=== PATIENT | female | born 1965 | race Caucasian/White ===

== ENCOUNTER 2016-07-30 12:46 | Emergency (ER) | payer OTHER ==
[~2016-07-30 12:46] MED LIST: ANT25 PO; ASPI81TA28 PO; BUPR-102 PO; GLAT1INJ INJ; GLC500 PO; HYDR-3785 PO; IBUP-1050 PO; LISI10TA PO; LORA-741 PO; ONDA4TAB46 PO; OXYC1TAB3 PO; ULT50 PO; ZNF4 PO
[2016-07-30 12:49] VITALS: TEMP 37.4; Ht 162.6 cm
[2016-07-30] MEDS ORDERED: OXYCODONE HCL IR 5 MG TAB (IMMEDIATE RELEASE) PO STA (13:15)
--- NOTE | 2016-07-30 14:00 | EMERGENCY ROOM VISIT NOTE ---
History First contact with patient: 13:03 Chief Complaint: FALL Stated Complaint: FELL DOWN STEPS, LEFT FOOT PAIN History of Present Illness The patient is a 50 year old female who presents to the Emergency Room via private vehicle with complaints of "fell down steps, left foot pain". The patient states that around noon time, she was at home carrying a basket of laundry down the steps to her basement. She states the basket was in front of her, and she actually knocked something off of the wall or step which she tripped over and then fell down the steps. She states that she struck her head and shoulder off of the wall and also hurt her foot and hip. She notes a headache that she rates as a 6/10, right lateral neck pain, right shoulder pain , right hip pain and left foot/ankle pain. Her tetanus is up-to-date. She does have associated nausea, but denies loss of consciousness or vomiting. Review of Systems A complete 10-point Review of Systems was discussed with the patient, with pertinent positives and negatives listed in the History of Present Illness. All remaining Review of Systems questions can be considered negative unless otherwise specified. Past Medical/Surgical History Medical Problems: (1) Anxiety (2) Chest pain (3) Diabetes mellitus (4) Dyslipidemia (5) h/o insulin resistance (6) History of migraine (7) History of palpitations (8) HTN (hypertension) (9) MS (multiple sclerosis) Surgical Problems: (1) 3 c-sections (2) H/O tubal ligation (3) Hx of cardiac cath Family History Diabetes mellitus FH: cancer FATHER Hypertension FATHER Pacemaker MATERNAL AUNT Social History Smoking Status: Former Smoker Alcohol Use: occasionally Marital Status: Housing Status: lives with family Occupation Status: disabled Current/Historical Medications Scheduled Aspirin (Aspirin Ec), 81 MG PO DAILY Bupropion Hcl (Smoking [place]eterre (Bupropion Hcl Sr), 150 MG PO DAILY Glatiramer Acetate (Copaxone), 40 MG INJ 3XWK Ibuprofen (Advil), 200-600 MG PO Q4H Lisinopril (Prinivil), 20 MG PO DAILY Metformin HCl (Metformin HCl), 500 MG PO DAILY Scheduled PRN Lorazepam (Ativan), 0.5 MG PO TID PRN for Anxiety Meclizine HCl (Meclizine HCl), 25 MG PO TID PRN for Dizziness or Vertigo Ondansetron Hcl (Zofran), 4 MG PO Q8 PRN for Nausea Oxycodone Ir (Roxicodone Ir), 1-2 TAB PO Q4H PRN for Severe Pain Tizanidine (Zanaflex ), 4 MG PO Q6 PRN for Muscle Spasms Tramadol HCl (Tramadol HCl), 50 MG PO Q6H PRN for Pain Allergies Coded Allergies: Hydromorphone (Verified Allergy, Severe, SHORTNESS OF BREATH, 04/11/16) Carbamazepine (Verified Allergy, Unknown, unknown, 04/11/16) INFO IS FROM [facility], PT DOES NOT REMEMBER Metformin (Verified Allergy, Unknown, UNKNOWN, 04/11/16) Terbutaline (Verified Allergy, Unknown, 04/11/16) Physical Exam Vital Signs Date Time Temp Pulse Resp B/P Pulse Ox O2 Delivery O2 Flow Rate FiO2 07/30/16 17:36 88 20 140/84 98 07/30/16 16:56 105 20 138/84 94 Room Air 07/30/16 15:25 110 20 153/105 95 Room Air 07/30/16 12:49 37.4 110 16 160/101 95 Room Air Physical Exam VITAL SIGNS - Vital signs and nursing notes were reviewed. Patient is afebrile , slightly hypertensive at 160/101, tachycardic rate of 110 bpm and is saturating well on room air 95%. GENERAL -50-year-old female appearing her stated age who is in no acute distress. Communicates well with provider and answers questions appropriately. SKIN - Without rashes. No breaks in the integument. HEAD - NC/AT. No evidence of trauma to the head. No step-off deformities. No raccoon eyes. Negative Arroyo sign. EYES - PERRL with EOMI bilaterally. Sclera anicteric. Palpebral conjunctiva pink and moist with no injection noted. EARS - No deformities of external structures noted on gross examination bilaterally. No pain elicited with palpation of the tragus bilaterally. External auditory canals without discharge or otorrhea. Tympanic membranes pearly beaulieu without retraction or bulging. No fluid or purulent material visualized behind the TM. Handle of malleus, umbo, cone of light, pars tensa/ flaccid all easily visualized. No hemotympanum. NOSE - Midline and without cyanosis. No epistaxis or purulent drainage noted. Septum midline without deviation or septal hematoma noted. MOUTH/OROPHARYNX - Without perioral cyanosis. Buccal mucosa pink and moist and without leukoplakia. Tongue midline with equal elevation of palate bilaterally. No tonsillar hypertrophy, erythema, or exudates noted. Fair dentition noted. NECK - Neck with FROM. Supple to palpation. No lymphadenopathy noted. No nuchal rigidity. There is right superior trapezius tenderness on palpation. No C-spine tenderness. There is no tenderness of the thoracic or lumbar spine. LUNGS - Chest wall symmetric without accessory muscle use, intercostals retractions, or central cyanosis. Normal vesicular breath sounds CTA B/L. No wheezes, rales, or rhonchi appreciated. CARDIAC - RRR with S1/S2. No murmur, rubs, or gallops appreciated. MUSCULOSKELETAL: There is tenderness to palpation overlying the right shoulder with range of motion but minimal at rest. There is also tenderness to palpation overlying the right bicep, right hip as well as left foot/ankle. No gross deformities to inspection. ABDOMEN - Abdominal contour without pulsations or visible masses.No tenderness, palpable masses, hepatosplenomegaly, or ascites noted. EXTREMITIES - No clubbing or peripheral cyanosis. No pretibial edema present. Neurovascular deficits. +5/5 strength noted in UE/LE bilaterally. NEUROLOGIC - Cranial nerves II through XII grossly intact. Sensory intact to light touch throughout. Patellar reflexes +2/4. PSYCH - A&Ox3 and cooperates fully with examiner. Pt is very pleasant and interacts well with examiner. Medical Decision & Procedures ER Provider Diagnostic Interpretation: [~ rep ct add3]] RIGHT HUMERUS MIN 2 VIEWS ROUTINE CLINICAL HISTORY: Right humeral pain status post trauma COMPARISON: None. DISCUSSION: 2 views reveal no fractures or dislocations. IMPRESSION: No fractures or dislocations identified. Electronically signed by: Pierce Dominguez M.D. 07/30/2016 4:11 PM Dictated Date/Time: 07/30/2016 4:10 PM LEFT ANKLE MIN 3 VIEWS ROUTINE CLINICAL HISTORY: Left ankle pain s/p fall trauma. Pain. COMPARISON: None. DISCUSSION: Tiny avulsion anterior superior talus. There is no evidence for soft tissue swelling. Heel spur. Ankle mortise is aligned anatomically. Medial and lateral malleolus are intact. IMPRESSION: Tiny avulsion anterior superior talus. 2. Heel spur. Electronically signed by: Joey Aguilera M.D. 07/30/2016 2:21 PM Dictated Date/Time: 07/30/2016 2:[address] SCAN OF THE CERVICAL SPINE CLINICAL HISTORY: Trauma. Fall. COMPARISON STUDY: CT scan of the neck dated 06/26/2014. TECHNIQUE: CT scan of the cervical spine is performed from the skull base to the upper thoracic spine. Images are reviewed in the axial, sagittal, and coronal planes. IV contrast was not administered for this examination. CT DOSE: Reported separately under the concurrently performed CT scan of the brain. FINDINGS: Skeletal structures: The skeletal structures are well mineralized. There is no evidence of fracture or subluxation involving the cervical spine. Vertebral body height and alignment are maintained. There is straightening of the cervical lordosis. The odontoid process and lateral masses are intact. The atlantoaxial articulation is preserved noting mild productive degenerative change. The spinous processes appear intact. There is complete fusion of the left facet joint at C2-C3. Intervertebral discs: The disc spaces are well maintained. Central canal: Widely patent. Soft tissues: The prevertebral and paraspinous soft tissues are within normal limits. Calvarium: The visualized calvarium at the skull base appears intact. Brain parenchyma: Partially visualized brain parenchyma the skull base is within normal limits. Sinuses and mastoids: The visualized paranasal sinuses are clear. The mastoid air cells are well pneumatized. Lung apices: Clear as visualized. IMPRESSION: There is no evidence of fracture or subluxation involving the cervical spine. Electronically signed by: Feliciano Gaspar M.D. 07/30/2016 2:02 PM Dictated Date/Time: 07/30/2016 2:00 PM LEFT FOOT MIN 3 VIEWS ROUTINE CLINICAL HISTORY: Left foot pain s/p fall trauma. Pain. COMPARISON: None. DISCUSSION: Tiny avulsion anterior superior talus. All remaining osseous structures are unremarkable. Heel spur is present. IMPRESSION: 1. Tiny avulsion anterior superior talus. 2. Heel spur. Electronically signed by: Joey Aguilera M.D. 07/30/2016 2:20 PM Dictated Date/Time: 07/30/2016 2:[address] SCAN OF THE BRAIN WITHOUT IV CONTRAST CLINICAL HISTORY: Fall. COMPARISON STUDY: MRI of the brain dated 06/20/2014. TECHNIQUE: Unenhanced axial CT scan of the brain is performed from the vertex to the skull base. CT DOSE: 1129.00 mGy.cm FINDINGS: Brain parenchyma: There are age-related involutional changes noting mild to moderate patchy foci of low-attenuation within the subcortical and periventricular white matter. This is similar to previous. There is no hemorrhage, mass effect, or evidence of acute territorial ischemia by CT criteria. Beaulieu-white matter is preserved. No extra-axial fluid collection is seen. Ventricles, sulci, cisterns: Prominent secondary to involutional change. Intracranial vasculature: Normal as visualized. Calvarium: There is no depressed calvarial fracture. Sinuses and mastoids: The visualized paranasal sinuses are clear. The mastoid air cells are well pneumatized. Orbits: The bony orbits are grossly intact. IMPRESSION: No acute intracranial abnormality. Electronically signed by: Feliciano Gaspar M.D. 07/30/2016 2:00 PM Dictated Date/Time: 07/30/2016 1:58 PM RIGHT HIP UNILATERAL 2 VIEWS CLINICAL HISTORY: Right hip pain s/p fall Right trauma. Pain. COMPARISON: None. DISCUSSION: Moderate degenerative narrowing right hip joint space. No evidence for fracture or acetabular protrusion. No acute bony abnormality. There is no evidence for soft tissue swelling. IMPRESSION: Moderate degenerative change. No acute bony abnormality. Electronically signed by: Joey Aguilera M.D. 07/30/2016 2:18 PM Dictated Date/Time: 07/30/2016 2:18 PM RIGHT SHOULDER 3 VIEWS HISTORY: Right shoulder pain s/p fall Right COMPARISON: None. FINDINGS: There is no fracture or dislocation. Punctate calcification at the distal supraspinatus tendon consistent with calcific tendinitis. Mild degenerative changes at the acromioclavicular and glenohumeral joint. The right clavicle is intact. No radiopaque foreign bodies. IMPRESSION: Mild degenerative changes within the right shoulder. No fractures. Electronically signed by: Dedrick Ramsey M.D. 07/30/2016 2:21 PM Dictated Date/Time: 07/30/2016 2:17 PM Medications Administered Medications (Trade) Dose Ordered Sig/Haritha Route Start Time Stop Time Status Last Admin Dose Admin Oxycodone HCl (Roxicodone Immediate Rel Tab) 10 mg NOW STAT PO 07/30/16 13:15 07/30/16 13:20 DC 07/30/16 13:26 10 MG Acetaminophen (Tylenol Tab) 500 mg NOW STAT PO 07/30/16 16:44 07/30/16 16:45 DC 07/30/16 16:54 500 MG Ondansetron HCl (ZOFRAN ODT 4MG Home Pack) 1 homepack STK-MED ONCE .ROUTE 07/30/16 17:26 07/30/16 17:29 DC 07/30/16 17:30 1 HOMEPACK Ondansetron HCl (Zofran Odt) 4 mg STK-MED ONCE .ROUTE 07/30/16 17:26 07/30/16 17:30 DC 07/30/16 17:26 4 MG Medical Decision Patient was seen and evaluated as above. After obtaining a thorough history and physical examination it was apparent the patient had suffered a fall down steps and was experiencing a headache, neck pain, right shoulder pain, hip pain and foot/ankle pain. For this reason imaging was obtained of these regions. Benefits versus risk was discussed to include radiation exposure. The decision was made to scan. She was given ice packs, and OxyIR for pain. She is reevaluated to be feeling warm after treatment with the OxyIR. CT of the head reveals chronic change was was discussed with the patient, neck unremarkable for acute process, shoulder, hip, were essentially unremarkable for acute process. Calcific tendinitis noted. There was a small talar avulsion of the left foot. She was educated upon FINDINGS. She was fitted with a gel ankle splint, given crutches but notes that she had extreme right shoulder pain. I informed her that using only one crutch is a fall risk, and having a right sling is also a risk to use with a crutch. She did ask for a walker, and this was tried but also is very difficult with the right shoulder. She then elected use a wheelchair, and notes that she has one that she can use at home from her family. She did have additional pain extending into the distal humerus of the right arm therefore radiograph was obtained and this was also negative for acute process. The patient at this time and believe is experiencing a concussion, right shoulder calcific tendinitis/acute injury that may be ligamentous or muscular in nature, as well as a left talar avulsion. She was provided the number to follow-up with orthopedic iverson, and also a few others in case she was unable to get into them secondary to insurance or time. She was educated upon management, was given an arm sling, gel ankle splint and is to use a wheelchair, had questions answered prior to discharge, and was discharged home in good condition. Prior to departure the patient did request to have soda, and she noted that she felt warm. Her temperature was repeated and it was 36.9. This is normal. She denies any chest pain or shortness of breath. She was then given a cold soda at her request and then vomited. She was given somewhat Zofran as well as a home pack. She noted she felt better after vomiting. She was discharged home in good condition. She was also given Tylenol prior to departure. In the evaluation and treatment of this patient, the following differential diagnoses were considered: Concussion, Contrecoup Injury, Brain Tumor, Depression, Encephalitis, Hypothyroidism, Meningitis, CVA, TIA, Migraine, Cluster Headache, Intracranial Abnormality, Intracranial Hemorrhage, Subdural Hematoma, Subarachnoid Hemorrhage, Hydrocephalus, Shoulder Contusion, Shoulder Fracture, Shoulder Dislocation, Thoracic Outlet Syndrome, Adhesive Capsulitis, Rotator Cuff Tear, Proximal Clavicle Head Fracture, Apical Pneumonia, Pneumothorax, Hemothorax, or TB, Lisfranc Fracture, Talus Fracture, Tarsal Fracture, Foot Sprain, among others. Impression Primary Impression: Fall Additional Impressions: Closed head injury Shoulder pain, left Avulsion fracture of talus Calcific tendonitis of right shoulder Departure Information Dispostion Home / Self-Care Condition GOOD Referrals Tarun Gill III, M.D. (PCP) Cristopher Trujillo D.O. Sherbondy, Paul S., M.D. Suhey, Paul V., D.O. Patient Instructions My [facility] Additional Instructions You have been treated in the Emergency Department for a Closed Head Injury. You have received pain medicine in the emergency department which impairs your ability to operate a vehicle. It is illegal for you to drive after receiving these medicines. For pain control, you can use the following [id number] medicines (if >12 yo): - Regular strength (325mg/tab) Tylenol (acetaminophen) 2 tabs every 4-6 hours as needed. Do not exceed 12 tablets in a 24 hour period. Avoid taking more than 4 grams (4000 mg) of Tylenol per day. This includes any other sources of acetaminophen you may take on a regular basis. - Regular strength (200 mg/tab) Advil (ibuprofen) 1-2 tabs every 4-6 hours as needed. Do not exceed a dose of 3200 mg per day. You should relax in a quiet, dark place for the rest of the day. Avoid any possible triggers including: cigarette smoke, caffeine, nicotine, chocolate, wine, beer, loud noises or music, or bright lights. You should schedule a follow-up appointment in 2-3 days with your Primary Care Provider or established Neurologist for further evaluation and treatment of your Headache. Return to the Emergency Department if your current symptoms worsen despite treatment course outlined above, or if you develop any of the following symptoms : intractable pain despite aforementioned treatment course, visual disturbances , loss of vision, unilateral weakness or facial drooping, slurring of speech, loss of coordination, or loss of consciousness. SHOULDER: You have been treated in the Emergency Department for Shoulder Pain. If this is a recent injury (<24 hrs), ice can be applied to the area of pain for the first 3 days to help decrease pain and inflammation. You have been provided the number for an Orthopaedic Surgeon. You should call this number as soon as possible to establish a follow-up visit from today's Emergency Department visit. Keep the shoulder brace/sling in place until evaluated by Orthopedics. Continue to perform range of motion exercises several times per day to help prevent the development of a "frozen shoulder". (Dr. Hernandez) Return to the Emergency Department if your current symptoms worsen despite treatment course outlined above, or if you develop any of the following symptoms : intractable pain despite aforementioned treatment course or new onset of numbness or tingling of the arm. FOOT/ANKLE: You have been treated in the Emergency Department for a left snall talus avulsion. You have been provided the number for an Orthopaedic Surgeon. You should call this number as soon as possible to establish a follow-up visit from today's Emergency Department visit. (DR. HERNANDEZ) Keep the ankle brace/splint in place until cleared by Orthopedics. Use the wheel chair to keep ALL weight off of the ankle until weight bearing is tolerable. Return to the Emergency Department if your current symptoms worsen despite treatment course outlined above, or if you develop any of the following symptoms : intractable pain despite aforementioned treatment course or new onset of numbness or tingling of the foot. Please return to the emergency department with any new/concerning symptoms. Problem Qualifiers
--- NOTE | 2016-07-30 14:04 | DIAGNOSTIC IMAGING REPORT ---
CT SCAN OF THE CERVICAL SPINE CLINICAL HISTORY: Trauma. Fall. COMPARISON STUDY: CT scan of the neck dated 06/26/2014. TECHNIQUE: CT scan of the cervical spine is performed from the skull base to the upper thoracic spine. Images are reviewed in the axial, sagittal, and coronal planes. IV contrast was not administered for this examination. CT DOSE: Reported separately under the concurrently performed CT scan of the brain. FINDINGS: Skeletal structures: The skeletal structures are well mineralized. There is no evidence of fracture or subluxation involving the cervical spine. Vertebral body height and alignment are maintained. There is straightening of the cervical lordosis. The odontoid process and lateral masses are intact. The atlantoaxial articulation is preserved noting mild productive degenerative change. The spinous processes appear intact. There is complete fusion of the left facet joint at C2-C3. Intervertebral discs: The disc spaces are well maintained. Central canal: Widely patent. Soft tissues: The prevertebral and paraspinous soft tissues are within normal limits. Calvarium: The visualized calvarium at the skull base appears intact. Brain parenchyma: Partially visualized brain parenchyma the skull base is within normal limits. Sinuses and mastoids: The visualized paranasal sinuses are clear. The mastoid air cells are well pneumatized. Lung apices: Clear as visualized. IMPRESSION: There is no evidence of fracture or subluxation involving the cervical spine. Electronically signed by: Feliciano Gaspar M.D. 07/30/2016 2:02 PM Dictated Date/Time: 07/30/2016 2:00 PM
--- NOTE | 2016-07-30 14:20 | DIAGNOSTIC IMAGING REPORT ---
RIGHT HIP UNILATERAL 2 VIEWS CLINICAL HISTORY: Right hip pain s/p fall Right trauma. Pain. COMPARISON: None. DISCUSSION: Moderate degenerative narrowing right hip joint space. No evidence for fracture or acetabular protrusion. No acute bony abnormality. There is no evidence for soft tissue swelling. IMPRESSION: Moderate degenerative change. No acute bony abnormality. Electronically signed by: Joey Aguilera M.D. 07/30/2016 2:18 PM Dictated Date/Time: 07/30/2016 2:18 PM
--- NOTE | 2016-07-30 14:21 | DIAGNOSTIC IMAGING REPORT ---
LEFT FOOT MIN 3 VIEWS ROUTINE CLINICAL HISTORY: Left foot pain s/p fall trauma. Pain. COMPARISON: None. DISCUSSION: Tiny avulsion anterior superior talus. All remaining osseous structures are unremarkable. Heel spur is present. IMPRESSION: 1. Tiny avulsion anterior superior talus. 2. Heel spur. Electronically signed by: Joey Aguilera M.D. 07/30/2016 2:20 PM Dictated Date/Time: 07/30/2016 2:19 PM
--- NOTE | 2016-07-30 14:22 | DIAGNOSTIC IMAGING REPORT ---
RIGHT SHOULDER 3 VIEWS HISTORY: Right shoulder pain s/p fall Right COMPARISON: None. FINDINGS: There is no fracture or dislocation. Punctate calcification at the distal supraspinatus tendon consistent with calcific tendinitis. Mild degenerative changes at the acromioclavicular and glenohumeral joint. The right clavicle is intact. No radiopaque foreign bodies. IMPRESSION: Mild degenerative changes within the right shoulder. No fractures. Electronically signed by: Dedrick Ramsey M.D. 07/30/2016 2:21 PM Dictated Date/Time: 07/30/2016 2:17 PM
--- NOTE | 2016-07-30 14:23 | DIAGNOSTIC IMAGING REPORT ---
LEFT ANKLE MIN 3 VIEWS ROUTINE CLINICAL HISTORY: Left ankle pain s/p fall trauma. Pain. COMPARISON: None. DISCUSSION: Tiny avulsion anterior superior talus. There is no evidence for soft tissue swelling. Heel spur. Ankle mortise is aligned anatomically. Medial and lateral malleolus are intact. IMPRESSION: Tiny avulsion anterior superior talus. 2. Heel spur. Electronically signed by: Joey Aguilera M.D. 07/30/2016 2:21 PM Dictated Date/Time: 07/30/2016 2:20 PM
--- NOTE | 2016-07-30 16:12 | DIAGNOSTIC IMAGING REPORT ---
RIGHT HUMERUS MIN 2 VIEWS ROUTINE CLINICAL HISTORY: Right humeral pain status post trauma COMPARISON: None. DISCUSSION: 2 views reveal no fractures or dislocations. IMPRESSION: No fractures or dislocations identified. Electronically signed by: Pierce Dominguez M.D. 07/30/2016 4:11 PM Dictated Date/Time: 07/30/2016 4:10 PM
[2016-07-30] MEDS ORDERED: ACETAMINOPHEN 500 MG TAB PO STA (16:44)
[2016-07-30] MEDS ORDERED: ONDANSETRON HOME PACK 4MG OD TAB ONE (17:26)
[2016-07-30] MEDS ORDERED: ONDANSETRON 4MG OD TAB ONE (17:26)
[2016-07-30] MEDS ORDERED: ONDANSETRON 4MG OD TAB PO STA (17:27)
[2016-07-30] MEDS ORDERED: ONDANSETRON HOME PACK 4MG OD TAB PO STA (17:27)
[2016-07-30 17:36] VITALS: BP 140/84; PULSE 88; O2SAT 98
== END 2016-07-30 17:39 | disposition home or self-care (01) ==
LOC: C.EDB 12:48 → C.EDD 17:39
DX: S09.90XA Unspecified injury of head, initial encounter (principal); M25.512 Pain in left shoulder; S92.152A Displaced avulsion fracture (chip fracture) of left talus, initial encounter for closed fracture; M75.31 Calcific tendinitis of right shoulder; W10.9XXA Fall (on) (from) unspecified stairs and steps, initial encounter; Y93.E2 Activity, laundry; Y99.8 Other external cause status; Y92.008 Other place in unspecified non-institutional (private) residence as the place of occurrence of the external cause; E11.9 Type 2 diabetes mellitus without complications; I10 Essential (primary) hypertension; G35 Multiple sclerosis; Z98.891 History of uterine scar from previous surgery; Z98.890 Other specified postprocedural states; Z98.51 Tubal ligation status; Z83.3 Family history of diabetes mellitus; Z82.49 Family history of ischemic heart disease and other diseases of the circulatory system; Z79.82 Long term (current) use of aspirin; Z79.84 Long term (current) use of oral hypoglycemic drugs; Z79.899 Other long term (current) drug therapy

== ENCOUNTER 2016-11-06 19:11 | Emergency (ER) | payer OTHER ==
[~2016-11-06] VITALS: Ht 160 cm; Wt 101.3 kg
[~2016-11-06 19:11] MED LIST changes: -HYDR-3785 PO
[2016-11-06 19:16] VITALS: TEMP 36.8; Ht 160 cm; Wt 101.3 kg
[2016-11-06] MEDS ORDERED: PROCHLORPERAZINE 5 MG/ML 2 ML VIAL IV STA (19:46)
[2016-11-06] MEDS ORDERED: SODIUM CHLORIDE 0.9% 1000ML 1,000 ML IV STA (19:46)
[2016-11-06] MEDS ORDERED: DiphenhydrAMINE HCL 50 MG/ML VIAL IV STA (19:46)
--- NOTE | 2016-11-06 19:51 | EMERGENCY ROOM VISIT NOTE ---
History First contact with patient: 19:35 Chief Complaint: HEADACHE Stated Complaint: HEADACHE, SICK IN STOMACH, LOW BACK PAIN History of Present Illness The patient is a 51 year old female who presents to the Emergency Room with complaints of headache. The patient has a history of multiple sclerosis. She also has a history of migraines. She states that she had right shoulder surgery last week. She states that she has had a headache for the last 3 days. She states that she vomited once. She states she also has low back pain. She denies any numbness, tingling, weakness in the extremities. She rates her discomfort an 8/10. She denies any fevers or chills. She denies any pain in her chest or trouble breathing. She denies any abdominal pain. She denies any loss of bowel or bladder control. She denies any urinary symptoms. Review of Systems A 10 system review of systems was completed with positives and pertinent negatives listed in the HPI. Past Medical/Surgical History Medical Problems: (1) Anxiety (2) Chest pain (3) Diabetes mellitus (4) Dyslipidemia (5) h/o insulin resistance (6) History of migraine (7) History of palpitations (8) HTN (hypertension) (9) MS (multiple sclerosis) Surgical Problems: (1) 3 c-sections (2) H/O tubal ligation (3) Hx of cardiac cath Family History Diabetes mellitus FH: cancer FATHER Hypertension FATHER Pacemaker MATERNAL AUNT Social History Smoking Status: Current Every Day Smoker Alcohol Use: occasionally Marital Status: Housing Status: lives with family Occupation Status: disabled Current/Historical Medications Scheduled Aspirin (Aspirin Ec), 81 MG PO DAILY Bupropion Hcl (Smoking [place] (Bupropion Hcl Sr), 150 MG PO DAILY Glatiramer Acetate (Copaxone), 40 MG INJ 3XWK Hydrochlorothiazide (Hydrochlorothiazide), 1 TAB PO DAILY Lisinopril (Prinivil), 20 MG PO DAILY Metformin HCl (Metformin HCl), 500 MG PO DAILY Scheduled PRN Hydrocodone/Acetaminophen 5MG/325MG ([place] 5MG/325MG), 1-2 TABLET PO Q4 PRN for Pain Hydroxyzine HCl (Hydroxyzine HCl), 25 MG PO Q6 PRN for Itching Ibuprofen (Advil), 200-600 MG PO Q4H PRN for Headache or Pain Lorazepam (Ativan), 0.5 MG PO TID PRN for Anxiety Meclizine HCl (Meclizine HCl), 25 MG PO TID PRN for Dizziness or Vertigo Ondansetron Hcl (Zofran), 4 MG PO Q8 PRN for Nausea Tizanidine (Zanaflex ), 4 MG PO Q6 PRN for Muscle Spasms Tramadol HCl (Tramadol HCl), 50 MG PO Q6H PRN for Pain Allergies Coded Allergies: Hydromorphone (Verified Allergy, Severe, SHORTNESS OF BREATH, 04/11/16) Carbamazepine (Verified Allergy, Unknown, unknown, 04/11/16) [place] [facility] [place]EM[place] Metformin (Verified Allergy, Unknown, UNKNOWN, 04/11/16) Terbutaline (Verified Allergy, Unknown, 04/11/16) Physical Exam Vital Signs Date Time Temp Pulse Resp B/P (MAP) Pulse Ox O2 Delivery O2 Flow Rate FiO2 11/06/16 22:33 76 18 149/84 96 11/06/16 20:49 70 18 154/89 95 Room Air 11/06/16 19:16 36.8 75 16 158/94 95 Room Air Physical Exam VITALS: Vitals are noted on the nurse's note and reviewed by myself. Vital signs stable. The patient is afebrile. She is not tachycardic or hypotensive. GENERAL: This is a 51-year-old female, in no acute distress, nondiaphoretic, well-developed well-nourished. SKIN: The skin was without rashes, erythema, edema, or bruising. There is no tenting of the skin. Capillary reflex less than 2 seconds. HEAD: Normocephalic atraumatic. EARS: External auditory canals clear, tympanic membranes pearly beaulieu without erythema or effusion bilaterally. EYES: Pupils equal round and reactive to light and accommodation. Conjunctivae without injection, sclerae without icterus. Extraocular movements intact. NOSE: Patent, turbinates without inflammation or discharge. MOUTH: Mucous membranes moist. Tonsils are not enlarged. Pharynx without erythema or exudate. Uvula midline. Airway patent. Tongue does not deviate. NECK: Supple without nuchal rigidity. No lymphadenopathy. No thyromegaly. Cervical spine is nontender. No JVD. HEART: Regular rate and rhythm without murmurs gallops or rubs. LUNGS: Clear to auscultation bilaterally without wheezes, rales or rhonchi. No retractions or accessory muscle use. ABDOMEN: Positive bowel sounds x 4. Soft, nontender, without masses or organomegaly. MUSCULOSKELETAL: No muscle atrophy, erythema, or edema noted. Full range of motion without joint tenderness in all extremities. There is mild tenderness to palpation to the lumbar spine. Normal gait. Strength 5/5 throughout. NEURO: Patient was alert and oriented to person place and time. Normal sensation to light and sharp touch. Deep tendon reflexes 2+ in the lower extremity is bilaterally. No focal neurological deficits. Medical Decision & Procedures ER Provider Diagnostic Interpretation: CT OF THE HEAD WITHOUT CONTRAST CLINICAL HISTORY: Headache and vomiting. COMPARISON STUDY: Head CT July 30, 2016. CT DOSE: 614.27 mGy.cm TECHNIQUE: Helical axial images of the head were obtained without IV contrast. Automated exposure control was utilized for the study. FINDINGS: No acute intracranial hemorrhage, midline shift or mass effect is present. Ventricular system is normal. Basilar cisterns are patent. There are no extra-axial collections. Beaulieu-white differentiation is maintained. There are no findings to suggest acute dural sinus thrombosis or acute territorial infarct. Scattered white matter hypodensities are similar to prior exam of July 30, 2016. There are no calvarial abnormalities. There is minimal mucosal thickening of the sinuses. Mastoid air cells are clear. IMPRESSION: No acute intracranial findings. [~ rep ct add3]] CHEST ONE VIEW PORTABLE CLINICAL HISTORY: Headache and vomiting. COMPARISON STUDY: Chest CT July 09, 2015. FINDINGS: Lung volumes are normal. There is no pneumothorax or pleural effusion. There is no evidence of pulmonary edema. Cardiomediastinal silhouette is normal. The appearance of the chest is unchanged. IMPRESSION: No acute cardiopulmonary findings. Laboratory Results 11/06/16 20:34 Red Blood Count 4.45, Mean Corpuscular Volume 84.0, Mean Corpuscular Hemoglobin 29.9, Mean Corpuscular Hemoglobin Concent 35.6, Mean Platelet Volume 9.4, Neutrophils (%) (Auto) 63.8, Lymphocytes (%) (Auto) 23.0, Monocytes (%) (Auto) 4.9, Eosinophils (%) (Auto) 7.7, Basophils (%) (Auto) 0.2, Neutrophils # (Auto) 5.33, Lymphocytes # (Auto) 1.92, Monocytes # (Auto) 0.41, Eosinophils # (Auto) 0.64, Basophils # (Auto) 0.02 11/06/16 20:34 Test 11/06/16 20:03 11/06/16 20:34 Urine Color YELLOW Urine Appearance CLEAR (CLEAR) Urine pH 5.5 (4.5-7.5) Urine Specific [place] 1.024 (1.000-1.030) Urine Protein NEG (NEG) Urine Glucose (UA) NEG (NEG) Urine Ketones NEG (NEG) Urine Occult Blood 3+ (NEG) Urine Nitrite NEG (NEG) Urine Bilirubin NEG (NEG) Urine Urobilinogen NEG (NEG) Urine Leukocyte Esterase NEG (NEG) Urine WBC (Auto) 1-5 /hpf (0-5) Urine RBC (Auto) 5-10 /hpf (0-4) Urine Hyaline Casts (Auto) 1-5 /lpf (0-5) Urine Epithelial Cells (Auto) >30 /lpf (0-5) Urine Bacteria (Auto) NEG (NEG) Urine Yeast (Auto) (NONE PRSENT) White Blood Count 8.35 K/uL (4.8-10.8) Red Blood Count 4.45 M/uL (4.2-5.4) Hemoglobin 13.3 g/dL (12.0-16.0) Hematocrit 37.4 % (37-47) Mean Corpuscular Volume 84.0 fL (80-100) Mean Corpuscular Hemoglobin 29.9 pg (25-34) Mean Corpuscular Hemoglobin Concent 35.6 g/dl (32-36) Platelet Count 300 K/uL (130-400) Mean Platelet Volume 9.4 fL (7.4-10.4) Neutrophils (%) (Auto) 63.8 % Lymphocytes (%) (Auto) 23.0 % Monocytes (%) (Auto) 4.9 % Eosinophils (%) (Auto) 7.7 % Basophils (%) (Auto) 0.2 % Neutrophils # (Auto) 5.33 K/uL (1.4-6.5) Lymphocytes # (Auto) 1.92 K/uL (1.2-3.4) Monocytes # (Auto) 0.41 K/uL (0.11-0.59) Eosinophils # (Auto) 0.64 K/uL (0-0.5) Basophils # (Auto) 0.02 K/uL (0-0.2) RDW Standard Deviation 42.1 fL (36.4-46.3) RDW Coefficient of Variation 13.8 % (11.5-14.5) Immature Granulocyte % (Auto) 0.4 % Immature Granulocyte # (Auto) 0.03 K/uL (0.00-0.02) Prothrombin Time 10.3 SECONDS (9.0-12.0) Prothromb Time International Ratio 1.0 (0.9-1.1) Activated Partial Thromboplast Time 28.7 SECONDS (21.0-31.0) Partial Thromboplastin Ratio 1.1 Anion Gap 9.0 mmol/L (3-11) Est Creatinine Clear Calc Drug Dose 105.0 ml/min Estimated GFR () 112.4 Estimated GFR (Non- 97.0 BUN/Creatinine Ratio 13.3 (10-20) Calcium Level 9.2 mg/dl (8.5-10.1) Total Bilirubin 0.4 mg/dl (0.2-1) Aspartate Amino Transf (AST/SGOT) 16 U/L (15-37) Alanine Aminotransferase (ALT/SGPT) 18 U/L (12-78) Alkaline Phosphatase 114 U/L (45-117) Total Protein 7.7 gm/dl (6.4-8.2) Albumin 3.7 gm/dl (3.4-5.0) Globulin 4.0 gm/dl (2.5-4.0) Albumin/Globulin Ratio 0.9 (0.9-2) Medications Administered Medications (Trade) Dose Ordered Sig/Haritha Route Start Time Stop Time Status Last Admin Dose Admin Sodium Chloride 1,000 ml @ 999 mls/hr Q1H1M STAT IV 11/06/16 19:46 11/06/16 20:46 DC 11/06/16 20:45 999 MLS/HR Prochlorperazine Edisylate (Compazine Inj) 10 mg NOW STAT IV 11/06/16 19:46 11/06/16 19:48 DC 11/06/16 20:48 10 MG Diphenhydramine HCl (Benadryl Inj) 25 mg NOW STAT IV 11/06/16 19:46 11/06/16 19:48 DC 11/06/16 20:46 25 MG Ketorolac Tromethamine (Toradol Inj) 30 mg NOW STAT IV 11/06/16 21:23 11/06/16 21:24 DC 11/06/16 21:27 30 MG ED Course The patient was seen and examined. Previous visits were reviewed. The patient does not have fever or leukocytosis. She does not have any significant electrolyte abnormalities. INR is 1.0. Urinalysis reveals hematuria. CT scan of the brain does not reveal any acute abnormality The patient was hydrated with normal saline She was given 10 mg IV Compazine, 25 mg IV Benadryl and 30 mg IV Toradol. The patient's pain markedly improved and she felt well enough to be discharged home. The patient presents to the emergency department with headache and low back pain. The patient's low back pain seems to be musculoskeletal in nature. She does not have any neurologic deficit on exam or by history. The pain is worse with movement. She declined to have any narcotics. Her pain was improved with Toradol. The patient also presents to the emergency department with a headache. She has a history of migraines but states this feels different. She underwent the above evaluation. She does not have a fever, leukocytosis or nuchal rigidity to suggest meningismus. However given the history of MS, headaches and the fact that this feels different, I did discuss the risks benefits and alternatives of a lumbar puncture. The patient refuses lumbar puncture. She is feeling much better and once to be discharged home. She should follow-up with orthopedics as scheduled. She should follow-up with her family doctor and neurologist for further evaluation and management. She should return to the ER with worsening symptoms. The patient was also seen and examined by who agrees with the assessment and treatment plan. Medical Decision The differential diagnosis includes: head or neck trauma, cerebrovascular disorders, intracranial lesions, infection,transient ischemic attack (TIA), CVA , seizure, syncope, intracranial mass, intracranial bleeding and vestibular disorders,Lumbar strain, degenerative disc disease, spondylolisthesis, herniated disc, spinal stenosis, osteoporosis, fracture, cauda equina syndrome, neoplasm, infection, inflammatory arthritis, among others. Impression Primary Impression: Headache Additional Impression: Low back pain Departure Information Dispostion Home / Self-Care Condition GOOD Referrals No Doctor, Assigned (PCP) Brice Alcala M.D. Katherine Holloway M.D. Patient Instructions ED Headache Migraine, ED Low Back Pain Injury, [facility] Additional Instructions Rest Follow-up with orthopedics as scheduled Follow-up with neurology for further evaluation and management Return with any worsening symptoms, numbness, tingling, weakness, loss of bowel or bladder control Problem Qualifiers Primary Impression: Headache
[2016-11-06] MEDS ORDERED: ATR25 PO (20:11)
[2016-11-06] MEDS ORDERED: HYDR-5688 PO (20:11)
[2016-11-06] MEDS ORDERED: HYDR25TA5 PO (20:11)
--- NOTE | 2016-11-06 20:21 | DIAGNOSTIC IMAGING REPORT ---
CT OF THE HEAD WITHOUT CONTRAST CLINICAL HISTORY: Headache and vomiting. COMPARISON STUDY: Head CT July 30, 2016. CT DOSE: 614.27 mGy.cm TECHNIQUE: Helical axial images of the head were obtained without IV contrast. Automated exposure control was utilized for the study. FINDINGS: No acute intracranial hemorrhage, midline shift or mass effect is present. Ventricular system is normal. Basilar cisterns are patent. There are no extra-axial collections. Beaulieu-white differentiation is maintained. There are no findings to suggest acute dural sinus thrombosis or acute territorial infarct. Scattered white matter hypodensities are similar to prior exam of July 30, 2016. There are no calvarial abnormalities. There is minimal mucosal thickening of the sinuses. Mastoid air cells are clear. IMPRESSION: No acute intracranial findings. Electronically signed by: Torres Neves M.D. 11/06/2016 8:19 PM Dictated Date/Time: 11/06/2016 8:17 PM
[2016-11-06 20:29] LABS: URINE APPEARANCE CLEAR (CLEAR); URINE BILIRUBIN NEG (NEG); URINE COLOR YELLOW; URINE EPITHELIAL CELL AUTO >30 /lpf (0-5); URINE NITRITE NEG (NEG); URINE PH 5.5 (4.5-7.5); URINE SPECIFIC GRAVITY 1.024 (1.000-1.030); UROBILINOGEN NEG (NEG); ZZUR CULT IF INDIC CLEAN CATCH YES
--- NOTE | 2016-11-06 20:31 | DIAGNOSTIC IMAGING REPORT ---
CHEST ONE VIEW PORTABLE CLINICAL HISTORY: Headache and vomiting. COMPARISON STUDY: Chest CT July 09, 2015. FINDINGS: Lung volumes are normal. There is no pneumothorax or pleural effusion. There is no evidence of pulmonary edema. Cardiomediastinal silhouette is normal. The appearance of the chest is unchanged. IMPRESSION: No acute cardiopulmonary findings. Electronically signed by: Torres Neves M.D. 11/06/2016 8:29 PM Dictated Date/Time: 11/06/2016 8:29 PM
[2016-11-06 20:32] LABS: MANUAL MICROSCOPIC REQUIRED? NO; REVIEW REQ? YES
[2016-11-06 20:48] LABS: BASO % 0.2 %; BASO ABS # 0.02 K/uL (0-0.2); COMPLETE YES; EOS % 7.7 %; HEMATOCRIT 37.4 % (37-47); IG% 0.4 %; LYMPH ABS # 1.92 K/uL (1.2-3.4); MEAN CORPUSCULAR HEMOGLOBIN 29.9 pg (25-34); MEAN CORPUSCULAR HGB CONC 35.6 g/dl (32-36); MEAN PLATELET VOLUME 9.4 fL (7.4-10.4); MONO % 4.9 %; NEUT % 63.8 %; PLATELET COUNT 300 K/uL (130-400); RED BLOOD COUNT 4.45 M/uL (4.2-5.4); WHITE BLOOD COUNT 8.35 K/uL (4.8-10.8)
[2016-11-06 20:56] LABS: PARTIAL THROMBOPLASTIN RATIO 1.1; PROTHROMBIN TIME (PATIENT) 10.3 SECONDS (9.0-12.0)
[2016-11-06] MEDS ORDERED: KETOROLAC TROMETHAMINE 30 MG/ML VIAL IV STA (21:23)
[2016-11-06 22:06] LABS: POTASSIUM 3.7 mmol/L (3.5-5.1)
[2016-11-06 22:33] VITALS: BP 149/84; PULSE 76; O2SAT 96
[2016-11-06 23:11] LABS: ALB/GLOB RATIO 0.9 (0.9-2); BUN/CREATININE RATIO 13.3 (10-20); CALCIUM 9.2 mg/dl (8.5-10.1); CREATININE 0.72 mg/dl (0.60-1.20)
[2017-02-19] MEDS ORDERED: LISI-729 PO (13:30)
== END 2016-11-06 22:40 | disposition home or self-care (01) ==
LOC: C.EDB 19:12 → C.EDC 22:40
DX: R51 Headache (principal); M54.5 Low back pain; F41.9 Anxiety disorder, unspecified; E11.9 Type 2 diabetes mellitus without complications; E78.5 Hyperlipidemia, unspecified; I10 Essential (primary) hypertension; G35 Multiple sclerosis; Z83.3 Family history of diabetes mellitus; Z82.49 Family history of ischemic heart disease and other diseases of the circulatory system; F17.200 Nicotine dependence, unspecified, uncomplicated; Z79.82 Long term (current) use of aspirin

== ENCOUNTER → 2017-01-26 | Outpatient (CLI) | payer OTHER ==
[~2017-01-26] MED LIST changes: +ATR25 PO; +HYDR-5688 PO; +HYDR25TA5 PO; +LISI-729 PO; -OXYC1TAB3 PO
[2017-01-26 17:28] LABS: HEMATOCRIT 37.5 % (37-47); MEAN CELL VOLUME 85.8 fL (80-100); MEAN CORPUSCULAR HEMOGLOBIN 29.3 pg (25-34); MEAN CORPUSCULAR HGB CONC 34.1 g/dl (32-36); MEAN PLATELET VOLUME 10.6 fL (7.4-10.4); PLATELET COUNT 287 K/uL (130-400); RED BLOOD COUNT 4.37 M/uL (4.2-5.4); WHITE BLOOD COUNT 6.51 K/uL (4.8-10.8)
== END | disposition home or self-care (01) ==
LOC: C.LAB1850 15:52
PROVIDERS: ATTEND Obstetrics & Gynecology
DX: N93.9 Abnormal uterine and vaginal bleeding, unspecified (principal)

== ENCOUNTER → 2017-01-26 | Outpatient (CLI) | payer OTHER ==
[~2017-01-26] MED LIST changes: -LISI-729 PO
== END | disposition home or self-care (01) ==
LOC: C.PAPS 08:30
PROVIDERS: ATTEND Obstetrics & Gynecology
DX: Z12.4 Encounter for screening for malignant neoplasm of cervix (principal)

== ENCOUNTER → 2017-03-04 | Outpatient (CLI) | payer OTHER ==
[~2017-03-04] MED LIST changes: -BUPR-102 PO; -GLC500 PO; +LISI-729 PO; -LISI10TA PO
[2017-03-04 13:16] LABS: MEAN CELL VOLUME 85.9 fL (80-100); MEAN CORPUSCULAR HEMOGLOBIN 28.6 pg (25-34); MEAN CORPUSCULAR HGB CONC 33.3 g/dl (32-36); MEAN PLATELET VOLUME 10.2 fL (7.4-10.4); PLATELET COUNT 348 K/uL (130-400); RED BLOOD COUNT 4.54 M/uL (4.2-5.4); WHITE BLOOD COUNT 6.92 K/uL (4.8-10.8)
== END | disposition home or self-care (01) ==
LOC: C.LAB1850 12:18
PROVIDERS: ATTEND Obstetrics & Gynecology
DX: Z01.810 Encounter for preprocedural cardiovascular examination (principal); Z01.818 Encounter for other preprocedural examination; Z01.812 Encounter for preprocedural laboratory examination

== ENCOUNTER → 2017-03-09 | Day surgery (SDC) | payer OTHER ==
[2017-02-19 13:30] VITALS: Ht 160 cm; Wt 94.1 kg
--- NOTE | 2017-03-08 09:48 | HISTORY & PHYSICAL EXAMINATION ---
DATE OF ADMISSION: 03/09/2017 The patient is for surgery on 03/09/2017. CHIEF COMPLAINT: Abnormal and heavy vaginal bleeding. HISTORY OF PRESENT ILLNESS: The patient is a 51-year-old white female 5, para 2-1-2-3, who has had recurrent dysfunctional uterine bleeding and heavy menses over the past 1-2 years. She has been treated with progestins, but the abnormal bleeding recurs. The patient had an ultrasound in May of 2016 after continued problems with bleeding despite use of Depo-Provera. Endometrial lining was 6.7 mm, which is thicker than expected on Depo-Provera. The patient refused endometrial biopsy at that time, but due to recurrent persistent and heavy bleeding, she was given a course of Aygestin. She started bleeding again on 02/18/2017 and continues to have some bleeding. The patient would like to have a hysterectomy, but needs endometrial sampling prior to surgery. The patient was given the option of hysterosonogram and endometrial biopsy versus hysteroscopy with D&C. The patient is very concerned about having pain with the hysterosonogram and endometrial biopsy and prefers hysteroscopy and D&C under anesthesia. Pap was done in January 2017 and this was negative. PAST MEDICAL HISTORY: ALLERGIES: THE PATIENT NOTES ALLERGIES TO CARBAMAZEPINE, DILAUDID, GABAPENTIN AND METFORMIN. MEDICATIONS: The patient takes amitriptyline 10 mg 3 tablets at bedtime, bupropion SR 150 mg 1 tablet twice daily, Copaxone 20 mg subQ 1 daily, hydroxyzine 25 mg 1 tablet 4 times daily as needed for itching, lisinopril 5 mg 1 daily, lorazepam 0.5 mg 1 tablet 3 times daily as needed, meclizine 25 mg 1 tablet 3 times daily as needed for dizziness, naproxen 550 mg tablet 1 twice daily with meals as needed for cramping, omeprazole 20 mg daily as needed, topiramate 50 mg 2 tablets at bedtime and hydrocodone/acetaminophen 5/325 mg 1-2 tablets q. 4-6 hours as needed for pain. ILLNESSES: Abnormal and heavy bleeding as above, dyslipidemia, hypertension, migraine headaches, multiple sclerosis, diabetes and vitamin D deficiency. PAST SURGICAL HISTORY: The patient has had section as well as laparoscopic cholecystectomy. She has a history of D&C in the past. Also, there is a history of diagnostic laparoscopy in the past. She is status post tubal. She has also had a tonsillectomy. FAMILY HISTORY: Her mother has a history of heart palpitations. Her father has hypertension, lung cancer and a neurologic disorder. Her son has a history of migraine headaches. Her brother has a history of hypertension. SOCIAL HISTORY: The patient denies drinking alcohol. She smokes cigarettes up to 5 per day. PHYSICAL EXAMINATION: HEENT: Grossly within normal limits. NECK: Supple without masses. CHEST: Her lungs are clear without wheezing. HEART: Regular rate and rhythm. No murmurs, gallops or rubs. ABDOMEN: Obese, soft, and nontender. PELVIC: External genitalia within normal limits. Vagina pink and stimulated. Cervix pink and closed with no lesions visible. Uterus within normal limits size with some minimal tenderness. Adnexa also mildly tender. No masses palpable. EXTREMITIES: No cyanosis, clubbing or edema. IMPRESSION: Abnormal uterine bleeding. PLAN: The patient is for hysteroscopy and dilation of the cervix and curettage with possible removal of polyp/lesion. The patient is aware of the risks of infection, bleeding, perforation of the uterus and possible need for additional surgery and treatment. The patient is aware of the options of doing nothing as well as hysterosonogram and endometrial biopsy. The patient wishes to proceed with the surgery as listed above. SHARONA
[~2017-03-09] VITALS: Ht 160 cm; Wt 94.1 kg
[~2017-03-09] MED LIST changes: +ATROPINE SULFATE 0.1 MG/ML 5ML SYR IV PRN; +DEXAMETHASONE SOD INJ 4 MG/ML VIAL ONE; +EpHEDrine SULFATE INJ 50 MG/ML AMP IV PRN; +FENTANYL CITRATE INJ 50 MCG/1 ML 2 ML VIAL IV PRN; +FENTANYL CITRATE INJ 50 MCG/1 ML 2 ML VIAL ONE; +IBUPROFEN 600 MG TAB PO PRN; +KETOROLAC TROMETHAMINE 30 MG/ML VIAL ONE; +LACTATED RINGER'S 1000ML 1,000 ML IV SCH; +LIDOCAINE HCL 2% 2 ML VIAL (20MG/ML) ONE; +MIDAZOLAM HCL 1 MG/ML 2ML VIAL ONE; +ONDANSETRON INJ 2 MG/ML 2 ML VIAL IV PRN; +ONDANSETRON INJ 2 MG/ML 2 ML VIAL ONE; +PROPOFOL IV EMULSION 10 MG/ML 20 ML VIAL IV ONE; +SODIUM CHLORIDE 0.9% 1000ML 1,000 ML IV SCH
--- NOTE | 2017-03-09 07:53 | History & Physical Bridge - SC ---
H&P Re-Evaluation Bridge Note: I have examined the patient, reviewed the History & Physical and in the interval since the performance of the History & Physical I have noted the following changes of clinical significance: No changes noted
--- NOTE | 2017-03-09 08:25 | [facility] Post Operative Brief Note ---
Immediate Operative Summary Operative Date Mar 09, 2017. Pre-Operative Diagnosis Abnormal uterine bleeding Post-Operative Diagnosis Same as pre-op Procedure(s) Performed Dilatation And Curettage, Hysteroscopy, Polypectomy Surgeon Dr. Gomes Car Rental Service Attendant Surgeon(s) None Estimated Blood Loss 25ML Findings See dictated note. Specimens A:Endocervical currettings B:Endometrial polyp C:Endometrial tissue Complication(s) None Disposition Recovery Room / PACU
--- NOTE | 2017-03-09 08:33 | Discharge Instructions-SurgCtr ---
Discharge Instructions Date of Service Mar 09, 2017. Visit Reason for Visit: Thickened Endometrium, Abnormal Uterine Bleeding Discharge Discharge Diagnosis / Problem: S/P Hysteroscopy, D&C, Endometrial polypectomy Discharge Goals Goal(s): Diagnostic testing, Therapeutic intervention Medications Stopped Medications Name(s): Last took medications two nights ago. Activity Recommendations Activity Limitations: per Instructions/Follow-up section Anesthesia . Post Anesthesia Instructions: If you have had General Anesthesia or IV Sedation: * Do not drive today. * Resume driving when surgeon permits. * Do not make important decisions or sign legal documents today. * Call surgeon for: 1. Temperature elevations greater than 101 degrees F. 2. Uncontrollable pain. 3. Excessive bleeding. 4. Persistent nausea and vomiting. 5. Medication intolerance (nausea, vomiting or rash). * For nausea and vomiting use only clear liquids such as: tea, soda, bouillon until nausea subsides, then gradually increase diet as tolerated. * If you have any concerns or questions, call your surgeon's office. If physician is unavailable and it is an emergency, call 911 or go to the nearest emergency room. . Diet Recommendations Home Diet: resume previous diet Procedures Procedures Performed: Dilatation And Curettage, Hysteroscopy, Polypectomy Pending Studies Studies pending at discharge: yes List of pending studies: Pathology report on tissue removed from uterus. We will call you with this within one week. Medical Emergencies . Who to Call and When: Medical Emergencies: If at any time you feel your situation is an emergency, please call 911 immediately. . Non-Emergent Contact Non-Emergency issues call your: Applied Psychology Teacher Call Non-Emergent contact if: temperature is above 100.5, your pain is worsening . . "Provider Documentation" section prepared by Dayna Gomes. .
--- NOTE | 2017-03-09 09:17 | OPERATIVE REPORT ---
DATE OF OPERATION: 03/09/2017 PREOPERATIVE DIAGNOSIS: Abnormal uterine bleeding. POSTOPERATIVE DIAGNOSIS: Abnormal uterine bleeding with pathology pending. PROCEDURE: Hysteroscopy, dilation and curettage and polypectomy. SURGEON: Dayna Gomes MD. ANESTHESIA: General. ASSOCIATE PROFESSOR OF THEATRE: Dawson Car DO. DESCRIPTION OF PROCEDURE: The patient was taken to the operating room where general anesthesia was administered. After an adequate level was obtained, she was placed in dorsal lithotomy position. Vulva, vagina, and cervix were prepped with Betadine solution. The patient was draped. Bladder was drained with a straight catheter. Weighted speculum was placed in the posterior fornix of the vagina. The anterior lip of the cervix was grasped with an Allis clamp. Endocervical curettings were then obtained. There was a moderate amount of thick dark brown mucous material with the curettage. The uterus sounded to 8.5 cm. The cervix was dilated up to a #25. Hysteroscope was inserted into the endometrial cavity and there was a small polypoid mass in the left area of the cavity up near the tubal ostium. Photos were taken. The hysteroscope was removed and small polyp forceps were used to grasp and remove the polyp. This was sent separately to pathology. Endometrial curettage was carried out for a moderate amount of tissue. Hysteroscope was then used to visualize the endometrial cavity again and there appeared to be just a small remnant of the polyp remaining and no other lesions. Polyp forceps was used to remove additional polyp tissue. At this point, the procedure was ended. ESTIMATED BLOOD LOSS: 25 mL. The patient was taken to the recovery room in good condition. I attest to the content of the Intraoperative Record and any orders documented therein. Any exceptions are noted below. MTDD
--- NOTE | 2017-03-09 09:47 | Anesthesia Progress Nt - [facility] ---
Anesthesia Post Op Note Date & Time Mar 09, 2017 at 09:47 Vital Signs Vital Signs Past 12 Hours Date Time Temp Pulse Resp B/P (MAP) Pulse Ox O2 Delivery O2 Flow Rate FiO2 03/09/17 09:15 36.6 79 16 134/86 (102) 95 Room Air 03/09/17 09:01 80 16 100/83 94 03/09/17 09:01 80 16 03/09/17 08:59 36.8 80 16 100/83 96 Room Air 03/09/17 08:57 113/81 03/09/17 08:56 81 10 96 03/09/17 08:56 81 10 03/09/17 08:52 121/75 03/09/17 08:51 77 13 03/09/17 08:51 79 13 96 03/09/17 08:46 81 14 03/09/17 08:46 82 14 128/81 96 03/09/17 08:42 125/91 03/09/17 08:41 86 20 03/09/17 08:41 85 20 94 03/09/17 08:39 145/93 03/09/17 08:36 82 18 03/09/17 08:36 83 18 149/99 94 03/09/17 08:32 150/95 03/09/17 08:32 36.5 86 12 150/95 98 Mask 7 03/09/17 08:31 90 17 134/105 92 03/09/17 08:31 89 17 03/09/17 07:47 36.7 84 18 128/84 (99) 96 Room Air Notes Mental Status: alert / awake / arousable, participated in evaluation Pt Amnestic to Procedure: Yes Nausea / Vomiting: adequately controlled Pain: adequately controlled Airway Patency, RR, SpO2: stable & adequate BP & HR: stable & adequate Hydration State: stable & adequate Anesthetic Complications: no major complications apparent
[2017-03-09 09:51] VITALS: BP 134/86; PULSE 79; O2SAT 95
== END | disposition home or self-care (01) ==
LOC: X.SURG 06:38
PROVIDERS: ATTEND Obstetrics & Gynecology
DX: N84.0 Polyp of corpus uteri (principal); N85.8 Other specified noninflammatory disorders of uterus; I10 Essential (primary) hypertension; E78.5 Hyperlipidemia, unspecified; E11.9 Type 2 diabetes mellitus without complications; G35 Multiple sclerosis; E55.9 Vitamin D deficiency, unspecified; F17.210 Nicotine dependence, cigarettes, uncomplicated; Z79.899 Other long term (current) drug therapy

== ENCOUNTER → 2017-05-12 | Outpatient (CLI) | payer OTHER ==
[~2017-05-12] MED LIST changes: -ANT25 PO; -ATROPINE SULFATE 0.1 MG/ML 5ML SYR IV PRN; +BACL10TA PO; +CALC500C70 PO; +CLOB1OIN2 TOP; -DEXAMETHASONE SOD INJ 4 MG/ML VIAL ONE; +ETOD-146 PO; -EpHEDrine SULFATE INJ 50 MG/ML AMP IV PRN; -FENTANYL CITRATE INJ 50 MCG/1 ML 2 ML VIAL IV PRN; -FENTANYL CITRATE INJ 50 MCG/1 ML 2 ML VIAL ONE; +FLUO10CA48 PO; -IBUP-1050 PO; -IBUPROFEN 600 MG TAB PO PRN; -KETOROLAC TROMETHAMINE 30 MG/ML VIAL ONE; -LACTATED RINGER'S 1000ML 1,000 ML IV SCH; -LIDOCAINE HCL 2% 2 ML VIAL (20MG/ML) ONE; -LISI-729 PO; +LISI20TA3 PO; -LORA-741 PO; +METO-478 PO; -MIDAZOLAM HCL 1 MG/ML 2ML VIAL ONE; +MODA1TAB PO; +MTR600X PO; +NAPR1TAB9 PO; +NTRGSL/4 UT; -ONDA4TAB46 PO; -ONDANSETRON INJ 2 MG/ML 2 ML VIAL IV PRN; -ONDANSETRON INJ 2 MG/ML 2 ML VIAL ONE; +OXYC-57 PO; +PHEN-876 PO; +PROC10TA PO; -PROPOFOL IV EMULSION 10 MG/ML 20 ML VIAL IV ONE; +RANI150T85 PO; -SODIUM CHLORIDE 0.9% 1000ML 1,000 ML IV SCH; +SULF800T23 PO; +SUMA50TA15 PO; -ULT50 PO; -ZNF4 PO
--- NOTE | 2017-05-12 15:16 | DIAGNOSTIC IMAGING REPORT ---
MRI OF THE LUMBAR SPINE WITHOUT CONTRAST CLINICAL HISTORY: Acute low back pain. Multiple sclerosis. COMPARISON STUDY: No previous studies for comparison. TECHNIQUE: Utilizing a 1.5 Ayala magnet and dedicated coil, multiplanar, multiecho imaging of the lumbar spine was performed without IV contrast. FINDINGS: For purposes of numbering on this exam, the L5-S1 disc space is assigned to axial image 23 of 26. Alignment of the lumbar spine is anatomic. Vertebral body heights are maintained. There are multiple Schmorl's nodes. There is no suspicious marrow replacement. The conus terminates at the lower L1 level. Cord signal within visual portions of the lower cord is normal. There is no intracanalicular mass or fluid collection. A right renal T2 hyperintense lesion was shown to likely reflect a cyst on prior imaging studies. L1-2: The central canal and neural foramen are patent. L2-3: The central canal and neural foramen are patent. L3-4: The central canal and neural foramen are patent. L4-5: There is mild facet arthrosis. The central canal and neural foramen are patent. L5-S1: There is mild facet arthrosis. There is a central annular tear with mild disc bulge. Central canal and neural foramen are patent. IMPRESSION: 1. Mild multilevel degenerative disc disease and facet arthrosis of the lumbar spine. Patent central canal and neural foramen. 2. Central annular tear at L5-S1 with mild disc bulge. Electronically signed by: Torres Neves M.D. 05/12/2017 3:15 PM Dictated Date/Time: 05/12/2017 3:11 PM
== END | disposition home or self-care (01) ==
LOC: C.MRI 14:26
PROVIDERS: ATTEND Physician Assistant
DX: M54.5 Low back pain (principal); G35 Multiple sclerosis; R29.2 Abnormal reflex

== ENCOUNTER 2017-05-15 08:18 | Observation (INO) | payer OTHER ==
[2017-04-30 13:11] VITALS: BMI 38.0
--- NOTE | 2017-04-30 13:47 | PAT Medication Instructions ---
Service Date Apr 30, 2017. Current Home Medication List Aspirin (Aspirin Ec), 81 MG PO HS Baclofen (Lioresal), 10 MG PO TID PRN for Muscle Spasms Calcium/Vitamin D (Os-Wilder 500 Plus D), 1 TAB PO HS Clobetasol Propionate (Temovate), 1 APPLN TOP BID PRN for PRN Etodolac (Lodine), 1 TAB PO TID Fluoxetine (Prozac), 10 MG PO TID PRN for PRN Glatiramer Acetate (Copaxone), 40 MG INJ 3XWK Hydrochlorothiazide (Hydrochlorothiazide), 1 TAB PO HS Hydroxyzine HCl (Hydroxyzine HCl), 25 MG PO Q6 PRN for Itching Lisinopril (Prinivil), 20 MG PO HS Modafinil (Provigil), 200 MG PO QAM Naproxen (Aleve), 1-2 TAB PO BID PRN for Pain Nitroglycerin (Nitrostat), 0.4 MG UT PRN Prochlorperazine Maleate (Compazine), 10 MG PO Q6H PRN for Nausea Ranitidine (Zantac), 150 MG PO BID Sumatriptan Succinate (Imitrex), 50 MG PO PRN Medication Instructions For Your Scheduled Surgery -Contact your surgeon for instructions for: Aspirin (Aspirin Ec), 81 MG PO HS Etodolac (Lodine), 1 TAB PO TID Naproxen (Aleve), 1-2 TAB PO BID PRN for Pain -Continue as directed: Nitroglycerin (Nitrostat), 0.4 MG UT PRN Glatiramer Acetate (Copaxone), 40 MG INJ 3XWK - Hold the following medications 24 hours prior to surgery: Lisinopril (Prinivil), 20 MG PO HS --do not take the night before surgery Clobetasol Propionate (Temovate), 1 APPLN TOP BID PRN for PRN Hydrochlorothiazide (Hydrochlorothiazide), 1 TAB PO HS --do not take the night before surgery - Hold the following medications the morning of surgery: Modafinil (Provigil), 200 MG PO QAM Baclofen (Lioresal), 10 MG PO TID PRN for Muscle Spasms - Take the following medications the morning of surgery with a sip of water: Sumatriptan Succinate (Imitrex), 50 MG PO PRN (if needed) Ranitidine (Zantac), 150 MG PO BID Prochlorperazine Maleate (Compazine), 10 MG PO Q6H PRN for Nausea (if needed) Fluoxetine (Prozac), 10 MG PO TID PRN for PRN (if needed) Hydroxyzine HCl (Hydroxyzine HCl), 25 MG PO Q6 PRN for Itching (if needed) - Take the following medications as scheduled the night before surgery: Sumatriptan Succinate (Imitrex), 50 MG PO PRN (if needed) Ranitidine (Zantac), 150 MG PO BID Prochlorperazine Maleate (Compazine), 10 MG PO Q6H PRN for Nausea (if needed) Baclofen (Lioresal), 10 MG PO TID PRN for Muscle Spasms (if needed) Calcium/Vitamin D (Os-Wilder 500 Plus D), 1 TAB PO HS Fluoxetine (Prozac), 10 MG PO TID PRN for PRN (if needed) Hydroxyzine HCl (Hydroxyzine HCl), 25 MG PO Q6 PRN for Itching (if needed) If you have any questions please call us at [phone] or [phone] or [phone]
[2017-04-30 14:13] LABS: BASO % 0.2 %; BASO ABS # 0.01 K/uL (0-0.2); EOS ABS # 0.13 K/uL (0-0.5); HEMATOCRIT 39.3 % (37-47); HEMOGLOBIN 13.4 g/dL (12.0-16.0); IG# 0.02 K/uL (0.00-0.02); LYMPH % 25.2 %; LYMPH ABS # 1.64 K/uL (1.2-3.4); MEAN CELL VOLUME 85.8 fL (80-100); MEAN CORPUSCULAR HEMOGLOBIN 29.3 pg (25-34); MEAN CORPUSCULAR HGB CONC 34.1 g/dl (32-36); MEAN PLATELET VOLUME 9.7 fL (7.4-10.4); MONO % 6.4 %; MONO ABS # 0.42 K/uL (0.11-0.59); NEUT % 65.9 %; PLATELET COUNT 265 K/uL (130-400); RED CELL DISTRIBUTION WIDTH CV 14.5 % (11.5-14.5); RED CELL DISTRIBUTION WIDTH SD 45.2 fL (36.4-46.3); WHITE BLOOD COUNT 6.52 K/uL (4.8-10.8)
[2017-04-30 15:23] LABS: CALCIUM 8.6 mg/dl (8.5-10.1); CREATININE 0.65 mg/dl (0.60-1.20); POTASSIUM 4.1 mmol/L (3.5-5.1)
[2017-05-15] VITALS (7 sets, daily range): BP systolic 118–155; BP diastolic 81–105; PULSE 87–108; TEMP 36.7–37.7; O2SAT 92–98; Ht 160 cm; Wt 98.3 kg
[~2017-05-15] VITALS: Ht 160 cm; Wt 98.3 kg
[~2017-05-15 08:18] MED LIST changes: +CEFAZOLIN 3000MG IV PUSH 15 ML IV SCH; +FENTANYL CITRATE INJ 50 MCG/1 ML 2 ML VIAL ONE; -HYDR-5688 PO; +LACTATED RINGER'S 1000ML 1,000 ML IV SCH; -METO-478 PO; +MIDAZOLAM HCL 1 MG/ML 2ML VIAL ONE; -MTR600X PO; -OXYC-57 PO; -PHEN-876 PO; -PROC10TA PO; +PROC1TAB5 PO; -RANI150T85 PO; -SULF800T23 PO; +ZNTT/150 PO
[2017-05-15] MEDS ORDERED: BUPIVACAINE 0.5 % 5 MG/1 ML MPF 30ML VIAL ONE (08:37)
[2017-05-15] MEDS ORDERED: ROCURONIUM BROMIDE 10 MG/ML 5 ML VIAL IV ONE (10:22)
[2017-05-15] MEDS ORDERED: LIDOCAINE HCL 2% 2 ML VIAL (20MG/ML) ONE (10:22)
[2017-05-15] MEDS ORDERED: PROPOFOL IV EMULSION 10 MG/ML 20 ML VIAL IV ONE (10:22)
[2017-05-15] MEDS ORDERED: ONDANSETRON INJ 2 MG/ML 2 ML VIAL ONE ×2 (10:23→12:03)
[2017-05-15] MEDS ORDERED: NEOSTIGMINE METHYLSULFATE 5 MG/5 ML SYR ONE (10:23)
[2017-05-15] MEDS ORDERED: DEXAMETHASONE SOD INJ 4 MG/ML VIAL ONE (10:23)
[2017-05-15] MEDS ORDERED: GLYCOPYRROLATE INJ 0.2 MG/ML VIAL ONE (10:23)
[2017-05-15] MEDS ORDERED: PHENYLEPHRINE 100MCG/ML 5ML SYR ONE (10:34)
[2017-05-15] MEDS ORDERED: METHYLENE BLUE 0.5% 10 ML VIAL ONE (10:35)
[2017-05-15] MEDS ORDERED: TISSEEL FIBRIN SEALANT 4ML TOP ONE ×2 (11:28→11:50)
[2017-05-15] MEDS ORDERED: PROMETHAZINE HCL INJ 12.5 MG in SODIUM CHLORIDE 0.9% 50ML 50 ML IV PRN (11:30)
[2017-05-15] MEDS ORDERED: FLUMAZENIL 0.1 MG/1 ML 10 ML VIAL IV PRN (11:30)
[2017-05-15] MEDS ORDERED: ATROPINE SULFATE 0.1 MG/ML 5ML SYR IV PRN (11:30)
[2017-05-15] MEDS ORDERED: NALOXONE HCL 0.4 MG/1 ML VIAL/CARP IV PRN (11:30)
[2017-05-15] MEDS ORDERED: ONDANSETRON INJ 2 MG/ML 2 ML VIAL IV PRN (11:30)
[2017-05-15] MEDS ORDERED: FENTANYL CITRATE INJ 50 MCG/1 ML 2 ML VIAL IV PRN (11:30)
[2017-05-15] MEDS ORDERED: LACTATED RINGER'S 1000ML 1,000 ML IV SCH (11:50)
--- NOTE | 2017-05-15 11:50 | [facility] Post Operative Brief Note ---
Immediate Operative Summary Operative Date May 15, 2017. Pre-Operative Diagnosis Abnormal uterine bleeding Post-Operative Diagnosis Same as preop Procedure(s) Performed Robotic-assisted Total Laparoscopic Hysterectomy, bilateral salpingectomy, lysis of adhesions, cystoscopy Surgeon Dr. Camargo Senior Hr Business Partner Surgeon(s) Dr. Antoine Estimated Blood Loss 50 ml Findings nl size uterus, bladder adhesions, nl tubes and ovaries, adhesions of the omentum to the anterior abdominal wall. Fluids (cc crystalloids) 1000cc Specimens A: uterus, cervix, bilateral fallopian tubes Drains browne Anesthesia gett Complication(s) None Disposition Recovery Room / PACU
[2017-05-15] MEDS ORDERED: OXYC-57 PO (11:55)
--- NOTE | 2017-05-15 11:57 | Discharge Instructions ---
Discharge Instructions Date of Service May 15, 2017. Admission Reason for Admission: Abnormal Uterine Bleeding, Abnormal Menses Discharge Discharge Diagnosis / Problem: s/p total laproscopic hysterectomy, removal of tubes, cystoscopy Discharge Goals Goal(s): Specific Goal(s) Activity Recommendations Activity Limitations: per Instructions/Follow-up section . Instructions / Follow-Up Instructions / Follow-Up POST OPERATIVE: BOWEL FUNCTION/MEDICATIONS: 1. Constipation pain and discomfort are the most common complaints 5-7 days after surgery. Points 2-6 address the things that can help. 2. Chewing gum can help stimulate the gut and help improve digestion and motility. 3. Milk of Magnesia 1-2 times per day until return of bowel function. 4. Colace is a stool softener that helps. Taking this 2-3 times per day until bowel function returns to normal is highly recommended. 5. Dulcolax is a laxative that may be used if several days have passed without a bowel movement. Alternatively Miralax may be used daily instead. 6. Drink plenty of fluids as this will also reduce constipation. 7. Narcotic pain medications will be prescribed by your physician. They are safe to use and we encourage you to use them. If you are not allergic, ibuprofen will also be prescribed. Many patients will be able to transition off of the narcotic medications to ibuprofen by postoperative day 3. ACTIVITY RECOMMENDATIONS: 1. Get plenty of rest and listen to your body. If you are tired, take a nap. 2. You may shower, but do not take a tub bath until you see your doctor at the 2 week post operative visit. 3. Absolutely NO intercourse and nothing in the vagina until you are examined by your doctor at the 6 week visit. At that visit it will be determined when such activities can be resumed. This can range from 6-12 weeks after your surgery depending on healing time. 4. The main physical activity in the first week should be walking. By the second week you can slowly increase activity. There are no limits on walking up and down stairs. 5. Do not lift more than 5-10 lbs for 4 weeks. Remember the "one-handed rule", i.e. if you can lift something with only one hand it's likely okay. 6. Minimize senior stereo compiler team lead like vacuuming and exercising for 4 weeks. "Overdoing it" can lead to incisions not healing, pain and vaginal bleeding , so again, listen to your body. 7. Driving can be resumed when you feel able. Do not drive within 24 hours of taking a narcotic medication. EXPECTATIONS: 1. Vaginal spotting, bleeding and discharge are common after surgery. There may even be an odor to the discharge which is often related to sutures used in the vagina. If you experience heavy vaginal bleeding, call the office number day or night [phone]. 2. Bladder discomfort is common after surgery from the catheter. This usually resolves in 1-2 weeks. 3. By the end of the 3rd or 4th week you should be feeling much better. It may take up to 6 weeks for your energy levels to return to normal. 4. Narcotic medications have side effects such as: dizziness, headache, nausea and/or vomiting. If you suspect your pain medication is causing problems, call our office and we may be able to prescribe an alternate medication. 5. The skin incisions are often covered with a liquid bandage. This will gradually peel off over time. CALL THE OFFICE IF YOU HAVE ANY OF THE FOLLOWIN. Temperature of 101 degrees or higher. 2. Severe abdominal or pelvic pain not relieved by pain medication. 3. Persistent nausea or vomiting. 4. Increased pain with urination or difficulty urinating. 5. Bright red bleeding that soaks more than 1 pad per hour. CONTACT PHONE NUMBERS: Main Office: [phone] Surgical Nurse: [phone] extension [phone] Avoid all tobacco products. If you need help to stop smoking, call [place]'s FREE QUITLINE at . This is a free call. Current Hospital Diet Patient's current hospital diet: Discharge Diet Recommended Diet: Regular Diet Procedures Procedures Performed: Robotic-assisted Total Laparoscopic Hysterectomy, bilateral salpingectomy, lysis of adhesions, cystoscopy Pending Studies Studies pending at discharge: no Medical Emergencies . Who to Call and When: Medical Emergencies: If at any time you feel your situation is an emergency, please call 911 immediately. . Non-Emergent Contact Non-Emergency issues call your: Architectural Superintendent . . "Provider Documentation" section prepared by Alena Camargo. . VTE Core Measure Inpt VTE Proph given/why not?: Treatment not indicated [place] Drug Monitoring Program Search Results: patient reviewed within database, no issues identified
[2017-05-15] MEDS ORDERED: ACETAMINOPHEN 325 MG TAB PO PRN (12:00)
[2017-05-15] MEDS ORDERED: IBUPROFEN 600 MG TAB PO PRN (12:00)
[2017-05-15] MEDS ORDERED: MEPERIDINE HCL 50 MG/ML CARP IV PRN ×2 (12:00)
[2017-05-15] MEDS ORDERED: KETOROLAC TROMETHAMINE 30 MG/ML VIAL IV. PRN (12:00)
[2017-05-15] MEDS ORDERED: SIMETHICONE 80 MG CHEW PO PRN (12:00)
[2017-05-15] MEDS ORDERED: OXYCODONE/ACETAMINOPHEN 5-325 TAB PO PRN ×2 (12:00)
[2017-05-15] MEDS ORDERED: FENTANYL CITRATE INJ 50 MCG/1 ML 2 ML VIAL ONE (12:03)
[2017-05-15] MEDS ORDERED: IV FLUIDS COMPLETED PRN (12:45)
--- NOTE | 2017-05-15 12:50 | Anesthesiology Progress Note ---
Anesthesia Post Op Note Date & Time May 15, 2017 at 12:49 Vital Signs Pain Intensity: 0 Vital Signs Past 12 Hours Date Time Temp Pulse Resp B/P (MAP) Pulse Ox O2 Delivery O2 Flow Rate FiO2 05/15/17 12:45 67 16 144/89 99 Oxymask 3 05/15/17 12:35 36.4 61 16 140/85 99 Oxymask 3 05/15/17 12:25 68 16 110/72 94 Oxymask 5 05/15/17 12:15 73 18 93/68 92 Oxymask 10 05/15/17 12:05 67 18 103/68 92 Oxymask 10 05/15/17 11:55 36.2 67 16 115/72 94 Oxymask 10 05/15/17 08:47 36.7 105 20 151/102 (118) 97 Room Air 155/105 (122) Notes Mental Status: alert / awake / arousable, participated in evaluation Pt Amnestic to Procedure: Yes Nausea / Vomiting: adequately controlled Pain: adequately controlled Airway Patency, RR, SpO2: stable & adequate BP & HR: stable & adequate Hydration State: stable & adequate Anesthetic Complications: no major complications apparent
--- NOTE | 2017-05-15 12:53 | OPERATIVE REPORT ---
DATE OF OPERATION: 05/15/2017 PREOPERATIVE DIAGNOSIS: Menorrhagia with irregular cycles. POSTOPERATIVE DIAGNOSIS: Same. PROCEDURES: Total laparoscopic hysterectomy and bilateral salpingo-oophorectomy with lysis of adhesions and cystoscopy. SURGEON: Dr. Alena Camargo. EXHIBITS CURATOR: Dr. Antoine. ANESTHESIA: General per endotracheal tube. ESTIMATED BLOOD LOSS: 50 mL. FLUIDS: 1000 mL. URINE OUTPUT: 150 mL of clear yellow urine drained from the bladder prior to cystoscopy. INDICATIONS: The patient is a 5, para 3 with section x3, who has failed medical management for menorrhagia and irregular cycles and desires definitive surgical therapy. FINDINGS: Adhesions of the omentum to the anterior abdominal wall. Adhesions of the bladder to the anterior uterus. Ovaries and tubes were normal. Uterus was normal. COMPLICATIONS: None. DRAINS: Sotelo. DISPOSITION: To recovery room in stable condition. DESCRIPTION OF PROCEDURE: The patient was taken to the operating room, where she was identified verbally and by bracelet. She was placed in the dorsal supine position, where general anesthesia was induced without difficulty. She was then placed in dorsal lithotomy position in [facility]-cane stirrups. Her arms were carefully tucked and draped at her side. Her chest was protected. The head mva reactor operator was placed and the patient was prepped and draped in normal sterile fashion. Timeout was held identifying correct patient, procedure, positioning and preoperative antibiotics. Attention was turned to the vagina, where a Sotelo catheter was placed in the bladder sterilely. The VCare uterine manipulator was then placed into the uterus to serve as a means of manipulation and the gloves were then changed. Attention was then turned to the abdomen, where a supraumbilical incision was made over her previous laparoscopic incision. The Veress needle was placed through this. Opening pressure was 6 mmHg. Abdomen insufflated with 2 liters of carbon dioxide gas. The 12-mm optical trocar was then placed through this and we found on direct visual observation that we were in omental adhesions. Therefore, decision was made to proceed with a left upper quadrant trocar placement. We found the edge of the last rib and the edge of the sternum. We went 2 fingerbreadths below the last palpable rib. An incision was made with the knife and a 12-mm trocar was placed directly visually through this and this area was free of adhesions. We were then able to place 2 da Ramona trocars on the patient's right side under direct visualization, 1 in the lower right quadrant and 1 in the right upper quadrant. Then, using the Harmonic scalpel and with traction and countertraction, the omental adhesions were taken down until the visualization was excellent. We were then able to replace the trocar supraumbilically and then able to place an 8-mm da Ramona trocar in the left lower quadrant. The patient was then placed into Trendelenburg. The da Ramona assist was then connected to the patient and the shooting gallery operator proceeded to the console. First on the right and then on the left, the tubes were excised and removed using hot paige and cautery. We then went through the round ligament and tubo-ovarian ligament on the right and began to carefully create our bladder flap both sharply and bluntly. Then in a similar fashion, we went through the round ligament and the tubo-ovarian ligament on the left and completed our bladder flap anteriorly. The uterine arteries were taken with cautery and hot paige on the bilateral sides. A colpotomy incision was then made in 365 degrees and the uterus was removed through the vagina. The cuff was then closed with 2-0 V-Loc suture. Cystoscopy was performed with a 70-degree scope. The bladder dome was good. The trigone was good. There were no stitches in the bladder and there was effluxing urine from both the right and left ureters. The Sotelo catheter that had previously been placed was removed and a new sterile Sotelo catheter was placed. Tisseel was then placed on the cuff. The da Ramona surgical endoscopist device was removed from the patient. The patient was taken out of Trendelenburg position. The gas was released from the abdomen. The trocars were removed. The fascia was reapproximated at the supraumbilical site with 0 Vicryl and then all incisions were closed with 4-0 Vicryl in a subcuticular fashion. The incisions were then infiltrated with 0.5% Marcaine. All sponge, lap and needle counts were correct x2. The patient tolerated the procedure well and was taken to recovery room in stable condition. I attest to the content of the Intraoperative Record and any orders documented therein. Any exceptions are noted below. SHARONA
[2017-05-15] MEDS ORDERED: HYDR-5688 PO (17:51)
[2017-05-15] MEDS ORDERED: HYDROCODONE/ACETAMOPHEN 5/325MG TAB PO PRN (18:00)
[2017-05-15] MEDS ORDERED: DOCUSATE SODIUM 100 MG CAP PO SCH (21:00)
--- NOTE | 2017-05-19 08:39 | DISCHARGE SUMMARY ---
ADMIT DIAGNOSIS: Menorrhagia with irregular cycles. DISCHARGE DIAGNOSES: Same. PROCEDURES: Total laparoscopic hysterectomy and bilateral salpingectomy via da Ramona assist and cystoscopy. HISTORY: The patient is a 51-year-old 5, para 2-1-2-3 with x3 and tubal ligation who presents with a long history of menorrhagia with irregular cycles treated with medical management who now desires definitive surgical therapy and hysterectomy. For the rest of the details of the patient's history and physical, please see her dictated history and physical. ASSESSMENT: A 51-year-old 5, para 2-1-2-3 who presents for hysterectomy for menorrhagia with irregular cycles. HOSPITAL COURSE: The patient was admitted, she underwent a total laparoscopic hysterectomy, bilateral salpingectomy, lysis of adhesions and cystoscopy without difficulty. ESTIMATED BLOOD LOSS: 50 mL. FINDINGS: At the time of surgery, revealed a normal uterus, bladder adhesions to the anterior uterus, normal tubes and ovaries, adhesions of the omentum to the anterior abdominal wall. The patient's postoperative course was uncomplicated. She tolerated regular diet. She had her pain well controlled on oral pain medications, voided after the removal of her Sotelo catheter and ambulated without difficulty. She was discharged home on postop day 0 with a prescription for Disputanta for pain and to return in 2 weeks for postoperative visit.
== END 2017-05-15 19:40 | disposition home or self-care (01) ==
LOC: C.ACU 08:18 → C.MS4N 11:52
PROVIDERS: ADMIT Obstetrics & Gynecology; ATTEND Obstetrics & Gynecology
DX: N92.1 Excessive and frequent menstruation with irregular cycle (principal); E78.5 Hyperlipidemia, unspecified; I10 Essential (primary) hypertension; G35 Multiple sclerosis; E11.9 Type 2 diabetes mellitus without complications; E55.9 Vitamin D deficiency, unspecified; F17.200 Nicotine dependence, unspecified, uncomplicated; Z82.49 Family history of ischemic heart disease and other diseases of the circulatory system; Z80.1 Family history of malignant neoplasm of trachea, bronchus and lung; Z80.8 Family history of malignant neoplasm of other organs or systems; Z82.0 Family history of epilepsy and other diseases of the nervous system
CPT/HCPCS: 58571; S2900

== ENCOUNTER 2017-05-22 05:58 | Emergency (ER) | payer OTHER ==
[~2017-05-22] VITALS: Ht 160 cm; Wt 97.4 kg
[~2017-05-22 05:58] MED LIST changes: -CEFAZOLIN 3000MG IV PUSH 15 ML IV SCH; -FENTANYL CITRATE INJ 50 MCG/1 ML 2 ML VIAL ONE; +HYDR-5688 PO; -LACTATED RINGER'S 1000ML 1,000 ML IV SCH; -MIDAZOLAM HCL 1 MG/ML 2ML VIAL ONE
[2017-05-22 06:01] VITALS: TEMP 37; Ht 160 cm; Wt 97.4 kg
[2017-05-22] MEDS ORDERED: PHENAZOPYRIDINE HCL 200 MG TAB PO STA (06:42)
[2017-05-22] MEDS ORDERED: SULFAMETHOXAZOLE/TRIMETHOPRIM DS 800/160MG TAB PO STA (06:42)
[2017-05-22] MEDS ORDERED: MoRPHine SULFATE 10 MG/ML CARP/VIAL IV STA (06:42)
[2017-05-22] MEDS ORDERED: ONDANSETRON INJ 2 MG/ML 2 ML VIAL IV STA (06:42)
[2017-05-22] MEDS ORDERED: CEFTRIAXONE SOD INJ 1 GM ADDVIAL IV STA (06:42)
--- NOTE | 2017-05-22 06:45 | EMERGENCY ROOM VISIT NOTE ---
History Report prepared by Juan José: Jose Raymundo Under the Supervision of: Dr. Damir Lambert M.D. First contact with patient: 06:33 Chief Complaint: URINARY SYMPTOMS Stated Complaint: PAIN AND BLADDER INFECTION Nursing Triage Summary: Hysterectomy last week, now dysuria. History of Present Illness The patient is a 51 year old female who presents to the Emergency Room with complaints of pain with urination that the patient first noticed last night, several hour prior to arrival. The patient is also complaining of pain in her right pelvic area/over her bladder. The patient had a hysterectomy last week and had a browne catheter placed during the procedure. She denies any vaginal discharge, but did notice some blood spotting on the toilet tissue after urinating last night. She is currently on Hydrocodone. The patient had had bladder infections in the past. 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 A total of 10 systems reviewed and were otherwise negative. Past Medical & Surgical Medical Problems: (1) Anxiety (2) Chest pain (3) Diabetes mellitus (4) Dyslipidemia (5) h/o insulin resistance (6) History of migraine (7) History of palpitations (8) HTN (hypertension) (9) Menorrhagia with irregular cycle (10) MS (multiple sclerosis) Surgical Problems: (1) 3 c-sections (2) H/O tubal ligation (3) Hx of cardiac cath Family History Diabetes mellitus FH: cancer FATHER Hypertension FATHER Pacemaker MATERNAL AUNT Social History Smoking Status: Current Some Day Smoker Alcohol Use: occasionally Marital Status: Housing Status: lives with family Occupation Status: disabled Current/Historical Medications Scheduled Aspirin (Aspirin Ec), 81 MG PO HS Calcium/Vitamin D (Os-Wilder 500 Plus D), 1 TAB PO HS Etodolac (Lodine), 400 MG PO TID Glatiramer Acetate (Copaxone), 40 MG INJ 3XWK Hydrochlorothiazide (Hydrochlorothiazide), 25 MG PO HS Lisinopril (Prinivil), 20 MG PO HS Modafinil (Provigil), 200 MG PO QAM Nitroglycerin (Nitrostat), 0.4 MG UT PRN Phenazopyridine HCl (Pyridium), 200 MG PO TID Ranitidine (Zantac), 150 MG PO BID Sulfa/Trimethoprim (Bactrim Ds 800MG/160MG), 1 TAB PO BID Sumatriptan Succinate (Imitrex), 50 MG PO PRN Scheduled PRN Baclofen (Lioresal), 10 MG PO TID PRN for Muscle Spasms Clobetasol Propionate (Temovate), 1 APPLN TOP BID PRN for PRN Fluoxetine (Prozac), 10 MG PO TID PRN for PRN Hydrocodone/Acetaminophen 5MG/325MG ([place] 5MG/325MG), 1 TABLET PO Q4H PRN for Pain Hydrocodone/Acetaminophen 5MG/325MG ([place] 5MG/325MG), 2 TABLETS PO Q6 PRN for Pain Hydroxyzine HCl (Hydroxyzine HCl), 25 MG PO Q6 PRN for Itching Naproxen (Aleve), 1-2 TAB PO BID PRN for Pain Prochlorperazine Maleate (Compazine), 10 MG PO Q6H PRN for Nausea Allergies Coded Allergies: Hydromorphone (Verified Allergy, Severe, SHORTNESS OF BREATH, 05/22/17) Carbamazepine (Verified Allergy, Unknown, ? REMEMBER, 05/22/17) INFO IS FROM [facility], PT DOES NOT REMEMBER Metformin (Verified Allergy, Unknown, DIARRHEA, 05/22/17) Terbutaline (Verified Allergy, Unknown, FLUID BUILD UP, BLOATING, 05/22/17) Physical Exam Vital Signs Date Time Temp Pulse Resp B/P (MAP) Pulse Ox O2 Delivery O2 Flow Rate FiO2 05/22/17 09:02 73 16 144/83 97 Room Air 05/22/17 07:38 83 16 93 Room Air 05/22/17 06:01 37.0 94 20 159/99 93 Room Air Physical Exam GENERAL: Patient is a healthy-appearing well-nourished female HEAD: Normocephalic atraumatic EYES: Ocular movements intact pupils equal and react to light OROPHARYNX mucous membranes are moist no exudates present no erythema or edema present NECK: Supple no nuchal rigidity CHEST: Good equal expansion LUNGS: Clear and equal to auscultation CARDIAC: Normal S1 and S2 ABDOMEN: Soft, with tenderness to the suprapubic area. BACK: No CVA tenderness EXTREMITIES: No pain upon palpation normal muscle strength in all groups no clubbing cyanosis or edema NEURO: Patient is following commands and answering questions appropriately. Alert and oriented x3 Cranial Nerves 2-12 grossly intact Medical Decision & Procedures ER Provider Diagnostic Interpretation: Radiology results as stated below per my review and radiologist interpretation: CT ABD/PELVIS IV CONTRAST ONLY CLINICAL HISTORY: Diffuse abdominal pain. History of recent total hysterectomy. COMPARISON STUDY: 211 TECHNIQUE: Following the IV administration of 94 mL of Optiray-320, CT scan of the abdomen and pelvis was performed from the lung bases to the proximal femurs. Images are reviewed in the axial, sagittal, and coronal planes. IV contrast was administered without complication. A dose lowering technique was utilized adhering to the principles of ALARA. CT DOSE: 1025.13 mGy.cm FINDINGS: Lower chest: There are mild dependent atelectatic changes present. Liver: The contrast-enhanced liver is normal in size, contour, and attenuation. There is no intrahepatic biliary ductal dilatation. The hepatic veins and portal veins are patent. Gallbladder: Surgically absent Spleen: Normal in size and attenuation. Pancreas: Unremarkable. Adrenal glands: Unremarkable. Kidneys: There is a 4.5 cm right renal cortical cyst. Bowel: There are no transition zones indicate bowel obstruction. There is no acute diverticulitis. Scattered colonic diverticula are visualized. There are no findings to indicate acute appendicitis. Peritoneum: There is no intraperitoneal free air or abdominal ascites. There is a small fat-containing umbilical hernia. There is minimal infiltration of the fat within the hernia sac. Vasculature: The abdominal aorta is normal in course and caliber. Adenopathy: None. Pelvic viscera: There is a 33 mm left adnexal cystic lesion. By history the patient is status post a hysterectomy. This is likely ovarian. Correlation with the surgical procedures recommended to ensure the patient has not undergone an oophorectomy. There is mild infiltration of the pelvic fat, likely secondary to a recent hysterectomy. There is no evidence of drainable abscess. Skeletal structures: No destructive osseous lesions are seen. There is mild infiltration of the fat within the right anterior abdominal wall. This may relate to a surgical trocar site. IMPRESSION: 1. Postsurgical changes present within the pelvis. No evidence of a drainable abscess 2. 33 mm left adnexal cystic lesion, likely ovarian. Please correlate with surgical history 3. Small fat-containing umbilical hernia 4. No evidence of bowel obstruction. No evidence of free air Electronically signed by: Pierce Dominguez M.D. 05/22/2017 8:25 AM Dictated Date/Time: 05/22/2017 8:18 AM Laboratory Results 05/22/17 07:04 Red Blood Count 4.27, Mean Corpuscular Volume 85.7, Mean Corpuscular Hemoglobin 28.8, Mean Corpuscular Hemoglobin Concent 33.6, Mean Platelet Volume 9.9, Neutrophils (%) (Auto) 63.2, Lymphocytes (%) (Auto) 21.1, Monocytes (%) (Auto) 7.7, Eosinophils (%) (Auto) 7.4, Basophils (%) (Auto) 0.2, Neutrophils # (Auto) 6.82, Lymphocytes # (Auto) 2.28, Monocytes # (Auto) 0.83, Eosinophils # (Auto) 0.80, Basophils # (Auto) 0.02 05/22/17 07:04 Test 05/22/17 06:10 05/22/17 07:04 Urine Color YELLOW Urine Appearance CLEAR (CLEAR) Urine pH 5.0 (4.5-7.5) Urine Specific [place] 1.024 (1.000-1.030) Urine Protein NEG (NEG) Urine Glucose (UA) NEG (NEG) Urine Ketones NEG (NEG) Urine Occult Blood TRACE (NEG) Urine Nitrite NEG (NEG) Urine Bilirubin NEG (NEG) Urine Urobilinogen NEG (NEG) Urine Leukocyte Esterase NEG (NEG) Urine WBC (Auto) 1-5 /hpf (0-5) Urine RBC (Auto) 0-4 /hpf (0-4) Urine Hyaline Casts (Auto) 1-5 /lpf (0-5) Urine Epithelial Cells (Auto) >30 /lpf (0-5) Urine Bacteria (Auto) NEG (NEG) White Blood Count 10.79 K/uL (4.8-10.8) Red Blood Count 4.27 M/uL (4.2-5.4) Hemoglobin 12.3 g/dL (12.0-16.0) Hematocrit 36.6 % (37-47) Mean Corpuscular Volume 85.7 fL (80-100) Mean Corpuscular Hemoglobin 28.8 pg (25-34) Mean Corpuscular Hemoglobin Concent 33.6 g/dl (32-36) Platelet Count 308 K/uL (130-400) Mean Platelet Volume 9.9 fL (7.4-10.4) Neutrophils (%) (Auto) 63.2 % Lymphocytes (%) (Auto) 21.1 % Monocytes (%) (Auto) 7.7 % Eosinophils (%) (Auto) 7.4 % Basophils (%) (Auto) 0.2 % Neutrophils # (Auto) 6.82 K/uL (1.4-6.5) Lymphocytes # (Auto) 2.28 K/uL (1.2-3.4) Monocytes # (Auto) 0.83 K/uL (0.11-0.59) Eosinophils # (Auto) 0.80 K/uL (0-0.5) Basophils # (Auto) 0.02 K/uL (0-0.2) RDW Standard Deviation 43.9 fL (36.4-46.3) RDW Coefficient of Variation 14.1 % (11.5-14.5) Immature Granulocyte % (Auto) 0.4 % Immature Granulocyte # (Auto) 0.04 K/uL (0.00-0.02) Anion Gap 8.0 mmol/L (3-11) Est Creatinine Clear Calc Drug Dose 127.5 ml/min Estimated GFR () 123.7 Estimated GFR (Non- 106.7 BUN/Creatinine Ratio 25.7 (10-20) Calcium Level 9.2 mg/dl (8.5-10.1) Total Bilirubin 0.3 mg/dl (0.2-1) Direct Bilirubin < 0.1 mg/dl (0-0.2) Aspartate Amino Transf (AST/SGOT) 9 U/L (15-37) Alanine Aminotransferase (ALT/SGPT) 13 U/L (12-78) Alkaline Phosphatase 100 U/L (45-117) Total Protein 7.4 gm/dl (6.4-8.2) Albumin 3.2 gm/dl (3.4-5.0) Lipase 51 U/L (73-393) Labs reviewed by ED physician. Medications Administered Medications (Trade) Dose Ordered Sig/Haritha Route Start Time Stop Time Status Last Admin Dose Admin Ceftriaxone Sodium (Rocephin Inj) 1 gm NOW STAT IV 05/22/17 06:42 05/22/17 06:45 DC 05/22/17 07:13 1 GM Phenazopyridine HCl (Pyridium Tab) 200 mg NOW STAT PO 05/22/17 06:42 05/22/17 06:45 DC 05/22/17 07:13 200 MG Morphine Sulfate (MoRPHine SULFATE INJ) 10 mg NOW STAT IV 05/22/17 06:42 05/22/17 06:45 DC 05/22/17 07:13 10 MG Ondansetron HCl (Zofran Inj) 4 mg NOW STAT IV 05/22/17 06:42 05/22/17 06:46 DC 05/22/17 07:12 4 MG Trimethoprim/ Sulfamethoxazole (Septra Ds 800/ 160MG Tab) 1 tab NOW STAT PO 05/22/17 06:42 05/22/17 06:46 DC 05/22/17 07:13 1 TAB ED Course 0638: Past medical records reviewed. The patient was evaluated in room A11. A complete history and physical examination was performed. 0642: Ordered Trimethoprim/Sulfamethoxazole 1 table PO, Zofran 4 mg IV, Morphine Sulfate 10 mg IV, Phenazopyridine 200 mg PO, Rocephin 1 gm IV. 0842: I discussed the case with Dr. Nena YU. He will follow up with the patient in the office. He notes the patient can be discharged home. 0859: I discussed the case with Dr. Barrett again. He has reviewed CT Scan. Patient will follow up in office. 0901: Upon reexamination the patient is comfortable. I discussed results and treatment plan with the patient. She verbalizes agreement and understanding. The patient is ready for discharge. Medical Decision Differentia Diagnosis is concerning for Urinary/Bladder infection. This is a 51-year-old female who presents emergency department complaining suprapubic pain. I do believe the patient's most like is suffering from bladder spasms. She does not have an elevation in her white blood count cell count and has a slight amount of blood in her urine. I will place her on Rocephin and Bactrim pending urine culture results. She was sent for a CAT scan of the abdomen and pelvis as her urinalysis was not convincing. This was concerning for a cystic lesion on the left ovary. Based on this I did discuss the case with the material control clerk on-call who agreed to see the patient follow-up in clinic. Patient was in agreement with the treatment plan. Blood Pressure Screening Patient's blood pressure: Elevated blood pressure Blood pressure disposition: Elevated BP felt to be situational Consults Time Called: 08 Consulting Physician: Dr. Nena YU Returned Call: 08 I discussed the case with Dr. Nena YU. He will follow up with the patient in the office. He notes the patient can be discharged home. Impression Primary Impression: Suprapubic pain Scribe Attestation The scribe's documentation has been prepared under my direction and personally reviewed by me in its entirety. I confirm that the note above accurately reflects all work, treatment, procedures, and medical decision making performed by me. Departure Information Dispostion Home / Self-Care Prescriptions Hydrocodone/Acetaminophen 5MG/325MG ([place] 5MG/325MG) Tab 2 TABLETS PO Q6 Y for Pain, #14 TAB Prov: Damir Lambert MD 05/22/17 Phenazopyridine HCl (Pyridium) 200 Mg Tab 200 MG PO TID for Bladder pain, #6 TAB Prov: Damir Lambert MD 05/22/17 Sulfa/Trimethoprim (Bactrim Ds 800MG/160MG) Tab 1 TAB PO BID for 7 Days, #14 TAB Prov: Damir Lambert MD 05/22/17 Referrals Tarun Gill III, M.D. (PCP) Forms HOME CARE DOCUMENTATION FORM, IMPORTANT VISIT INFORMATION Patient Instructions My [facility] Additional Instructions Follow up with Dr Camargo's office You have been examined and treated today on an emergency basis only. This is not a substitute for, or an effort to provide, complete comprehensive medical care. It is impossible to recognize and treat all injuries or illnesses in a single emergency department visit. It is therefore important that you follow up closely with Dr Gill. Call as soon as possible for an appointment. Thank you for your time and consideration. I look forward to speaking with you again soon. Please don't hesitate to call us if you have any questions.
[2017-05-22 07:25] LABS: BASO % 0.2 %; BASO ABS # 0.02 K/uL (0-0.2); EOS % 7.4 %; HEMATOCRIT 36.6 % (37-47); HEMOGLOBIN 12.3 g/dL (12.0-16.0); IG# 0.04 K/uL (0.00-0.02); LYMPH % 21.1 %; LYMPH ABS # 2.28 K/uL (1.2-3.4); MEAN CELL VOLUME 85.7 fL (80-100); MEAN CORPUSCULAR HEMOGLOBIN 28.8 pg (25-34); MEAN CORPUSCULAR HGB CONC 33.6 g/dl (32-36); MEAN PLATELET VOLUME 9.9 fL (7.4-10.4); MONO % 7.7 %; MONO ABS # 0.83 K/uL (0.11-0.59); NEUT % 63.2 %; NEUT ABS # 6.82 K/uL (1.4-6.5); PLATELET COUNT 308 K/uL (130-400); RED CELL DISTRIBUTION WIDTH CV 14.1 % (11.5-14.5); RED CELL DISTRIBUTION WIDTH SD 43.9 fL (36.4-46.3); WHITE BLOOD COUNT 10.79 K/uL (4.8-10.8)
[2017-05-22 07:42] LABS: ALBUMIN 3.2 gm/dl (3.4-5.0); ALT/SGPT 13 U/L (12-78); BLOOD UREA NITROGEN 15 mg/dl (7-18); CALCIUM 9.2 mg/dl (8.5-10.1); CARBON DIOXIDE 25 mmol/L (21-32); CREATININE 0.58 mg/dl (0.60-1.20); GLUCOSE 118 mg/dl (70-99); LIPASE 51 U/L (73-393); POTASSIUM 3.9 mmol/L (3.5-5.1); SODIUM 136 mmol/L (136-145)
[2017-05-22 07:45] LABS: ALKALINE PHOSPHATASE 100 U/L (45-117); AST/SGOT 9 U/L (15-37); TOTAL PROTEIN 7.4 gm/dl (6.4-8.2)
[2017-05-22] MEDS ORDERED: OPTIRAY 320 IV PRN (07:45)
--- NOTE | 2017-05-22 08:26 | DIAGNOSTIC IMAGING REPORT ---
CT ABD/PELVIS IV CONTRAST ONLY CLINICAL HISTORY: Diffuse abdominal pain. History of recent total hysterectomy. COMPARISON STUDY: 211 TECHNIQUE: Following the IV administration of 94 mL of Optiray-320, CT scan of the abdomen and pelvis was performed from the lung bases to the proximal femurs. Images are reviewed in the axial, sagittal, and coronal planes. IV contrast was administered without complication. A dose lowering technique was utilized adhering to the principles of ALARA. CT DOSE: 1025.13 mGy.cm FINDINGS: Lower chest: There are mild dependent atelectatic changes present. Liver: The contrast-enhanced liver is normal in size, contour, and attenuation. There is no intrahepatic biliary ductal dilatation. The hepatic veins and portal veins are patent. Gallbladder: Surgically absent Spleen: Normal in size and attenuation. Pancreas: Unremarkable. Adrenal glands: Unremarkable. Kidneys: There is a 4.5 cm right renal cortical cyst. Bowel: There are no transition zones indicate bowel obstruction. There is no acute diverticulitis. Scattered colonic diverticula are visualized. There are no findings to indicate acute appendicitis. Peritoneum: There is no intraperitoneal free air or abdominal ascites. There is a small fat-containing umbilical hernia. There is minimal infiltration of the fat within the hernia sac. Vasculature: The abdominal aorta is normal in course and caliber. Adenopathy: None. Pelvic viscera: There is a 33 mm left adnexal cystic lesion. By history the patient is status post a hysterectomy. This is likely ovarian. Correlation with the surgical procedures recommended to ensure the patient has not undergone an oophorectomy. There is mild infiltration of the pelvic fat, likely secondary to a recent hysterectomy. There is no evidence of drainable abscess. Skeletal structures: No destructive osseous lesions are seen. There is mild infiltration of the fat within the right anterior abdominal wall. This may relate to a surgical trocar site. IMPRESSION: 1. Postsurgical changes present within the pelvis. No evidence of a drainable abscess 2. 33 mm left adnexal cystic lesion, likely ovarian. Please correlate with surgical history 3. Small fat-containing umbilical hernia 4. No evidence of bowel obstruction. No evidence of free air Electronically signed by: Pierce Dominguez M.D. 05/22/2017 8:25 AM Dictated Date/Time: 05/22/2017 8:18 AM
[2017-05-22] MEDS ORDERED: PHEN-876 PO (09:01)
[2017-05-22] MEDS ORDERED: SULF800T23 PO (09:01)
[2017-05-22] MEDS ORDERED: OXYC-57 PO (09:01)
[2017-05-22 09:02] VITALS: BP 144/83; PULSE 73; O2SAT 97
[2017-05-22] MEDS ORDERED: HYDR-5688 PO (09:44)
== END 2017-05-22 09:30 | disposition home or self-care (01) ==
LOC: C.EDB 05:59 → C.EDA 09:30
DX: R10.2 Pelvic and perineal pain (principal); F41.9 Anxiety disorder, unspecified; E11.9 Type 2 diabetes mellitus without complications; E78.5 Hyperlipidemia, unspecified; I10 Essential (primary) hypertension; G35 Multiple sclerosis; Z83.3 Family history of diabetes mellitus; Z82.49 Family history of ischemic heart disease and other diseases of the circulatory system; F17.200 Nicotine dependence, unspecified, uncomplicated; Z79.82 Long term (current) use of aspirin

== ENCOUNTER 2023-11-26 14:36 | Inpatient (IN) ==
--- NOTE | 2023-11-26 15:03 | Emergency Department Note ---
Impression & Plan Chest pain ED Provider Note HISTORY OF PRESENT ILLNESS: Patient is a 58-year-old female presenting with chest pain. Patient reports that she has been having substernal chest pain intermittently over the last few weeks. She was at [facility] cardiology for a preoperative appointment for a heart catheterization scheduled for 12/08/2023, when she disclose that she was having chest pain again today. Patient reports that her pain today is worse than it has been over the last few weeks. She states that the pain woke her from sleep very early at this morning and has been constant ever since. Locates the pain to the substernal region with radiation into her left breast. Denies any significant shortness of breath with the pain, but does report she feels nauseous. Denies any back pain or abdominal pain. Denies any history of cardiac stents. Denies any DVT or PE history. She is not on any anticoagulation or antiplatelet therapy. Denies any recent cough or fevers. Patient has not taken anything for her pain today. ROS: as above PHYSICAL EXAM: Constitutional: Patient appears in no acute distress. HENT: Head: Normocephalic and atraumatic. Eyes: EOMI, PERRL Mouth/Throat: Mucous membranes moist. Neck: Trachea midline. Neck supple. Cardiovascular: RRR, No murmurs, rubs or gallops. Intact distal pulses. Pulmonary/Chest: No respiratory distress. Breath sounds clear and equal bilaterally. No wheezes or rales. Abdominal: Abdomen soft, no tenderness, rebound or guarding. Musculoskeletal: No edema, tenderness or deformity noted. Skin: Warm and dry. No rash, erythema, pallor or cyanosis Psychiatric: Appropriate mood and affect for situation. Neurological: Alert and keenly responsive. CN II-XII grossly intact, moving all extremities equally and fully. MDM: - Vitals signs showed hypertension. - History obtained via patient. History as above. - Chronic conditions affecting care: HTN; HLD; multiple sclerosis - Differential diagnoses include, but are not limited to: Acute coronary syndrome; pulmonary embolism; dissection; tension pneumothorax; esophageal rupture; pneumonia - Order placed for continuous cardiac monitoring. At this time, monitor showed rate of 80 bpm with normal sinus rhythm, per my interpretation. - External medical records reviewed. Cardiac CT scan obtained today was reviewed. Findings showed "CAD-RADS category 3 (moderate CAD with 50-69% stenosis)." Result care coordination note by [facility] was reviewed. They noted concern given patient's worsening symptoms and the limitation of that stenosis. That was likely hemodynamically significant, that the patient should undergo a cardiac catheterization. - EKG interpreted by myself showed normal sinus rhythm. Rate 77 bpm. QT 398. No acute ischemic changes. - Laboratory workup interpreted by myself showed normal WBC; stable electrolytes; normal troponin; normal BNP; normal PT/INR - CXR negative for pneumonia, per my interpretation - Patient given 324 mg PO aspirin in ER. - Given 1L NS, 4 mg IV zofran and 50 mcg IV fentanyl for nausea and pain control. - Discussed case with [facility] cardiology on-call, Dr. Guerin, at 16:50. He confirms that the plan will be to admit the patient to the hospital service and keep n.p.o. after midnight for heart catheterization tomorrow to further assess need for potential cardiac stent placement. - Discussion was had with dependency case manager about patient's case and need for admission - Hospitalist consulted for admission - Patient admitted to [facility] hospitalist service for further evaluation and management. ASSESSMENT AND PLAN: Diagnosis: Chest pain Plan: admit Past Med/Surg History Problem List (Updated 11/26/23 @ 17:29 by Dilcia Narayanan MD) Chest pain (Acute) Sensorineural hearing loss (SNHL) of right ear with restricted hearing of left ear Tinnitus of right ear Migraine without aura MS (multiple sclerosis) (Chronic) HTN (hypertension) (Chronic) History of palpitations (Chronic) "attributed to supraventricular ectopy, cardiac awareness" Dyslipidemia (Chronic) Anxiety (Chronic) Vitamin D deficiency Memory impairment Daytime sleepiness Lower back pain Left leg weakness Vitamin B12 deficiency Tremor Occipital neuralgia Right sided weakness Urinary incontinence Bowel dysfunction Fatigue Facial pain Vision blurred Depression with anxiety Tinnitus Medical History (Updated 11/26/23 @ 17:29 by Dilcia Narayanan MD) Tremor Cholecystectomy planned Multiple sclerosis Hypertension Heart palpitations Family History Father Hypertension Lung cancer Brain cancer Migraine headache Neurological disorder Brother Hypertension Son Migraine headache Mother Palpitations Social History Smoking Status: Never smoker Preferred Language: [place]i marital status: current occupational status: unemployed and disabled Feels Safe at Home: Yes Allergies Allergies Allergy/AdvReac Type Severity Reaction Status Date / Time hydromorphone Allergy Severe SHORTNESS Verified 10/02/23 08:10 OF BREATH carbamazepine Allergy Unknown ? REMEMBER Verified 10/02/23 08:10 gabapentin AdvReac Mild Verified 10/02/23 08:10 Home Meds Home Medications Medication Instructions Recorded Confirmed metformin 500 mg tablet,extended 500 mg PO QPM 03/09/19 10/02/23 release 24 hr nitroglycerin 0.4 mg sublingual 0.4 mg sublingual UD PRN Chest Pain 09/06/19 10/02/23 tablet amlodipine 2.5 mg tablet 2.5 mg PO DAILY 12/19/20 10/02/23 aspirin 81 mg tablet,delayed 81 mg PO DAILY 12/19/20 10/02/23 release (Adult Low Dose Aspirin) hydrochlorothiazide 25 mg tablet 25 mg PO DAILY 12/19/20 10/02/23 lisinopril 20 mg tablet 20 mg PO DAILY 12/19/20 10/02/23 metoprolol succinate 100 mg 100 mg PO DAILY 12/19/20 10/02/23 tablet,extended release 24 hr famotidine 40 mg tablet 40 mg PO DAILY 03/06/21 10/02/23 Oxygen Home 06/16/23 10/02/23 albuterol sulfate 2.5 mg/3 mL 2.5 mg inhalation Q4H PRN 08/20/23 10/02/23 (0.083 %) solution for nebulization Shortness Of Breath Or Wheezing albuterol sulfate 90 mcg/actuation 2 puff inhalation Q6H PRN 08/20/23 10/02/23 aerosol inhaler bupropion HCl 150 mg 24 hr tablet, 150 mg PO QAM 08/20/23 10/02/23 extended release clobetasol 0.05 % topical cream 1 applic topical BID 08/20/23 10/02/23 dulaglutide 0.75 mg/0.5 mL mg subcut 08/20/23 10/02/23 subcutaneous pen injector (Trulicity) estradiol 0.01% (0.1 mg/gram) 1 appful vaginal DAILY 08/20/23 10/02/23 vaginal cream (Estrace) fluoxetine 40 mg capsule 40 mg PO DAILY 08/20/23 10/02/23 loratadine 10 mg tablet 10 mg PO DAILY 08/20/23 10/02/23 omeprazole 40 mg capsule,delayed 40 mg PO DAILY 08/20/23 10/02/23 release ondansetron HCl 4 mg tablet 4 mg PO Q6H PRN 08/20/23 10/02/23 potassium chloride 10 mEq 10 meq PO DAILY 08/20/23 10/02/23 capsule,extended release rosuvastatin 20 mg tablet 20 mg PO DAILY 08/20/23 10/02/23 sennosides 8.6 mg tablet (senna) 8.6 mg PO DAILY 08/20/23 10/02/23 solifenacin 5 mg tablet 5 mg PO DAILY 08/20/23 10/02/23 tacrolimus 0.03 % topical ointment 1 applic topical BID 08/20/23 10/02/23 Previous Rx's Medication Instructions Recorded syringe with needle, safety 1 mL #3 ea 09/08/22 25 gauge x 1" (Easy Touch FlipLock Syringe) cyanocobalamin (vitamin B-12) 1,000 mcg IM MONTHLY #3 mL 11/04/22 1,000 mcg/mL injection solution digital therapeutic,GEORGE device #1 ea 01/14/23 baclofen 20 mg tablet 20 mg PO BID #60 tabs 04/27/23 ofatumumab 20 mg/0.4 mL 20 mg (0.4 mL) subcut MONTHLY #0.4 06/16/23 subcutaneous pen injector mL (Kesimpta Pen) cholecalciferol (vitamin D3) 1,250 50,000 unit PO WEEKLY 12 weeks #12 08/20/23 mcg (50,000 unit) capsule caps trazodone 100 mg tablet 200 mg (2 x 100 mg) PO DAILY #30 08/20/23 tabs topiramate 200 mg capsule 200 mg PO DAILY #30 caps 09/23/23 sprinkle,extended release 24 hr armodafinil 150 mg tablet 150 mg PO QAM #30 tabs 10/02/23 rizatriptan 10 mg tablet 10 mg PO DAILY PRN migraine 10/02/23 headache #9 tabs erenumab-aooe 140 mg/mL 140 mg subcut MONTHLY #1 mL 10/21/23 subcutaneous auto-injector (Aimovig Autoinjector) methylprednisolone 4 mg tablets in 4 mg PO .COMPLEX #21 ea 10/26/23 a dose pack (Medrol (Kalen)) Results & Data (ED) Vital Signs Vital Signs - 24 hr 11/26/23 14:39 11/26/23 15:17 11/26/23 15:19 Temperature 36.4 C L Temperature Source Temporal Artery Scan Pulse Rate 84 77 Pulse Rate [Apical] Pulse Rhythm Pulse Rhythm [Apical] Pulse Strength [Apical] Respiratory Rate 20 Respiratory Effort / Characteristics Respiratory Depth Respiratory Pattern Blood Pressure 207/114 H Blood Pressure [Left Arm] Blood Pressure Mean 145 Blood Pressure Mean [Left Arm] Blood Pressure Position [Left Arm] Pulse Oximetry 94 97 Oxygen Delivery Method Room Air Sepsis Recent Fever Within 48 Hours No Sepsis New/Unexplained Change in Mental Status N/A Sepsis Action Taken by Nursing No Action Required 11/26/23 15:28 11/26/23 16:10 11/26/23 17:00 Temperature Temperature Source Pulse Rate 66 Pulse Rate [Apical] 78 66 Pulse Rhythm Regular Pulse Rhythm [Apical] Regular Regular Pulse Strength [Apical] Normal Normal Respiratory Rate 18 16 18 Respiratory Effort / Characteristics Non-Labored Spontaneous Non-Labored Spontaneous Respiratory Depth Normal Normal Respiratory Pattern Regular Regular Blood Pressure Blood Pressure [Left Arm] 165/97 H 158/89 H Blood Pressure Mean Blood Pressure Mean [Left Arm] 119 112 Blood Pressure Position [Left Arm] Sitting Pulse Oximetry 97 94 96 Oxygen Delivery Method Room Air Room Air Room Air Sepsis Recent Fever Within 48 Hours Sepsis New/Unexplained Change in Mental Status Sepsis Action Taken by Nursing Laboratory Data 11/26/23 15:13 11/26/23 15:45 Lab Results 11/26/23 11/26/23 11/26/23 Range/Units 15:12 15:13 15:45 WBC 6.79 (4.8-10.8) K/ul RBC 5.07 (4.20-5.40) M/uL Hgb 14.7 (12.0-16.0) g/dl Hct 42.6 (37.0-47.0) % MCV 84.0 (80.0-100.0) fL MCH 29.0 (25.0-34.0) pg MCHC 34.5 (32.0-36.0) g/dL RDW Std Deviation 41.6 (36.4-46.3) fL RDW Coeff of [place] 13.6 (11.5-14.5) % Plt Count 301 (130-400) K/uL MPV 10.0 (9.4-12.4) fL Immature Gran % (Auto) 0.1 % Neut % (Auto) 69.0 % Lymph % (Auto) 18.9 % [place] % (Auto) 9.4 % Eos % (Auto) 2.2 % Baso % (Auto) 0.4 % Neut # (Auto) 4.68 (1.40-6.50) K/uL Lymph # (Auto) 1.28 (1.20-3.40) K/uL [place] # (Auto) 0.64 H (0.11-0.59) K/uL Eos # (Auto) 0.15 (0.00-0.50) K/uL Baso # (Auto) 0.03 (0.00-0.20) K/uL Immature Gran # (Auto) 0.01 (0.01-0.20) K/uL PT 10.3 (9.0-12.0) Seconds INR 0.9 (0.9-1.1) Sodium 137 (136-145) mmol/L Potassium TNP 3.9 Chloride 104 (98-107) mmol/L Carbon Dioxide 24 (21-32) mmol/L Anion Gap 9 (3-11) BUN 14 (6-23) mg/dl Creatinine 0.87 (0.6-1.2) mg/dl Est Cr Clr Drug Dosing 81.2 ml/min Est GFR ( Amer) 85.1 ml/min Est GFR (Non-Af Amer) 73.4 ml/min BUN/Creatinine Ratio 16.1 (10-20) Glucose 126 H (70-99(Fasting)) mg/dl Calcium 9.7 (8.6-10.3) mg/dl Magnesium 2.1 (1.7-2.4) mg/dl Total Bilirubin 0.5 (0.2-1.0) mg/dl AST TNP 17 ALT 16 (7-52) U/L Alkaline Phosphatase 116 H (34-104) U/L Troponin I High Sens 4.8 (0-14) pg/ml B-Natriuretic Peptide 25 (0-100) pg/ml Total Protein 7.6 (6.0-8.3) gm/dl Albumin 4.4 (3.4-5.0) gm/dl Globulin 3.2 (2.5-4.0) gm/dl Albumin/Globulin Ratio 1.4 (0.9-2) Lipase 9 L (11-82) U/L Administered Medications Discontinued Medications Aspirin (Aspirin Chew 324 Mg) 324 mg PO NOW STA Stop: 11/26/23 15:00 Last Admin: 11/26/23 15:19 Dose: 324 mg Documented By: MARY ANNE Fentanyl Citrate (Fentanyl Citrate Pf 100 Mcg/2 Ml Vial) 50 mcg IV NOW STA Stop: 11/26/23 15:00 Last Admin: 11/26/23 15:44 Dose: 50 mcg Documented By: MARY ANNE Sodium Chloride (Nss) 1,000 mls @ 999 mls/hr IV .Q1H1M ONE Stop: 11/26/23 15:59 Last Infusion: 11/26/23 17:00 Dose: Infused Documented By: MARY ANNE Admin: 11/26/23 15:45 Dose: 999 mls/hr Documented By: MARY ANNE Ondansetron HCl (Ondansetron Inj 2 Mg/Ml 2 Ml Vial) 4 mg IV NOW STA Stop: 11/26/23 15:00 Last Admin: 11/26/23 15:44 Dose: 4 mg Documented By: MARY ANNE Imaging Data Radiologist's Impression: Chest X-Ray 11/26/23 14:45 XR chest 1V portable CLINICAL HISTORY: Chest pain, nonspecific COMPARISON STUDY: Chest radiograph September 16, 2021. Chest CT September 17, 2021. FINDINGS: Lung volumes are normal. Lungs are clear. There is no pneumothorax or pleural effusion. Cardiac size is normal. Mediastinal contours are normal. There is no evidence for pulmonary edema. IMPRESSION: No acute cardiopulmonary findings. ACT 112: Negative or not required by law. Electronically signed by: Torres Neves M.D. 11/26/2023 3:01 PM Discharge Plan Visit Data Chief Complaint: Chest Pain Stated Complaint: CHEST PAIN ED Provider: Dilcia Narayanan Discharge Problem: Chest pain Forms Stand Alone Forms: [facility] [place] Property Online Prescriptions Prescriptions: No Action (DME) Easy Touch FlipLock Syringe 1 mL 25 gauge x 1" syringe See Rx Instructions .ROUTE .MEDSUPPLY Qty: 3 3RF Rx Instructions: As directed baclofen 20 mg tablet 20 mg PO BID Qty: 60 2RF Rx Instructions: for head/nerve pain topiramate 200 mg capsule,sprinkle,ER 24hr 200 mg PO DAILY Qty: 30 5RF Aimovig Autoinjector 140 mg/mL auto-injector 140 mg subcut MONTHLY Qty: 1 11RF methylprednisolone [Medrol (Kalen)] 4 mg tablets,dose pack 4 mg PO .COMPLEX Qty: 21 0RF Rx Instructions: Start on day 4 after solu-medrol infusions. Take each days dose all at once with food (DME) digital therapeutic,GEORGE device Misc See Rx Instructions .Route Qty: 1 0RF Rx Instructions: As directed amlodipine 2.5 mg tablet 2.5 mg PO DAILY metoprolol succinate 100 mg tablet extended release 24 hr 100 mg PO DAILY hydrochlorothiazide 25 mg tablet 25 mg PO DAILY lisinopril 20 mg tablet 20 mg PO DAILY aspirin [Adult Low Dose Aspirin] 81 mg tablet,delayed release (DR/EC) 81 mg PO DAILY cyanocobalamin (vitamin B-12) 1,000 mcg/mL solution 1,000 mcg IM MONTHLY Qty: 3 3RF (DME) Oxygen Home Liters Per Minute See Rx Instructions .Route Rx Instructions: As directed Kesimpta Pen 20 mg/0.4 mL pen injector 20 mg subcut MONTHLY Qty: 0.4 11RF metformin 500 mg tablet extended release 24 hr 500 mg PO QPM famotidine 40 mg tablet 40 mg PO DAILY rizatriptan 10 mg tablet 10 mg PO DAILY PRN (Reason: migraine headache) Qty: 9 5RF Rx Instructions: 9 must last one month armodafinil 150 mg tablet 150 mg PO QAM Qty: 30 5RF rosuvastatin 20 mg tablet 20 mg PO DAILY potassium chloride 10 mEq capsule, extended release 10 meq PO DAILY estradiol [Estrace] 0.01 % (0.1 mg/gram) cream 1 appful vaginal DAILY Rx Instructions: for 14 days tacrolimus 0.03 % ointment 1 applic topical BID bupropion HCl 150 mg tablet extended release 24 hr 150 mg PO QAM solifenacin 5 mg tablet 5 mg PO DAILY sennosides [senna] 8.6 mg tablet 8.6 mg PO DAILY Trulicity 0.75 mg/0.5 mL pen injector subcut fluoxetine 40 mg capsule 40 mg PO DAILY clobetasol 0.05 % cream 1 applic topical BID albuterol sulfate 90 mcg/actuation HFA aerosol inhaler 2 puff inhalation Q6H PRN loratadine 10 mg tablet 10 mg PO DAILY albuterol sulfate 2.5 mg /3 mL (0.083 %) solution for nebulization 2.5 mg inhalation Q4H PRN (Reason: Shortness Of Breath Or Wheezing) ondansetron HCl 4 mg tablet 4 mg PO Q6H PRN omeprazole 40 mg capsule,delayed release(DR/EC) 40 mg PO DAILY cholecalciferol (vitamin D3) 1,250 mcg (50,000 unit) capsule 50,000 unit PO WEEKLY 84 Days Qty: 12 0RF trazodone 100 mg tablet 200 mg PO DAILY Qty: 30 2RF nitroglycerin 0.4 mg tablet, sublingual 0.4 mg sublingual UD PRN (Reason: Chest Pain) Referrals Referrals: Tarun Gill MD [Primary Care Provider] -
[2023-11-26] MEDS: ASPIRIN CHEW 324 MG PO STA (15:19)
[2023-11-26 15:29] LABS: Basophils # (auto) 0.03 K/uL (0.00-0.20); Basophils % (auto) 0.4 %; Eosinophils # (auto) 0.15 K/uL (0.00-0.50); Eosinophils % (auto) 2.2 %; Hematocrit (blood only) 42.6 % (37.0-47.0); Hemoglobin 14.7 g/dl (12.0-16.0); Immature Granulocytes # (auto) 0.01 K/uL (0.01-0.20); Immature Granulocytes % (auto) 0.1 %; Lymphocytes # (auto) 1.28 K/uL (1.20-3.40); Lymphocytes % (auto) 18.9 %; Mean Corpuscular Hgb Conc 34.5 g/dL (32.0-36.0); Monocytes # (auto) 0.64 K/uL (0.11-0.59); Monocytes % (auto) 9.4 %; Neutrophils # (auto) 4.68 K/uL (1.40-6.50); Platelet Count 301 K/uL (130-400); RDW Coefficient of Variation 13.6 % (11.5-14.5); RDW Standard Deviation 41.6 fL (36.4-46.3); Red Blood Count 5.07 M/uL (4.20-5.40); White Blood Count 6.79 K/ul (4.8-10.8)
[2023-11-26] MEDS: ONDANSETRON INJ 2 MG/ML 2 ML VIAL IV STA (15:44)
[2023-11-26] MEDS: fentaNYL citrate PF 100 MCG/2 ML VIAL IV STA (15:44)
[2023-11-26] MEDS: SODIUM CHLORIDE 0.9% 1,000 ML IV ONE (15:45)
[2023-11-26 16:00] LABS: Alanine Aminotransferase 16 U/L (7-52); Albumin Globulin Ratio 1.4 (0.9-2); Albumin Level 4.4 gm/dl (3.4-5.0); Alkaline Phosphatase 116 U/L (34-104); Anion Gap 9 (3-11); BUN Creatinine Ratio 16.1 (10-20); Bilirubin,Total 0.5 mg/dl (0.2-1.0); Blood Urea Nitrogen 14 mg/dl (6-23); Calcium 9.7 mg/dl (8.6-10.3); Carbon Dioxide 24 mmol/L (21-32); Chloride 104 mmol/L (98-107); Creatinine Clr Calc Pharmacy 81.2 ml/min; Est GFR (African American) 85.1 ml/min; Est GFR (Non-African American) 73.4 ml/min; Globulin 3.2 gm/dl (2.5-4.0); Glucose 126 mg/dl (70-99(Fasting)); Lipase 9 U/L (11-82); Magnesium 2.1 mg/dl (1.7-2.4); Sodium 137 mmol/L (136-145); Total Protein 7.6 gm/dl (6.0-8.3)
[2023-11-26 16:36] LABS: Potassium 3.9 mmol/L (3.5-5.1)
[2023-11-26 16:43] LABS: Troponin I High Sensitivity 4.8 pg/ml (0-14)
[2023-11-26 16:44] LABS: INR 0.9 (0.9-1.1); Prothrombin Time 10.3 Seconds (9.0-12.0)
--- NOTE | 2023-11-26 17:20 | History & Physical Report ---
Date of Service November 26, 2023 Assessment & Plan (1) Chest pain: (2) Coronary artery disease: (3) Cough: Plan Deanne Mckeon is a 58y/o F with PMHx of DM type II, dyslipidemia, HTN, history of vitamin D deficiency, chronic idiopathic constipation, GERD without esophagitis, lichen simplex chronicus, multiple sclerosis, history of migraines, depression and other problems listed below who presented to the ED for evaluation secondary to chest pain. Patient has been c/o intermittent chest pain and chest tightness over the past few weeks. Patient follows w/ [facility] at [facility] in the outpatient setting 2/2 hypertensive heart disease and chronic ventricular e ctopy. Given recent chest pain and tightness, the patient ultimately underwent cardiac CT on 11/16 and that revealed the followin diagonal branch with moderate, possibly hemodynamically significant (50% to 60%) stenosis with extensive calcium blooming artifact, diagonal branch of the left anterior descending artery has calcified plaque and mid left anterior descending coronary artery has mild (25% to 49%) stenosis. The findings are consistent with CAD-RADS category 3 (moderate CAD with 50% to 69% stenosis) per cardiology's documentation. Patient was ultimately scheduled for cardiac catheterization on 12/07. However, the patient was at [facility] this morning for a cardiac pre-operative appointment when she started to have an episode of severe chest pain and that ultimately brought her into the ED for further evaluation. Chest Pain Rule-Out Moderate CAD on Cardiac CT (11/16) Admitting labs rather unremarkable. No acute electrolyte abnormalities noted. Initial trop negative, EKG w/o ischemic changes. Repeat trop Q6H x 2 - follow closely and trend. CXR negative for any acute cardiopulmonary findings. ED provider spoke with Dr. Guerin; Plan for cardiac catheterization tomorrow, pt NPO at midnight. Pt administered the following in the ED: PO Aspirin 324mg, IV Fentanyl 50 mcg, IV Zofran 4mg & 1L NSS. Pt uses 2L supplemental O2 HS - can continue, ordered. Echo pending - follow results. Sublingual nitroglycerin PRN ordered. BMP, CBC, mag and lipid panel in AM. Cough Pt c/o ongoing cough on admission, pt afebrile. No recent fevers, clear to white sputum production. CXR negative for any acute cardiopulmonary findings. No leukocytosis; Biofire and procalcitonin pending - follow. HTN BP 207/114 on presentation, improved to 158/89 at time of admission. No BP lowering medications given in ED, but was given IV fentanyl for pain. Pt did not take any of her medications this AM. Will administer amlodipine, metoprolol succinate and lisinopril now. Hold HCTZ for now given cardiac cath in AM, closely monitor BP. DM Type II Hold MANAGED CARE LIAISON diabetic meds; initiate SSI regimen. Hgb A1c in AM, BSG checks ACHS; pt NPO at midnight. Glycemic pharmacy consulted, appreciate their recommendations. Multiple Sclerosis: Pt follows / [facility]; pt on Kesimpta [1 injection/month] MANAGED CARE LIAISON - unsure of most recent dose. Other Chronic Medical Conditions: Chronic idiopathic constipation, depression/anxiety, history of migraines, GERD --> Can continue MANAG[employer] C[employer] LIAISON medications for these specified conditions. DVT Prophylaxis: SQ Heparin Code Status: FULL CODE PCP: Tarun Gill MD Disposition: Observation in PCU/Telemetry Patient seen in collaboration with Dr. Maier. Please see addendum. I spent a total of 60 minutes coordinating, documenting, and providing care for this patient excluding time spent in the performance of separately billed services. This included personally reviewing all current laboratories and imaging studies, medical reconciliation, outpatient chart review and discussion with specialists. This chart was completed in part utilizing Speech Voice Recognition Software. Grammatical errors, random word insertions, pronoun errors, and incomplete sentences are an occasional consequence of this system due to software limitations, ambient noise, and hardware issues. Any formal questions or concerns about the content, text, or information contained within the body of this dictation should be directly addressed to the provider for clarification. History of Present Illness Chief Complaint: Chest Pain Primary Care Provider: Tarun Gill MD Deanne Mckeon is a 58y/o F with PMHx of DM type II, dyslipidemia, HTN, history of vitamin D deficiency, chronic idiopathic constipation, GERD without esophagitis, lichen simplex chronicus, multiple sclerosis, history of migraines, depression and other problems listed below who presented to the ED for evaluation secondary to chest pain. History obtained from patient and associated chart review. Has not been feeling well for the past month and a half. She was previously on a posting specialist - patient was told her HR kept dropping to the 40s while wearing the monitor. Patient didn't feel well this morning, mentions she did not sleep well throughout the night. Reports she has an ongoing cough and is bringing up some white-colored phlegm. Reports a "popping" sensation in her right rib cage and some substernal chest tightness - does not radiate anywhere typically. Reports feeling chest tightness throughout our conversation - 3/10 pain. Chest tightness and pain gets worse with exhaustion. Reports she has been nauseous for about a week, no vomiting episodes. Patient is on oxygen a t home, only at bedtime. She is unsure of how many liters she is requiring. Denies any fevers, but mentions she feels pretty cold. Patient did not take any of her medications this morning. She is reporting a mild headache, which has been ongoing since this morning. Has not taken any nitroglycerin at home recently. Patient has not eaten much recently, but has been hydrating appropriately. Patient was at [facility] this afternoon for pre- operative testing; she is scheduled to undergo cardiac catheterization on 12/07. Allergies Allergy/AdvReac Type Severity Reaction Status Date / Time hydromorphone Allergy Severe SHORTNESS Verified 10/02/23 08:10 OF BREATH carbamazepine Allergy Unknown ? REMEMBER Verified 10/02/23 08:10 gabapentin AdvReac Mild Unknown Verified 11/26/23 17:56 Home Medications Medication Instructions Recorded Confirmed Type metformin 500 mg tablet,extended 500 mg PO BID 03/09/19 11/26/23 History release 24 hr nitroglycerin 0.4 mg sublingual 0.4 mg sublingual UD PRN Chest Pain 09/06/19 11/26/23 History tablet amlodipine 2.5 mg tablet 2.5 mg PO DAILY 12/19/20 11/26/23 History aspirin 81 mg tablet,delayed 81 mg PO DAILY 12/19/20 11/26/23 History release (Adult Low Dose Aspirin) hydrochlorothiazide 25 mg tablet 25 mg PO DAILY 12/19/20 11/26/23 History lisinopril 20 mg tablet 20 mg PO DAILY 12/19/20 11/26/23 History metoprolol succinate 100 mg 50 - 100 mg PO DAILY 12/19/20 11/26/23 History tablet,extended release 24 hr famotidine 40 mg tablet 40 mg PO DAILY 03/06/21 11/26/23 History syringe with needle, safety 1 mL #3 ea 09/08/22 11/26/23 Rx 25 gauge x 1" (Easy Touch FlipLock Syringe) cyanocobalamin (vitamin B-12) 1,000 mcg IM MONTHLY #3 mL 11/04/22 11/26/23 Rx 1,000 mcg/mL injection solution digital therapeutic,GEORGE device #1 ea 01/14/23 11/26/23 Rx Oxygen Home 06/16/23 11/26/23 History ofatumumab 20 mg/0.4 mL 20 mg (0.4 mL) subcut MONTHLY #0.4 06/16/23 11/26/23 Rx subcutaneous pen injector mL (Kesimpta Pen) albuterol sulfate 2.5 mg/3 mL 2.5 mg inhalation Q4H PRN 08/20/23 11/26/23 History (0.083 %) solution for nebulization Shortness Of Breath Or Wheezing albuterol sulfate 90 mcg/actuation 2 puff inhalation Q6H PRN 08/20/23 11/26/23 History aerosol inhaler Shortness Of Breath Or Wheezing bupropion HCl 150 mg 24 hr tablet, 150 mg PO QAM 08/20/23 11/26/23 History extended release cholecalciferol (vitamin D3) 1,250 50,000 unit PO WEEKLY 12 weeks #12 08/20/23 11/26/23 Rx mcg (50,000 unit) capsule caps clobetasol 0.05 % topical cream 1 applic topical BID 08/20/23 11/26/23 History dulaglutide 0.75 mg/0.5 mL 0.75 mg subcut WK 08/20/23 11/26/23 History subcutaneous pen injector (Trulicity) fluoxetine 40 mg capsule 40 mg PO DAILY 08/20/23 11/26/23 History loratadine 10 mg tablet 10 mg PO DAILY 08/20/23 11/26/23 History omeprazole 40 mg capsule,delayed 40 mg PO DAILY 08/20/23 11/26/23 History release ondansetron HCl 4 mg tablet 4 mg PO Q6H PRN Nausea And Vomiting 08/20/23 11/26/23 History rosuvastatin 20 mg tablet 20 mg PO DAILY 08/20/23 11/26/23 History sennosides 8.6 mg tablet (senna) 8.6 mg PO DAILY 08/20/23 11/26/23 History solifenacin 5 mg tablet 5 mg PO DAILY 08/20/23 11/26/23 History tacrolimus 0.03 % topical ointment 1 applic topical BID PRN .flare ups 08/20/23 11/26/23 History topiramate 200 mg capsule 200 mg PO DAILY #30 caps 09/23/23 11/26/23 Rx sprinkle,extended release 24 hr armodafinil 150 mg tablet 150 mg PO QAM #30 tabs 10/02/23 11/26/23 Rx rizatriptan 10 mg tablet 10 mg PO DAILY PRN migraine 10/02/23 11/26/23 Rx headache #9 tabs baclofen 20 mg tablet 20 mg PO BID PRN Neck Pain 11/26/23 11/26/23 History estradiol 0.01% (0.1 mg/gram) 1 applic vaginal DAILY PRN itchy 11/26/23 11/26/23 History vaginal cream trazodone 100 mg tablet 200 mg PO QPM 11/26/23 11/26/23 History Past Med/Surg History Problem List (Updated 11/26/23 @ 18:58 by Cinda Melgar PA-C) Coronary artery disease Cough Chest pain (Acute) Sensorineural hearing loss (SNHL) of right ear with restricted hearing of left ear Tinnitus of right ear Migraine without aura MS (multiple sclerosis) (Chronic) HTN (hypertension) (Chronic) History of palpitations (Chronic) "attributed to supraventricular ectopy, cardiac awareness" Dyslipidemia (Chronic) Anxiety (Chronic) Vitamin D deficiency Memory impairment Daytime sleepiness Lower back pain Left leg weakness Vitamin B12 deficiency Tremor Occipital neuralgia Right sided weakness Urinary incontinence Bowel dysfunction Fatigue Facial pain Vision blurred Depression with anxiety Tinnitus Medical History Tremor Cholecystectomy planned Multiple sclerosis Hypertension Heart palpitations Family History Father Hypertension Lung cancer Brain cancer Migraine headache Neurological disorder Brother Hypertension Son Migraine headache Mother Palpitations Social History Smoking Status: Never smoker Preferred Language: Danish marital status: current occupational status: unemployed and disabled Feels Safe at Home: Yes Review of Systems Review of Systems: At least ten systems reviewed and negative, except as noted in the HPI. Physical Exam Physical Exam: Please refer to Dr. Maier's addendum for physical examination findings. Results & Data Results & Data Vital Signs (Past 12 Hours) Vital Signs Temp Pulse Pulse Resp BP BP Pulse Ox 11/26/23 17:00 66 18 158/89 H 96 11/26/23 16:10 66 16 94 11/26/23 15:28 78 18 165/97 H 97 11/26/23 15:19 77 11/26/23 15:17 97 11/26/23 14:39 36.4 C L 84 20 207/114 H 94 O2 Del Method 11/26/23 17:00 Room Air 11/26/23 16:10 Room Air 11/26/23 15:28 Room Air 11/26/23 15:19 11/26/23 15:17 Room Air 11/26/23 14:39 Laboratory Results Short CBC 11/26/23 Range/Units 15:13 WBC 6.79 (4.8-10.8) K/ul Hgb 14.7 (12.0-16.0) g/dl Hct 42.6 (37.0-47.0) % Plt Count 301 (130-400) K/uL BMP 11/26/23 11/26/23 15:12 15:45 Sodium 137 Potassium TNP 3.9 Chloride 104 Carbon Dioxide 24 BUN 14 Creatinine 0.87 Glucose 126 H Calcium 9.7 Liver Function 11/26/23 11/26/23 Range/Units 15:12 15:45 Total Bilirubin 0.5 (0.2-1.0) mg/dl AST TNP 17 ALT 16 (7-52) U/L Alkaline Phosphatase 116 H (34-104) U/L Albumin 4.4 (3.4-5.0) gm/dl Diagnostic Findings Chest X-Ray 11/26/23 14:45 XR chest 1V portable CLINICAL HISTORY: Chest pain, nonspecific COMPARISON STUDY: Chest radiograph September 16, 2021. Chest CT September 17, 2021. FINDINGS: Lung volumes are normal. Lungs are clear. There is no pneumothorax or pleural effusion. Cardiac size is normal. Mediastinal contours are normal. There is no evidence for pulmonary edema. IMPRESSION: No acute cardiopulmonary findings. ACT 112: Negative or not required by law. Electronically signed by: Torres Neves M.D. 11/26/2023 3:01 PM Medications Administered Discontinued Medications Aspirin (Aspirin Chew 324 Mg) 324 mg PO NOW STA Stop: 11/26/23 15:00 Last Admin: 11/26/23 15:19 Dose: 324 mg Documented By: MARY ANNE Fentanyl Citrate (Fentanyl Citrate Pf 100 Mcg/2 Ml Vial) 50 mcg IV NOW STA Stop: 11/26/23 15:00 Last Admin: 11/26/23 15:44 Dose: 50 mcg Documented By: MARY ANNE Sodium Chloride (Nss) 1,000 mls @ 999 mls/hr IV .Q1H1M ONE Stop: 11/26/23 15:59 Last Infusion: 11/26/23 17:00 Dose: Infused Documented By: MARY ANNE Admin: 11/26/23 15:45 Dose: 999 mls/hr Documented By: MARY ANNE Ondansetron HCl (Ondansetron Inj 2 Mg/Ml 2 Ml Vial) 4 mg IV NOW STA Stop: 11/26/23 15:00 Last Admin: 11/26/23 15:44 Dose: 4 mg Documented By: MARY ANNE Code Status & VTE Plan Code Status FULL CODE Supervising Physician Co-Signing Physician Notes Patient is a 58-year-old female with history of diabetes mellitus, hypertension, hyperlipidemia, multiple sclerosis, migraine, GERD and other medical problems presents with history of ongoing chest pain for last several days. She was recently evaluated by cardiology and event monitor was placed, showed bradycardia and as per recommendations from cardiology, patient had cardiac CT suggestive of significant coronary artery disease. Patient admits to have worsening chest pain with exertion. On further recommendations from cardiology, patient was sent to ED for further evaluation. Patient was not able to take her antihypertensives today. She was noted to be in hypertensive urgency while in ED. She also states having intermittent cough and reports headache today. Please review HPI for complete details of presentation. I personally reviewed blood work and imaging studies. Chest x-ray within normal limits. Initial troponin, BNP, procalcitonin normal. BioFire negative. EKG showed no signs of acute ischemia. Physical Exam: Vitals signs as noted above General Appearance:Obese, no apparent distress Head: normocephalic, Atraumatic Eyes: normal inspection, EOMI Neck: supple, Trachea midline Respiratory/Chest: Normal breath sounds, CTA, No accessory muscle use Cardiovascular: S1, S2, No murmur Abdomen/GI:Soft, Non tender, Bowel sounds present Extremities/Musculoskeletal:normal inspection, no edema Neurologic/Psych:AAOX3, grossly no focal neurological deficits Skin: normal color, warm Chest pain rule out ACS Coronary artery disease Hypertensive urgency likely situational/missing her antihypertensives Check resting echo, trend troponins Check lipid panel Continue aspirin Restart home antihypertensives Cardiology on board N.p.o. after midnight for cardiac cath tomorrow Obesity Could have sleep apnea Nocturnal hypoxia Continue supplemental oxygen at bedtime Will need polysomnography as outpatient I personally interviewed and examined at bedside. Patient's care is coordinated with Cinda Shirley PA-C. I have reviewed the advanced practitioner's documentation, and I agree with plan of care. Please refer to the documentation above for details of patient's presentation and for discussion of other issues. I spent a total of38 minutes coordinating, documenting, and providing care for this patient excluding time spent in the performance of separately billed services. (1) Chest pain Chest pain type: unspecified Qualified Code(s): R07.9 - Chest pain, unspecified (2) Coronary artery disease Associated angina: unspecified whether angina present Coronary Disease- Associated Artery/Lesion type: unspecified vessel or lesion type [place] vs. transplanted heart: [place] heart Qualified Code(s): I25.10 - Atherosclerotic heart disease of [place] coronary artery without angina pectoris (3) Cough Cough type: unspecified Qualified Code(s): R05.9 - Cough, unspecified
--- NOTE | 2023-11-26 18:27 | Cardiology Consultation ---
Date of Consultation November 26, 2023 Assessment & Plan (1) Chest pain: (2) Coronary artery disease: Plan Chest pain Patient presents with chest pain including a reproducible right rib pain that is obviously not angina. She states that she has had a nonproductive cough for a number of weeks, viral respiratory panel currently pending, chest x-ray without infiltrate. With regards to her chest symptoms, I reviewed the images of her recent cardiac CT performed on 11/17/2023 independently and agree with the report that analysis of the focal calcification at the ostium of the diagonal 2 branch of the LAD is technically limited due to the presence of focal calcification. The branch is a small vessel, 1.8 mm in diameter. The adjacent area of the LAD does not appear to be obstructive. I counseled the patient that should she have invasive coronary angiography in the diagonal 2 was found to be stenotic, the vessel appears to be too small to accommodate a stent. Will trend the patient's troponin, first measurement was within normal limits. With regards to a functional assessment for the stenosis, CT read FFR was not performed, seemingly because the diagonal branch is small enough that it is not amenable to CT FFR assessment. Patient had a previous exercise stress echocardiogram in 2022 which was negative for ischemia at the level of exercise achieved, patient did not reach target heart rate due to underlying beta-deon therapy, and did describe 7/10 chest tightness early in the post-rest recovery interval with no ischemia noted on EKG at that time. Stress testing also negative with nuclear stress testing in 2020. Considerations include trial of more optimized blood pressure therapy, optimizing lipid levels, and perhaps adding a long-acting nitroglycerin such as isosorbide mononitrate for symptom control. The patient does suffer however from headaches and follows with neurology and therefore may not tolerate isosorbide mononitrate. An alternative would be to titrate her amlodipine. The patient's cholesterol was above goal when drawn in August, on rosuvastatin 20 mg daily. Recommend repeating a lipid panel while she is here. Will keep pt NPO after midnight and determine next best step depending on her troponin levels and clinical course overnight. I spent a total of 65 minutes on the date of service in preparation, delivery, and documentation of the care provided to this patient, excluding any time spent in the performance of separately billed services. History of Present Illness History of Present Illness Deanne Mckeon is a 58-year-old female seen in cardiology consultation per the request of Dr. Narayanan of emergency medicine for the evaluation of chest discomfort. Patient seen in the emergency department , room B5. Her son, Gal, was accompanying her. Patient presents with complaints of ongoing chest discomfort over the last two months with discomfort that can occur with exertion such as climbing a flight of stairs but may occur at rest also. She has also had a cough for the last few weeks. At the time of her 10/13/2023 outpatient visit she described a separate sensation of a "pounding in her chest "as well as the discomfort in her chest. Cardiac Problems: 1. Palpitations, chronic ventricular ectopy 2. Hypertension hypertensive heart disease 3. Cardiac catheterization 2010 with near normal coronary angiography, minimal luminal irregularities right coronary artery 4. Obesity 5. Multiple sclerosis 6. Type 2 diabetes mellitus 7. Hyperlipidemia Allergies Allergy/AdvReac Type Severity Reaction Status Date / Time hydromorphone Allergy Severe SHORTNESS Verified 10/02/23 08:10 OF BREATH carbamazepine Allergy Unknown ? REMEMBER Verified 10/02/23 08:10 gabapentin AdvReac Mild Unknown Verified 11/26/23 17:56 Home Medications Medication Instructions Recorded Confirmed Type metformin 500 mg tablet,extended 500 mg PO BID 03/09/19 11/26/23 History release 24 hr nitroglycerin 0.4 mg sublingual 0.4 mg sublingual UD PRN Chest Pain 09/06/19 11/26/23 History tablet amlodipine 2.5 mg tablet 2.5 mg PO DAILY 12/19/20 11/26/23 History aspirin 81 mg tablet,delayed 81 mg PO DAILY 12/19/20 11/26/23 History release (Adult Low Dose Aspirin) hydrochlorothiazide 25 mg tablet 25 mg PO DAILY 12/19/20 11/26/23 History lisinopril 20 mg tablet 20 mg PO DAILY 12/19/20 11/26/23 History metoprolol succinate 100 mg 50 - 100 mg PO DAILY 12/19/20 11/26/23 History tablet,extended release 24 hr famotidine 40 mg tablet 40 mg PO DAILY 03/06/21 11/26/23 History syringe with needle, safety 1 mL #3 ea 09/08/22 11/26/23 Rx 25 gauge x 1" (Easy Touch FlipLock Syringe) cyanocobalamin (vitamin B-12) 1,000 mcg IM MONTHLY #3 mL 11/04/22 11/26/23 Rx 1,000 mcg/mL injection solution digital therapeutic,GEORGE device #1 ea 01/14/23 11/26/23 Rx Oxygen Home 06/16/23 11/26/23 History ofatumumab 20 mg/0.4 mL 20 mg (0.4 mL) subcut MONTHLY #0.4 06/16/23 11/26/23 Rx subcutaneous pen injector mL (Kesimpta Pen) albuterol sulfate 2.5 mg/3 mL 2.5 mg inhalation Q4H PRN 08/20/23 11/26/23 History (0.083 %) solution for nebulization Shortness Of Breath Or Wheezing albuterol sulfate 90 mcg/actuation 2 puff inhalation Q6H PRN 08/20/23 11/26/23 History aerosol inhaler Shortness Of Breath Or Wheezing bupropion HCl 150 mg 24 hr tablet, 150 mg PO QAM 08/20/23 11/26/23 History extended release cholecalciferol (vitamin D3) 1,250 50,000 unit PO WEEKLY 12 weeks #12 08/20/23 11/26/23 Rx mcg (50,000 unit) capsule caps clobetasol 0.05 % topical cream 1 applic topical BID 08/20/23 11/26/23 History dulaglutide 0.75 mg/0.5 mL 0.75 mg subcut WK 08/20/23 11/26/23 History subcutaneous pen injector (Trulicity) fluoxetine 40 mg capsule 40 mg PO DAILY 08/20/23 11/26/23 History loratadine 10 mg tablet 10 mg PO DAILY 08/20/23 11/26/23 History omeprazole 40 mg capsule,delayed 40 mg PO DAILY 08/20/23 11/26/23 History release ondansetron HCl 4 mg tablet 4 mg PO Q6H PRN Nausea And Vomiting 08/20/23 11/26/23 History rosuvastatin 20 mg tablet 20 mg PO DAILY 08/20/23 11/26/23 History sennosides 8.6 mg tablet (senna) 8.6 mg PO DAILY 08/20/23 11/26/23 History solifenacin 5 mg tablet 5 mg PO DAILY 08/20/23 11/26/23 History tacrolimus 0.03 % topical ointment 1 applic topical BID PRN .flare ups 08/20/23 11/26/23 History topiramate 200 mg capsule 200 mg PO DAILY #30 caps 09/23/23 11/26/23 Rx sprinkle,extended release 24 hr armodafinil 150 mg tablet 150 mg PO QAM #30 tabs 10/02/23 11/26/23 Rx rizatriptan 10 mg tablet 10 mg PO DAILY PRN migraine 10/02/23 11/26/23 Rx headache #9 tabs baclofen 20 mg tablet 20 mg PO BID PRN Neck Pain 11/26/23 11/26/23 History estradiol 0.01% (0.1 mg/gram) 1 applic vaginal DAILY PRN itchy 11/26/23 11/26/23 History vaginal cream trazodone 100 mg tablet 200 mg PO QPM 11/26/23 11/26/23 History Patient History Medical History Tremor Cholecystectomy planned Multiple sclerosis Hypertension Heart palpitations Family History Father Hypertension Lung cancer Brain cancer Migraine headache Neurological disorder Brother Hypertension Son Migraine headache Mother Palpitations Social History Smoking Status: Never smoker Preferred Language: Maori marital status: current occupational status: unemployed and disabled Feels Safe at Home: Yes Review of Systems Review of Systems: All systems reviewed & are unremarkable except as noted in HPI & below Respiratory: Nonproductive cough for 4 to 6 weeks in duration Musculoskeletal: Right rib pain over the last few days, significantly bothersome today Physical Exam Physical Exam: General: no acute distress and stated age Eyes: conjunctiva are pink and non-injected, sclera clear Neck: normal jugular venous pulse, no hepatojugular reflux Chest: normal shape and normal respiratory effort Lungs: clear to auscultation and percussion Cardiac Exam: -regular rhythm, no murmurs, rubs, or gallops, no jugular venous distention Abdomen: abdomen soft, non-tender, no abnormal masses and no hepatosplenomegaly Musculoskeletal: no gait disturbance, no weakness Right-sided rib pain reproduced with palpation lateral to the right breast Extremities: no edema and no cyanosis Neuro:awake, conversant, follows commands, no focal motor deficits Psych: appropriate affect and insight. Results & Data Vital Signs (Past 12 Hours) Vital Signs Temp Pulse Pulse Resp BP BP Pulse Ox 11/26/23 17:00 66 18 158/89 H 96 11/26/23 16:10 66 16 94 11/26/23 15:28 78 18 165/97 H 97 11/26/23 15:19 77 11/26/23 15:17 97 11/26/23 14:39 36.4 C L 84 20 207/114 H 94 O2 Del Method 11/26/23 17:00 Room Air 11/26/23 16:10 Room Air 11/26/23 15:28 Room Air 11/26/23 15:19 11/26/23 15:17 Room Air 11/26/23 14:39 Laboratory Results Cardiac Enzymes 11/26/23 11/26/23 11/26/23 Range/Units 15:12 15:13 15:45 AST TNP 17 Troponin I High Sens 4.8 (0-14) pg/ml B-Natriuretic Peptide 25 (0-100) pg/ml Coagulation 11/26/23 11/26/23 Range/Units 15:13 15:45 PT 10.3 (9.0-12.0) Seconds B-Natriuretic Peptide 25 (0-100) pg/ml CBC 11/26/23 Range/Units 15:13 WBC 6.79 (4.8-10.8) K/ul RBC 5.07 (4.20-5.40) M/uL Hgb 14.7 (12.0-16.0) g/dl Hct 42.6 (37.0-47.0) % Plt Count 301 (130-400) K/uL Neut # (Auto) 4.68 (1.40-6.50) K/uL Lymph # (Auto) 1.28 (1.20-3.40) K/uL [place] # (Auto) 0.64 H (0.11-0.59) K/uL Eos # (Auto) 0.15 (0.00-0.50) K/uL Baso # (Auto) 0.03 (0.00-0.20) K/uL Comprehensive Metabolic Panel 11/26/23 11/26/23 Range/Units 15:12 15:45 Sodium 137 (136-145) mmol/L Potassium TNP 3.9 Chloride 104 (98-107) mmol/L Carbon Dioxide 24 (21-32) mmol/L BUN 14 (6-23) mg/dl Creatinine 0.87 (0.6-1.2) mg/dl Glucose 126 H (70-99(Fasting)) mg/dl Calcium 9.7 (8.6-10.3) mg/dl AST TNP 17 ALT 16 (7-52) U/L Alkaline Phosphatase 116 H (34-104) U/L Total Protein 7.6 (6.0-8.3) gm/dl Albumin 4.4 (3.4-5.0) gm/dl Intake and Output 11/26/23 11/26/23 11/26/23 06:59 14:59 22:59 Intake Total 1000 / 1000 Balance 1000 / 1000 Intake: IV 1000 / 1000 Sodium Chloride 0.9% 1,000 ml @ 1000 / 1000 999 mls/hr IV .Q1H1M ONE Rx#: [id number] Other: Weight 100.5 kg Patient Weight 11/27/23 06:59 Weight 100.5 kg Recent outpatient laboratory studies, 08/14/2023: Total cholesterol 247 Triglycerides 219 HDL 45 LDL 58 Diagnostic Findings Radiology report describes no acute cardiopulmonary findings on chest x-ray EKG performed and interpreted personally: 11/26/2023: Sinus rhythm at 77 bpm, normal EKG. Summary of cardiac CT performed 11/17/2023, [facility]: -IMAGES REVIEWED and INTERPRETED INDEPENDENTLY Findings are consistent with CAD-RADS category 3 (moderate CAD with 50% - 69% stenosis). Consider functional assessment, symptoms-guided anti-ischemic and preventive pharmacotherapy, and guideline-directed risk factor modification. 1. The 2 diagonal branch has moderate, possibly hemodynamically significant (50%-69%) stenosis with extensive calcium blooming artifact. The diagonal branch of the left anterior descending artery has calcified plaque. The D2 branch appears to be approximately 1.8 mm and may not be detected by HeartFlow CT-FFR as it does not appear on the RoadMap. 2. The mid left anterior descending coronary artery has mild (25%-49%) stenosis. 3. The Agatston calcium score is 29. The patients age and sex matched coronary calcium content is 83 % ([place]). 4.The exam quality is good (mild artifacts are present). Coronary Findings There is right dominant coronary anatomy. The exam quality is good (mild artifacts are present). The Agatston calcium score is 29. The left main Agatston calcium score is 0. The LAD Agatston calcium score is 29. The circumflex Agatston calcium score is 0. The right coronary Agatston calcium score is 0. The patients age and sex matched coronary calcium content is 83 % ([place]). Estimated arterial age = 64 years. Left Main Coronary Artery The left main coronary artery is not stenotic. Left Anterior Descending Coronary Artery Proximal left anterior descending coronary arterial wall contains calcified plaque. The proximal left anterior descending coronary artery has minimal (<25% ) stenosis. The mid left anterior descending coronary artery has mild (25%-49%) stenosis. The mid left anterior descending coronary arterial wall contains calcified plaque. The distal left anterior descending artery is not stenotic. 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 The 2 diagonal branch has moderate, possibly hemodynamically significant (50%-69%) stenosis. The diagonal branch of the left anterior descending artery has calcified plaque. Circumflex Coronary Artery The circumflex artery has 3 obtuse marginal branches. The proximal left circumflex artery is not stenotic. The mid left circumflex artery is not stenotic. The distal left circumflex artery is not stenotic. The obtuse marginal branches are visualized and are not stenotic. Right Coronary Artery The proximal right coronary artery is not stenotic. The mid right coronary artery is not stenotic. The distal right coronary artery is not stenotic. The posterior descending coronary artery is not stenotic. The right posterior lateral coronary artery is not stenotic. Atria and Interatrial Septum There is no evidence of an atrial septal defect but resolution does not allow assessment for a patent foramen ovale. Great Vessels The thoracic aorta is normal sized. The main pulmonary artery and the bifurcation are normal. The pulmonary venous drainage is normal. The superior vena cava is normal. Pericardium The pericardium is of normal thickness without evidence of significant pericaridal effusion. Noncardiac findings Small hiatal hernia. (2) Coronary artery disease Coronary Disease-Associated Artery/Lesion type: unspecified vessel or lesion type [place] vs. transplanted heart: [place] heart Associated angina: unspecified whether angina present Qualified Code(s): I25.10 - Atherosclerotic heart disease of [place] coronary artery without angina pectoris
[2023-11-26 19:19] LABS: Adenovirus PCR Not Detected (NotDetected); Bordetella parapertussis PCR Not Detected (NotDetected); Bordetella pertussis PCR Not Detected (NotDetected); Chlamydia pneumoniae PCR Not Detected (NotDetected); Coronavirus 229E PCR Not Detected (NotDetected); Coronavirus CoV-2 (COVID19)PCR Not Detected (NotDetected); Coronavirus HKU1 PCR Not Detected (NotDetected); Coronavirus NL63 PCR Not Detected (NotDetected); Coronavirus OC43PCR Not Detected (NotDetected); Human Metapneumovirus PCR Not Detected (NotDetected); Influenza A PCR Not Detected (NotDetected); Influenza B PCR Not Detected (NotDetected); Mycoplasma pneumoniae PCR Not Detected (NotDetected); Parainfluenza Virus 1 PCR Not Detected (NotDetected); Parainfluenza Virus 2 PCR Not Detected (NotDetected); Parainfluenza Virus 3 PCR Not Detected (NotDetected); Parainfluenza Virus 4 PCR Not Detected (NotDetected); Respiratory Syncytial VirusPCR Not Detected (NotDetected); Rhinovirus/Enterovirus PCR Not Detected (NotDetected)
[2023-11-26] MEDS ORDERED: GLUCAGON FOR INJ 1 MG VIAL SQ PRN (19:52)
[2023-11-26] MEDS ORDERED: GLUCOSE 40% GEL 15 GM TUBE PO PRN (19:52)
[2023-11-26] MEDS ORDERED: POLYETHYLENE (MIRALAX) 17 GM PACK PO PRN (19:52)
[2023-11-26] MEDS ORDERED: DEXTROSE 50% 50 ML SYRINGE IV PRN (19:52)
[2023-11-26] MEDS ORDERED: GLUCOSE 10 TAB/TUBE PO PRN (19:52)
[2023-11-26] MEDS ORDERED: NITROGLYCERIN SL 0.4 MG/TAB TAB SL PRN (19:52)
[2023-11-26] MEDS ORDERED: CARBOHYDRATES FOR HYPOGLYCEMIA PO PRN (19:52)
[2023-11-26] MEDS ORDERED: PHARMACY GLYCEMIC MGMT CONSULT PRN (19:52)
[2023-11-26] MEDS ORDERED: ONDANSETRON INJ 2 MG/ML 2 ML VIAL IV PRN (21:00)
[2023-11-26] MEDS: ACETAMINOPHEN 1,000 MG/100 ML VIAL IV STA (21:38)
[2023-11-26] MEDS: METOPROLOL SUCC 50MG EXT REL TAB PO SCH (21:39)
[2023-11-26] MEDS: traZODone HCL 100 MG TAB PO SCH (21:39)
[2023-11-26] MEDS: lisinopril 20 MG TAB PO SCH (21:40)
[2023-11-26] MEDS: amLODIPine BESYLATE 5 MG TAB PO SCH (21:40)
[2023-11-26] MEDS: INSULIN ASPART PER UNIT CHARGE SC SCH (21:41)
[2023-11-26] MEDS: HEPARIN SOD 5,000 UNIT/0.5 ML VIAL SQ SCH (21:42)
[2023-11-26] MEDS: RIZATRIPTAN BENZOATE 10 MG TAB PO STA (22:18)
[2023-11-27] MEDS: traMADol HCL 50 MG TABLET ONE (14:31)
[2023-11-27] MEDS: ASPIRIN 81 MG ECTAB PO SCH (14:32)
[2023-11-27] MEDS: FAMOTIDINE 40 MG TABLET PO SCH (14:32)
[2023-11-27] MEDS: buPROPion XL 150 MG TABCR PO SCH (14:32)
[2023-11-27] MEDS: LORATADINE 10 MG TAB PO SCH (14:33)
[2023-11-27] MEDS: FLUoxetine HCL 20 MG CAP PO SCH (14:33)
[2023-11-27] MEDS: METOPROLOL SUCC 50MG EXT REL TAB PO SCH (14:33)
[2023-11-27] MEDS: PANTOprazole 40 MG TAB PO SCH (14:33)
[2023-11-27] MEDS: OXYBUTYNIN CHLORIDE XL 5 MG TABCR PO SCH (14:33)
[2023-11-27] MEDS: SENNA 8.6 MG TAB PO SCH (14:34)
[2023-11-27] MEDS: TOPIRAMATE 100 MG TAB PO SCH ×2 (14:34→15:02)
[2023-11-27] MEDS: ROSUVASTATIN CALCIUM 20 MG TAB PO SCH (14:34)
[2023-11-27] MEDS: INSULIN ASPART PER UNIT CHARGE SC SCH ×2 (14:35→17:04)
--- OUTSIDE RECORDS SUMMARY | 2023-11-27 15:06 | External Medical Summary ---
Author Name Unknown Address Unknown Organization [id number] [address] [place] [id number] Laboratory Report Ordering Provider Test Date Status JOSE LORENZANA 11/26/2023 14:10:25 Final Observation Date Value Abnormality Reference (Units ) Status WBC, Total 11/26/2023 14:10:25 7.69 4.00-10.8 0 (K/uL) Final RBC 11/26/2023 14:10:25 5.22 3.85-5.15 (M/uL) Final Hemoglobin 11/26/2023 14:10:25 15.1 12.0-15.3 (g/dL) Final HCT 11/26/2023 14:10:25 44.9 36.0-45.2 (%) Final MCV 11/26/2023 14:10:25 86.0 81.5-97.5 (fL) Final MCH 11/26/2023 14:10:25 28.9 27.0-34.0 (pg) Final MCHC 11/26/2023 14:10:25 33.6 32.0-36.0 (g/dL) Final RDW 11/26/2023 14:10:25 13.9 11.5-15.5 (%) Final Platelets 11/26/2023 14:10:25 308 140-400 (K /uL) Final MPV 11/26/2023 14:10:25 10.0 6.6-11.1 ( fL) Final Performing Location [facility] [address] [place] [id number]
--- OUTSIDE RECORDS SUMMARY | 2023-11-27 15:06 | External Medical Summary ---
Author Name Unknown Address Unknown Organization [id number] [place] [address] [place] [id number] Laboratory Report Ordering Provider Test Date Status JOSE LORENZANA 11/26/2023 14:10:25 Final Observation Date Value Abnormality Reference (Units ) Status BUN 11/26/2023 14:10:25 12 6-20 (mg/dL) Final Creatinine 11/26/2023 14:10:25 1.0 0.5-1.0 (mg/dL) Final Glomerular filtration rate/1.73 sq M.predicted [Volume Rate/Area] in Serum, Plasma or Blood by Creatinine-based formula (CKD-EPI) 11/26/2023 14:10:25 69 >=60 (mL/min) Final eGFR is calculated based on the CKD-EPI 2020 equation. Sodium 11/26/2023 14:10:25 137 135-146 (m mol/L) Final Potassium 11/26/2023 14:10:25 4.1 3.5-5.1 (m mol/L) Final Cl 11/26/2023 14:10:25 100 98-107 (mm ol/L) Final CO2 11/26/2023 14:10:25 25 22-32 (mmo l/L) Final Anion gap 11/26/2023 14:10:25 12 7-15 (mmol /L) Final Glucose 11/26/2023 14:10:25 133 Above high normal 70 -120 (mg/dL) Final Calcium 11/26/2023 14:10:25 10.3 Above high normal 8. 4-10.2 (mg/dL) Final Performing Location [facility] [address] [place] [id number]
--- OUTSIDE RECORDS SUMMARY | 2023-11-27 15:06 | External Medical Summary | Summary of Care ---
Author Name Unknown Organization [facility] [address] [facility] [address] Phone [phone] Care Team Providers Care Horse Trainer Name Role Phone Bridget GIPSON MD, Tarun Sanders Primary Care Provider [phone] Reason for Visit * Reason Onset Date Comments Test Results 08/19/2023 Encounter Details Date Type Department Care Team (Late st Contact Info) Description 08/19/2023 Telephone Family Practice [facility] [place] [address] [facility] [place] [address] Loreta Morejon PA-C [address] [facility] [place] [address] Test Results Allergies Active Allergy Reactions Criticality Noted Date Comments Carbamazepine And Analogs 04/28/2001 rash Hydromorphone Hcl Anaphylaxis High 07/03/2014 Gabapentin 04/28/2001 swelling Semaglutide(0.25 Or 0.5mg-Dos) 05/27 Nausea/ vomiting documented as of this encounter (statuses as of 11/18/2023) Medications Medication Sig Dispensed Refills Start Date End Date Status Aspirin 81 MG Tablet Take 1 Tablet by mouth in the morning. Active lisinopril (PRINIVIL) 20 MG Tablet Take 1 Tab by mouth daily. 30 Tab 5 7 Active Additional Information Patient taking differently:20 mg OralDINNER, Informant: Pharmacy, Reported on 07/30/2022 amLODIPine Besylate 2.5 MG Oral Tablet (Norvasc) Take 1 Tab by mouth daily. 34 Tab 11 1 Active Additional Information Patient taking differently:2.5 mg OralDINNER, Informant: Pharmacy, Reported on 07/30/2022 Kesimpta 20 MG/0.4ML Subcutaneous Solution Auto-injector (Ofatumumab)Julieta cations:last dose 04/09/2021 Inject under the skin Every Month . Active OneTouch Delica Lancets 33GIndications:T ype 2 diabetes mellitus with hemoglobin A1c goal of less than 7.5% ([facility]) Test twice daily 100 Each 5 2 Active SUMAtriptan Succinate 100 MG Oral Tablet PLEASE SEE ATTACHED FOR DETAILED DIRECTIONS 2 Active Solifenacin Succinate 5 MG Oral Tablet (VESIcare) TAKE 1 TABLET BY MOUTH EVERY DAY IN THE MORNING 30 Tablet 1 2 Active Cyanocobalamin 1000 MCG/ML Injection Solution (Cyanocobalamin) INJECT 1000 MCG INTO MUSCLE MONTHLY 2 Active Topiramate ER 200 MG Oral Capsule ER 24 Hour Sprinkle (Quedexy XR) Take 1 Capsule by mouth in the morning. 3 Active Vitamin D (Ergocalciferol) 1.25 MG (38767 UT) Oral Capsule (Drisdol) TAKE 1 CAP ORALLY WEEKLY FOR 12 WEEKS 3 Active Estradiol 0.1 MG/GM Vaginal Cream (Estrace)Indicat ions:Vulvar itching 1g into vagina and massaged on opening. Nightly for 2 weeks, then 2 nights a week. 42.5 g 12 3 Active Tacrolimus 0.03 % External Ointment (Protopic) APPLY TOPICALLY TO AFFECTED AREA 2 TIMES A DAY . FOR 3 MONTHS 60 g 2 3 Active Senna 8.6 MG Oral Capsule Take 1 Capsule by mouth in the morning. 30 Capsule 3 3 Active OneTouch Verio In Vitro Strip (Glucose Blood)Indication s:Type 2 diabetes mellitus with hemoglobin A1c goal of less than 7.5% ([facility]) USE TWICE DAILY TO TEST SUGAR E11.9 50 Strip 11 3 Active Omeprazole 40 MG Oral Capsule Delayed Release (PriLOSEC)Indica tions:Gastro-eso phageal reflux disease without esophagitis TAKE BY MOUTH 1 CAPSULE IN THE MORNING. 1 HOUR BEFORE THE FIRST MEAL OF THE DAY. 30 Capsule 11 3 Active hydroCHLOROthiaz june 25 MG Oral Tablet (Hydrodiuril) TAKE 1 TABLET BY MOUTH EVERY DAY 90 Tablet 3 3 Active Nitroglycerin 0.4 MG Sublingual Tablet Sublingual (Nitrostat) Place 1 Tablet under the tongue every 5 minutes as needed for Pain, Chest. 25 Tablet 3 Active Lidocaine HCl 2 % External GelIndications:L ichen simplex chronicus Apply topically to affected area every night at bedtime. 30 mL 4 Active oxygen IN GAS Use 2 L/min(Oxygen) as directed at bedtime. 4 Active BD Integra Syringe 25G X 1" 3 MLIndications:Ty pe 2 diabetes mellitus with hemoglobin A1c goal of less than 7.5% (HCC) DIRECTED (FOR USE WITH VITAMIN B12 INJECTIONS) 3 Each 4 4 Active Trulicity 0.75 MG/0.5ML Subcutaneous Solution Pen-injector (Dulaglutide)Ind ications:Type 2 diabetes mellitus with hemoglobin A1c goal of less than 7.5% (HCC) Inject 0.75 mg under the skin once a week. 2 mL 11 4 Active Ketorolac Tromethamine 10 MG Oral Tablet (Toradol)Indicat ions:Right upper quadrant pain Take 1 Tablet by mouth 4 times a day as needed for Pain, Moderate. Do not take for longer than 5 days 20 Tablet 4 Active FLUoxetine HCl 40 MG Oral Capsule (PROzac) Take 1 Capsule by mouth in the morning. Do not start before September 16, 2023. 30 Capsule 5 4 Active traZODone HCl 100 MG Oral Tablet (Desyrel) Take 2 Tablets by mouth at bedtime. 60 Tablet 5 4 Active buPROPion HCl ER (XL) 150 MG Oral Tablet Extended Release 24 Hour (Wellbutrin XL)Indications:C urrent moderate episode of major depressive disorder, unspecified whether recurrent (HCC) TAKE 1 TABLET BY MOUTH EVERY DAY 90 Tablet 3 3 09/17/19 24 Discontinued Metoprolol Succinate ER 100 MG Oral Tablet Extended Release 24 Hour (toPROL XL)Indications:C hest pain, unspecified type,Palpitation s Take one in the morning, 1/2 in the evening 150 Tablet 3 3 11/07/19 24 Discontinued Potassium Chloride Katherin ER 10 MEQ Oral Tablet Extended ReleaseIndicatio ns:Chest pain, unspecified type,Palpitation s Take 1 Tablet by mouth in the morning. 90 Tablet 3 3 09/17/19 24 Discontinued Rosuvastatin Calcium 20 MG Oral Tablet (Crestor)Indicat ions:Chest pain, unspecified type,Palpitation s Take 1 Tablet by mouth in the morning. 90 Tablet 3 3 09/17/19 24 Discontinued Famotidine 40 MG Oral Tablet (Pepcid)Indicati ons:Gastroesopha geal reflux disease with esophagitis without hemorrhage TAKE 1 TABLET BY MOUTH EVERY DAY AT BEDTIME NEEDED FOR HEARTBURN 90 Tablet 3 3 11/06/19 24 Discontinued Baclofen 20 MG Oral Tablet As needed 3 10/13/19 24 Discontinued Loratadine 10 MG Oral Tablet (Claritin)Indica tions:Lichen simplex chronicus,Vulvar itching TAKE 1 TABLET BY MOUTH DAILY NEEDED FOR OTHER (VULVAR ITCHING). 30 Tablet 3 3 08/21/19 24 Discontinued Clobetasol Propionate 0.05 % External Ointment (Temovate) APPLY TOPICALLY TO AFFECTED AREA 2 TIMES A DAY. TO PELVIC AREA FOR UP TO TWO WEEKS. 30 g 1 3 08/25/19 24 Discontinued Albuterol Sulfate (2.5 MG/3ML) 0.083% Inhalation Nebulization Solution (Proventil) Inhale 1 Vial via nebulizer every 4 hours as needed for Other (cough). 100 mL 3 11/04/19 24 Discontinued Albuterol Sulfate HFA 108 (90 Base) MCG/ACT Inhalation Aerosol Solution Inhale 2 Puffs by mouth every 4 hours as needed for Cough. 18 g 3 11/04/19 24 Discontinued predniSONE 20 MG Oral Tablet (Deltasone) Take 2 Tablets by mouth in the morning for 5 days. 10 Tablet 3 09/02/19 24 Discontinued(Med ication List Clean Up) Ondansetron HCl 4 MG Oral TabletIndication s:Nausea Take 1 Tablet by mouth every 6 hours as needed for Nausea. 20 Tablet 4 08/25/19 24 Discontinued Hydrocortisone (Perianal) 2.5 % External Cream (Anusol-HC) Administer into the rectum 2 times a day. 28 g 4 08/26/19 24 Discontinued Fluconazole 150 MG Oral Tablet (Diflucan) Take 1 Tablet by mouth once for 1 dose. If symptoms not resolved in 3 days from first dose, take 2nd dose. 2 Tablet 4 09/02/19 24 Discontinued([facility] List Clean Up) metFORMIN HCl ER 500 MG Oral Tablet Extended Release 24 Hour (Glucophage XR)Indications:T ype 2 diabetes mellitus with hemoglobin A1c goal of less than 7.0% (HCC) TAKE 2 TABLETS BY MOUTH EVERY MORNING 180 Tablet 4 11/06/19 24 Discontinued documented as of this encounter (statuses as of 11/18/2023) Active Problems Problem Noted Date Diagnosed Date Adjustment disorder with mixed anxiety and depre ssed mood 08/19/2023 Decreased rectal sphincter tone 12/08/2022 Rectal itching 12/08/2022 Generalized abdominal pain 12/08/2022 History of 2019 novel coronavirus disease (COVID -19) 02/05/2022 Gastro-esophageal reflux disease without esophag itis 07/09/2021 Major depressive disorder, single episode, moder ate 06/19/2021 Type 2 diabetes mellitus wit h hemoglobin A1c goal of less than 7.5% 02/02/2020 Major depressive disorder, recurrent, unspecifie d 12/20/2019 Chronic idiopathic constipation 05/02/2019 Type 2 diabetes mellitus with diabetic dermatiti s 02/02/2019 Diabetes mellitus without complication 9 Lichen simplex chronicus 04/12/2018 Essential hypertension with goal blood pressure less than 140/90 02/06/2016 Vitamin D deficiency 01/25/2014 Dyslipidemia, goal LDL below 130 08/12/2010 ADVANCE DIRECTIVE INFORMATION 09/04/2004 Overview: No, Advance Directive brochure given to patient at prior appointment. Multiple sclerosis Migraine with aura, intractable documented as of this encounter (statuses as of 11/18/2023) Resolved Problems Problem Noted Date Diagnosed Date Resolved Date Body mass index (BMI) of 40. 0 to 44.9 in adult 05/19/2022 11/04/2023 Overview: Per Obesity protocol Chronic diarrhea 05/02/2019 05/02/2019 HTN, goal below 130/80 07/23/201704/27 Prediabetes 07/21/2017 02/23/2019 Overview: Per Prediabetes protocol #1 Precordial pain 02/06/2016 09/13/2016 Lichen sclerosus of female genitalia 07/30/2015 04/12/2018 Premature atrial complexes 07/19/2012 0 09/13/2016 Shortness of breath 02/19/2010 09/14/19 17 Palpitations 02/19/2010 09/13/2016 HTN, goal below 130/80 08/02/200902/15 Abnormal maternal glucose to lerance, complicating , childbirth, or the puerperium, unspecified as to episode of care 08/02/2009 09/13/2016 documented as of this encounter (statuses as of 11/18/2023) Immunizations Name Administration Dates Next Due Hepatitis B, 20+ yrs 09/01/2022,07/18/2021,06/19 Pneumococcal Conjugate Vacc, 13 Valent (Prevnar) 06/19/2021 Pneumococcal Polysaccharide PPV23 (Pneumovax) 09/11/2009 Seasonal Influenza Virus Vac cine, Unspecified Formulation 02/19/2021,02/02/2020,02/02/2019,01/12,05/07/2017,01/23/2016,02/21/2015 ,02/14/2014,05/23/2013,02/18/2012,01/10,02/27/2010,02/05/2009, 5,07/03/2004 Seasonal Influenza, PF, 6 M & above, IM , (FluLaval or Fluzone) 02/19/2023,02/05/2022,02/19/2021,02/01,02/02/2019,01/12/2018,05/07/2017 Seasonal Influenza, Quadriva lent, No Preserve, IM 01/23/2016,02/21/2015 Seasonal Influenza, Split, I IV3, With Preserve, Inj 02/14/2014,05/23/2013,02/18/2012,01/30,02/27/2010,02/05/2009 TD, Preservative Free 02/02/2020 TDAP, Age 7 and older, IM (Adacel) 09/11/2009 Zoster Vaccine Recombinant (Shingrix) 12/25/2020 ,02/02/2020 documented as of this encounter Social History Tobacco Use Types Packs/Day Years Used Date Smoking Tobacco: Former Cigarettes 0.5 9 0 01/17/2012 - 01/16/2021 Smokeless Tobacco: Never Alcohol Use Standard Drinks/Week Comments No 0 (1 standard drink = 0.6 oz pur e alcohol) PHQ-2 Answer Date Recorded PHQ Adult Total Score 21 08/19/2023 Hunger Vital Sign Answer Date Recorded Within the past 12 months, y ou worried that your food would run out before you got the money to buy more. Never true 09/16/19 24 Within the past 12 months, t he food you bought just didn't last and you didn't have money to get more. Never true 09/16/2023 Childcare Answer Date Recorded Do you feel overwhelmed with taking care of a child, family member or friend? No 09/16/2023 Does your family need help f inding childcare? (Household - for ages 0-17 years) Not on file 09/16/2023 Clothing Answer Date Recorded Have you been unable to get clothing when it was really needed? No 09/16/2023 Is your family able to get c lothes or diapers when needed? (Household - for ages 0-17 years) Not on file 09/16/2023 Personal Safety Answer Date Recorded Do you feel unsafe or have concerns for your saf ety? No 09/16/2023 Do you have concerns for you r family's safety? (Household - for ages 0-17 years) Not on file 09/16/2023 Utilities Answer Date Recorded Do you have trouble paying y our heating, water, or electric bill? No 09/16/2023 Is your family able to pay t he heat, water, or electric bill? (Household - for ages 0-17 years) Not on file 09/16/2023 Does your family have access to good internet? (Household - for ages 0-17 years) Not on file 09/16/2023 Employment Status Answer Date Recorded Are you unemployed or without regular income? No 09/16/2023 Does the household have a re gular source of income? (Household - for ages 0-17 years) Not on file 09/16/2023 Social Connections Answer Date Recorded How often do you feel lonely or isolated from th ose around you? Never 09/16/2023 Financial Resource Strain Answer Date R ecorded Do you have any trouble payi ng for your medications, or do you think you might in the future? No 09/16/2023 Does your family have troubl e paying for medicine? (Household - for ages 0-17 years) Not on file 09/16/2023 Transportation Needs Answer Date Record ed READ ONLY Do you have troubl e getting a ride to medical visits or work? Never True 09/16/2023 Does your family have a hard time getting a ride to doctors visits? (Household - for ages 0-17 years) Not on file 09/16/2023 Has lack of transportation k ept you from medical appointments, meetings, work, or from getting things needed for daily living? Check all that apply. (Adult - for ages 18 years and over) Not on file 09/16/2023 Do you (or your family) have trouble finding or paying for a ride (transportation)? (Household - for ages 0-17 years) Not on file 09/16/2023 Housing Stability Answer Date Recorded Do you currently live in a s helter or have no steady place to sleep at night? No 09/16/2023 READ ONLY Do you think you a re at risk of becoming homeless? No 09/16/2023 Does your family worry about paying for your home or becoming homeless? (Household - for ages 0-17 years) Not on file 0 09/16/2023 Are you homeless or worried that you might be in the future? (Adult - for ages 18 years and over) Not on file Are you (or your family) caroline eless or worried that you might be in the future? (Household - for ages 0-17 years) Not on file Food Insecurity Answer Date Recorded Do you need food for this week? No 09/16/2023 Are you able to get enough f ood for your family? (Household - for ages 0-17 years) Not on file 09/16/2023 Does your family need food t his week? (Household - for ages 0-17 years) Not on file 09/16/2023 Do you always have enough fo od for your family? (Household - for ages 0-17 years) Not on file 09/16/2023 Education Answer Date Recorded What is the highest level of school you have completed or the highest degree you have received? 11th grade 08/19/2023 Sex and Gender Information Value Date Recorded Sex Assigned at Female 08/24/2018 12:30 PM EDT Gender Identity Female 08/24/2018 12:30 PM EDT Sexual Orientation Straight 08/24/2018 12 :30 PM EDT Job Start Date Occupation Industry Not on file Not on file Not on file documented as of this encounter Miscellaneous Notes * Telephone Encounter - [facility]IST - 08/19/2023 8:47 AM EDT ----- Message from Loreta Morejon PA-C sent at 08/18/2023 6:57 PM EDT ----- Call and inform no stones, fatty liver, benign kidney cyst. documented in this encounter Plan of Treatment Upcoming Encounters Date Type Department Care Team (Late st Contact Info) Description 11/23/2023 8:15 AM EDT [address] [place] [address] 11/23/2023 8:45 AM EDT Imaging Radiology [address] [place] [address] 12/10/2023 11:00 AM EDT Office Visit Gastroenterology, [address] [place] [address] Sukumar Zuñiga CRNP [address] [facility] [place] [address] 01/07/2024 10:00 AM EDT Office Visit Cardiology, [address] [place] [address] Gloria Rosenthal CRNP [address] [place] [address] 02/15/2024 8:00 AM EDT Telemedicine Psychiatry [facility], [place] [address] [place] [address] Tabby Mcfarland MD [address] [place] [address] 03/31/2024 10:00 AM EST Office Visit Audiology, [place] [address] [place] [address] Bobbi Mcgrath Au.D. [address] [place] [address] 03/31/2024 10:30 AM EST Office Visit Otolaryngology/Head & Neck/Facial Plastic Surgery [address] [place] [address] Mikie Arce MD [address] [place], [place] [id number] Scheduled Procedures Name Priority Associated Diagnoses Date/Ti me COLONOSCOPY FLEXIBLE PROXIMA L DIAGNOSTIC Recall History of colon polyps Family history of colon cancer Health Maintenance Due Date Last Done Comments COVID-19 Vaccine (#1) 1970 Cologuard 2010 Sigmoidoscopy 2010 Pneumococcal Vaccine: Pediatrics (0 to 5 Years) and At-Risk Patients (6 to 64 Years) (3 of 3 - PPSV23 or PCV20) 08/14/2021 06/19/2021, 09/11/2009 Mammogram 02/04/2022 02/04/2021, 01/09, 12/28/2019 Fecal Occult Blood Test 05/16/2022 05/16/19, 05/16/2021, 12/28/2019 Diabetic Eye Exam 03/10/2023 03/10/2022, 10/11/1999 Influenza Vaccine (FLU shot) (#1) 2024 02/19/2023, 02/05/2022, 02/19/2021, Additional history exists HbA1c 02/13/2024 08/14/2023, 02/08, 11/13/2022, Additional history exists Albumin/Creatinine Ratio 02/20/2024 023, 04/30/2022, 10/24/2016 Depression Monitoring 08/18/2024 08/19/2023 Diabetic Foot Exam 09/01/2024 09/02/2023, 0 09/01/2022, 03/20/2020, Additional history exists GFR 10/12/2024 10/13/2023, 08/10, 08/06/2023, Additional history exists Colonoscopy 01/04/2025 01/05/2020, 01/05/2020 Colorectal Cancer Screening 01/04/2025 Lipid Panel 08/13/2028 08/14/2023, 06/12, 02/17/2022, Additional history exists DTaP,Tdap,and Td Vaccines (3 - Td or Tdap) 02/01/2030 02/02/2020, 09/11/2009 RETIRED - COLONOSCOPY-EVERY 5 YRS AGES 18-100 Discontinued 01/05/2020, 01/05/2020 Pap Smear Discontinued 02/02/2020, 01/09, 05/23/2013, Additional history exists Zoster Vaccines Completed 12/25/2020, 02/02/2020 Hepatitis B Vaccine Completed 09/01/2022, 07/18/2021, 06/19/2021 Hepatitis C Screening Completed 08/06/2023, 022 HPV (Gardasil) Vaccine Aged Out No lo nger eligible based on patient's age to complete this topic MENINGOCOCCAL (MENACTRA/MENVEO) Aged Out No longer eligible based on patient's age to complete this topic documented as of this encounter Medical Devices Not on filedocumented as of this encounter Advance Directives Healthcare Agents on File Name Relationship Healthcare Agent Relationshi p Communication Zara Jackson Adult Child Health Care Repr esentative (appointed verbally by patient or by statute hierarchy) Care Teams Horse Trainer Relationship Specialty Start Date End Date Tarun Gill III, MD [address] [place] [address] PCP - General 06/11/00 documented as of this encounter
--- OUTSIDE RECORDS SUMMARY | 2023-11-27 15:07 | External Medical Summary | Summary of Care ---
Author Name Unknown Organization [facility] Address [address] [place] [address] Phone [phone] Care Team Providers Care Operations Trainer Name Role Phone Bridget GIPSON MD, Tarun Sanders Primary Care Provider [phone] Reason for Referral * Precert (Routine) - Pending Review Specialty Diagnoses / Procedures Referred By Contac t Referred To Contact Radiology Diagnoses Chest pain, unspecified type Procedures CT CARDIAC COMPLETE Gloria Rosenthal CRNP [address] [place] [address] Referral ID Status Reason Start Date Expiration Date Visits Requested Visits Authorized [id number] Pending Review Precert 10/13/2023 1 1 Reason for Visit * Precert (Routine) - Pending Review Specialty Diagnoses / Procedures Referred By Erik ashby Referred To Contact Radiology Diagnoses Chest pain, unspecified type Procedures CT CARDIAC COMPLETE Gloria Rosenthal CRNP [address] [place] [address] Referral ID Status Reason Start Date Expiration Date Visits Requested Visits Authorized [id number] Pending Review Precert 10/13/2023 1 1 Encounter Details Date Type Department Care Team (Latest Contact Info) Description 11/17/2023 7:22 AM EDT - 11/17/2023 11:59 PM EDT Hospital Encounter Radiology, [place] [address] [place] [address] Arrived Discharge Disposition: Home - Self Care Allergies Active Allergy Reactions Criticality Noted Date [...] Tab by mouth daily. 30 Tab 5 03/03/2017 Active Additional Information Patient taking differently:20 mg OralDINNER, Informant: Pharmacy, Reported on 07/30/2022 amLODIPine Besylate 2.5 MG Oral Tablet (Norvasc) Take 1 Tab by mouth daily. 34 Tab 11 07/09/2020 Active Additional Information Patient taking differently:2.5 mg OralDINNER, Informant: Pharmacy, Reported on 07/30/2022 Kesimpta 20 MG/0.4ML Subcutaneous Solution Auto-injector (Ofatumumab)Indicat ions:last dose 04/09/2021 Inject under the skin Every Month . Active OneTouch Delica Lancets 33GIndications:Type 2 diabetes mellitus with hemoglobin A1c goal of less than 7.5% ([facility]) Test twice daily 100 Each 5 06/19/2021 Active SUMAtriptan Succinate 100 MG Oral Tablet PLEASE SEE ATTACHED FOR DETAILED DIRECTIONS 08/09/2021 Active Solifenacin Succinate 5 MG Oral Tablet (VESIcare) TAKE 1 TABLET BY MOUTH EVERY DAY IN THE MORNING 30 Tablet 1 03/20/2022 Active Cyanocobalamin 1000 MCG/ML Injection Solution (Cyanocobalamin) INJECT 1000 MCG INTO MUSCLE MONTHLY 03/07/2022 Active Topiramate ER 200 MG Oral Capsule ER 24 Hour Sprinkle (Quedexy XR) Take 1 Capsule by mouth in the morning. 05/14/2022 Active Vitamin D (Ergocalciferol) 1.25 MG (20364 UT) Oral Capsule (Drisdol) TAKE 1 CAP ORALLY WEEKLY FOR 12 WEEKS 11/04/2022 Active Estradiol 0.1 MG/GM Vaginal Cream (Estrace)Indication s:Vulvar itching 1g into vagina and massaged on opening. Nightly for 2 weeks, then 2 nights a week. 42.5 g 12 11/18/2022 Active Tacrolimus 0.03 % External Ointment (Protopic) APPLY TOPICALLY TO AFFECTED AREA 2 TIMES A DAY . FOR 3 MONTHS 60 g 2 11/21/2022 Active Senna 8.6 MG Oral Capsule Take 1 Capsule by mouth in the morning. 30 Capsule 3 12/10/2022 Active OneTouch Verio In Vitro Strip (Glucose Blood)Indications:T ype 2 diabetes mellitus with hemoglobin A1c goal of less than 7.5% (HCC) USE TWICE DAILY TO TEST SUGAR E11.9 50 Strip 11 01/15/2023 Active Omeprazole 40 MG Oral Capsule Delayed Release (PriLOSEC)Indicatio ns:Gastro-esophagea l reflux disease without esophagitis TAKE BY MOUTH 1 CAPSULE IN THE MORNING. 1 HOUR BEFORE THE FIRST MEAL OF THE DAY. 30 Capsule 11 04/25/2023 Active hydroCHLOROthiazide 25 MG Oral Tablet (Hydrodiuril) TAKE 1 TABLET BY MOUTH EVERY DAY 90 Tablet 3 04/25/2023 Active Nitroglycerin 0.4 MG Sublingual Tablet Sublingual (Nitrostat) Place 1 Tablet under the tongue every 5 minutes as needed for Pain, Chest. 25 Tablet 04/29/2023 Active Lidocaine HCl 2 % External GelIndications:Lich en simplex chronicus Apply topically to affected area every night at bedtime. 30 mL 06/12/2023 Active oxygen IN GAS Use 2 L/min(Oxygen) as directed at bedtime. 06/23/2023 Active BD Integra Syringe 25G X 1" 3 MLIndications:Type 2 diabetes mellitus with hemoglobin A1c goal of less than 7.5% (HCC) DIRECTED (FOR USE WITH VITAMIN B12 INJECTIONS) 3 Each 4 08/06/2023 Active Trulicity 0.75 MG/0.5ML Subcutaneous Solution Pen-injector (Dulaglutide)Indica tions:Type 2 diabetes mellitus with hemoglobin A1c goal of less than 7.5% (HCC) Inject 0.75 mg under the skin once a week. 2 mL 11 08/10/2023 Active Ketorolac Tromethamine 10 MG Oral Tablet (Toradol)Indication s:Right upper quadrant pain Take 1 Tablet by mouth 4 times a day as needed for Pain, Moderate. Do not take for longer than 5 days 20 Tablet 08/17/2023 Active FLUoxetine HCl 40 MG Oral Capsule (PROzac) Take 1 Capsule by mouth in the morning. Do not start before September 16, 2023. 30 Capsule 5 09/16/2023 Active traZODone HCl 100 MG Oral Tablet (Desyrel) Take 2 Tablets by mouth at bedtime. 60 Tablet 5 08/19/2023 Active hydrOXYzine HCl 10 MG Oral Tablet (Atarax)Indications :Lichen simplex chronicus,Vulvar itching Take 1 Tablet by mouth at bedtime as needed for Itching. 120 Tablet 08/21/2023 Active Hydrocortisone (Perianal) 2.5 % External Cream ADMINISTER INTO RECTUM TWICE A DAY 30 g 1 08/26/2023 Active Ondansetron HCl 4 MG Oral Tablet (Zofran)Indications :Nausea TAKE 1 TABLET BY MOUTH EVERY 6 HOURS NEEDED FOR NAUSEA 20 Tablet 08/25/2023 Active Rosuvastatin Calcium 20 MG Oral Tablet (Crestor)Indication s:Chest pain, unspecified type,Palpitations TAKE 1 TABLET BY MOUTH EVERY DAY IN THE MORNING 90 Tablet 09/17/2023 Active Klor-Con M10 10 MEQ Oral Tablet Extended Release (potassium chloride ER)Indications:Ches t pain, unspecified type,Palpitations TAKE 1 TABLET BY MOUTH EVERY DAY IN THE MORNING 90 Tablet 09/17/2023 Active buPROPion HCl ER (XL) 150 MG Oral Tablet Extended Release 24 Hour (Wellbutrin XL)Indications:Curr ent moderate episode of major depressive disorder, unspecified whether recurrent (HCC) TAKE 1 TABLET BY MOUTH EVERY DAY 90 Tablet 3 09/17/2023 Active Baclofen 10 MG Oral Tablet (Lioresal)Indicatio ns:Neck pain Take 1 Tablet by mouth in the morning and 1 Tablet before bedtime. 20 Tablet 1 10/13/2023 Active Albuterol Sulfate HFA 108 (90 Base) MCG/ACT Inhalation Aerosol Solution Inhale 2 Puffs by mouth every 4 hours as needed for Cough. 18 g 11/04/2023 Active Famotidine 40 MG Oral Tablet (Pepcid)Indications :Gastroesophageal reflux disease with esophagitis without hemorrhage TAKE 1 TABLET BY MOUTH DAILY AT BEDTIME NEEEDED FOR HEARTBURN 90 Tablet 3 11/06/2023 Active Metoprolol Succinate ER 100 MG Oral Tablet Extended Release 24 Hour (toPROL XL)Indications:Ches t pain, unspecified type,Palpitations TAKE ONE IN THE MORNING, 1/2 IN THE EVENING 150 Tablet 3 11/07/2023 Active metFORMIN HCl ER 500 MG Oral Tablet Extended Release 24 Hour (Glucophage XR)Indications:Type 2 diabetes mellitus with hemoglobin A1c goal of less than 7.0% (HCC) TAKE 2 TABLETS BY MOUTH EVERY MORNING 180 Tablet 3 11/06/2023 Active Clobetasol Propionate 0.05 % External Ointment (Temovate) APPLY TOPICALLY TO AFFECTED AREA 2 TIMES A DAY. TO PELVIC AREA FOR UP TO TWO WEEKS. 30 g 1 11/16/2023 Active Metoprolol Tartrate 100 MG Oral Tablet (Lopressor) Take 1 tablet at bedtime the night before the Cardiac CT and take 1.5 tablets the morning of the Cardiac CT at 6am 3 Tablet 11/13/2023 Active documented as of this encounter (statuses as [...] on file documented as of this encounter Plan of Treatment Upcoming Encounters Date Type Department Care Team (Late st Contact Info) Description 11/23/2023 8:15 AM EDT Imaging Radiology [address] 132 [facility] [place] [address] 11/23/2023 8:45 AM EDT Imaging Radiology [address] [facility] [place] [address] 12/10/2023 11:00 AM EDT Office Visit Gastroenterology, [facility] [address] [place] [address] Sukumar Zuñiga CRNP 132 [facility] [place] [address] 01/07/2024 10:00 AM EDT Office Visit Cardiology, [facility] [address] [place] [address] Gloria Rosenthal CRNP [address] [place] [address] 02/15/2024 8:00 AM EDT Telemedicine Psychiatry [facility] [address] [place] [phone] Tabby Mcfarland MD [address] [place] [address] 03/31/2024 10:00 AM EST Office Visit Audiology, [place] [address] [place] [address] Bobbi Mcgrath Au.D. [address] [place] [address] 03/31/2024 10:30 AM EST Office Visit Otolaryngology/Head & Neck/Facial Plastic Surgery [address] [place], [place] [id number] Mikie Arce MD [address] [place] [address] Pending Results Name Type Priority Associated Diagnoses Date /Time CT CARDIAC COMPLETE Medical Imaging Routine Chest pain, unspecified type 11/17/2023 8:58 AM EDT Scheduled Procedures Name Priority Associated Diagnoses Date/Ti [...] Not on filedocumented as of this encounter Procedures Procedure Name Priority Date/Time Associated Diagnosis Comments CT CARDIAC COMPLETE Routine 11/17/2023 8:58 AM EDT Chest pain, unspecified type Procedure Note - Chino Phan DO - 11/17/2023 8:58 AM EDTThis note is in progress. Interpretation Summary: Findings are consistent with CAD-RADS category 3 (moderate CAD with 50% -69% stenosis). Consider functional assessment, sfptoltl-jfzbykjgvk-[id number] and preventive pharmacotherapy, and guideline-directed riskfactor modification. 1. The 2 diagonal branch has moderate, possibly hemodynamicallysignificant (50%-69%) stenosis with extensive calcium blooming artifact.The diagonal branch of the left anterior descending artery has calcifiedplaque. The D2 branch appears to be approximately 1.8 mm and may not bedetected by HeartFlow CT-FFR as it does not appear on the RoadMap. 2. The mid left anterior descending coronary artery has mild (25%-49%)stenosis. 3. The Agatston calcium score is 29. The patients age and sex matchedcoronary calcium content is 83 % ([place]). 4.The exam quality is good (mild artifacts are present). Indication: chronic chest pain with low intermediate risk of CAD. Indication: chest pain with equivocal or uniterprertable stress EKG echoor nuclear. Coronary Findings There is right dominant coronary anatomy. The exam quality is good (mildartifacts are present). The Agatston calcium score is 29. The left mainAgatston calcium score is 0. The LAD Agatston calcium score is 29. Thecircumflex Agatston calcium score is 0. The right coronary Agatstoncalcium score is 0. The patients age and sex matched coronary calciumcontent is 83 % ([place]). Estimated arterial age = 64 years. Left Main Coronary Artery The left main coronary artery is not stenotic. Left Anterior Descending Coronary Artery Proximal left anterior descending coronary arterial wall containscalcified plaque. The proximal left anterior descending coronary arteryhas minimal (<25% ) stenosis. The mid left anterior descending coronaryartery has mild (25%-49%) stenosis. The mid left anterior descendingcoronary arterial wall contains calcified plaque. The distal left anteriordescending artery is not stenotic. 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 The 2 diagonal branch has moderate, possibly hemodynamicallysignificant (50%-69%) stenosis. The diagonal branch of the left anteriordescending artery has calcified plaque. Circumflex Coronary Artery The circumflex artery has 3 obtuse marginal branches. The proximal leftcircumflex artery is not stenotic. The mid left circumflex artery is notstenotic. The distal left circumflex artery is not stenotic. The obtusemarginal branches are visualized and are not stenotic. Right Coronary Artery The proximal right coronary artery is not stenotic. The mid right coronaryartery is not stenotic. The distal right coronary artery is not stenotic.The posterior descending coronary artery is not stenotic. The rightposterior lateral coronary artery is not stenotic. Atria and Interatrial Septum There is no evidence of an atrial septal defect but resolution does notallow assessment for a patent foramen ovale. Great Vessels The thoracic aorta is normal sized. The main pulmonary artery and thebifurcation are normal. The pulmonary venous drainage is normal. Thesuperior vena cava is normal. Pericardium The pericardium is of normal thickness without evidence of significantpericaridal effusion. Referral Diagnosis Chest pain, unspecified type [R07.9] Procedure Details The Body Mass Index is '39.5' meter squared . Indication: chronic chestpain with low intermediate risk of CAD. Indication: chest pain withequivocal or uniterprertable stress EKG echo or nuclear. Cardiac CTprotocol: "Prospective" . Cardiac CT with Ca score performed: [id number](0149T and 0151T). Heart Rate: "56-58" bpm. Dose Length Produce (DLP)"385.7". Radiation dose: '5.39' mSv. Voltage setting: '120' KV.Milliamperage "699" MA. Field of view: 'cardiac structures only.' ScanLength 106 mm. Padding 66-70 msec. IV contrast dose: '85' ml Visapaque.Contrast infusion rate "6.5"ml/sec. Nitroglycerin 0.4 mg tablet wasadministered SL 2 times. Metoprolol 100 mg PO was self administered thenight before scanning. Metropolol 150 mg PO was self administered themorning of scanning. Nursing Care:: Elizabet Martines RN Lavinia Backer CTtechnician Quantitative Analysis Mid ascending aorta: 37 x 36 mm (transverse). Mid descendig aorta: 25 x 24mm (transverse). Distal PA = 23 mm Aortic root: 33 x 33 x 33 mm(transverse). documented in this encounter Visit Diagnoses Diagnosis Chest pain, unspecified type documented in this encounter Administered Medications Inactive Administered Medications - up to 3 most recent administrations Medication Order MAR Action Action Date Dose Rate Site Iopamidol (Isovue 370) inj 100 mL 100 mL, Intravenous, ONCE, On Thu11/17/23 at 0901, For 1 dose, Radiology Medication Routing (Non-IR) Given 11/17/2023 9:01 AM EDT 85 mL Nitroglycerin (Nitrostat) sl tab 0.4 mg 0.4 mg, Sublingual, Q5 MIN PRN Other, For Cardiac Studies Only - Vasodilation related to Cardiac Studies, Starting on Thu11/17/23 at 1027, Until Thu11/17/23 at 1226, For 2 hours, May repeat up to 1.2 mg total - For Cardiac Studies Only - Vasodilation related to Cardiac Studies, Cardiac Studies_HODHOV Given 11/17/2023 8:52 AM EDT 0.8 mg documented in this encounter Advance Directives Healthcare Agents on File Name Relationship Healthcare Agent Relationshi p Communication Zara Jackson Adult Child Health Care Repr esentative (appointed verbally by patient or by statute hierarchy) Care Teams Operations Trainer Relationship Specialty Start Date End Date Tarun Gill III, MD [address] [place] [address] PCP - General 06/11/00 documented as of this encounter
--- OUTSIDE RECORDS SUMMARY | 2023-11-27 15:07 | External Medical Summary | Summary of Care ---
Author Name Unknown Organization [facility] Address [address] [place] [address] Phone [phone] Care Team Providers Care Vp Medical Name Role Phone Bridget GIPSON MD, Tarun Sanders Primary Care Provider [phone] Reason for Visit * Reason Onset Date Comments Nurse Documentation 11/13/2023 Encounter Details Date Type Department Care Team (Late st Contact Info) Description 11/13/2023 Refill Cardiac Studies [facility] [address] [place] [address] Bernie Freeman, RN Allergies Active Allergy Reactions Criticality Noted Date Comments Carbamazepine And Analogs 04/28/2001 rash Hydromorphone Hcl Anaphylaxis High 07/03/2014 Gabapentin 04/28/2001 swelling Semaglutide(0.25 Or 0.5mg-Dos) 05/27 Nausea/ vomiting documented as of this encounter (statuses as of 11/13/2023) Medications Medication Sig Dispensed Refills Start Date [...] hemoglobin A1c goal of less than 7.5% ([facility]) Test twice daily 100 Each 5 06/19/2021 [...] 05/14/2022 Active Vitamin D (Ergocalciferol) 1.25 MG (09247 UT) Oral Capsule (Drisdol) TAKE 1 CAP [...] hemoglobin A1c goal of less than 7.5% ([facility]) USE TWICE DAILY TO TEST SUGAR E11.9 [...] INTO RECTUM TWICE A DAY 30 g 08/26/2023 Active Clobetasol Propionate 0.05 % External Ointment (Temovate) APPLY TOPICALLY TO AFFECTED AREA 2 TIMES A DAY. TO PELVIC AREA FOR UP TO TWO WEEKS. 30 g 1 08/25/2023 Active Ondansetron HCl 4 MG Oral Tablet [...] EVERY MORNING 180 Tablet 3 11/06/2023 Active Metoprolol Tartrate 100 MG Oral Tablet (Lopressor) Take 1 tablet at bedtime the night before the Cardiac CT and take 1.5 tablets the morning of the Cardiac CT at 6am 3 Tablet 11/13/2023 Active documented as of this encounter (statuses as of 11/13/2023) Active Problems Problem Noted Date Diagnosed Date [...] as of this encounter (statuses as of 11/13/2023) Resolved Problems Problem Noted Date Diagnosed Date [...] as of this encounter (statuses as of 11/13/2023) Immunizations Name Administration Dates Next Due Hepatitis [...] 09/16/2023 Does the household have a re lar source of income? (Household - for ages [...] encounter Miscellaneous Notes * Telephone Encounter - Bernie Freeman RN - 11/13/2023 3:[address] IS SCHEDULED FOR 11-17-2023 at 8 am at [facility]. Please arrive 15 mins prior to [address] CT. Reviewed Pre Cardiac CT Eval & Prep and pre-procedure instructions with patient. Pt verbalized understanding of the following instructions: Nothing to eat for 4 hours and no caffeine 12 hours prior to scan Drink plenty of water before and after scan Take 100 mg Metoprolol at bedtime the night before the Cardiac CT. Take 150 mg Metoprolol [address] to [address]. Medication sent to [facility] PT will hold her Metoprolol Succinate,Amlodipine, Lisinopril prior to the test Your appointment will take up to 1 hour You will need to hold very still during the scan You will need to be able to hold your breath (without bearing down) for about 15-20 seconds during part of the scan. no allergy to contrast dye, and is not claustrophobic. Pt does not have any stimulators. You can bring a water taxi driver, the medication can make you feel very tired. Also Nitroglycerin will be given during the Cardiac CT. This medication can cause a Headache as well. The medication is short acting and after the test is completed you can get a caffeinated drink and something to eat and you willfeel better. Bernie Freeman, RN documented in this encounter Plan of Treatment Upcoming Encounters Date Type Department Care Team (Late st Contact Info) Description 11/16/2023 10:00 AM EDT PulmDiagnostic Pulmonary Function Lab [facility] [place] [address] [facility] [place] [address] [place], [address] 132 [facility] [place] [address] 11/17/2023 8:00 AM EDT Appointment [facility] [address] [facility] [place] [phone] 11/23/2023 8:15 AM EDT Imaging Radiology [address] 132 [facility] [place] [address] 11/23/2023 8:45 AM EDT Imaging Radiology [address] [place] [address] 12/10/2023 11:00 AM EDT Office Visit Gastroenterology, [facility] 132 [place] [address] Sukumar Zuñiga CRNP [address] [place] [address] 01/07/2024 10:00 AM EDT Office Visit Cardiology, [facility] [address] [place] [address] Gloria Rosenthal CRNP [address] [place] [address] 02/15/2024 8:00 AM EDT Telemedicine Psychiatry [facility] [address] [place] [phone] Tabby Mcfarland MD [address] [place] [address] 03/31/2024 10:00 AM EST [facility] [address] [place] [address] Bobbi Mcgrath Au.D. [address] [place] [address] 03/31/2024 10:30 AM EST Office Visit Otolaryngology/Head & Neck/Facial Plastic Surgery [address], [place] [phone] Mikie Arce MD [address] [place], [place] [phone] Scheduled Procedures Name Priority Associated Diagnoses Date/Ti [...] 01/09, 12/28/2019 Fecal Occult Blood Test 05/16/2022 05/16/19 22, 05/16/2021, 12/28/2019 Diabetic Eye Exam 03/10/2023 03/10/2022, [...] 07/18/2021, 06/19/2021 Hepatitis C Screening Completed 08/06/2023, 04/22/2 022 HPV (Gardasil) Vaccine Aged Out No [...] patient or by statute hierarchy) Care Teams Vp Medical Relationship Specialty Start Date End Date Tarun Gill III, MD [address] [place] [address] PCP - General 06/11/00 documented as of this encounter
--- OUTSIDE RECORDS SUMMARY | 2023-11-27 15:07 | External Medical Summary | Summary of Care ---
Author Name Unknown Organization [facility] Address [address] [facility] [place] [address] Phone [phone] Care Team Providers Care Chipper Name Role Phone Bridget GIPSON MD, Tarun Sanders Primary Care Provider [phone] Reason for Visit * Reason Comments Pulmonary Function Test Spirogram withou t bronchodilator Encounter Details Date Type Department Care Team (Late st Contact Info) Description 11/16/2023 10:00 AM EDT PulmDiagnostic Pulmonary Function Lab [facility], [place] [address] [facility] [place] [id number] [place], [address] [facility] [place] [address] Chronic cough* Allergies Active Allergy Reactions Criticality Noted Date Comments Carbamazepine And Analogs 04/28/2001 rash Hydromorphone Hcl Anaphylaxis High 07/03/2014 Gabapentin 04/28/2001 swelling Semaglutide(0.25 Or 0.5mg-Dos) 05/27 Nausea/ vomiting documented as of this encounter (statuses as of 11/16/2023) Medications Medication Sig Dispensed Refills Start Date [...] hemoglobin A1c goal of less than 7.5% ([facility]) Test twice daily 100 Each [...] 05/14/2022 Active Vitamin D (Ergocalciferol) 1.25 MG (97886 UT) Oral Capsule (Drisdol) TAKE 1 CAP [...] hemoglobin A1c goal of less than 7.5% ([facility]) USE TWICE DAILY TO TEST [...] A DAY 30 g 1 08/26/2023 Active Clobetasol Propionate 0.05 % External [...] as of this encounter (statuses as of 11/16/2023) Active Problems Problem Noted Date Diagnosed Date [...] as of this encounter (statuses as of 11/16/2023) Resolved Problems Problem Noted Date Diagnosed Date [...] as of this encounter (statuses as of 11/16/2023) Immunizations Name Administration Dates Next Due Hepatitis [...] 0 01/17/2012 - 01/16/2021 Smokeless Tobacco: Never Tobacco Cessation:Counseling Given: Not Answered Alcohol Use Standard Drinks/Week Comments No 0 [...] No 09/16/2023 Does the household have a [facility] rehabilitation hospitallar source of income? (Household - for ages [...] on file documented as of this encounter Last Filed Vital Signs Vital Sign Reading Time Taken Comments Blood Pressure - - Pulse - - Temperature - - Respiratory Rate - - Oxygen Saturation - - Inhaled Oxygen Concentration - - Weight 101 kg (222 lb 10.6 oz) 11/16/2023 10:07 AM EDT Height 159.5 cm (5' 2.8") 11/16/2023 10:07 AM ED T Body Mass Index 39.7 11/16/2023 10:07 AM EDT documented in this encounter Nursing Notes * Radha Qureshi RRT - 11/16/2023 10:09 AM EDT Deanne Mckeon was identified by name, Date of : (1965), and . Vitals were obtained for testing. Body mass index is 39.7 kg/m. Pt has a .5 ppd for 9 years and quit 2.8 years ago. Pt wears 2 liters of oxygen at night. Pt is currently disabled but previously worked at a [employer]. Spirometry performed without bronchodilator. documented in this encounter Plan of Treatment Upcoming Encounters Date Type Department Care Team (Late st Contact Info) Description 11/17/2023 8:00 AM EDT Appointment Radiology, [address] [place] [address] 11/23/2023 8:15 AM EDT Imaging Radiology [address] [place] [address] 11/23/2023 8:45 AM EDT Imaging Radiology [address] 132 [facility] [place] [address] 12/10/2023 11:00 AM EDT Office Visit Gastroenterology, [facility] [address] [facility] [place] [address] Sukumar Zuñiga CRNP 132 [facility] [place] [address] 01/07/2024 10:00 AM EDT Office Visit Cardiology, [facility] [address] [place] [address] Gloria Rosenthal CRNP [address] [place] [address] 02/15/2024 8:00 AM EDT Telemedicine Psychiatry [facility] [address] [place] [phone] Tabby Mcfarland MD [address] [place] [address] 03/31/2024 10:00 AM EST Office Visit Audiology, [place] [address] [place] [address] Bobbi Mcgrath Au.D. [address] [place] [address] 03/31/2024 10:30 AM EST Office Visit Otolaryngology/Head & Neck/Facial Plastic Surgery [address] [place] [address] Mikie Arce MD [address] [place] [address] Pending Results Name Type Priority Associated Diagnoses Date /Time BASIC SPIROMETRY Procedures Routine Chronic cough 11/16/2023 10:02 AM EDT Scheduled Procedures Name Priority Associated [...] Procedure Name Priority Date/Time Associated Diagnosis Comments BASIC SPIROMETRY Routine 11/16/2023 10:02 AM EDT Chronic cough documented in this encounter Visit Diagnoses Diagnosis Chronic cough- Primary Cough documented in this encounter Advance Directives Healthcare Agents on File Name Relationship Healthcare Agent Relationshi p Communication Zara Jackson Adult Child Health Care Repr esentative (appointed verbally by patient or by statute hierarchy) Care Teams Chipper Relationship Specialty Start Date End Date Tarun Gill III, MD [address] [place] [address] PCP - General 06/11/00 documented as of this encounter
--- OUTSIDE RECORDS SUMMARY | 2023-11-27 15:07 | External Medical Summary | Summary of Care ---
Author Name Unknown Organization [facility] Address [address] [facility] [place] [address] Phone [phone] Care Team Providers Care Window Shade Cutter Name Role Phone Bridget GIPSON MD, Azul Sanders Primary Care Provider [phone] Reason for Visit * Reason Comments eRx-Medication Refill Encounter Details Date Type Department Care Team (Late st Contact Info) Description 11/06/2023 Refill Family Practice [facility] [place] [address] [facility] [place] [address] Azul Coles III, MD [facility] [address] Gastroesophageal reflux disease with esophagitis without hemorrhage; Type 2 diabetes mellitus with hemoglobin A1c goal of less than 7.0% ([facility]) Allergies Active Allergy Reactions Criticality Noted Date Comments Carbamazepine And Analogs 04/28/2001 rash Hydromorphone Hcl Anaphylaxis High 07/03/2014 Gabapentin 04/28/2001 swelling Semaglutide(0.25 Or 0.5mg-Dos) 05/27 Nausea/ vomiting documented as of this encounter (statuses as of 11/06/2023) Medications Medication Sig Dispensed Refills Start Date [...] 07/30/2022 Kesimpta 20 MG/0.4ML Subcutaneous Solution Auto-injector (Ofatumumab)Indic ations:last dose 04/09/2021 Inject under the skin Every Month . Active OneTouch Delica Lancets 33GIndications:Ty pe 2 diabetes mellitus with hemoglobin A1c [...] by mouth in the morning. 05/14/2022 Active Metoprolol Succinate ER 100 MG Oral Tablet Extended Release 24 Hour (toPROL XL)Indications:Ch est pain, unspecified type,Palpitations Take one in the morning, 1/2 in the evening 150 Tablet 3 09/08/2022 Active Vitamin D (Ergocalciferol) 1.25 MG (07796 UT) Oral Capsule (Drisdol) TAKE 1 CAP ORALLY WEEKLY FOR 12 WEEKS 11/04/2022 Active Estradiol 0.1 MG/GM Vaginal Cream (Estrace)Indicati ons:Vulvar itching 1g into vagina and massaged on [...] Active OneTouch Verio In Vitro Strip (Glucose Blood)Indications :Type 2 diabetes mellitus with hemoglobin A1c goal of less than 7.5% ([facility]) USE TWICE DAILY TO TEST SUGAR E11.9 50 Strip 11 01/15/2023 Active Omeprazole 40 MG Oral Capsule Delayed Release (PriLOSEC)Indicat ions:Gastro-esoph ageal reflux disease without esophagitis TAKE BY MOUTH 1 CAPSULE IN THE MORNING. 1 HOUR BEFORE THE FIRST MEAL OF THE DAY. 30 Capsule 11 04/25/2023 Active hydroCHLOROthiazi de 25 MG Oral Tablet (Hydrodiuril) TAKE 1 TABLET BY MOUTH EVERY DAY 90 Tablet 3 04/25/2023 Active Nitroglycerin 0.4 MG Sublingual Tablet Sublingual (Nitrostat) Place 1 Tablet under the tongue every 5 minutes as needed for Pain, Chest. 25 Tablet 04/29/2023 Active Lidocaine HCl 2 % External GelIndications:Li soni simplex chronicus Apply topically to affected area every night at bedtime. 30 mL 06/12/2023 Active oxygen IN GAS Use 2 L/min(Oxygen) as directed at bedtime. 06/23/2023 Active BD Integra Syringe 25G X 1" 3 MLIndications:Typ e 2 diabetes mellitus with hemoglobin A1c goal of less than 7.5% (HCC) DIRECTED (FOR USE WITH VITAMIN B12 INJECTIONS) 3 Each 4 08/06/2023 Active Trulicity 0.75 MG/0.5ML Subcutaneous Solution Pen-injector (Dulaglutide)Julieta cations:Type 2 diabetes mellitus with hemoglobin A1c goal of less than 7.5% (HCC) Inject 0.75 mg under the skin once a week. 2 mL 11 08/10/2023 Active Ketorolac Tromethamine 10 MG Oral Tablet (Toradol)Indicati ons:Right upper quadrant pain Take 1 Tablet by [...] Active hydrOXYzine HCl 10 MG Oral Tablet (Atarax)Indicatio ns:Lichen simplex chronicus,Vulvar itching Take 1 Tablet by [...] Active Ondansetron HCl 4 MG Oral Tablet (Zofran)Indicatio ns:Nausea TAKE 1 TABLET BY MOUTH EVERY 6 HOURS NEEDED FOR NAUSEA 20 Tablet 08/25/2023 Active Rosuvastatin Calcium 20 MG Oral Tablet (Crestor)Indicati ons:Chest pain, unspecified type,Palpitations TAKE 1 TABLET BY MOUTH EVERY DAY IN THE MORNING 90 Tablet 09/17/2023 Active Klor-Con M10 10 MEQ Oral Tablet Extended Release (potassium chloride ER)Indications:Ch est pain, unspecified type,Palpitations TAKE 1 TABLET BY MOUTH EVERY DAY IN THE MORNING 90 Tablet 09/17/2023 Active buPROPion HCl ER (XL) 150 MG Oral Tablet Extended Release 24 Hour (Wellbutrin XL)Indications:Cu rrent moderate episode of major depressive disorder, unspecified whether recurrent (HCC) TAKE 1 TABLET BY MOUTH EVERY DAY 90 Tablet 3 09/17/2023 Active Baclofen 10 MG Oral Tablet (Lioresal)Indicat ions:Neck pain Take 1 Tablet by mouth in the morning and 1 Tablet before bedtime. 20 Tablet 1 10/13/2023 Active Albuterol Sulfate HFA 108 (90 Base) MCG/ACT Inhalation Aerosol Solution Inhale 2 Puffs by mouth every 4 hours as needed for Cough. 18 g 11/04/2023 Active Famotidine 40 MG Oral Tablet (Pepcid)Indicatio ns:Gastroesophage al reflux disease with esophagitis without hemorrhage TAKE 1 TABLET BY MOUTH DAILY AT BEDTIME NEEEDED FOR HEARTBURN 90 Tablet 3 11/06/2023 Active metFORMIN HCl ER 500 MG Oral Tablet Extended Release 24 Hour (Glucophage XR)Indications:Ty pe 2 diabetes mellitus with hemoglobin A1c goal of less than 7.0% (HCC) TAKE 2 TABLETS BY MOUTH EVERY MORNING 180 Tablet 3 11/06/2023 Active Famotidine 40 MG Oral Tablet (Pepcid)Indicatio ns:Gastroesophage al reflux disease with esophagitis without hemorrhage TAKE 1 TABLET BY MOUTH EVERY DAY AT BEDTIME NEEDED FOR HEARTBURN 90 Tablet 3 11/07/2022 11/06/19 24 Discontinued metFORMIN HCl ER 500 MG Oral Tablet Extended Release 24 Hour (Glucophage XR)Indications:Ty pe 2 diabetes mellitus with hemoglobin A1c goal of less than 7.0% (HCC) TAKE 2 TABLETS BY MOUTH EVERY MORNING 180 Tablet 08/10/2023 11/06/19 24 Discontinued documented as of this encounter (statuses as of 11/06/2023) Active Problems Problem Noted Date Diagnosed Date [...] as of this encounter (statuses as of 11/06/2023) Resolved Problems Problem Noted Date Diagnosed Date [...] as of this encounter (statuses as of 11/06/2023) Immunizations Name Administration Dates Next Due Hepatitis [...] encounter Miscellaneous Notes * Telephone Encounter - Judi Pacheco RPh - 11/06/2023 11:20 AM EDTSigned Prescriptions: Disp Refills Famotidine 40 MG Oral Tablet (Pepcid) 90 Tab*3 Sig: TAKE 1 TABLET BY MOUTH DAILY AT BEDTIME NEEEDED FOR HEARTBURNAuthorizing Provider: AZUL COLES III User: JUDI PACHECO metFORMIN HCl ER 500 MG Oral Tablet Extend*180 Ta*3 Sig: TAKE 2 TABLETS BY MOUTH EVERY MORNINGAuthorizing Provider: AZUL COLES III User: JUDI PACHECO EE documented in this encounter Plan of Treatment Upcoming Encounters Date Type Department Care Team (Late st Contact Info) Description 11/17/2023 8:00 AM EDT Appointment Radiology, [address] [place] [address] 11/17/2023 4:00 PM EDT Office Visit [facility] [address] [place] [address] Loreta Morejon PA-C [address] [place] [address] 11/23/2023 8:15 AM EDT Imaging Radiology [address] 132 [facility] [place] [address] 11/23/2023 8:45 AM EDT Imaging Radiology [facility] 1st Floor, [place] [address] [place] [place] [address] 11/30/2023 11:30 AM EDT PulmDiagnostic Pulmonary Function Lab, [facility] [address] [place] [address] West, Pulm Function Tech 2 [address] [place] [address] 12/10/2023 11:00 AM EDT Office Visit Gastroenterology, [facility] 132 [place] [address] Sukumar Zuñiga CRNP [facility] [place] [address] 01/07/2024 10:00 AM EDT Office Visit Cardiology, [facility] 132 [place] [address] Gloria Rosenthal CRNP 132 [place] [address] 02/15/2024 8:00 AM EDT Telemedicine Psychiatry [facility] 9 [place] [phone] Tabby Mcfarland MD [address] [place] [address] 03/31/2024 10:00 AM EST Office Visit Audiology, [place] [address] [place] [address] Bobbi Mcgrath Au.D. [address] [place], [place] [phone] 03/31/2024 10:30 AM EST Office Visit Otolaryngology/Head & Neck/Facial Plastic Surgery [address] [place], [place] [phone] Mikie Arce MD [address] [place] [address] Scheduled Procedures Name Priority Associated Diagnoses Date/Ti [...] 12/28/2019 Diabetic Eye Exam 03/10/2023 03/10/2022, 10/11/1999 HbA1c 02/13/2024 08/14/2023, 02/08, 11/13/2022, Additional history [...] Zoster Vaccines Completed 12/25/2020, 02/02/2020 Hepatitis B Completed 09/01/2022, 07/09, 06/19/2021 Influenza Vaccine (FLU shot) Completed 02/19/2023, 02/05/2022, 02/19/2021, Additional history exists Hepatitis C Screening Completed 08/06/2023, 022 GARDASIL-HPV IMMUNIZATION SERIES Aged Out No longer eligible based on patient's age to complete this topic MENINGOCOCCAL (MENACTRA/MENVEO) Aged Out No longer eligible based on patient's age to complete this topic documented as of this encounter Medical Devices Not on filedocumented as of this encounter Visit Diagnoses Diagnosis Gastroesophageal reflux disease with esophagitis without hemorrhage Type 2 diabetes mellitus with hemoglobin A1c goal of less than 7.0% (HCC) documented in this encounter Advance Directives Healthcare Agents on File Name Relationship Healthcare Agent Relationshi p Communication Zara Jackson Adult Child Health Care Repr esentative (appointed verbally by patient or by statute hierarchy) Care Teams Window Shade Cutter Relationship Specialty Start Date End Date Azul Coles III, MD [address] [place] [address] PCP - General 06/11/00 documented as of this encounter
--- OUTSIDE RECORDS SUMMARY | 2023-11-27 15:07 | External Medical Summary | Summary of Care ---
Author Name Unknown Organization [facility] Address [address] [facility] [place] [address] Phone [phone] Care Team Providers Care Labor Expediter Name Role Phone Bridget GIPSON MD, Tarun Sanders Primary Care Provider [phone] Reason for Visit * Reason Onset Date Comments Advice 2023 CT cardiac Encounter Details Date Type Department Care Team (Late st Contact Info) Description 2023 Telephone Rad[address] [place] [id number] Danielle Oneal, RT (R) Advice (CT cardiac) Allergies Active Allergy Reactions Criticality Noted Date Comments Carbamazepine And Analogs 04/28/2001 rash Hydromorphone Hcl Anaphylaxis High 07/03/2014 Gabapentin 04/28/2001 swelling Semaglutide(0.25 Or 0.5mg-Dos) 05/27 Nausea/ vomiting documented as of this encounter (statuses as of 11/09/2023) Medications Medication Sig Dispensed Refills Start Date [...] hemoglobin A1c goal of less than 7.5% ([facility]) Test twice daily 100 Each 5 06/19/2021 [...] 05/14/2022 Active Vitamin D (Ergocalciferol) 1.25 MG (78534 UT) Oral Capsule (Drisdol) TAKE 1 CAP [...] hemoglobin A1c goal of less than 7.5% ([facility]) USE TWICE DAILY TO TEST SUGAR E11.9 [...] before bedtime. 20 Tablet 1 10/13/2023 Active documented as of this encounter (statuses as of 11/09/2023) Active Problems Problem Noted Date Diagnosed Date [...] as of this encounter (statuses as of 11/09/2023) Resolved Problems Problem Noted Date Diagnosed Date [...] as of this encounter (statuses as of 11/09/2023) Immunizations Name Administration Dates Next Due Hepatitis [...] encounter Miscellaneous Notes * Telephone Encounter - Danielle Oneal RT (R) - 2023 6:20 PM EDT I spoke with Deanne this evening about her CT cardiac scheduled for next week. Since her BMI is at 40, artist blacksmith suggest patient be scanned in [place] due to the type of scanner they have for those specific needs. Patient also mentioned she is a hard stick so getting an IV in would require an IV team which does not have. Pt is agreeable with [place]. Scheduling: Can you get this patient scheduled in [place] for CT cardiac & remove her from [facility] schedule on 11-11-23? Thank you, Danielle documented in this encounter Plan of Treatment Upcoming Encounters Date Type Department Care Team (Late st Contact Info) Description 11/16/2023 10:00 AM EDT PulmDiagnostic Pulmonary Function Lab [facility] [place] [address] [place] [phone] [place], [address] [address] [place] [address] 11/17/2023 8:00 AM EDT Appointment Radiology, [place] [address] [place] [address] 11/17/2023 4:00 PM EDT Office Visit [facility] 200 [facility] [place] [address] Loreta [place]jon PA-C [address] [facility] [place] [address] 11/23/2023 8:15 AM EDT Imaging Radiology [address] 132 [facility] [address] 11/23/2023 8:45 AM EDT Imaging Radiology [address] 132 [facility] [place] [address] 12/10/2023 11:00 AM EDT Office Visit Gastroenterology, [facility] 132 [facility] [place] [address] Sukumar Zuñiga CRNP [address] [facility] [address] 01/07/2024 10:00 AM EDT Office Visit Cardiology, [facility] 132 [facility] [place] [address] Gloria Rosenthal CRNP [address] [facility] [address] 02/15/2024 8:00 AM EDT Telemedicine Psychiatry [place] [facility] [address] [place] [phone] Tabby Mcfarland MD [address] [place] [address] 03/31/2024 10:00 AM EST Office Visit Audiology, [place] [address] [place], [place] [phone] Bobbi Mcgrath Au.D. [address] [place] [address] 03/31/2024 10:30 AM EST Office Visit Otolaryngology/Head & Neck/Facial Plastic Surgery [address] [place] [address] Mikie Arce MD [address] [place] [address] Scheduled Procedures Name Priority Associated Diagnoses Date/Ti [...] 02/02/2020 Hepatitis B Completed 09/01/2022, 07/09, 06/19/2021 Hepatitis C Screening Completed 08/06/2023, 022 GARDASIL-HPV [...] patient or by statute hierarchy) Care Teams Labor Expediter Relationship Specialty Start Date End Date Tarun Gill III, MD [address] [place] [address] PCP - General 06/11/00 documented as of this encounter
--- OUTSIDE RECORDS SUMMARY | 2023-11-27 15:07 | External Medical Summary | Summary of Care ---
Author Name Unknown Organization [facility] Address [address] [facility] [address] Phone [phone] Care Team Providers Care Microscopist Name Role Phone Bridget GIPSON MD, Tarun Sanders Primary Care Provider [phone] Reason for Visit * Reason Onset Date Comments Test Results 11/11/2023 Encounter Details Date Type Department Care Team (Late st Contact Info) Description 11/11/2023 Telephone Family Practice [facility] [place] 200 [facility] [place] [address] Loreta [place]jon PA-C 200 [facility] [place] [address] Test Results Allergies Active Allergy Reactions Criticality Noted Date Comments Carbamazepine And Analogs 04/28/2001 rash Hydromorphone Hcl Anaphylaxis High 07/03/2014 Gabapentin 04/28/2001 swelling Semaglutide(0.25 Or 0.5mg-Dos) 05/27 Nausea/ vomiting documented as of this encounter (statuses as of 11/11/2023) Medications Medication Sig Dispensed Refills Start Date [...] hemoglobin A1c goal of less than 7.5% ([facility]) Test twice daily 100 Each 5 06/19/2021 [...] 05/14/2022 Active Vitamin D (Ergocalciferol) 1.25 MG (80909 UT) Oral Capsule (Drisdol) TAKE 1 CAP [...] hemoglobin A1c goal of less than 7.5% ([facility]) USE TWICE DAILY TO TEST SUGAR E11.9 [...] EVERY MORNING 180 Tablet 3 11/06/2023 Active documented as of this encounter (statuses as of 11/11/2023) Active Problems Problem Noted Date Diagnosed Date [...] as of this encounter (statuses as of 11/11/2023) Resolved Problems Problem Noted Date Diagnosed Date [...] as of this encounter (statuses as of 11/11/2023) Immunizations Name Administration Dates Next Due Hepatitis [...] No 09/16/2023 Does the household have a [facility] source of income? (Household - for ages [...] Miscellaneous Notes * Telephone Encounter - Daily Soto, MED ASSIST - 11/11/2023 8:18 AM EDT ----- Message from August A Rine sent at 11/10/2023 7:21 PM EDT ----- Please send a lab letter stating xray results normal. documented in this encounter Plan of Treatment Upcoming Encounters Date Type Department Care Team (Late st Contact Info) Description 11/16/2023 10:00 AM EDT PulmDiagnostic Pulmonary Function Lab [place] [address] [place] [address] [place], [address] [place] [address] 11/17/2023 8:00 AM EDT Appointment Radiology, [address] [place] [address] 11/17/2023 4:00 PM EDT Office Visit [facility] 200 [facility] [place] [address] Loreta [place]jon PA-C 200 [facility] [place] [address] 11/23/2023 8:15 AM EDT Imaging Radiology [address] [place] [address] 11/23/2023 8:45 AM EDT Imaging Radiology [address] [place] [address] 12/10/2023 11:00 AM EDT Office Visit Gastroenterology, [facility] [address] [place] [address] Sukumar Zuñiga CRNP [address] [place] [address] 01/07/2024 10:00 AM EDT Office Visit Cardiology, [facility] [address] [place] [address] Gloria Rosenthal CRNP [address] [place] [address] 02/15/2024 8:00 AM EDT [facility] [address] [place] [address] Tabby Mcfarland MD [address] [place] [address] 03/31/2024 10:00 AM EST Office Visit Audiology, [place] [address] [place] [address] Bobbi Mcgrath Au.D. [address] [place] [address] 03/31/2024 10:30 AM EST Office Visit Otolaryngology/Head & Neck/Facial Plastic Surgery [address] [place], [place] [phone] iMkie Arce MD [address] [place], [place] [phone] Scheduled Procedures Name Priority Associated Diagnoses Date/Ti [...] patient or by statute hierarchy) Care Teams Microscopist Relationship Specialty Start Date End Date Tarun Gill III, MD [address] [place] [address] PCP - General 06/11/00 documented as of this encounter
--- OUTSIDE RECORDS SUMMARY | 2023-11-27 15:07 | External Medical Summary | Summary of Care ---
Author Name Unknown Organization [facility] Address [address] [facility] [place] [address] Phone [phone] Care Team Providers Care Cloth Handler Name Role Phone Bridget GIPSON MD, Tarun Sanders Primary Care Provider [phone] Reason for Visit * Reason Comments eRx-Medication Refill Encounter Details Date Type Department Care Team (Late st Contact Info) Description 11/13/2023 Refill Family Practice [facility] [place] 200 [facility] [place] [address] Tarun Gill III, MD 200 [place] [address] Allergies Active Allergy Reactions Criticality Noted Date [...] hemoglobin A1c goal of less than 7.5% ([facility]) Test twice daily 100 Each 5 06/19/2021 [...] 05/14/2022 Active Vitamin D (Ergocalciferol) 1.25 MG (64671 UT) Oral Capsule (Drisdol) TAKE 1 CAP [...] hemoglobin A1c goal of less than 7.5% ([facility]) USE TWICE DAILY TO TEST SUGAR E11.9 [...] 04/29/2023 Active Lidocaine HCl 2 % External GelIndications:Belén soni simplex chronicus Apply topically to affected [...] Hour (toPROL XL)Indications:Ch est pain, unspecified type,Palpitations TAKE ONE IN THE [...] CT at 6am 3 Tablet 11/13/2023 Active Clobetasol Propionate 0.05 % External Ointment (Temovate) APPLY TOPICALLY TO AFFECTED AREA 2 TIMES A DAY. TO PELVIC AREA FOR UP TO TWO WEEKS. 30 g 1 08/25/2023 11/16/19 24 Discontinued documented as of this encounter [...] encounter Miscellaneous Notes * Telephone Encounter - Xenia Timmons MD - 11/16/2023 1:25 PM EDTSigned Prescriptions: Disp Refills Clobetasol Propionate 0.05 % External Oint*30 g 1 Sig: APPLY TOPICALLY TO AFFECTED AREA 2 TIMES A DAY. TO PELVIC AREA FOR UP TO TWO WEEKS. Authorizing Provider: XENIA TIMMONS * Telephone Encounter - Daily [place] MED ASSIST - 11/16/2023 9:03 AM EDT Pending Prescriptions: Disp Refills Clobetasol Propionate 0.05 % External Oint*30 g 1 Sig: APPLY TOPICALLY TO AFFECTED AREA 2 TIMES A DAY. TO PELVIC AREA FOR UP TO TWO WEEKS. * Telephone Encounter - Daily [place] MED ASSIST - 11/16/2023 9:02 AM EDT Did you pend patient's preferred pharmacy and medication before forwarding?yes Pharmacy: [id number] [place] Pending Prescriptions: Disp Refills Clobetasol Propionate 0.05 % External Oin*30 g 1 Sig: APPLY TOPICALLY TO AFFECTED AREA 2 TIMES A DAY. TO PELVIC AREA FOR UP TO TWO WEEKS. Last Visit: 11/04/2023 (in office), 06/23/2023 (telemedicine) Next Visit: Visit date not found If no future appointments scheduled, and last appointment is greater than a year ago, please schedule patient for a follow-up appointment Last date the medication was ordered: 08/25/2023 Is this request for a controlled substance?No Urine Drug Screen:No results found. However, due to the size of the patient record, not all encounters were searched. Please check Results Review for a complete set of results. Patient Phone Numbers Labs: Lab Results Component Value Date/Time CREAT 0.8 10/13/2023 02:43 PM CREAT 0.78 05/27/2022 12:00 AM CREAT 0.8 12/20/2019 11:06 AM POTASSIUM 4.1 08/29/2023 10:06 AM POTASSIUM 4.0 12/20/2019 11:06 AM TSH 0.69 10/13/2023 02:43 PM TSH 1.75 04/07/2018 11:56 AM TSH 0.83 03/17/1996 10:30 AM LDLCALC 158 (H) 08/14/2023 10:23 AM LDLCALC 113 (H) 08/02/2009 02:50 PM LDLDIRECT 141 (H) 10/24/2016 04:34 PM ALT 17 08/29/2023 10:06 AM ALT 5 (L) 12/20/2019 11:06 AM HGBA1C 7.1 (H) 08/14/2023 10:23 AM HGBA1C 5.9 (H) 12/20/2019 11:06 AM * Telephone Encounter - Jerome Cooper - 11/14/2023 4:37 AM EDTPending Prescriptions: Disp Refills Clobetasol Propionate 0.05 % External Oint*30 g 1 Sig: APPLY TOPICALLY TO AFFECTED AREA 2 TIMES A DAY. TO PELVIC AREA FOR UP TO TWO WEEKS. documented in this encounter Plan of Treatment Upcoming Encounters Date Type Department Care Team (Late st Contact Info) Description 11/17/2023 8:00 AM EDT Appointment Radiology, [place] [address] [place] [address] 11/23/2023 8:15 AM EDT Imaging Radiology [address] 132 [place] [address] 11/23/2023 8:45 AM EDT Imaging Radiology [address] 132 [facility] [place] [address] 12/10/2023 11:00 AM EDT Office Visit Gastroenterology, [facility] 132 [place] [address] Sukumar Zuñiga CRNP [address] [place] [address] 01/07/2024 10:00 AM EDT Office Visit Cardiology, [facility] 132 [place] [address] Gloria Rosenthal CRNP 132 [facility] [address] 02/15/2024 8:00 AM EDT Telemedicine Psychiatry [facility] [address] [place] [phone] Tabby Mcfarland MD [address] [place] [address] 03/31/2024 10:00 AM EST Office Visit Audiology, [place] [address] [place] [address] Bobbi Mcgrath Au.D. [address] [place] [address] 03/31/2024 10:30 AM EST Office Visit Otolaryngology/Head & Neck/Facial Plastic Surgery [address] [place] [address] Mikie Arce MD [address] [place] [address] Scheduled Procedures Name Priority Associated Diagnoses Date/Ti [...] patient or by statute hierarchy) Care Teams Cloth Handler Relationship Specialty Start Date End Date Tarun Gill III, MD 200 [facility] [place] [address] PCP - General 06/11/00 documented as of this encounter
--- OUTSIDE RECORDS SUMMARY | 2023-11-27 15:07 | External Medical Summary | Summary of Care ---
Author Name Unknown Organization [facility] Address [address] [facility] [address] Phone [phone] Care Team Providers Care Assistant Import Manager Name Role Phone Bridget GIPSON MD, Tarun Sanders Primary Care Provider [phone] Reason for Visit * Reason Onset Date Comments Test Results 11/17/2023 Encounter Details Date Type Department Care Team (Late st Contact Info) Description 11/17/2023 Telephone Family Practice [facility] [place] 200 [facility] [place] [address] Loreta Morejon PA-C 200 [facility] [place] [address] Test Results Allergies Active Allergy Reactions Criticality Noted Date Comments Carbamazepine And Analogs 04/28/2001 rash Hydromorphone Hcl Anaphylaxis High 07/03/2014 Gabapentin 04/28/2001 swelling Semaglutide(0.25 Or 0.5mg-Dos) 05/27 Nausea/ vomiting documented as of this encounter (statuses as of 11/17/2023) Medications Medication Sig Dispensed Refills Start Date [...] goal of less than 7.5% ([facility]) Test twice daily 100 Each 5 06/19/2021 [...] 05/14/2022 Active Vitamin D (Ergocalciferol) 1.25 MG (44602 UT) Oral Capsule (Drisdol) TAKE 1 CAP [...] goal of less than 7.5% ([facility]) USE TWICE DAILY TO TEST SUGAR E11.9 [...] as of this encounter (statuses as of 11/17/2023) Active Problems Problem Noted Date Diagnosed Date [...] as of this encounter (statuses as of 11/17/2023) Resolved Problems Problem Noted Date Diagnosed Date [...] as of this encounter (statuses as of 11/17/2023) Immunizations Name Administration Dates Next Due Hepatitis [...] the money to buy more. Never true 05/08/20 24 Within the past 12 months, t [...] Encounter - Daily [place] MED ASSIST - 11/17/2023 7:51 AM EDT ----- Message from August Aminta Morejon sent at 11/16/2023 7:21 PM EDT ----- Please send a lab letter stating results normal. documented in this encounter Plan of Treatment Upcoming Encounters Date Type Department Care Team (Late st Contact Info) Description 11/23/2023 8:15 AM EDT Imaging Radiology [address] 132 [place] [address] 11/23/2023 8:45 AM EDT Imaging Radiology [address] 132 [facility] [place] [address] 12/10/2023 11:00 AM EDT Office Visit Gastroenterology, [facility] 132 [place] [address] Sukumar Zuñiga CRNP [address] [place] [address] 01/07/2024 10:00 AM EDT Office Visit Cardiology, [facility] 132 [place] [address] Gloria Rosenthal CRNP 132 [place] [address] 02/15/2024 8:00 AM EDT Telemedicine Psychiatry [facility] [address] [place] [phone] Tabby Mcfarland MD [address] [place], [place] [address] 03/31/2024 10:00 AM EST Office Visit Audiology, [place] [address] [place], [place] [phone] Bobbi Mcgrath Au.D. [address] [place] [address] 03/31/2024 10:30 AM EST Office Visit Otolaryngology/Head & Neck/Facial Plastic Surgery [address] [place] [address] Mikie Arce MD [address] [place] [address] Scheduled Procedures Name Priority Associated Diagnoses Date/Ti [...] patient or by statute hierarchy) Care Teams Assistant Import Manager Relationship Specialty Start Date End Date Tarun Gill III, MD 200 [facility] [place] [address] PCP - General 06/11/00 documented as of this encounter
--- OUTSIDE RECORDS SUMMARY | 2023-11-27 15:07 | External Medical Summary | Summary of Care ---
Author Name Unknown Organization [facility] Address [address] [facility] [address] Phone [phone] Care Team Providers Care Front Attendant Name Role Phone Bridget GIPSON MD, Tarun Sanders Primary Care Provider [phone] Reason for Visit * Reason Comments eRx-Medication Refill Encounter Details Date Type Department Care Team (Late st Contact Info) Description 11/06/2023 Refill Cardiology, [facility] [address] [place] [address] Nick Hawley MD [address] [place] [address] Chest pain, unspecified type; Palpitations Allergies Active Allergy Reactions Criticality Noted Date Comments Carbamazepine And Analogs 04/28/2001 rash Hydromorphone Hcl Anaphylaxis High 07/03/2014 Gabapentin 04/28/2001 swelling Semaglutide(0.25 Or 0.5mg-Dos) 05/27 Nausea/ vomiting documented as of this encounter (statuses as of 11/07/2023) Medications Medication Sig Dispensed Refills Start Date [...] hemoglobin A1c goal of less than 7.5% ([facility]) Test twice daily 100 Each 5 [...] 05/14/2022 Active Vitamin D (Ergocalciferol) 1.25 MG (90366 UT) Oral Capsule (Drisdol) TAKE 1 CAP [...] hemoglobin A1c goal of less than 7.5% ([facility]) USE TWICE DAILY TO TEST SUGAR [...] MORNING 180 Tablet 3 11/06/2023 Active Metoprolol Succinate ER 100 MG Oral Tablet Extended Release 24 Hour (toPROL XL)Indications:Ch est pain, unspecified type,Palpitations Take one in the morning, 1/2 in the evening 150 Tablet 3 09/08/2022 11/07/19 24 Discontinued documented as of this encounter (statuses as of 11/07/2023) Active Problems Problem Noted Date Diagnosed Date [...] as of this encounter (statuses as of 11/07/2023) Resolved Problems Problem Noted Date Diagnosed Date [...] as of this encounter (statuses as of 11/07/2023) Immunizations Name Administration Dates Next Due Hepatitis [...] No 09/16/2023 Does the household have a unm hospitallar source of income? (Household - for [...] encounter Miscellaneous Notes * Telephone Encounter - Gloria Garcia CRNP - 11/07/2023 3:22 PM EDT Signed Prescriptions: Disp Refills Metoprolol Succinate ER 100 MG Oral Tablet*150 Ta*3 Sig: TAKE ONE IN THE MORNING, 1/2 IN THE EVENING Authorizing Provider: GLORIA GARCIA * Telephone Encounter - Alyse Boyce LPN - 11/06/2023 1:27 PM EDTPending Prescriptions: Disp Refills Metoprolol Succinate ER 100 MG Oral Tablet*150 Ta*3 Sig: Take one in the morning, 1/2 in the evening * Telephone Encounter - Alyse Boyce LPN - 11/06/2023 1:24 PM EDT Did you pend patient's preferred pharmacy and medication before forwarding? YES Pharmacy: [id number] [place] Pending Prescriptions: Disp Refills Metoprolol Succinate ER 100 MG Oral Table*150 Ta*3 Sig: TAKE ONE IN THE MORNING, 1/2 IN THE EVENING Last Visit: 10/13/2023 (in office), Visit date not found (telemedicine) Next Visit: 01/07/2024 If no future appointments scheduled, and last appointment is greater than a year ago, please schedule patient for a follow-up appointment Last date the medication was ordered: 09/08/2022 - recently increased 10/13/23 Is this request for a controlled substance? NO Urine Drug Screen:No results found. However, due [...] AM HGBA1C 5.9 (H) 12/20/2019 11:06 AM documented in this encounter Plan of Treatment Upcoming Encounters Date Type Department Care Team (Late st Contact Info) Description 11/17/2023 8:00 AM EDT Appointment Radiology, [place] 100 [facility] [address] 11/17/2023 4:00 PM EDT Office Visit Family Practice [facility] [place] [address] [place] [address] Loreta Morejon PA-C [address] [facility] [place] [address] 11/23/2023 8:15 AM EDT Imaging Radiology [address] 132 [facility] [place] [address] 11/23/2023 8:45 AM EDT Imaging Radiology [facility] 1st Floor, [place] 132 [facility] [place] [address] 11/30/2023 11:30 AM EDT PulmDiagnostic Pulmonary Function Lab, [facility] 132 [place] [address] West, Pulm Function Tech 2 132 [facility] [place] [address] 12/10/2023 11:00 AM EDT Office Visit Gastroenterology, [facility] 132 [facility] [place] [address] Sukumar Zuñiga CRNP 132 [facility] [place] [address] 01/07/2024 10:00 AM EDT Office Visit Cardiology, [facility] 132 [place] [address] Gloria Garcia CRNP 132 [facility]], [place] [address] 02/15/2024 8:00 AM EDT Telemedicine Psychiatry [facility] [address] [place] [phone] Tabby Mcfarland MD [address] [place] [address] 03/31/2024 10:00 AM EST Office Visit Audiology, [place] [address] [place] [address] Bobbi Mcgrath Au.D. [address] [place] [address] 03/31/2024 10:30 AM EST Office Visit Otolaryngology/Head & Neck/Facial Plastic Surgery [address] [place] [address] Mikie Arce MD [address] [place] [address] Scheduled Procedures Name Priority Associated Diagnoses Date/Ti [...] as of this encounter Visit Diagnoses Diagnosis Chest pain, unspecified type Palpitations documented in this encounter Advance Directives Healthcare Agents on File Name Relationship Healthcare Agent Relationshi p Communication Zara Jackson Adult Child Health Care Repr esentative (appointed verbally by patient or by statute hierarchy) Care Teams Front Attendant Relationship Specialty Start Date End Date Tarun Gill III, MD 200 [facility] [place] [address] PCP - General 06/11/00 documented as of this encounter
--- OUTSIDE RECORDS SUMMARY | 2023-11-27 15:08 | External Medical Summary | Summary of Care ---
Author Name Unknown Organization [facility] Address [address] [facility] [address] Phone [phone] Care Team Providers Care Rubber Compounder Mixer Name Role Phone Bridget GIPSON MD, Tarun Sanders Primary Care Provider [phone] Encounter Details Date Type Department Care Team (Late st Contact Info) Description 09/17/2023 Result Scan Unspecified Department <No scans attached> Allergies Active Allergy Reactions Criticality Noted Date Comments Carbamazepine And Analogs 04/28/2001 rash Hydromorphone Hcl Anaphylaxis High 07/03/2014 Gabapentin 04/28/2001 swelling Semaglutide(0.25 Or 0.5mg-Dos) 05/27 Nausea/ vomiting documented as of this encounter (statuses as of 11/05/2023) Medications Medication Sig Dispensed Refills Start Date [...] hemoglobin A1c goal of less than 7.5% ([facility]) Test twice daily 100 Each [...] Hour (toPROL XL)Indications:Ches t pain, unspecified type,Palpitations Take one in the morning, 1/2 in the evening 150 Tablet 3 09/08/2022 Active Famotidine 40 MG Oral Tablet (Pepcid)Indications :Gastroesophageal reflux disease with esophagitis without hemorrhage TAKE 1 TABLET BY MOUTH EVERY DAY AT BEDTIME NEEDED FOR HEARTBURN 90 Tablet 3 11/07/2022 Active Vitamin D (Ergocalciferol) 1.25 MG (90479 UT) Oral Capsule (Drisdol) TAKE 1 CAP [...] hemoglobin A1c goal of less than 7.5% ([facility]) USE TWICE DAILY TO TEST [...] a week. 2 mL 11 08/10/2023 Active metFORMIN HCl ER 500 MG Oral Tablet Extended Release 24 Hour (Glucophage XR)Indications:Type 2 diabetes mellitus with hemoglobin A1c goal of less than 7.0% ([facility]) TAKE 2 TABLETS BY MOUTH EVERY MORNING 180 Tablet 08/10/2023 Active Ketorolac Tromethamine 10 MG Oral [...] EVERY DAY 90 Tablet 3 09/17/2023 Active documented as of this encounter (statuses as of 11/05/2023) Active Problems Problem Noted Date Diagnosed Date [...] as of this encounter (statuses as of 11/05/2023) Resolved Problems Problem Noted Date Diagnosed Date [...] as of this encounter (statuses as of 11/05/2023) Immunizations Name Administration Dates Next Due Hepatitis [...] Info) Description 11/17/2023 8:00 AM EDT Appointment [address] [place] [address] 11/17/2023 4:00 PM EDT Office Visit Family Practice [facility] [place] [address] [place] [address] Loreta Morejon PA-C [address] [place] [address] 11/23/2023 8:15 AM EDT Imaging Radiology [address] 132 [facility] [place] [address] 11/23/2023 8:45 AM EDT Imaging Radiology [address] [place] [address] 11/30/2023 11:30 AM EDT PulmDiagnostic Pulmonary Function Lab, [facility] [address] [facility] [place] [address] Van Pulm Function Tech 2 [facility] [place] [address] 12/10/2023 11:00 AM EDT Office Visit Gastroenterology, [facility] 132 [facility] [place] [address] Sukumar Zuñiga CRNP [address] [place] [address] 01/07/2024 10:00 AM EDT Office Visit Cardiology, [facility] 132 [facility] [place] [address] Gloria Rosenthal CRNP 132 [facility] [place] [address] 02/15/2024 8:00 AM EDT Telemedicine Psychiatry [facility] 9 [place] [address] Tabby Mcfarland MD [address] [place] [address] 03/31/2024 10:00 AM EST Office Visit Audiology, [place] [address] [place] [address] Bobbi Mcgrath Au.D. [address] [place] [address] 03/31/2024 10:30 AM EST Office Visit Otolaryngology/Head & Neck/Facial Plastic Surgery [address] [place], [place] [phone] Mikie Arce MD [address] [place], [place] [address] Scheduled Procedures Name Priority Associated Diagnoses Date/Ti [...] Procedure Name Priority Date/Time Associated Diagnosis Comments RADIOLOGY SCANNED RESULT 09/17/2023 documented in this encounter Results * RADIOLOGY SCANNED RESULT (09/17/2023) 09/17/2023 No Physician Data Unknown DIAGNOSTIC RAD IOLOGY SERVICES documented in this encounter Advance Directives Healthcare Agents on File Name Relationship Healthcare Agent Relationshi p Communication Zara Jackson Adult Child Health Care Repr esentative (appointed verbally by patient or by statute hierarchy) Care Teams Rubber Compounder Mixer Relationship Specialty Start Date End Date Tarun Gill III, MD 200 [place] [address] PCP - General 06/11/00 documented as of this encounter
--- OUTSIDE RECORDS SUMMARY | 2023-11-27 15:08 | External Medical Summary | Summary of Care ---
Author Name Unknown Organization [facility] Address [address] [place] [address] Phone [phone] Care Team Providers Care Rigging Foreman Name Role Phone Bridget GIPSON MD, Tarun Sanders Primary Care Provider [phone] Reason for Visit * Reason Comments Hospital Follow-Up Encounter Details Date Type Department Care Team (Late st Contact Info) Description 11/04/2023 12:00 PM EDT Office Visit [facility] [address] [facility] [place] [address] Lortea Morejon PA-C [address] [facility] [place] [address] Chronic cough*; Type 2 diabetes mellitus with hemoglobin A1c goal of less than 7.5% ([facility]); Multiple sclerosis (HCC); Gastro-esophageal reflux disease without esophagitis; Essential hypertension with goal blood pressure less than 140/90; History of 2019 novel coronavirus disease (COVID-19) Allergies Active Allergy Reactions Criticality Noted Date Comments Carbamazepine And Analogs 04/28/2001 rash Hydromorphone Hcl Anaphylaxis High 07/03/2014 Gabapentin 04/28/2001 swelling Semaglutide(0.25 Or 0.5mg-Dos) 05/27 Nausea/ vomiting documented as of this encounter (statuses as of 11/04/2023) Medications Medication Sig Dispensed Refills Start Date [...] goal of less than 7.5% ([facility]) Test twice daily 100 Each 5 [...] 09/08/2022 Active Famotidine 40 MG Oral Tablet (Pepcid)Indicatio ns:Gastroesophage al reflux disease with esophagitis without hemorrhage TAKE 1 TABLET BY MOUTH EVERY DAY AT BEDTIME NEEDED FOR HEARTBURN 90 Tablet 3 11/07/2022 Active Vitamin D (Ergocalciferol) 1.25 MG (29699 UT) Oral Capsule (Drisdol) TAKE 1 CAP [...] needed for Cough. 18 g 11/04/2023 Active Albuterol Sulfate (2.5 MG/3ML) 0.083% Inhalation Nebulization Solution (Proventil) Inhale 1 Vial via nebulizer every 4 hours as needed for Other (cough). 100 mL 04/08/2023 11/04/19 24 Discontinued Albuterol Sulfate HFA 108 (90 Base) MCG/ACT Inhalation Aerosol Solution Inhale 2 Puffs by mouth every 4 hours as needed for Cough. 18 g 04/08/2023 11/04/19 24 Discontinued documented as of this encounter (statuses as of 11/04/2023) Active Problems Problem Noted Date Diagnosed Date [...] as of this encounter (statuses as of 11/04/2023) Resolved Problems Problem Noted Date Diagnosed Date [...] as of this encounter (statuses as of 11/04/2023) Immunizations Name Administration Dates Next Due Hepatitis [...] Sign Reading Time Taken Comments Blood Pressure 130/82 11/04/2023 12:15 PM EDT Pulse 64 11/04/2023 12:15 PM EDT Temperature 36.2 C (97.2 F) 11/04/2023 1 2:15 PM EDT Respiratory Rate 18 11/04/2023 12:1 5 PM EDT Oxygen Saturation 93% 11/04/2023 12: 15 PM EDT Inhaled Oxygen Concentration - - Weight 101.2 kg (223 lb 1.3 oz) 024 12:15 PM EDT Height - - Body Mass Index 39.52 09/14/2023 9:54 AM EDT documented in this encounter Progress Notes * Loreta Morejon PA-C - 11/04/2023 12:34 PM EDT Images from the original note were not included. History of Present Illness Deanne Mckeon is a 58 year old female that presents for Hospital Follow-Up Patient is a 58 year old female who presents for a follow up. She is concerned gets a cough which is intense and she becomes sob. Was noted by nurse who was inserting iv for MS treatment. Could only hear with inhalation Has been going on for 3 months. July 2023 Has had pneumonia twice since covid. Recent uti which is better. Is getting infusion treatments at home. Physical Exam Vitals: 11/04/23 1215 Temp: 36.2 C (97.2 F) Pulse: 64 Resp: 18 SpO2: 93% BP: 130/82 BP Readings from Last 3 Encounters: 11/04/23 130/82 10/19/23 141/70 10/13/23 132/88 Wt Readings from Last 3 Encounters: 11/04/23 101.2 kg (223 lb 1.3 oz) 10/19/23 102.1 kg (225 lb) 10/13/23 102.1 kg (225 lb 1.3 oz) General: alert, healthy, no distress, well nourished, well developed, and cooperative Head: Normocephalic, No masses, lesions, tenderness or abnormalities Eye Exam: PERRLA, extraocular movements intact, conjunctiva are pink and non- injected, sclera clear Neck: supple, no adenopathy, no bruits, thyroid normal size, non-tender, without nodularity Heart: regular rate & rhythm, no murmur, and no gallops Lungs: chest symmetric with normal AP diameter, no chest deformities noted, normal respiratory rateand rhythm, no chest wall tenderness, diaphragmatic excursion normal, lungs clear to auscultation Extremities: less than 2 second capillary refill, no joint deformities, effusion, or inflammation, no edema, no skin discoloration, no clubbing, no cyanosis I have reviewed the following results: Urine Culture Assessment and Plan Chronic cough (Primary) - XR CHEST 2 VIEWS - SPIROMETRY B/A BRONCHODILATOR; Future; Expected date: 11/04/2023 Type 2 diabetes mellitus with hemoglobin A1c goal of less than 7.5% (HCC) Multiple sclerosis (HCC) Gastro-esophageal reflux disease without esophagitis Essential hypertension with goal blood pressure less than 140/90 History of 2019 novel coronavirus disease (COVID-19) Other orders - Albuterol Sulfate HFA 108 (90 Base) MCG/ACT Inhalation Aerosol Solution; Inhale 2 Puffs by mouth every 4 hours as needed for Cough. Check-out note: Schedule PFT Wrap-Up Time: I spent a total of 30-39 minutes (exact time 34 mins) on the date of service in preparation, delivery, and documentation of the care provided to Deanne Mckeon excluding any time spent in the performance of separately billed services. documented in this encounter Nursing Notes * Aline Forte LPN - 11/04/2023 12:12 PM EDT Deanne Mckeon presents for hospital follow up. Medications & HM reviewed. Denies any concerns documented in this encounter Plan of Treatment Upcoming Encounters Date Type Department Care Team (Late st Contact Info) Description 11/17/2023 8:00 AM EDT Appointment Radiology, [place] [address] [place] [address] 11/17/2023 4:00 PM EDT Office Visit [facility] [address] [facility] [place] [address] Loreta Morejon PA-C [address] [facility] [place] [address] 11/30/2023 11:30 AM EDT PulmDiagnostic Pulmonary Function Lab, [facility] [address] [facility] [place] [address] [place], Pulm Function Tech 2 132 [facility] [place] [address] 12/10/2023 11:00 AM EDT Office Visit Gastroenterology, [facility] [address] [facility] [place] [address] Sukumar Zuñiga CRNP 132 [facility] [place] [address] 01/07/2024 10:00 AM EDT Office Visit Cardiology, [facility] [address] [facility] [place] [address] Gloria Rosenthal CRNP 132 [facility] [place] [address] 02/15/2024 8:00 AM EDT Telemedicine Psychiatry [place] [address] [place] [id number] Tabby Mcfarland MD [address] [facility] [address] 03/31/2024 10:00 AM EST Office Visit Audiology, [place] [address] [place] [address] Bobbi Mcgrath Au.D. [address] [place] [address] 03/31/2024 10:30 AM EST Office Visit Otolaryngology/Head & Neck/Facial Plastic Surgery [address] [place] [address] Mikie Arce MD [address] [place] [address] Pending Results Name Type Priority Associated Diagnoses Date /Time XR CHEST 2 VIEWS Medical Imaging Routine Chronic cough 11/04/2023 1:23 PM EDT Scheduled Orders Name Type Priority Associated Diagnoses Orde r Schedule SPIROMETRY B/A BRONCHODILATOR Procedures Routine Chronic cough Expected: 11/04/2023 (Approximate), Expires: 12/03/2024 Scheduled Procedures Name Priority Associated Diagnoses Date/Ti [...] as of this encounter Visit Diagnoses Diagnosis Chronic cough- Primary Cough Type 2 diabetes mellitus with hemoglobin A1c goal of less than 7.5% (HCC) Multiple sclerosis (HCC) Multiple sclerosis Gastro-esophageal reflux disease without esophagitis Esophageal reflux Essential hypertension with goal blood pressure less than 140/90 History of 2019 novel coronavirus disease (COVID-19) documented in this encounter Advance Directives Healthcare Agents on File Name Relationship Healthcare Agent Relationshi p Communication Zara Jackson Adult Child Health Care Repr esentative (appointed verbally by patient or by statute hierarchy) Care Teams Rigging Foreman Relationship Specialty Start Date End Date Tarun Gill III, MD [address] [facility] [place] [address] PCP - General 06/11/00 documented as of this encounter
--- OUTSIDE RECORDS SUMMARY | 2023-11-27 15:08 | External Medical Summary | Summary of Care ---
Author Name Unknown Organization [facility] Address [address] [place] [address] Phone [phone] Care Team Providers Care Associate Store Director Name Role Phone Bridget GIPSON MD, Tarun Sanders Primary Care Provider [phone] Reason for Visit * Reason Onset Date Comments Appointment 11/03/2023 Ct cardiac Encounter Details Date Type Department Care Team (Late st Contact Info) Description 11/03/2023 Telephone Radiology, [place] [address] [place] [address] Services, Scheduling [address] [place] [address] Appointment (Ct cardiac ) Allergies Active Allergy Reactions Criticality Noted Date [...] hemoglobin A1c goal of less than 7.5% ([facility]) Test twice daily 100 Each [...] 11/07/2022 Active Vitamin D (Ergocalciferol) 1.25 MG (73521 UT) Oral Capsule (Drisdol) TAKE 1 CAP [...] No 09/16/2023 Does the household have a [facility] source of income? (Household - for ages [...] encounter Miscellaneous Notes * Telephone Encounter - Savi Epps OSA - 11/03/2023 11:28 AM EDT Alice Pt is scheduled for 7 a 0800. Thank you documented in this encounter Plan of Treatment Upcoming Encounters Date Type Department Care Team (Late st Contact Info) Description 11/17/2023 8:00 AM EDT Appointment Radiology, [address] [address] 11/17/2023 4:00 PM EDT Office Visit [facility] [address] [place] [address] Loreta Morejon PA-C [address] [place] [address] 11/23/2023 8:15 AM EDT Imaging Radiology [address] 132 [facility] [place] [address] 11/23/2023 8:45 AM EDT Imaging Radiology [address] [facility] [place] [address] 11/30/2023 11:30 AM EDT PulmDiagnostic Pulmonary Function Lab, [facility] 132 [facility] [place] [address] [place], Pulm Function Tech 2 [address] [facility] [place] [address] 12/10/2023 11:00 AM EDT Office Visit Gastroenterology, [facility] 132 [facility] [place] [address] Sukumar Zu[facility]iga CRNP [facility] [place] [address] 01/07/2024 10:00 AM EDT Office Visit Cardiology, [facility] 132 [facility] [place] [address] Gloria Rosenthal CRNP [address] [facility] [place] [address] 02/15/2024 8:00 AM EDT Telemedicine Psychiatry [place] [address] [place] [phone] Tabby Mcfarland MD [address] [facility] [place] [address] 03/31/2024 10:00 AM EST Office Visit Audiology, [place] [address] [place] [address] Bobbi Mcgrath Au.D. [address] [place] [address] 03/31/2024 10:30 AM EST Office Visit Otolaryngology/Head & Neck/Facial Plastic Surgery [address] [place] [address] Mikie Arce MD [address] [place] [address] Scheduled Procedures Name Priority Associated Diagnoses Date/Ti [...] patient or by statute hierarchy) Care Teams Associate Store Director Relationship Specialty Start Date End Date Tarun Gill III, MD 200 [place] [address] PCP - General 06/11/00 documented as of this encounter
--- OUTSIDE RECORDS SUMMARY | 2023-11-27 15:08 | External Medical Summary | Summary of Care ---
Author Name Unknown Organization [facility] Address [address] [facility] [place] [address] Phone [phone] Care Team Providers Care Flat Lock Operator Name Role Phone Bridget GIPSON MD, Tarun Sanders Primary Care Provider [phone] Reason for Visit * Reason Onset Date Comments Test Results 10/22/2023 Encounter Details Date Type Department Care Team (Late st Contact Info) Description 10/22/2023 Telephone Family Practice [facility] [place] [address] [facility] [place] [address] Loreta Morejon PA-C [address] [facility] [place] [address] Test Results Allergies Active Allergy Reactions Criticality Noted Date Comments Carbamazepine And Analogs 04/28/2001 rash Hydromorphone Hcl Anaphylaxis High 07/03/2014 Gabapentin 04/28/2001 swelling Semaglutide(0.25 Or 0.5mg-Dos) 05/27 Nausea/ vomiting documented as of this encounter (statuses as of 10/22/2023) Medications Medication Sig Dispensed Refills Start Date [...] hemoglobin A1c goal of less than 7.5% ([facility]) Test twice daily 100 Each 5 [...] 11/07/2022 Active Vitamin D (Ergocalciferol) 1.25 MG (51731 UT) Oral Capsule (Drisdol) TAKE 1 CAP [...] SUGAR E11.9 50 Strip 11 01/15/2023 Active Albuterol Sulfate (2.5 MG/3ML) 0.083% Inhalation Nebulization Solution (Proventil) Inhale 1 Vial via nebulizer every 4 hours as needed for Other (cough). 100 mL 04/08/2023 Active Albuterol Sulfate HFA 108 (90 Base) MCG/ACT Inhalation Aerosol Solution Inhale 2 Puffs by mouth every 4 hours as needed for Cough. 18 g 04/08/2023 Active Omeprazole 40 MG Oral Capsule Delayed [...] before bedtime. 20 Tablet 1 10/13/2023 Active Phenazopyridine HCl 200 MG Oral Tablet (Pyridium) Take 1 Tablet by mouth in the morning and 1 Tablet at noon and 1 Tablet before bedtime. Do all this for 3 days. 10 Tablet 10/19/2023 10/22/2023 Active Amoxicillin 500 MG Oral Capsule (Amoxil) Take 1 Capsule by mouth in the morning and 1 Capsule at noon and 1 Capsule before bedtime. Do all this for 10 days. 30 Capsule 10/19/2023 10/29/2023 Active documented as of this encounter (statuses as of 10/22/2023) Active Problems Problem Noted Date Diagnosed Date Adjustment disorder with mixed anxiety and depre ssed mood 08/19/2023 Decreased rectal sphincter tone 12/08/2022 Rectal itching 12/08/2022 Generalized abdominal pain 12/08/2022 Body mass index (BMI) of 40.0 to 44.9 in adult 0 05/19/2022 Overview: Per Obesity protocol History of 2019 novel coronavirus disease (COVID [...] as of this encounter (statuses as of 10/22/2023) Resolved Problems Problem Noted Date Diagnosed Date Resolved Date Chronic diarrhea 05/02/2019 05/02/2019 HTN, goal below [...] as of this encounter (statuses as of 10/22/2023) Immunizations Name Administration Dates Next Due Hepatitis [...] money to get more. Never true 09/16/2023 Education Answer Date Recorded What is [...] Encounter - Daily [place] [facility] - 10/22/2023 12:38 PM EDT ----- Message from Loreta Morejon sent at 10/22/2023 12:25 PM EDT ----- Please send a lab letter stating results normal. documented in this encounter Plan of Treatment Upcoming Encounters Date Type Department Care Team (Late st Contact Info) Description 10/28/2023 12:00 PM EDT Office Visit Family Practice [facility] [place] [address] [place] [address] Loreta Morejon PA-C [address] [facility] [place] [address] 11/11/2023 8:15 AM EDT Imaging Radiology [facility] [address] [facility] 132 [facility] [place] [address] 11/17/2023 4:00 PM EDT Office Visit Family Practice [facility] [address] [facility] [place] [address] Loreta Morejon PA-C [address] [facility] [place] [address] 12/10/2023 11:00 AM EDT Office Visit Gastroenterology, [facility] [address] [place] [address] Sukumar Zuñiga CRNP [address] [place] [address] 01/07/2024 10:00 AM EDT Office Visit Cardiology, [facility] [address] [place] [address] Gloria Rosenthal CRNP [address] [place] [address] 02/15/2024 8:00 AM EDT [facility] [address] [place] [address] Tabby Mcfarland MD [address] [place] [address] Scheduled Procedures Name Priority Associated Diagnoses Date/Ti [...] patient or by statute hierarchy) Care Teams Flat Lock Operator Relationship Specialty Start Date End Date Tarun Gill III, MD [address] [facility] [place] [address] PCP - General 06/11/00 documented as of this encounter
--- OUTSIDE RECORDS SUMMARY | 2023-11-27 15:09 | External Medical Summary | Summary of Care ---
Author Name Unknown Organization [facility] Address [address] [address] Phone [phone] Care Team Providers Care Manager Air Name Role Phone Bridget GIPSON MD, Tarun Sanders Primary Care Provider [phone] Reason for Visit * Reason Comments Acute Pt c/o neck pain, st arted about 2 weeks ago, getting worse, aches during the day, lying down makes it worse, interfering with sleep. Encounter Details Date Type Department Care Team (Late st Contact Info) Description 10/13/2023 1:40 PM EDT Office Visit Family Practice [facility] [address] [place] [address] Loreta Morejon PA-C [address] [place] [address] Neck pain*; Dysuria Allergies Active Allergy Reactions Criticality Noted Date Comments Carbamazepine And Analogs 04/28/2001 rash Hydromorphone Hcl Anaphylaxis High 07/03/2014 Gabapentin 04/28/2001 swelling Semaglutide(0.25 Or 0.5mg-Dos) 05/27 Nausea/ vomiting documented as of this encounter (statuses as of 10/13/2023) Medications Medication Sig Dispensed Refills Start Date [...] hemoglobin A1c goal of less than 7.5% ([facility]) Test twice daily 100 [...] 11/07/2022 Active Vitamin D (Ergocalciferol) 1.25 MG (48271 UT) Oral Capsule (Drisdol) TAKE 1 CAP [...] before bedtime. 20 Tablet 1 10/13/2023 Active Baclofen 20 MG Oral Tablet As needed 11/11/2022 10/13/19 24 Discontinued documented as of this encounter (statuses as of 10/13/2023) Active Problems Problem Noted Date Diagnosed Date [...] as of this encounter (statuses as of 10/13/2023) Resolved Problems Problem Noted Date Diagnosed Date [...] as of this encounter (statuses as of 10/13/2023) Immunizations Name Administration Dates Next Due Hepatitis B, 20+ yrs 09/01/2022,07/18/2021,06/19 Pneumococcal Conjugate Vacc, 13 Valent (Prevnar) 06/19/2021 Pneumococcal Polysaccharide PPV23 (Pneumovax) 09/11/2009 Seasonal Influenza Virus Vac cine, Unspecified Formulation 02/19/2021,02/02/2020,02/02/2019,01/12,05/07/2017,01/23/2016,02/21/2015 ,02/14/2014,05/23/2013,02/18/2012,01/10,02/27/2010,02/05/2009, 5,07/03/2004 Seasonal Influenza, PF, 6 M & above, IM , (FluLaval or Fluzone) 02/19/2023,02/05/2022,02/19/2021,02/01,02/02/2019,01/12/2018,05/07/2017 Seasonal Influenza, Quadriva lent, No Preserve, IM 01/23/2016,02/21/2015 Seasonal Influenza, Split, I IV3, With Preserve, Inj 02/14/2014,05/23/2013,02/18/2012,01/30,02/27/2010,02/05/2009,03/27/2005 ,07/03/2004 TD, Preservative Free 02/02/2020 TDAP, Age 7 [...] Sign Reading Time Taken Comments Blood Pressure 132/88 10/13/2023 1:26 PM EDT Pulse 78 10/13/2023 1:26 PM EDT Temperature 36.8 C (98.3 F) 10/13/2023 1:26 PM ED T Respiratory Rate - - Oxygen Saturation - - Inhaled Oxygen Concentration - - Weight 102.1 kg (225 lb 1.3 oz) 10/13/2023 1:26 PM EDT Height - - Body Mass Index 39.87 09/14/2023 9:54 AM EDT documented in this encounter Progress Notes * Loreta Morejon PA-C - 10/13/2023 1:49 PM EDT Images from the original note were not included. History of Present Illness Deanne Mcekon is a 57 year old female that presents for Acute (Pt c/o neck pain, started about 2 weeks ago, getting worse, aches during the day, lying down makes it worse, interfering with sleep. ) Patient is a 57 year old female who presents with neck pain. Recent mri of neck done at [facility] Pain is very intense and keeps her awake at night. She is tried heat, muscle rubs, ibuprofen. She also presents with some dysuria. Physical Exam Vitals: 10/13/23 1326 Temp: 36.8 C (98.3 F) Pulse: 78 BP: 132/88 BP Readings from Last 3 Encounters: 10/13/23 132/88 10/13/23 132/88 09/16/23 118/88 Wt Readings from Last 3 Encounters: 10/13/23 102.1 kg (225 lb 1.3 oz) 10/13/23 102.7 kg (226 lb 6.4 oz) 09/16/23 101.6 kg (224 lb 0.6 oz) General: alert, healthy, no distress, well nourished, well developed, and cooperative Head: Normocephalic, No masses, lesions, tenderness or abnormalities Eye Exam: PERRLA, extraocular movements intact, conjunctiva are pink and non- injected, sclera clear Neck: no adenopathy, no bruits, thyroid normal size, non-tender, without nodularity, Decreased range of motion of the neck. Also noted was palpable muscle spasm most pronounced left trapezius. Extremities: less than 2 second capillary refill, no joint deformities, effusion, or inflammation, no edema, no skin discoloration, no clubbing, no cyanosis, Full ROM, Pulses Intact, Strength equal bilaterally Neuro Exam: alert & oriented x 3 with fluent speech, no focal motor/sensory deficits, gait normal I have reviewed the following results: Urinalysis, POC Assessment and Plan Neck pain (Primary) - US HEAD AND NECK; Future; Expected date: 10/14/2023 - Baclofen 10 MG Oral Tablet (Lioresal); Take 1 Tablet by mouth in the morning and 1 Tablet before bedtime. Dysuria - URINALYSIS, POINT OF CARE (ENTER/EDIT) - CULTURE, URINE, QUANTITATIVE Follow Up: Return in about 4 weeks (around 11/10/2023) for Clinic Visit/ for 40 minutes. | For: Clinic Visit/ for 40 minutes Wrap-Up Time: I spent a total of 30-39 minutes (exact time 36 mins) on the date of service in preparation, delivery, and documentation of the care provided to Deanne Mckeon excluding any time spent in the performance of separately billed services. documented in this encounter Plan of Treatment Upcoming Encounters Date Type Department Care Team (Late st Contact Info) Description 10/19/2023 9:30 AM EDT Imaging Radiology [facility] [address] [facility] [place] [address] 11/17/2023 4:00 PM EDT Office Visit Family Practice [facility] [address] [place] [address] Loreta Morejon PA-C [address] [place] [address] 12/10/2023 11:00 AM EDT Office Visit Gastroenterology, [facility] [address] [facility] [place] [address] Sukumar Zuñiga CRNP [address] [facility] [place] [address] 01/07/2024 10:00 AM EDT Office Visit Cardiology, [facility] [address] [facility] [place] [address] Gloria Rosenthal CRNP [address] [facility] [place] [address] 02/15/2024 8:00 AM EDT Telemedicine Psychiatry [facility] [address] [place] [address] Tabby Mcfarland MD [address] [place] [facility] [place] [id number] Scheduled Orders Name Type Priority Associated Diagnoses Orde r Schedule US HEAD AND NECK Medical Imaging Routine Neck pain Expected: 10/14/2023, Expires: 11/11/2024 CULTURE, URINE, QUANTITATIVE Lab Routine Dysuria Ordered: 10/13/2023 Scheduled Procedures Name Priority Associated Diagnoses Date/Ti [...] Occult Blood Test 05/16/2022 05/16/19 22, 05/16/2021, 05/16/2021, Additional history exists Diabetic Eye Exam 03/10/2023 03/10/2022, , 10/11/1999 Depression, Most Recent Score >= 10 (will fire each visit until score < 10) 08/20/2023 08/19/2023 HbA1c 02/13/2024 08/14/2023, 02/08, 11/13/2022, Additional history exists Albumin/Creatinine Ratio 02/20/2024 023, 04/30/2022, 10/24/2016 GFR 08/28/2024 08/29/2023, 07/10, 04/08/2023, Additional history exists Diabetic Foot Exam 09/01/2024 09/02/2023, 0 09/01/2022, 03/20/2020, Additional history exists Colonoscopy 01/04/2025 01/05/2020, 01/05/2020 [...] Procedure Name Priority Date/Time Associated Diagnosis Comments URINALYSIS, POINT OF CARE (ENTER/EDIT) Routine 10/13/2023 Dysuria documented in this encounter Results * URINALYSIS, POINT OF CARE (ENTER/EDIT) (10/13/2023) Color, Urine Yellow Yellow or Light Yellow Clarity, Urine Clear Clear Glucose, Urine Negative Negative mg/dL Bilirubin, Urine Negative Negative Ketone, Urine Trace Negative mg/dL Specific [place], Urine 1.025 1.003 - 1.030 Blood, Urine Trace-intact Negative pH, Urine 6.0 5.0 - 7.5 units Protein, Urine Trace Negative mg/dL Urobilinogen, Urine 0.2 0.2 - 1.0 mg/dL Nitrite, Urine Negative Negative Esterase, Urine Small Negative Urine 10/13/2023 August Darleen RASCON [facility] POINT OF CARE TE ST ENTER/EDIT ORDERABLES documented in this encounter Visit Diagnoses Diagnosis Neck pain- Primary Cervicalgia Dysuria documented in this encounter Advance Directives Healthcare Agents on File Name Relationship Healthcare Agent Relationshi p Communication Zara Jackson Adult Child Health Care Repr esentative (appointed verbally by patient or by statute hierarchy) Care Teams Manager Air Relationship Specialty Start Date End Date Tarun Gill III, MD [address] [place], [place] [address] PCP - General 06/11/00 documented as of this encounter
--- OUTSIDE RECORDS SUMMARY | 2023-11-27 15:09 | External Medical Summary | Summary of Care ---
Author Name Unknown Organization [facility] Address [address] [place] [address] Phone [phone] Care Team Providers Care Direct Customer Service Representative Name Role Phone Bridget GIPSON MD, Tarun Sanders Primary Care Provider [phone] Reason for Referral * Precert (Within 10 days (routine)) - Pending Review Specialty Diagnoses / Procedures Referred By Erik ashby Referred To Contact Radiology Diagnoses Subjective tinnitus, right Asymmetrical sensorineural hearing loss Procedures MRI INTERNAL AUDITORY CANAL W WO Manan Grover PA-C [address] [place] [address] Referral ID Status Reason Start Date Expiration Date V isits Requested Visits Authorized [id number] Pending Review 09/14/[phone] Reason for Visit * Reason Comments NEW PATIENT Right ear tinnitus * Evaluate & Treat - Unlimited Visits (Within 10 days (routine)) - Pending Review Specialty Diagnoses / Procedures Referred By Erik ashby Referred To Contact Otolaryngology Diagnoses Tinnitus, unspecified laterality Sensorineural hearing loss (SNHL) of both ears Loreta Morejon PA-C [address] [facility] [place] [address] Referral ID Status Reason Start Date Expiration Date Visits Requested Visits Authorized [id number] Pending Review Specialty Services Required 05/27/[phone] Encounter Details Date Type Department Care Team (Latest Contact Info) Description 09/14/2023 10:00 AM EDT Office Visit Otolaryngology/Head & Neck/Facial Plastic Surgery [address] [place] [address] Manan Thompson PA-C [address] [place] [address] Subjective tinnitus, right*; Multiple sclerosis (HCC); Asymmetrical sensorineural hearing loss Allergies Active Allergy Reactions Criticality Noted Date Comments Carbamazepine And Analogs 04/28/2001 rash Hydromorphone Hcl Anaphylaxis High 07/03/2014 Gabapentin 04/28/2001 swelling Semaglutide(0.25 Or 0.5mg-Dos) 05/27 Nausea/ vomiting documented as of this encounter (statuses as of 10/15/2023) Medications Medication Sig Dispensed Refills Start Date [...] hemoglobin A1c goal of less than 7.5% ([facility]) Test twice daily 100 Each 5 06/19/2021 [...] 11/07/2022 Active Vitamin D (Ergocalciferol) 1.25 MG (40606 UT) Oral Capsule (Drisdol) TAKE 1 CAP [...] hemoglobin A1c goal of less than 7.5% ([facility]) USE TWICE DAILY TO TEST SUGAR E11.9 [...] NEEDED FOR NAUSEA 20 Tablet 08/25/2023 Active buPROPion HCl ER (XL) 150 MG Oral Tablet Extended Release 24 Hour (Wellbutrin XL)Indications:Cu rrent moderate episode of major depressive disorder, unspecified whether recurrent (HCC) TAKE 1 TABLET BY MOUTH EVERY DAY 90 Tablet 3 08/20/2022 09/17/19 24 Discontinued Potassium Chloride Katherin ER 10 MEQ Oral Tablet Extended ReleaseIndication s:Chest pain, unspecified type,Palpitations Take 1 Tablet by mouth in the morning. 90 Tablet 3 09/08/2022 09/17/19 24 Discontinued Rosuvastatin Calcium 20 MG Oral Tablet (Crestor)Indicati ons:Chest pain, unspecified type,Palpitations Take 1 Tablet by mouth in the morning. 90 Tablet 3 09/08/2022 09/17/19 24 Discontinued Baclofen 20 MG Oral Tablet As needed 11/11/2022 10/13/19 24 Discontinued documented as of this encounter (statuses as of 10/15/2023) Active Problems Problem Noted Date Diagnosed Date [...] as of this encounter (statuses as of 10/15/2023) Resolved Problems Problem Noted Date Diagnosed Date [...] as of this encounter (statuses as of 10/15/2023) Immunizations Name Administration Dates Next Due Hepatitis [...] Sign Reading Time Taken Comments Blood Pressure 115/74 09/14/2023 9:54 AM EDT Pulse 68 09/14/2023 9:54 AM EDT Temperature 36.9 C (98.4 F) 09/14/2023 9:54 AM ED T Respiratory Rate - - Oxygen Saturation - - Inhaled Oxygen Concentration - - Weight 103.3 kg (227 lb 11.2 oz) 09/14/2023 9:54 AM EDT Height 160 cm (5' 3") 09/14/2023 9:54 AM EDT Body Mass Index 40.34 09/14/2023 9:54 AM EDT documented in this encounter Patient Instructions * Patient Instructions* Manan Thompson PA-C - 09/14/2023 11:20 AM EDT Please speak with your prescribing provider regarding the Lasix, is there a reasonable alternative,since Lasix can worsen tinnitus. Do not suddenly stop the tinnitus. I will call you with the results of the MRI - we will try to get this added on to your testing on . Please pick up operator my business card and have them send the imaging to me. documented in this encounter Progress Notes * Maura Marin PA-C - 09/14/2023 10:01 AM EDT Images from the original note were not included. `HISTORY OF PRESENT ILLNESS CC: right sided hearing loss and tinnitus This 57 year old female with relapsing and secondary progressive Multiple Sclerosis x 24 years who is seen at the request of Tarun Gill III, MD for the initial evaluation of the above. Patient is unaccompanied. Deanne has had a steady ring in her right ear for over 1.5 years. The ringing is progressive as it has increased in intensity. Denies pulsatile tinnitus. Has tried a white noise machine to help with the ringing at night. Has decreased hearing in her right ear. She had a hearing test at [facility] in [facility] 2022. She was able to hear in her left ear what she was not hearing in the right ear. Also has headaches for which she gets botox treatments, last treatment around 6 weeks ago. With her MS she experiences right facial numbness/weakness, as well as numbness/tingling on the right side of her body. She sees a specialist at [facility]. She has a follow up MRI scheduled at [facility] on of this week. Tinnitus: Right sided. Aural pressure/otalgia: Denied Disequilibrium/vertigo: Denied Ear Infections, adult or childhood: Denied Ear Surgery: Denied Noise Exposure: Denies occupational or firearm noise exposure. Familial Hearing Loss: Denied Rafael/Vestibulotoxic medication: Denied. Takes Lasix for BP for 2-3 years. Head Injury/ History of Concussions: 7 years ago, fell down steps and hit head off a wall. Problem List Patient Active Problem List Diagnosis Date Noted Adjustment disorder with mixed anxiety and depressed mood [F43.23] 08/19/2023 Decreased rectal sphincter tone [K62.89] 12/08/2022 Rectal itching [L29.0] 12/08/2022 Generalized abdominal pain [R10.84] 12/08/2022 Body mass index (BMI) of 40.0 to 44.9 in adult (HCC) [Z68.41] 05/19/2022 Per Obesity protocol History of 2019 novel coronavirus disease (COVID-19) [Z86.16] 02/05/2022 Gastro-esophageal reflux disease without esophagitis [K21.9] 07/09/2021 Major depressive disorder, single episode, moderate (HCC) [F32.1] 06/19/2021 Type 2 diabetes mellitus with hemoglobin A1c goal of less than 7.5% (HCC) [E11.9] 02/02/2020 Major depressive disorder, recurrent, unspecified (HCC) [F33.9] 12/20/2019 Chronic idiopathic constipation [K59.04] 05/02/2019 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) 02/02/2019 Past Surgical History: Procedure Laterality Date DELIVERY 3 COLONOSCOPY, DIAGNOSTIC (RECTUM) 01/05/2020 benign polyp, diverticulosis, repeat 5 yr / COLONOSCOPY FLEXIBLE PROXIMAL DIAGNOSTIC performed by Devin Multani MD at ENDOSCOPY [facility] EGD, FLEXIBLE, DIAGNOSTIC 05/01/2021 normal bx / ESOPHAGOGASTRODUODENOSCOPY (EGD), FLEXIBLE, TRANSORAL, DIAGNOSTIC performed by Sangita Ortega MD at ENDOSCOPY [facility] INFORMATION 01/18/2016 I & D of hemorrhoid [facility] - L-/S-SPINE PARAVERTEBRAL FACET INJ,1 LEVEL 06/10/2018 L-/S-SPINE PARAVERTEBRAL FACET INJ, 1 LEVEL performed by Abiodun Billy DO at [facility] LAP;W/HYSTERECTOMY Dr. Camargo LAPAROSCOPY; CHOLECYSTECTOMY 07/02/2015 07/02/2015 laparoscopic cholecystectomy [facility] - DR. Chase Serrato LAPAROSCOPY; CHOLECYSTECTOMY N/A 07/02/2015 07/02/2015 LAPAROSCOPIC CHOLECYSTECTOMY performed by Chase Serrato MD at [facility] LIGATE/CUT OVIDUCT(S) 1998 MAMMOGRAM - BILATERAL 12/02/2002 birad code 2, stable f/u in 6 months MAMMOGRAM - BILATERAL 04/24/2004 negative/camacho MAMMOGRAM SCREENING-BILATERAL 07/30/2005 benign findings, yealry mammograms appropriate, birad code 2 PAP SCREEN 02/24/2005 satisfactory/Dr Camacho PELVIC EXAM UNDER ANESTHESIA, NOT LOCAL 07/23/2017 PELVIC EXAMINATION UNDER ANESTHESIA performed by Gemma Nolan MD at OR [facility] Current Outpatient Medications Medication Sig Dispense Refill Aspirin 81 MG Tablet Take 1 Tablet by mouth in the morning. lisinopril (PRINIVIL) 20 MG Tablet Take 1 Tab by mouth daily. (Patient taking differently: Take 1 Tablet by mouth daily with dinner.) 30 Tab 5 amLODIPine Besylate 2.5 MG Oral Tablet (Norvasc) Take 1 Tab by mouth daily. (Patient taking differently: Take 1 Tablet by mouth daily with dinner.) 34 Tab 11 Kesimpta 20 MG/0.4ML Subcutaneous Solution Auto-injector (Ofatumumab) Inject under the skin Every Month . OneTouch Delica Lancets 33G Test twice daily 100 Each 5 SUMAtriptan Succinate 100 MG Oral Tablet PLEASE SEE ATTACHED FOR DETAILED DIRECTIONS Solifenacin Succinate 5 MG Oral Tablet (VESIcare) TAKE 1 TABLET BY MOUTH EVERY DAY IN THE MORNING 30 Tablet 1 Cyanocobalamin 1000 MCG/ML Injection Solution (Cyanocobalamin) INJECT 1000 MCG INTO MUSCLE MONTHLY Topiramate ER 200 MG Oral Capsule ER 24 Hour Sprinkle (Quedexy XR) Take 1 Capsule by mouth in the morning. buPROPion HCl ER (XL) 150 MG Oral Tablet Extended Release 24 Hour (Wellbutrin XL) TAKE 1 TABLET BY MOUTH EVERY DAY 90 Tablet 3 Metoprolol Succinate ER 100 MG Oral Tablet Extended Release 24 Hour (toPROL XL) Take one in the morning, 1/2 in the evening 150 Tablet 3 Potassium Chloride Katherin ER 10 MEQ Oral Tablet Extended Release Take 1 Tablet by mouth in the morning. 90 Tablet 3 Rosuvastatin Calcium 20 MG Oral Tablet (Crestor) Take 1 Tablet by mouth in the morning. 90 Tablet 3 Famotidine 40 MG Oral Tablet (Pepcid) TAKE 1 TABLET BY MOUTH EVERY DAY AT BEDTIME NEEDED FOR HEARTBURN 90 Tablet 3 Baclofen 20 MG Oral Tablet As needed Vitamin D (Ergocalciferol) 1.25 MG (07394 UT) Oral Capsule (Drisdol) TAKE 1 CAP ORALLY WEEKLY FOR 12 WEEKS Estradiol 0.1 MG/GM Vaginal Cream (Estrace) 1g into vagina and massaged on opening. Nightly for 2 weeks, then 2 nights a week. 42.5 g 12 Tacrolimus 0.03 % External Ointment (Protopic) APPLY TOPICALLY TO AFFECTED AREA 2 TIMES A DAY . FOR3 MONTHS 60 g 2 Senna 8.6 MG Oral Capsule Take 1 Capsule by mouth in the morning. 30 Capsule 3 OneTouch Verio In Vitro Strip (Glucose Blood) USE TWICE DAILY TO TEST SUGAR E11.9 50 Strip 11 Albuterol Sulfate (2.5 MG/3ML) 0.083% Inhalation Nebulization Solution (Proventil) Inhale 1 Vial via nebulizer every 4 hours as needed for Other (cough). (Patient not taking: Reported on 08/17/2023) 100 mL 0 Albuterol Sulfate HFA 108 (90 Base) MCG/ACT Inhalation Aerosol Solution Inhale 2 Puffs by mouth every 4 hours as needed for Cough. 18 g 0 Omeprazole 40 MG Oral Capsule Delayed Release (PriLOSEC) TAKE BY MOUTH 1 CAPSULE IN THE MORNING. 1 HOUR BEFORE THE FIRST MEAL OF THE DAY. 30 Capsule 11 hydroCHLOROthiazide 25 MG Oral Tablet (Hydrodiuril) TAKE 1 TABLET BY MOUTH EVERY DAY 90 Tablet 3 Nitroglycerin 0.4 MG Sublingual Tablet Sublingual (Nitrostat) Place 1 Tablet under the tongue every5 minutes as needed for Pain, Chest. 25 Tablet 0 Lidocaine HCl 2 % External Gel Apply topically to affected area every night at bedtime. 30 mL 0 oxygen IN GAS Use 2 L/min(Oxygen) as directed at bedtime. BD Integra Syringe 25G X 1" 3 ML DIRECTED (FOR USE WITH VITAMIN B12 INJECTIONS) 3 Each 4 Trulicity 0.75 MG/0.5ML Subcutaneous Solution Pen-injector (Dulaglutide) Inject 0.75 mg under the skin once a week. 2 mL 11 metFORMIN HCl ER 500 MG Oral Tablet Extended Release 24 Hour (Glucophage XR) TAKE 2 TABLETS BY MOUTH EVERY MORNING 180 Tablet 0 Ketorolac Tromethamine 10 MG Oral Tablet (Toradol) Take 1 Tablet by mouth 4 times a day as needed for Pain, Moderate. Do not take for longer than 5 days 20 Tablet 0 [START ON 09/16/2023] FLUoxetine HCl 40 MG Oral Capsule (PROzac) Take 1 Capsule by mouth in the morning. Do not start before September 16, 2023. 30 Capsule 5 traZODone HCl 100 MG Oral Tablet (Desyrel) Take 2 Tablets by mouth at bedtime. 60 Tablet 5 hydrOXYzine HCl 10 MG Oral Tablet (Atarax) Take 1 Tablet by mouth at bedtime as needed for Itching.120 Tablet 0 Hydrocortisone (Perianal) 2.5 % External Cream ADMINISTER INTO RECTUM TWICE A DAY 30 g 1 Clobetasol Propionate 0.05 % External Ointment (Temovate) APPLY TOPICALLY TO AFFECTED AREA 2 TIMES A DAY. TO PELVIC AREA FOR UP TO TWO WEEKS. 30 g 1 Ondansetron HCl 4 MG Oral Tablet (Zofran) TAKE 1 TABLET BY MOUTH EVERY 6 HOURS NEEDED FOR ATOGGP81 Tablet 0 No current facility-administered medications for this visit. Review of patient's allergies indicates: Allergen Reactions Dilaudid [Hydromorphone Hcl] Anaphylaxis Carbamazepine And Analogs rash Gabapentin swelling Semaglutide(0.25 Or 0.5mg-Dos) Nausea/ vomiting Family History Problem Relation Age of Onset Heart Disorder Mother palpitations Hypertension Father Neurological Disorder Father headaches Lung cancer Father Brain cancer Father Alcohol and Other Disorders Associated Sister No Known Problems Sister No Known Problems Sister No Known Problems Sister Alcohol and Other Disorders Associated Brother Hypertension Brother Hypertension Brother No Known Problems Daughter No Known Problems Son Migraines Son Social History Social History Tobacco Use Smoking status: Former Current packs/day: 0.00 Average packs/day: 0.5 packs/day for 9.0 years (4.5 ttl pk-yrs) Types: Cigarettes Start date: 01/17/2012 Quit date: 01/16/2021 Years since quittin.6 Smokeless tobacco: Never Substance Use Topics Alcohol use: No Vaping/E-Cigarette Use Vaping/E-Cigarette Use Never User Vaping/E-Cigarette Substances Nicotine No Other No Flavoring No THC No Cannabidiol (CBD) No Vaping/E-Cigarette Devices Disposable No Pre-filled or Refillable Cartridge No Refillable Tank No Pre-filled Pod No I reviewed the updated past medical history, problem list, past surgical history, social history, family history, allergy and current medication list. Occupational History Work: Not working, on disability. ROS General: No recent weight loss/gain. No fatigue. Cardio: No palpitations, chest pain, no orthopnea, or dyspnea on exertion. Lung: No cough, wheezing, sputum or shortness of breath. Nerve: No diplopia, vertigo, mental status change Heme: No easy bruising, bleeding. No fever. No chills. No sweats. Neuro: No memory loss. Skin: No rash, itching or new/changing lesions. Eyes: No redness of the eyes, or ocular pain. ROS otherwise negative unless stated in PMH or HPI. BP 115/74 | Pulse 68 | Temp 36.9 C (98.4 F) (Infrared ) | Ht 1.6 m (5' 3") | Wt 103.3 kg (227 lb 11.2 oz) | LMP 04/28/2017 (Exact Date) | BMI 40.34 kg/m | BSA 2.14 m PHYSICAL EXAMINATION: Gen: Patient is a healthy female and appears her stated age. She is alert, oriented, cooperative and in no acute distress. The patient is obese.. She is appropriately conversant and her voice is normal in character and quality. Face: No facial asymmetry. There was no erythema or edema noted. Facial movement was symmetric without weakness. No skin lesions were detected. Decreased sensation on palpation of right side. Eyes: The pupils are equal round. No scleral icterus. Nystagmus when tracking down and to the right. Ears: The auricles are normally formed without lesions. The external auditory canals are patent andwithout lesion. Both tympanic membranes are intact and freely mobile without perforation, effusion or significant retraction pockets. Audiogram today shows asymmetric SNHL. Nose: The septum is midline and the turbinates are without abnormality. No masses, polyps, mucopus,or other lesion are visualized. Oral Cavity: The mucosa is moist without lesion. The hard palate is intact. The soft palate is intact . The occlusion is stable. Tongue is of normal size with mobility. Oropharynx: The tonsils are without erythema and no exudate on either side. Cranial nerves: Cranial nerves II, III, IV, and were noted to be intact via extra-ocular muscle movement testing. Nystagmus when tracking down and to the right. Cranial nerve VII noted to be intact and symmetric by facial movement. Cranial nerve VIII was tested with audiogram. Cranial nerves IX and X noted to be intact by gag reflex and palatal movement. Cranial nerve XII noted to be intact byactive and symmetric tongue movement. ASSESSMENT: Deanne is a 57 year old female with a history of MS who has steady and progressive non pulsatile tinnitus of her right ear over 1.5 years. Audiogram today shows asymmetric SNHL. Plan: Speak with provider about Lasixs since worsening tinnitus. Complete MRI at [facility] and provide copy. Patient was seen, clinical exam confirmed and plan of care reviewed by Manan Thompson PA-C. Maura Marin PA-C 09/14/2023 10:01 AM * Manan Thompson PA-C - 09/14/2023 9:51 AM EDT Deanne Mckeon is a 57 year old female with MS (relapsing and secondary progressive) who is seen for18 month history of progressively worsening right ear tinnitus. She is seen on Consult from Loreta Morejon PA-C. Tinnitus is non pulsatile. It I loud enough to interfere with hearing. Had hearing tested at [facility] in January or February; the patient describes a masking dilemma. She is on Lasix. She is a diabetic, blood sugar is not well controlled. Blood pressure in "fair" control. Cholesterol elevated. Poor eyesight report OU. 08/07/3030 MRI Brain w/wo contrast with excellent view of the IACs - no IAC schwannoma appreciated. She will be having another MRI at [facility] this . PMH, PSH, Problem List and SH reviewed an updated as appropriate. Vitals: 09/14/23 0954 Temp: 36.9 C (98.4 F) Pulse: 68 BP: 115/74 BMI: 40.35 EACs normal in appearance bilaterally. TMs intact and slight irregular in appearance; no deep retraction pockets or middle ear fluid. CN II, III, IV, : pupils were equal, round Extraocular movements were full with nystagmus when tracking to the right and down. I did not test for confrontation. CN V: muscles of mastication appeared to have normal strength V1, V2 and V3 with decreased sensation to soft touch on the right. Normal soft touch in all parameters for the left side of the face. CN VII, IX, X, XII: facial movement was strong and symmetric. The palate elevated symmetrically. Tongue protrusion was midline CN VIII: hearing tested with audiogram. CN XI: head turn and shoulder shrug were normal Impression is 57 year old female with MS seen for right ear tinnitus; tinnitus is so loud it interferes with hearing. She has asymmetric SNHL with the right ear being worse. Plan: I examined the patient with Maura Marin PA-C The patient is seen with Maura Marin - see her note for additional information. MRI IACs w/wo contrast recommended to evaluate for possible schwannoma. She will be undergoing brain MRI later this week at [facility]. We will see if we can add the fine cuts to the IACs. I will contact her with results. She will speak with the prescribing provider about the Lasix which can worsen tinnitus. Manan Thompson PA-C I spent a total of 32 min on the date of service in preparation, delivery, and documentation of thecare provided to Deanne Mckeon excluding any time spent in the performance of separately billed services. documented in this encounter Miscellaneous Notes * Addendum Note - Manan Thompson PA-C - 10/15/2023 8:29 AM EDT Addended by: MANAN THOMPSON on: 10/15/2023 08:29 AM Modules accepted: Orders, Level of Service documented in this encounter Plan of Treatment Upcoming Encounters Date Type Department Care Team (Late st Contact Info) Description 10/19/2023 9:30 AM EDT Imaging Radiology [facility] [address] [place] [address] 11/17/2023 4:00 PM EDT Office Visit Family Practice [facility] [address] [facility] [place] [address] Loreta Morejon PA-C [address] [facility] [place] [address] 12/10/2023 11:00 AM EDT Office Visit Gastroenterology, [facility] [address] [place] [address] Sukumar Zuñiga CRNP [address] [place] [address] 01/07/2024 10:00 AM EDT Office Visit Cardiology, [facility] [address] [place] [address] Gloria Rosenthal CRNP [address] [place] [address] 02/15/2024 8:00 AM EDT Telemedicine Psychiatry [facility] [address] [place] [id number] Tabby Mcfarland MD [address] [facility] [place] [address] Scheduled Orders Name Type Priority Associated Diagnoses Orde r Schedule AUDIOLOGY LAB Procedures Routine Subjective tinnitus, right Multiple sclerosis (HCC) Ordered: 09/14/2023 MRI INTERNAL AUDITORY CANAL W WO CONTRAST Medical Imaging Routine Subjective tinnitus, right Asymmetrical sensorineural hearing loss Expected: 09/14/2023, Expires: 10/14/2024 Scheduled Procedures Name Priority Associated Diagnoses Date/Ti [...] Fecal Occult Blood Test 05/16/2022 05/16/19, 05/16/2021, 05/16/2021, Additional history exists Diabetic Eye Exam 03/10/2023 03/10/2022, , 10/11/1999 Depression, Most Recent Score >= 10 (will fire each visit until score < 10) 08/20/2023 08/19/2023 HbA1c 02/13/2024 08/14/2023, 02/08, 11/13/2022, Additional history exists Albumin/Creatinine Ratio 02/20/2024 023, 04/30/2022, 10/24/2016 Diabetic Foot Exam 09/01/2024 09/02/2023, 0 09/01/2022, [...] as of this encounter Visit Diagnoses Diagnosis Subjective tinnitus, right- Primary Multiple sclerosis (HCC) Multiple sclerosis Asymmetrical sensorineural hearing loss Sensorineural hearing loss, asymmetrical documented in this encounter Advance Directives Healthcare Agents on File Name Relationship Healthcare Agent Relationshi p Communication Zara Jackson Adult Child Health Care Repr esentative (appointed verbally by patient or by statute hierarchy) Care Teams Direct Customer Service Representative Relationship Specialty Start Date End Date Tarun Gill III, MD [address] [place] [address] PCP - General 06/11/00 documented as of this encounter
--- OUTSIDE RECORDS SUMMARY | 2023-11-27 15:09 | External Medical Summary | Summary of Care ---
Author Name Unknown Organization [facility] Address [address] [place] [address] Phone [phone] Care Team Providers Care Senior Materials Analyst Name Role Phone Bridget GIPSON MD, Tarun Sanders Primary Care Provider [phone] Reason for Visit * Reason Onset Date Comments Order Request 10/15/[address] appt Encounter Details Date Type Department Care Team (Late st Contact Info) Description 10/15/2023 Telephone Radiology [address] [address] Services, Scheduling [address] [place] [address] Order Request (Cardiac CT appt) Allergies Active Allergy Reactions Criticality Noted Date [...] 11/07/2022 Active Vitamin D (Ergocalciferol) 1.25 MG (71291 UT) Oral Capsule (Drisdol) TAKE 1 CAP [...] encounter Miscellaneous Notes * Telephone Encounter - Balbina Morales OSA - 10/15/2023 4:43 PM EDT Pt is scheduled at [facility] for Cardiac CT on 11/11/23 for 815am. Please call pt with further instructions/prep. Thank you. documented in this encounter Plan of Treatment Upcoming Encounters Date Type Department Care Team (Late st Contact Info) Description 10/19/2023 9:30 AM EDT Imaging Radiology [facility] [address] [facility] [place] [address] 11/11/2023 8:15 AM EDT Imaging Radiology [facility] 132 [facility] [place] [address] 11/17/2023 4:00 PM EDT Office Visit Family Practice [facility] [address] [place] [address] Loreta Morejon PA-C [address] [place] [address] 12/10/2023 11:00 AM EDT Office Visit Gastroenterology, [facility] 132 [facility] [place] [address] Sukumar Zuñiga CRNP [address] [place] [address] 01/07/2024 10:00 AM EDT Office Visit Cardiology, [facility] [address] [place] [address] Gloria Rosenthal CRNP [address] [place] [address] 02/15/2024 8:00 AM EDT Telemedicine Psychiatry [place] [address] [place] [address] Tabby Mcfarland MD [address] [place] [address] Scheduled Procedures Name Priority Associated Diagnoses Date/Ti [...] patient or by statute hierarchy) Care Teams Senior Materials Analyst Relationship Specialty Start Date End Date Tarun Gill III, MD [address] [facility] [place] [address] PCP - General 06/11/00 documented as of this encounter
--- OUTSIDE RECORDS SUMMARY | 2023-11-27 15:09 | External Medical Summary | Summary of Care ---
Author Name Unknown Organization [facility] Address [address] [facility] [address] Phone [phone] Care Team Providers Care Platinum And Palladium Kettle Tender Name Role Phone Bridget GIPSON MD, Tarun Sanders Primary Care Provider [phone] Reason for Visit * Reason Comments Acute Pt c/o neck pain, st arted about 2 weeks ago, getting worse, aches during the day, lying down makes it worse, interfering with sleep. Encounter Details Date Type Department Care Team (Late st Contact Info) Description 10/13/2023 1:40 PM EDT Office Visit Family Practice [facility] [address] [place] [address] Loreta Morejon PA-C [address] [facility] [place] [address] Neck pain*; Dysuria Allergies Active Allergy Reactions [...] hemoglobin A1c goal of less than 7.5% ([facility]) Test twice daily 100 Each 5 06/19/2021 [...] 11/07/2022 Active Vitamin D (Ergocalciferol) 1.25 MG (43862 UT) Oral Capsule (Drisdol) TAKE 1 CAP [...] of Present Illness Deanne Mckeon is a 57 year old female that presents for Acute (Pt c/o neck pain, started about 2 weeks ago, getting worse, aches during the day, lying down makes it worse, interfering with sleep. ) Patient is a 57 year old female who presents with neck pain. Recent mri of neck done at [facility] Pain is very intense and keeps her [...] Care Team (Late st Contact Info) Description 12/10/2023 11:00 AM EDT Office Visit Gastroenterology, [facility] [address] [place] [address] Sukumar Zuñiga CRNP [address] [place] [address] 01/07/2024 10:00 AM EDT Office Visit Cardiology, [facility] [address] [facility] [place] [address] Gloria Rosenthal CRNP [address] [place] [address] 02/15/2024 8:00 AM EDT Telemedicine Psychiatry [facility] [address] [place] [address] Tabby Mcfarland MD [address] [place] [address] Scheduled Orders Name Type Priority Associated Diagnoses Orde r Schedule US HEAD AND NECK Medical Imaging Routine Neck pain Expected: 10/14/2023, Expires: 11/11/2024 URINALYSIS, POINT OF CARE (ENTER/EDIT) Point of Care Testing Routine Dysuria Ordered: 10/13/2023 CULTURE, URINE, QUANTITATIVE Lab Routine Dysuria Ordered: [...] as of this encounter Visit Diagnoses Diagnosis Neck pain- Primary Cervicalgia Dysuria documented in this encounter Advance Directives Healthcare Agents on File Name Relationship Healthcare Agent Relationshi p Communication Zara Jackson Adult Child Health Care Repr esentative (appointed verbally by patient or by statute hierarchy) Care Teams Platinum And Palladium Kettle Tender Relationship Specialty Start Date End Date Tarun Gill III, MD 200 [facility] [place] [address] PCP - General 06/11/00 documented as of this encounter
--- OUTSIDE RECORDS SUMMARY | 2023-11-27 15:09 | External Medical Summary | Summary of Care ---
Author Name Unknown Organization [facility] Address [address] [facility] [place] [address] Phone [phone] Care Team Providers Care Ux Engineer Name Role Phone Bridget GIPSON MD, Tarnu Sanders Primary Care Provider [phone] Reason for Visit * Reason Comments Acute Pt c/o neck pain, st arted about 2 weeks ago, getting worse, aches during the day, lying down makes it worse, interfering with sleep. Encounter Details Date Type Department Care Team (Late st Contact Info) Description 10/13/2023 1:40 PM EDT Office Visit Family Practice [facility] 200 [facility] [place] [address] Loreta Morejon PA-C 200 [facility] [place] [address] Neck pain*; Dysuria Allergies Active Allergy Reactions [...] CARE) Test twice daily 100 Each 5 06/19/2021 [...] 11/07/2022 Active Vitamin D (Ergocalciferol) 1.25 MG (97264 UT) Oral Capsule (Drisdol) TAKE 1 CAP [...] pain. Recent mri of neck done at [facility] Pain is very intense and keeps her [...] Team (Late st Contact Info) Description 10/13/2023 2:40 PM EDT Laboratory Laboratory [facility] [address] [place] [id number] [facility] [address] [facility] [place] [address] Arrived 10/19/2023 9:30 AM EDT Imaging Radiology [facility] [address] [place] [address] 11/17/2023 4:00 PM EDT Office Visit Family Practice [facility] [address] [place] [address] Loreta Morejon PA-C [address] [place] [address] 12/10/2023 11:00 AM EDT Office Visit Gastroenterology, [facility] [address] [place] [address] Sukumar Zuñiga CRNP 132 [place] [address] 01/07/2024 10:00 AM EDT Office Visit Cardiology, [facility] 132 [facility] [place] [address] Gloria Rosenthal CRNP 132 [place] [address] 02/15/2024 8:00 AM EDT Telemedicine Psychiatry [place] [address] [place] [address] Tabby Mcfarland MD [address] [facility] [place] [address] Scheduled Orders Name Type Priority Associated Diagnoses [...] Negative Ketone, Urine Trace Negative mg/dL Specific [place], Urine 1.025 1.003 - 1.030 Blood, Urine [...] Agents on File Name Relationship Healthcare Agent [facility] Communication Zara [facility] Repr esentative (appointed verbally by patient or by statute hierarchy) Care Teams Ux Engineer Relationship Specialty Start Date End Date Tarun Gill III, MD 200 [facility] [place] [place] [address] PCP - General 06/11/00 documented as of this encounter
--- OUTSIDE RECORDS SUMMARY | 2023-11-27 15:09 | External Medical Summary | Summary of Care ---
Author Name Unknown Organization [facility] Address [address] [facility] [place] [address] Phone [phone] Care Team Providers Care Photographic Processor Name Role Phone Bridget GIPSON MD, Tarun Sanders Primary Care Provider [phone] Reason for Visit * Reason Comments Outpatient Testing Encounter Details Date Type Department Care Team (Late st Contact Info) Description 10/13/2023 2:40 PM EDT Laboratory Laboratory [facility] [place] [address] [place] [address] [place], [facility] [address] [place] [address] Chest pain, unspecified type; Palpitations Allergies Active [...] A1c goal of less than 7.5% ([facility]) Test twice daily 100 Each 5 [...] 11/07/2022 Active Vitamin D (Ergocalciferol) 1.25 MG (28503 UT) Oral Capsule (Drisdol) TAKE 1 CAP [...] Description 10/19/2023 9:30 AM EDT Imaging Radiology [facility] 132 [facility] [place] [address] 11/17/2023 4:00 PM EDT Office Visit Family Practice [facility] 200 [facility] [place] [address] Loreta Morejon PA-C 200 [facility] [place] [address] 12/10/2023 11:00 AM EDT Office Visit Gastroenterology, [facility] 132 [facility] [place] [address] Sukumar Zuñiga CRNP 132 [facility] [place] [address] 01/07/2024 10:00 AM EDT Office Visit Cardiology, [facility] [address] [place] [address] Gloria Rosenthal CRNP [address] [place] [address] 02/15/2024 8:00 AM EDT Telemedicine Psychiatry [place] [address] [place] [id number] Tabby Mcfarland MD [address] [place] [address] Pending Results Name Type Priority Associated Diagnoses Date /Time CREATININE Lab Routine Chest pain, unspecified type 10/13/2023 2:43 PM EDT TSH WITH FREE T4 IF INDICATED Lab Routine Palpitations 10/13/2023 2:43 PM EDT MAGNESIUM Lab Routine Palpitations 10/13/2023 2:43 PM EDT Scheduled Procedures Name Priority Associated Diagnoses [...] Agents on File Name Relationship Healthcare Agent [facility] Communication Zara Jackson Adult Child Health Care Repr esentative (appointed verbally by patient or by statute hierarchy) Care Teams Photographic Processor Relationship Specialty Start Date End Date Tarun Gill III, MD [address] [place] [address] PCP - General 06/11/00 documented as of this encounter
--- OUTSIDE RECORDS SUMMARY | 2023-11-27 15:09 | External Medical Summary ---
Author Name Unknown Address Unknown Organization K1F:[facility] - [address] [place] [address] Laboratory Report Ordering Provider Test Date Status STEFFI WILL 10/19/2023 03:18:01 Final Observation Date Value Abnormality Reference (Units ) Status RBC, Urine 10/19/2023 03:18:01 20-29 Abnormal 0-2 (/HPF) Final WBC, Urine 10/19/2023 03:18:01 20-29 Abnormal 0-2 (/HPF) Final Bacteria [#/area] in Urine sediment by Microscopy high power field 10/19/2023 03:18:01 >200 Abnormal 0-25 (/HPF) Final RBC casts [#/area] in Urine sediment by Microscopy low power field 10/19/2023 03:18:01 1-4 Abnormal None (/LPF) Final Performing Location [facility] - [address] [place] [address]
--- OUTSIDE RECORDS SUMMARY | 2023-11-27 15:09 | External Medical Summary | Summary of Care ---
Author Name Unknown Organization [facility] Address [address] [facility] [place] [address] Phone [phone] Care Team Providers Care Cloud Engineer Name Role Phone Bridget GIPSNO MD, Tarun Sanders Primary Care Provider [phone] Encounter Details Date Type Department Care Team (Late st Contact Info) Description 10/20/2023 Population Health External Data Unspecified Department Allergies Active Allergy Reactions Criticality Noted Date Comments Carbamazepine And Analogs 04/28/2001 rash Hydromorphone Hcl Anaphylaxis High 07/03/2014 Gabapentin 04/28/2001 swelling Semaglutide(0.25 Or 0.5mg-Dos) 05/27 Nausea/ vomiting documented as of this encounter (statuses as of 10/20/2023) Medications Medication Sig Dispensed Refills Start Date [...] A1c goal of less than 7.5% ([facility]) Test twice daily 100 Each 5 [...] 11/07/2022 Active Vitamin D (Ergocalciferol) 1.25 MG (91776 UT) Oral Capsule (Drisdol) TAKE 1 CAP [...] A1c goal of less than 7.5% ([facility]) USE TWICE DAILY TO TEST SUGAR [...] as of this encounter (statuses as of 10/20/2023) Active Problems Problem Noted Date Diagnosed Date [...] as of this encounter (statuses as of 10/20/2023) Resolved Problems Problem Noted Date Diagnosed Date [...] as of this encounter (statuses as of 10/20/2023) Immunizations Name Administration Dates Next Due Hepatitis [...] Care Team (Late st Contact Info) Description 10/21/2023 8:45 AM EDT Imaging Radiology [facility] [address] [place] [address] 11/11/2023 8:15 AM EDT Imaging Radiology [facility] 1st [facility] [address] [place] [address] 11/17/2023 4:00 PM EDT Office Visit Family Practice [facility] 200 [facility] [place] [address] Loreta Morejon PA-C 200 [facility] [place] [address] 12/10/2023 11:00 AM EDT Office Visit Gastroenterology, [facility] [address] [place] [address] Sukumar Zuñiga CRNP [address] [place] [address] 01/07/2024 10:00 AM EDT Office Visit Cardiology, [facility] [address] [place] [address] Gloria Rosenthal CRNP [address] [place] [address] 02/15/2024 8:00 AM EDT Telemedicine Psychiatry [place] [address] [place] [address] Tabby Mcfarland MD [address] [facility] [place] [address] Scheduled Procedures Name Priority Associated Diagnoses Date/Ti [...] patient or by statute hierarchy) Care Teams Cloud Engineer Relationship Specialty Start Date End Date Tarun Gill III, MD 200 [facility] [place] [address] PCP - General 06/11/00 documented as of this encounter
--- OUTSIDE RECORDS SUMMARY | 2023-11-27 15:09 | External Medical Summary | Summary of Care ---
Author Name Unknown Organization [facility] Address [address] [place] [address] Phone [phone] Care Team Providers Care Optometrist Assistant Name Role Phone Bridget GIPSON MD, Tarun Sanders Primary Care Provider [phone] Reason for Visit * Reason Comments Urinary Tract Infection Symptoms * Auth/Cert Specialty Diagnoses / Procedures Referred By Erik t Referred To Contact [place] [address] [place] [address] Phone: [phone] Emergency Medicine [facility] [address] [place] [address] Referral ID Status Reason Start Date Expiration Date Visits Re quested Visits Authorized [id number] Encounter Details Date Type Department Care Team (Late st Contact Info) Description 10/19/2023 2:38 AM EDT - 10/19/2023 4:39 AM EDT Emergency [facility] ([facility]) [address] [place] [address] Yakelin Rogesr MD [address] [facility] [place] [id number] Acute cystitis without hematuria (Primary Dx) Discharge Disposition: Home - Self Care Allergies Active Allergy Reactions Criticality Noted Date Comments Carbamazepine And Analogs 04/28/2001 rash Hydromorphone Hcl Anaphylaxis High 07/03/2014 Gabapentin 04/28/2001 swelling Semaglutide(0.25 Or 0.5mg-Dos) 05/27 Nausea/ vomiting documented as of this encounter (statuses as of 10/19/2023) Medications Medication Sig Dispensed Refills Start Date [...] A1c goal of less than 7.5% (FORMERLY [facility]) Test twice daily 100 Each 5 06/19/2021 [...] 11/07/2022 Active Vitamin D (Ergocalciferol) 1.25 MG (44521 UT) Oral Capsule (Drisdol) TAKE 1 CAP [...] A1c goal of less than 7.5% (FORMERLY [facility]) USE TWICE DAILY TO TEST SUGAR E11.9 [...] A1c goal of less than 7.5% (FORMERLY [facility]) DIRECTED (FOR USE WITH VITAMIN B12 INJECTIONS) 3 Each 4 08/06/2023 Active Trulicity 0.75 MG/0.5ML Subcutaneous Solution Pen-injector (Dulaglutide)Indica tions:Type 2 diabetes mellitus with hemoglobin A1c goal of less than 7.5% (FORMERLY [facility]) Inject 0.75 mg under the skin once a week. 2 mL 11 08/10/2023 Active metFORMIN HCl ER 500 MG Oral Tablet Extended Release 24 Hour (Glucophage XR)Indications:Type 2 diabetes mellitus with hemoglobin A1c goal of less than 7.0% (FORMERLY [facility]) TAKE 2 TABLETS BY MOUTH EVERY MORNING [...] FOR UP TO TWO WEEKS. 30 g 08/25/2023 Active Ondansetron HCl 4 MG Oral [...] as of this encounter (statuses as of 10/19/2023) Active Problems Problem Noted Date Diagnosed Date Adjustment disorder with mixed anxiety and depre ssed mood 08/19/2023 Decreased rectal sphincter tone 12/08/2022 Rectal itching 12/08/2022 Generalized abdominal pain 12/08/2022 Body mass index (BMI) of 40.0 to 44.9 in adult 0 05/19/2022 Overview: Per Obesity protocol History of 2018 novel coronavirus disease (COVID -19) 02/05/2022 Gastro-esophageal [...] as of this encounter (statuses as of 10/19/2023) Resolved Problems Problem Noted Date Diagnosed Date [...] as of this encounter (statuses as of 10/19/2023) Immunizations Name Administration Dates Next Due Hepatitis [...] Sign Reading Time Taken Comments Blood Pressure 141/70 10/19/2023 3:30 AM EDT Pulse 72 10/19/2023 3:30 AM EDT Temperature 36 C (96.8 F) 10/19/2023 2:42 AM EDT Respiratory Rate 18 10/19/2023 3:30 AM EDT Oxygen Saturation 95% 10/19/2023 2:42 AM EDT Inhaled Oxygen Concentration - - Weight 102.1 kg (225 lb) 10/19/2023 2:42 AM EDT Height - - Body Mass Index 39.86 09/14/2023 9:54 AM EDT documented in this encounter ED Notes * Yakelin Rogers MD - 10/19/2023 2:54 AM EDT HISTORY OF PRESENT ILLNESS Deanne Mckeon is a 57 year old female who presents to the ED for evaluation of Urinary Tract Infection Symptoms. The patient was seen at 10/19/23 0249. The patient thinks she has a bladder infection. Dysuria started tonight, suprapubic pain started a week ago and she saw her primary care providerand provided a urine sample but she has not heard results. She had chills earlier today. No hematuria. Per review of EMR, outpatient urine culture on October 12 was negative. Review of Systems Constitutional: Positive for chills. Negative for fever. HENT: Negative for congestion, ear pain, rhinorrhea and sore throat. Respiratory: Negative for cough and shortness of breath. Cardiovascular: Negative for chest pain and leg swelling. Gastrointestinal: Positive for abdominal pain. Negative for constipation, diarrhea, nausea and vomiting. Genitourinary: Positive for dysuria and frequency. Negative for hematuria. Musculoskeletal: Negative for back pain and myalgias. Skin: Negative for rash. Neurological: Negative for dizziness, weakness, light-headedness and headaches. All other systems reviewed and are negative. The patient's allergies, past history, and medications were reviewed. PHYSICAL EXAM Initial Vitals (see all): BP 176/90 | Pulse 71 | Resp 18 | Temp 96.8 | O2 95 %Weight 102.06 kg | Height 160 cm | BMI 39.86 kg/m2 Initial Pain Assessment (see all): 8 (severe pain)/10, Burning ([facility] Adult Scale 0-10) Physical Exam Vitals and nursing note reviewed. Constitutional: General: She is in acute distress (Moderate). HENT: Head: Normocephalic and atraumatic. Cardiovascular: Rate and Rhythm: Normal rate and regular rhythm. Heart sounds: No murmur heard. No gallop. Pulmonary: Effort: Pulmonary effort is normal. No respiratory distress. Breath sounds: Normal breath sounds. Abdominal: General: Bowel sounds are normal. There is no distension. Palpations: Abdomen is soft. Tenderness: There is no abdominal tenderness. There is no guarding or rebound. Musculoskeletal: General: No swelling, tenderness or deformity. Normal range of motion. Cervical back: Normal range of motion and neck supple. No muscular tenderness. Right lower leg: No edema. Left lower leg: No edema. Lymphadenopathy: Cervical: No cervical adenopathy. Skin: General: Skin is warm and dry. Coloration: Skin is not cyanotic. Findings: No rash. Nails: There is no clubbing. Neurological: General: No focal deficit present. Mental Status: She is alert and oriented to person, place, and time. GCS: GCS eye subscore is 4. GCS verbal subscore is 5. GCS motor subscore is 6. Psychiatric: Mood and Affect: Mood normal. Speech: Speech normal. Behavior: Behavior normal. Behavior is cooperative. PROCEDURES AND TREATMENTS ED Orders | ED Results MEDICAL DECISION MAKING Nursing notes and vital signs were reviewed. ED Course as of 10/19/23 0825 Mon Oct 19, 2023 0404 Urine does appear suspicious for infection at this time [DH] 0426 Reassessment: The patient has remained stable. Results and plan for disposition discussed withpatient [DH] ED Course User Index [DH] Yakelin Rogers MD Differential Diagnoses Based on my history, physical exam, and evaluation, the differential includes, but is not limited, to the following diagnoses: Cystitis, urethritis, diverticulitis. Amount and/or Complexity of Data Reviewed Labs: ordered. Risk Prescription drug management. Clinical Impressions Acute cystitis without hematuria Disposition Discharged. The patient's condition at disposition was: stable. Discharge Medications Disp Refills Start End Phenazopyridine HCl 200 MG Oral Tablet (Pyridium) 10 Tablet 0 10/19/2023 10/22/2023 Sig - Route: Take 1 Tablet by mouth in the morning and 1 Tablet at noon and 1 Tablet before bedtime. Do all this for 3 days. - Oral Class: ePrescribing Renewals Renewal requests to authorizing provider (Yakelin Rogers MD) <b>prohibited</b> Amoxicillin 500 MG Oral Capsule (Amoxil) 30 Capsule 0 10/19/2023 10/29/2023 Sig - Route: Take 1 Capsule by mouth in the morning and 1 Capsule at noon and 1 Capsule before bedtime. Do all this for 10 days. - Oral Class: ePrescribing Renewals Renewal requests to authorizing provider (Yakelin Rogers MD) <b>prohibited</b> Yakelin Rogers This chart was completed in part utilizing [employer] Speech Voice Recognition Software. Grammatical errors, random word insertions, prounoun errors, and incomplete sentences are an occasional consequence of this system due to software limitations, ambient noise, and hardware issues. Any formal questions or concerns about the content, text, or information contained within the body of this dictation should be directly addressed to the provider for clarification. Yakelin Rogers MD 10/19/2023 8:25 AM * Dana Anaya RN - 10/19/2023 2:40 AM EDT Pt states that she has urinary frequency, burning, and central pelvic pain. Pt reports that she didhave chills. documented in this encounter Miscellaneous Notes * ED Senior Electrical Designer Note - Brinda Baron RN - 10/19/2023 4:38 AM EDT Pt verbalized understanding of D/C instructions. Aware to follow up with PCP and of prescription atpharmacy. All questions and concerns answered and addressed at this time. Pt ambulated from ED withsteady gait. * Pt Handout (on AVS) - Yakelin Rogers MD - 10/19/2023 4:35 AM EDT Images from the original note were not included. [id number] Bladder Infection, Female (Adult) Urine normally doesn't have any germs (bacteria) in it. But bacteria can get into the urinary tractfrom the skin around the rectum. Or they can travel in the blood from other parts of the body. Oncethey are in your urinary tract, they can cause infection in these areas: The urethra (urethritis) The bladder (cystitis) The kidneys (pyelonephritis) The most common place for an infection is in the bladder. This is called a bladder infection. This is one of the most common infections in women because women have a shorter urethra than men. Bacteria have a shorter distance to travel to reach the bladder.. Women who have gone through menopause also lose the protection from estrogen that lowers the chance of getting a UTI. And some women are at higher risk because of their genes. Most bladder infections are easily treated. They are not serious unless the infection spreads to the kidney. The terms bladder infection, UTI, and cystitis are often used to describe the same thing. But they are not always the same. Cystitis is an inflammation of the bladder. The most common cause of cystitis is an infection. Symptoms The infection causes inflammation in the urethra and bladder. This causes many of the symptoms. Themost common symptoms of a bladder infection are: Pain or burning when urinating Having to urinate more often than normal Urgent need to urinate Only a small amount of urine comes out Blood in urine Belly (abdominal) discomfort. This is often in the lower belly above the pubic bone. Lower back pain Cloudy urine Strong- or bad-smelling urine Unable to urinate (urinary retention) Unable to hold urine in (urinary incontinence) Fever Loss of appetite Confusion (in older adults) Causes Bladder infections are not contagious. You can't get one from someone else, from a toilet seat, or from sharing a bath. The most common cause of bladder infections is bacteria from the bowels. The bacteria get onto the skin around the opening of the urethra. From there, they can get into the urine. Then they travel upto the bladder, causing inflammation and infection. This often happens because of: Wiping incorrectly after urinating. Always wipe from front to back. Bowel incontinence . During urinary tract changes raise the risk for infection. Procedures such as having a catheter put in Older age Not emptying your bladder. This can give bacteria a chance to grow in your urine. Fluid loss (dehydration) Constipation Having sex Using a diaphragm for control Treatment Bladder infections are diagnosed by a urine test and urine culture. They are treated with antibiotics. They often clear up quickly without problems. Treatment helps prevent a more serious kidney infection. Medicines Medicines can help in the treatment of a bladder infection: Take antibiotics until they are used up, even if you feel better. It's important to finish them to make sure the infection has cleared. You can use acetaminophen or ibuprofen for pain, fever, or discomfort, unless another medicine was prescribed. If you have long-term (chronic) liver or kidney disease, talk with your healthcare provider before using these medicines. Also talk with your provider if you've ever had a stomach ulceror GI (gastrointestinal) bleeding, or are taking blood-thinner medicines. If you are given phenazopydridine to reduce burning with urination, it will make your urine a bright orange color. This can stain clothing. Care and prevention These self-care steps can help prevent future infections: Drink plenty of fluids. This helps to prevent dehydration and flush out your bladder. Do this unless you must restrict fluids for other health reasons, or your healthcare provider told you not to. Clean yourself correctly after going to the bathroom. Wipe from front to back after using the toilet. This helps prevent the spread of bacteria. Urinate more often. Don't try to hold urine in for a long time. Wear loose-fitting clothes and cotton underwear. Don't wear tight-fitting pants. Improve your diet and prevent constipation. Eat more fresh fruits and vegetables, and fiber. Eatless junk foods and fatty foods. Don't have sex until your symptoms are gone. Don't have caffeine, alcohol, and spicy foods. These can irritate your bladder. Urinate right after you have sex to flush out your bladder. If you use control pills and have frequent bladder infections, discuss it with your healthcare provider. Follow-up care Call your healthcare provider if all symptoms are not gone after 3 days of treatment. This is especially important if you have repeat infections. If a culture was done, you will be told if your treatment needs to be changed. If directed, you cancall to find out the results. If X-rays were done, you will be told if the results will affect your treatment. Call 911 Call 911 if any of the following occur: Trouble breathing Hard to wake up or confusion Fainting (loss of consciousness) Fast heart rate When to get medical advice Call your healthcare provider right away if any of these occur: Fever of 100.4F (38.0C) or higher, or as directed by your healthcare provider Symptoms are not better after 3 days of treatment Symptoms get worse or you have new symptoms Back or belly pain that gets worse Repeated vomiting, or unable to keep medicine down Weakness or dizziness Vaginal discharge Pain, redness, or swelling in the outer vaginal area (labia) Last Reviewed Date: 05/11/[id number] [employer]. All rights reserved. This information is not intended as a substitute for professional medical care. Always follow your healthcare professional's instructions. documented in this encounter Plan of Treatment Upcoming Encounters Date Type Department Care Team (Late st Contact Info) Description 10/21/2023 8:45 AM EDT Imaging Radiology [facility] [address] [facility] [place] [address] 11/11/2023 8:15 AM EDT [facility] [address] [place] [address] 11/17/2023 4:00 PM EDT Office Visit Family Practice [facility] [address] [place] [address] Loreta Morejon PA-C [address] [place] [address] 12/10/2023 11:00 AM EDT Office Visit Gastroenterology, [facility] [address] [facility] [place] [address] Sukumar Zuñiga CRNP [address] [facility] [place] [address] 01/07/2024 10:00 AM EDT Office Visit Cardiology, [facility] [address] [facility] [place] [address] Gloria Rosenthal CRNP [address] [facility] [place] [address] 02/15/2024 8:00 AM EDT Telemedicine Psychiatry [facility] [address] [place] [address] Tabby Mcfarland MD [address] [place] [address] Pending Results Name Type Priority Associated Diagnoses Date /Time CULTURE, URINE, QUANTITATIVE Lab STAT 10/19/2023 3:18 AM EDT Scheduled Orders Name Type Priority Associated Diagnoses Orde r Schedule CULTURE, URINE, QUANTITATIVE Lab STAT One Time for 1 Occurrences starting 10/19/2023 until 10/19/2023 Scheduled Procedures Name Priority Associated Diagnoses Date/Ti [...] Procedure Name Priority Date/Time Associated Diagnosis Comments MICROSCOPIC EXAM, URINE Routine 10/19/2023 3:18 AM EDT URINALYSIS, REFLEX TO MICROSCOPIC Routine 10/19/2023 3:18 AM EDT documented in this encounter Results * (ABNORMAL) MICROSCOPIC EXAM, URINE (10/19/2023 3:18 AM EDT) RBC, Urine 20-29(A) 0 - 2 /HPF 10/19/2023 3:51 AM EDT [facility] WBC, Urine 20-29(A) 0 - 2 /HPF 10/19/2023 3:51 AM EDT [facility] Bacteria, Urine >200(A) 0 - 25 /HPF 10/19/2023 3:51 AM EDT [facility] RBC Cast, Urine 1-4(A) None /LPF 10/19/2023 3:51 AM EDT [facility] Urine Non-blood Collection / Unknown 10/19/2023 3:18 AM EDT 10/19/2023 3:22 AM EDT Yakelin Rogers MD LAB URINE ORDERAB LES Performing Organization Address City/[facility]/ZIP Co de Phone Number LABORATORY [facility] [address] [place] [address] * (ABNORMAL) URINALYSIS, REFLEX TO MICROSCOPIC (10/19/2023 3:18 AM EDT) Color, Urine Yellow Light Yellow, Yellow, Dark Yellow 10/19/2023 3:47 AM EDT [facility] Clarity, Urine Clear Clear 10/19/2023 3:47 AM EDT [facility] Glucose, Urine Negative Negative mg/dL 10/19/2023 3:47 AM EDT [facility] Bilirubin, Urine Small(A) Negative 10/19/2023 3:47 AM EDT [facility] Ketone, Urine Negative Negative mg/dL 10/19/2023 3:47 AM EDT [facility] Specific [place], Urine 1.031(H) 1.003 - 1.030 10/19/2023 3:47 AM EDT [facility] Blood, Urine Moderate(A) Negative 10/19/2023 3:47 AM EDT [facility] pH, Urine 5.5 5.0 - 7.5 Units 10/19/2023 3:47 AM EDT [facility] Protein, Urine Trace(A) Negative mg/dL 10/19/2023 3:47 AM EDT [facility] Urobilinogen, Urine 0.2 0.2, 1.0 mg/dL 10/19/2023 3:47 AM EDT [facility] Nitrite, Urine Negative Negative 10/19/2023 3:47 AM EDT [facility] Esterase, Urine Trace(A) Negative 10/19/2023 3:47 AM EDT [facility] Urine Non-blood Collection / Unknown 10/19/2023 3:18 AM EDT 10/19/2023 3:22 AM EDT Yakelin Rogers MD LAB URINE ORDERAB LES Performing Organization Address City/[facility]/ZIP Co de Phone Number LABORATORY [address] [address] documented in this encounter Visit Diagnoses Diagnosis Acute cystitis without hematuria- Primary Acute cystitis documented in this encounter Administered Medications Inactive Administered Medications - up to 3 most recent administrations Medication Order MAR Action Action Date Dose Rate Site Amoxicillin (Amoxil) cap 500 mg 500 mg, Oral, ONCE, On Thu10/19/23 at 0445, For 1 dose Given 10/19/2023 4:09 AM EDT 500 mg phenazopyridine (Pyridium) tab 200 mg 200 mg, Oral, ONCE, On Thu10/19/23 at 0445, For 1 dose Given 10/19/2023 4:10 AM EDT 200 mg documented in this encounter Active and Recently Administered Medications Times are shown in EDT. Scheduled Medication Order 10/17/2023 10/18/2023 10/19/2023 Amoxicillin (Amoxil) cap 500 mg (COMPLETED) 500 mg, Oral, ONCE, On Thu10/19/23 at 0445, For 1 dose 0409 (Given - Provid er: Brinda Baron RN) phenazopyridine (Pyridium) tab 200 mg (COMPLETED) 200 mg, Oral, ONCE, On Thu10/19/23 at 0445, For 1 dose 0410 (Given - Provid er: Brinda Baron RN) documented in this encounter Advance Directives Healthcare Agents on File Name Relationship Healthcare Agent Relationshi p Communication Zara Jackson Adult Child Health Care Repr esentative (appointed verbally by patient or by statute hierarchy) Care Teams Optometrist Assistant Relationship Specialty Start Date End Date Tarun Gill III, MD [address] [place] [address] PCP - General 06/11/00 documented as of this encounter
--- OUTSIDE RECORDS SUMMARY | 2023-11-27 15:09 | External Medical Summary | Summary of Care ---
Author Name Unknown Organization [facility] Address [address] [place] [address] Phone [phone] Care Team Providers Care Sports Physiotherapist Name Role Phone Bridget GIPSON MD, Tarun Sanders Primary Care Provider [phone] Reason for Referral * Precert (Within 10 days (routine)) - Pending Review Specialty Diagnoses / Procedures Referred By Erik ashby Referred To Contact Radiology Diagnoses Subjective tinnitus, right Asymmetrical sensorineural hearing loss Procedures MRI INTERNAL AUDITORY CANAL W WO Manan Grover PA-C [address] [place] [address] Referral ID Status Reason Start Date Expiration Date V isits Requested Visits Authorized [id number] Pending Review 09/14/2023 999 999 Reason for Visit * Reason Comments NEW PATIENT Right ear tinnitus * Evaluate & Treat - Unlimited Visits (Within 10 days (routine)) - Pending Review Specialty Diagnoses / Procedures Referred By Erik ashby Referred To Contact Otolaryngology Diagnoses Tinnitus, unspecified laterality Sensorineural hearing loss (SNHL) of both ears Loreta Morejon PA-C [address] [place] [address] Referral ID Status Reason Start Date Expiration Date Visits Requested Visits Authorized [id number] Pending Review Specialty Services Required 05/27/[phone] Encounter Details Date Type Department Care Team (Latest Contact Info) Description 09/14/2023 10:00 AM EDT Office Visit Otolaryngology/Head & Neck/Facial Plastic Surgery [address] [place] [address] Manan Thompson PA-C [address] [place] [address] Subjective tinnitus, right*; Multiple sclerosis (HCC); Asymmetrical [...] hemoglobin A1c goal of less than 7.5% ([facility]) Test twice daily 100 Each 5 [...] 11/07/2022 Active Vitamin D (Ergocalciferol) 1.25 MG (83862 UT) Oral Capsule (Drisdol) TAKE 1 CAP [...] hemoglobin A1c goal of less than 7.5% ([facility]) USE TWICE DAILY TO TEST SUGAR E11.9 [...] worsen tinnitus. Do not suddenly stop the lasix. I will call you with the results of the MRI - we will try to get this added on to your testing on . Please coal picker my business card and have them send the imaging to me. documented in this encounter Progress Notes * Maura Marin PA-C - 09/14/2023 10:01 AM EDT Images from the original note were not included. 10/15/23 MRI Brain / IACs w/wo contrast from 09/17/23 reviewed today. No CPA mass or tumor. Patient notified by portal of results. HISTORY OF PRESENT ILLNESS CC: right sided hearing [...] ear. She had a hearing test at [facility] in [facility] 20[facility]. She was able to hear in her left ear what she was not hearing in the right ear. Also has headaches for which she gets botox treatments, last treatment around 6 weeks ago. With her MS she experiences right facial numbness/weakness, as well as numbness/tingling on the right side of her body. She sees a specialist at [facility]. She has a follow up MRI scheduled at [facility] on of this week. Tinnitus: Right sided. Aural pressure/otalgia: Denied Disequilibrium/vertigo: Denied Ear Infections, adult or childhood: Denied Ear Surgery: Denied Noise Exposure: Denies occupational or firearm noise exposure. Familial Hearing Loss: Denied [place]/Vestibulotoxic medication: Denied. Takes Lasix for BP for [...] performed by Devin Multani MD at ENDOSCOPY [facility] EGD, FLEXIBLE, DIAGNOSTIC 05/01/2021 normal bx / ESOPHAGOGASTRODUODENOSCOPY (EGD), FLEXIBLE, TRANSORAL, DIAGNOSTIC performed by Sangita Ortega MD at ENDOSCOPY [facility] INFORMATION 01/18/2016 I & D of hemorrhoid [facility] - L-/S-SPINE PARAVERTEBRAL FACET INJ,1 LEVEL 06/10/2018 L-/S-SPINE PARAVERTEBRAL FACET INJ, 1 LEVEL performed by Abiodun Billy DO at [facility] LAP;W/HYSTERECTOMY Dr. Camargo LAPAROSCOPY; CHOLECYSTECTOMY 07/02/2015 07/02/2015 laparoscopic cholecystectomy [facility] - DR. Chase Serrato LAPAROSCOPY; CHOLECYSTECTOMY N/A [...] ANESTHESIA performed by Gemma Nolan MD at [facility] Current Outpatient Medications Medication Sig Dispense Refill [...] under the skin Every Month . OneTouch Netsket Lancets 33G Test twice daily 100 Each [...] As needed Vitamin D (Ergocalciferol) 1.25 MG (62579 UT) Oral Capsule (Drisdol) TAKE 1 CAP [...] BY MOUTH EVERY 6 HOURS NEEDED FOR [id number] Tablet 0 No current facility-administered medications for [...] were noted to be intact via extra-ocular musclemovement testing. Nystagmus when tracking down and to the right. Cranial nerve VII noted to be intact and symmetric by facial movement. Cranial nerve VIII was tested with audiogram. Cranial nerves IXand X noted to be intact by gag reflex and palatal movement. Cranial nerve XII noted to be intact by active and symmetric tongue movement. ASSESSMENT: Deanne is a 57 year old female with a history of MS who has steady and progressive non pulsatile tinnitus of her right ear over 1.5 years. Audiogram today shows asymmetric SNHL. Plan: Speak with provider about Lasixs since worsening tinnitus. Complete MRI at [facility] and provide copy. Patient was seen, clinical [...] She is seen on Consult from Loreta TARAH Morejon. Tinnitus is non pulsatile. It I loud enough to interfere with hearing. Had hearing tested at [facility] in January or February; the patient describes a masking dilemma. She is on Lasix. She is a diabetic, blood sugar is not well controlled. Blood pressure in "fair" control. Cholesterol elevated. Poor eyesight report OU. 08/07/3030 MRI Brain w/wo contrast with excellent view of the IACs - no IAC schwannoma appreciated. She will be having another MRI at [facility] this . PMH, PSH, Problem List [...] undergoing brain MRI later this week at [facility]. We will see if we can [...] Description 10/19/2023 9:30 AM EDT Imaging Radiology [facility] [address] [place] [address] 11/17/2023 4:00 PM EDT Office Visit Family Practice [facility] [address] [place] [address] Loreta Morejon PA-C [address] [place] [address] 12/10/2023 11:00 AM EDT Office Visit Gastroenterology, [facility] [address] [place] [address] Sukumar Zuñiga CRNP [address] [place] [address] 01/07/2024 10:00 AM EDT Office Visit Cardiology, [facility] [address] [place] [address] Gloria Rosenthal CRNP [address] [place] [address] 02/15/2024 8:00 AM EDT Telemedicine Psychiatry [address] [place] [address] [place] [address] Tabby Mcfarland MD [address] [place] [address] Scheduled Orders Name Type Priority Associated Diagnoses [...] patient or by statute hierarchy) Care Teams Sports Physiotherapist Relationship Specialty Start Date End Date Tarun Gill III, MD [address] [place] [address] PCP - General 06/11/00 documented as of this encounter
--- OUTSIDE RECORDS SUMMARY | 2023-11-27 15:09 | External Medical Summary ---
Author Name Unknown Address Unknown Organization [id number]:[facility]ORY [facility] - [address] [facility] [address] Laboratory Report Ordering Provider Test Date Status STEFFI WILL 10/19/2023 03:18:01 Final <10,000 colonies/ml mixed no rmal chanel Observation Date Value Abnormality Reference (Units ) Status Bacteria identified in Specimen by Culture 10/19/2023 03:18:01 [id number]^ESCHE RICHIA COLI Abnormal Final 10,000 to 100,000 colonies/m L Escherichia coli Performing Location [facility]ORY [facility] - [address] [facility] [address] Ordering Provider Test Date Status STEFFI WILL 10/19/2023 03:18:01 Final Observation Date Value Abnormality Reference (Units ) Status Ampicillin 10/19/2023 03:18:01 4 Susceptible Final Cefazolin 10/19/2023 03:18:01 <=4 Susceptible Final Cefepime susceptibility 10/19/2023 03:18:01 <=1 Susceptible Final Ceftriaxone suceptibility 10/19/2023 03:18:01 <=1 Susceptible Final Ciprofloxacin 10/19/2023 03:18:01 <=0.25 Susceptible Final Due to serious side effects, the FDA has advised against using Ciprofloxacin to treat uncomplicated UTIs and respiratory tract infections unless there are no alternative treatment options. Gentamicin susceptibility 10/19/2023 03:18:01 <=1 Susc eptible Final Nitrofurantoin susceptibility 10/19/2023 03:18:01 <=16 Susceptible Final Piperacillin + Tazobactamsusceptibility 10/19/2023 03:18:01 <=4 Susceptible Final TMP-SMZ susceptibility 10/19/2023 03:18:01 <=20 Suscept ible Final Test: Culture, Urine, Quanti tative
Specimen Source: Urine, Clean Catch
Specimen Type: Urine
Specimen Date: 10/19/2023 0318
Result Date: 10/21/2023 1325
Result Status: Final result
Abnormal: Yes
Resulting Lab: [facility]
[address]
[place] [address]

CULTURE

10,000 to 100,000 colonies/mL Escherichia coli (Abnormal)

<10,000 colonies/ml mixed normal chanel

SUSCEPTIBILITY

Escherichia coli
METHOD MICROBROTH
DILUTIONS

AMPICILLIN 4 Susceptible
CEFAZOLIN <=4 Susceptible
CEFEPIME <=1 Susceptible
CEFTRIAXONE <=1 Susceptible
CIPROFLOXACIN <=0.25 Susceptible
[1]
GENTAMICIN <=1 Susceptible
NITROFURANTOIN <=16 Susceptible
PIPERACILLIN TAZOBACTAM <=4 Susceptible
TRIMETH/SULFAMETHOXAZOLE <=20 Susceptible

[1] Due to serious side effects, the FDA has advised against using
Ciprofloxacin to treat uncomplicated UTIs and respiratory tract infections
unless there are no alternative treatment options.

null Performing Location LABORATORY [facility] - [address] [facility] [address]
--- OUTSIDE RECORDS SUMMARY | 2023-11-27 15:09 | External Medical Summary ---
Author Name Unknown Address Unknown Organization [id number]:LABORATORY [facility] - [address] [place] [address] Laboratory Report Ordering Provider Test Date Status STEFFI WILL 10/19/2023 03:18:01 Final Observation Date Value Abnormality Reference (Units ) Status Color of Urine by Auto 10/19/2023 03:18:01 Yellow Light Yellow, Yellow, Dark Yellow Final Clarity, Urine 10/19/2023 03:18:01 Clear Clear Final Glucose [Mass/volume] in Urine by Automated test strip 10/19/2023 03:18:01 Negative Negative (mg/dL) Final Bilirubin.total [Presence] in Urine by Automated test strip 10/19/2023 03:18:01 Small Abnormal Negative Final Ketones [Mass/volume] in Urine by Automated test strip 10/19/2023 03:18:01 Negative Negative (mg/dL) Final Specific gravity, Urine 10/19/2023 03:18:01 1.031 Above high normal 1.003-1.030 Final Hemoglobin [Presence] in Urine by Automated test strip 10/19/2023 03:18:01 Moderate Abnormal Negative Final pH, Urine 10/19/2023 03:18:01 5.5 5.0-7.5 (Units) Final Protein [Mass/volume] in Urine by Automated test strip 10/19/2023 03:18:01 Trace Abnormal Negative (mg/dL) Final Urobilinogen [Mass/volume] in Urine by Automated test strip 10/19/2023 03:18:01 0.2 0.2, 1.0 (mg/dL) Final Nitrite [Presence] in Urine by Automated test strip 10/19/2023 03:18:01 Negative Negative Final Leukocyte esterase [Presence] in Urine by Automated test strip 10/19/2023 03:18:01 Trace Abnormal Negative Final Performing Location LAB[facility]ATORY [facility] - [address] [place] [address]
--- OUTSIDE RECORDS SUMMARY | 2023-11-27 15:10 | External Medical Summary ---
Author Name Unknown Address Unknown Organization K01:LAB[facility]ATORY [facility] - [address] [place] [address] Laboratory Report Ordering Provider Test Date Status 10/13/2023 14:29:38 Final Observation Date Value Abnormality Reference (Units) Status Bacteria identified in Specimen by Culture 10/13/2023 14:29:38 No significant growth Final Test: Culture, Urine, Quanti tative
Specimen Source: Urine, Clean Catch
Specimen Type: Urine
Specimen Date: 10/13/2023 1429
Result Date: 10/14/2023 1625
Result Status: Final result
Resulting Lab: [facility]
[address]
[facility]

CULTURE

No significant growth

null Performing Location LAB[facility]ORY [facility] - [address] [facility] [address]
--- OUTSIDE RECORDS SUMMARY | 2023-11-27 15:10 | External Medical Summary ---
Author Name Unknown Address Unknown Organization [id number]:[facility] [place] [address] Laboratory Report Ordering Provider Test Date Status JOSE LORENZANA 10/13/2023 14:43:22 Final Observation Date Value Abnormality Reference (Units ) Status Creatinine 10/13/2023 14:43:22 0.8 0.5-1.0 (mg/dL) Final Glomerular filtration rate/1.73 sq M.predicted [Volume Rate/Area] in Serum, Plasma or Blood by Creatinine-based formula (CKD-EPI) 10/13/2023 14:43:22 81 >=60 (mL/min) Final eGFR is calculated based on the CKD-EPI 2020 equation Performing Location [facility] [place] [address]
--- OUTSIDE RECORDS SUMMARY | 2023-11-27 15:10 | External Medical Summary ---
Author Name Unknown Address Unknown Organization K01:LAB[facility]ATORY [facility] - [address] [place] [address] Laboratory Report Ordering Provider Test Date Status JOSE LORENZANA 10/13/2023 14:43:22 Final Observation Date Value Abnormality Reference (Units ) Status TSH 10/13/2023 14:43:22 0.69 0.27-4.20 (uIU/mL) Final Performing Location [facility] - [address] [facility] [address]
--- OUTSIDE RECORDS SUMMARY | 2023-11-27 15:10 | External Medical Summary | Summary of Care ---
Author Name Unknown Organization [facility] [address] [facility] [address] Phone [phone] Care Team Providers Care [employer] Attendant Name Role Phone Bridget GIPSON MD, Tarun Sanders Primary Care Provider [phone] Reason for Referral * Precert (Routine) - Pending Review Specialty Diagnoses / Procedures Referred By Erik t Referred To Contact Radiology Diagnoses Chest pain, unspecified type Procedures CT CARDIAC COMPLETE Gloria Rosenthal CRNP [address] [place] [address] Referral ID Status Reason Start Date Expiration Date Visits Requested Visits Authorized [id number] Pending Review Precert 10/13/2023 1 1 * Precert (Routine) - Pending Review Specialty Diagnoses / Procedures Referred By Erik ashby Referred To Contact Radiology Diagnoses Chest pain, unspecified type Procedures CT FFR CORONARY ARTERIES Gloria Rosenthal CRNP [address] [place] [address] Referral ID Status Reason Start Date Expiration Date Visits Requested Visits Authorized [id number] Pending Review Precert 10/13/2023 1 1 Reason for Visit * Reason Comments Follow Up Encounter Details Date Type Department Care Team (Late st Contact Info) Description 10/13/2023 11:00 AM EDT Office Visit Cardiology, [facility] [address] [place] [address] Gloria Rosenthal CRNP [address] [place] [address] Palpitations*; PVC (premature ventricular contraction); Chest pain, unspecified type; HTN, goal below 130/80; Dyslipidemia, goal LDL below 130 Allergies Active Allergy Reactions Criticality Noted Date [...] goal of less than 7.5% ([facility]) Test twice daily 100 Each 5 [...] FOR HEARTBURN 90 Tablet 3 11/07/2022 Active Baclofen 20 MG Oral Tablet As needed 11/11/2022 Active Vitamin D (Ergocalciferol) 1.25 MG (11719 UT) Oral Capsule (Drisdol) TAKE 1 CAP [...] goal of less than 7.5% ([facility]) USE TWICE DAILY TO TEST SUGAR [...] 01/16/2021 Smokeless Tobacco: Never Tobacco Cessation:Counseling Given: No Alcohol Use Standard Drinks/Week Comments No 0 [...] Time Taken Comments Blood Pressure 132/88 10/13/2023 11:02 AM EDT Pulse 78 10/13/2023 11:02 AM EDT Temperature - - Respiratory Rate 14 10/13/2023 11:0 2 AM EDT Oxygen Saturation - - Inhaled Oxygen Concentration - - Weight 102.7 kg (226 lb 6.4 oz) 024 11:02 AM EDT Height - - Body Mass Index 40.1 09/14/2023 9:54 AM EDT documented in this encounter Progress Notes * Gloria Rosenthal CRNP - 10/13/2023 11:00 AM EDT 10/13/2023 Cardiology Follow Up Primary Unitizer: Dr. Hawley Cardiac Problems: 1. Palpitations, chronic ventricular ectopy 2. Hypertension hypertensive heart disease 3. Cardiac catheterization 2010 with near normal coronary angiography, minimal luminal irregularities right coronary artery 4. Obesity 5. Multiple sclerosis 6. Type 2 diabetes mellitus 7. Hyperlipidemia HPI: Deanne Mckeon is a 57 year old female presents for routine follow up. Patient was last seen by Cardiology on 09/08/[address] Hawley for ongoing concerns of "heart pounding and palpitations" with an abnormal Zio monitor. Plan at that time was to increase patient's metoprolol succinate to 100 mg in the morning and 50 mg in the evening as well as provide potassium supplementation. Patient's atorvastatin was discontinued in favor of starting rosuvastatin as well as encouragement for heart healthy lifestyle. Patient was also recommended for stress echocardiogram due to atypical chest pressure, she was also recommended to consider sleep study evaluation. Patient presents today reporting that she feels unchanged. She continues to complain of both chest pain/ jaw pain as well as intermittent "pounding" palpitations. These do not tend to correlate with each other Patient states that she continues to take the metoprolol succinate as prescribed with no relief forreduction in her palpitations symptoms. Reports that they occur nearly daily and can last seconds to minutes and often times cause dizziness or lightheadedness Patient describes chest pain as a sudden now eat or sharp pinching sensation most notably under theleft breast region and also complains of sharp pains into the jaw. These do not seem to correlate with rest versus exertion in her no aggravating or alleviating factors Patient had a diagnostic heart catheterization dating back to 2010 which demonstrated mild luminal irregularities in the mid RCA but no other concerns of disease. She most recently had a stress echocardiogram which was negative for ischemia but expresses great concern over ongoing symptoms. Blood pressure control Reports compliance on all medication therapies with no untoward effects REVIEW OF SYSTEMS: See HPI for pertinent positives. All others negative other than those noted in the HPI. CONSTITUTIONAL: No change in weight, No weakness, No fatigue and No fevers, No sweats or chills. PULMONARY: No cough, sputum, or hemoptysis, No wheezing, No shortness or breath and No recent change in breathing. CARDIOVASCULAR: No chest pain, No dyspnea on exertion, No edema, No palpitations and No syncope. GASTROINTESTINAL: No abdominal pain, No change in bowel habits, No significant heartburn, No nausea, No vomiting, No diarrhea, No constipation, No blood in stools or black tarry stools. No dysphagia. HEMATOLOGIC: No abnormal bleeding and No bruising. NEUROLOGICAL: Normal balance, No headaches and No weakness. Review of patient's allergies indicates: Allergen Reactions Dilaudid [Hydromorphone Hcl] Anaphylaxis Carbamazepine And Analogs rash Gabapentin swelling Semaglutide(0.25 Or 0.5mg-Dos) Nausea/ vomiting Current Outpatient Medications Medication Sig Dispense Refill [...] 1 Capsule by mouth in the morning. Metoprolol Succinate ER 100 MG Oral Tablet Extended Release 24 Hour (toPROL XL) Take one in the morning, 1/2 in the evening 150 Tablet 3 Famotidine 40 MG Oral Tablet (Pepcid) TAKE 1 TABLET BY MOUTH EVERY DAY AT BEDTIME NEEDED FOR HEARTBURN 90 Tablet 3 Baclofen 20 MG Oral Tablet As needed Vitamin D (Ergocalciferol) 1.25 MG (12792 UT) Oral Capsule (Drisdol) TAKE 1 CAP [...] as needed for Other (cough). 100 mL 0 Albuterol Sulfate HFA 108 [...] longer than 5 days 20 Tablet 0 FLUoxetine HCl 40 MG Oral Capsule (PROzac) [...] BY MOUTH EVERY 6 HOURS NEEDED FOR [id number] Tablet 0 Rosuvastatin Calcium 20 MG Oral Tablet (Crestor) TAKE 1 TABLET BY MOUTH EVERY DAY IN THE MORNING 90Tablet 0 Klor-Con M10 10 MEQ Oral Tablet Extended Release (potassium chloride ER) TAKE 1 TABLET BY MOUTH EVERY DAY IN THE MORNING 90 Tablet 0 buPROPion HCl ER (XL) 150 MG Oral Tablet Extended Release 24 Hour (Wellbutrin XL) TAKE 1 TABLET BY MOUTH EVERY DAY 90 Tablet 3 No current facility-administered medications for this visit. 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) 02/02/2019 Family History Problem Relation Name Age of Onset Heart Disorder Mother palpitations Hypertension Father Neurological Disorder Father headaches Lung cancer Father Brain cancer Father Alcohol and Other Disorders Associated Sister No Known Problems Sister No Known Problems Sister No Known Problems Sister Alcohol and Other Disorders Associated Brother Hypertension Brother Hypertension Brother No Known Problems Daughter No Known Problems Son Migraines Son Social History Socioeconomic History Marital status: Significant Other Number of children: 3 Highest education level: 11th grade Occupational History Occupation: On Disability for 8 yrs Comment: MS dx Tobacco Use Smoking status: Former Current packs/day: 0.00 Average packs/day: 0.5 packs/day for 9.0 years (4.5 ttl pk-yrs) Types: Cigarettes Start date: 01/17/2012 Quit date: 01/16/2021 Years since quittin.7 Smokeless tobacco: Never Vaping Use Vaping status: Never Used Substance and Sexual Activity Alcohol use: No Drug use: Not Currently Types: Marijuana Comment: tried it one time Sexual activity: Not Currently control/protection: Surgical Comment: hyst Other Topics Concern Service No Blood Transfusions No Caffeine Concern No Occupational Exposure No Hobby Hazards No Sleep Concern Yes Stress Concern Yes Weight Concern No Special Diet No Back Care No Exercise No Seat Belt No Self-Exams No Social Determinants of Health Food Insecurity: No Food Insecurity (09/16/2023) Hunger Vital Sign Worried About Running Out of Food in the Last Year: Never true Ran Out of Food in the Last Year: Never true OBJECTIVE/PHYSICAL EXAMINATION: BP 132/88 (BP Site: Left Arm, BP Position: Sitting, BP Cuff Size: Large) | Pulse 78 | Resp 14 | Wt 102.7 kg (226 lb 6.4 oz) | LMP 04/28/2017 (Exact Date) | BMI 40.10 kg/m | BSA 2.14 m General: No acute distress. A+Ox3. HEENT: Normocephalic. Atraumatic. PERRL. EOMI. Conjunctiva and sclera clear. NECK: No carotid bruits. No JVD. Carotid upstrokes are brisk. Heart: RRR. S1 and S2 noted. No murmur. No rubs or gallops. PMI non displaced. Lungs: Clear to auscultation. No wheezes.No rhonchi. No rales. Abdomen: Normal bowel sounds. Soft. Nontender. No masses or organomegaly. No abdominal bruits. Extremities: No edema. No clubbing or cyanosis. Pulses: radial=2/4, posterior tibial=2/4, dorsalis pedis = 2/4. NEURO: No focal deficits. PSYCH: Appropriate affect and insight. DATA Labs & Imaging Reviewed Below: EKG 04/08/23 Normal sinus rhythm Possible Left atrial enlargement Cannot rule out Anterior infarct, age undetermined Abnormal ECG When compared with ECG of 08-SEP-2022 09:14, No significant change was found Ventricular Rate: 94 EKG July 31, 2022 personally reviewed Normal sinus rhythm with normal tracing at 85 beats per minute EKG September 08, 2022 with symptoms of chest discomfort and tightness Normal sinus rhythm at 87 beats per minute minimal voltage criteria for left atrial enlargement Zio patch event monitor Patient had a min HR of 53 bpm, max HR of 240 bpm, and avg HR of 86 bpm. Predominant underlying rhythm was Sinus Rhythm. 1 run of Ventricular Tachycardia occurred lasting 7 beats with a max rate of 240 bpm (avg 204 bpm). 1 run of Supraventricular Tachycardia occurred lasting 5 beats with a max rate of 179 bpm (avg 137 bpm). Ventricular Tachycardia and Supraventricular Tachycardia were detected within +/- 45 seconds of symptomatic patient event(s). Isolated SVEs were rare (<1.0%), SVE Couplets were rare (<1.0%), and no SVE Triplets were present. Isolated VEs were rare (<1.0%), VE Couplets were rare (<1.0%), and no VE Triplets were present. Stress echocardiogram 11/24/22 Interpretation Summary There is no echocardiographic or EKG evidence of resting or inducible ischemia. The heart rate was attenuated likely due to underlying treatment with metoprolol. The resting heart rate of 58 beats per minute jil to a maximal rate of 118 beats per minute. This value represents 72% of the maximal age predicted heart rate. The low heart rate and low exercise level reduce the sensitivity of the test for detecting ischemia. The patient described 7/10 intensity chest tightness early in the post stress recovery interval that resolved with rest. Test results similar to those reported at the time of the previous study dated 06/07/2010 with exception new finding of attenuated heart rate response. No significant valvular disease was reported on the resting study. ASSESSMENT/PLAN: 57 year old year old female 1. Palpitations 2. PVC (premature ventricular contraction) - recommend repeat Zio monitor as it has been over a year and patient denies any change or improvement since medication adjustments - recent labs demonstrated normal potassium and sodium but there were no levels drawn to assess magnesium or TSH we will obtain those today - EXTERNAL EKG 8 TO 15 DAYS; Future - TSH WITH FREE T4 IF INDICATED; Future - MAGNESIUM; Future 3. Chest pain, unspecified type - recent stress echocardiogram which was negative for ischemia however due to low heart rate and low exercise level reduce the sensitivity of the test to exclude ischemia - prior cardiac catheterization dating back to 2010 as noted above demonstrated mild luminal irregularities in the mid RCA portion discuss this in detail with patient - given patient's ongoing symptoms and concern as well as reduced sensitivity of recent stress testwould recommend that we proceed with a cardiac CT for more definitive answers - CT FFR CORONARY ARTERIES; Future - CT CARDIAC COMPLETE; Future - CREATININE; Future 4. HTN, goal below 130/80 - controled - continue amlodipine, Toprol-XL, hydrochlorothiazide 5. Dyslipidemia, goal LDL below 130 - recommend yearly lipid panel -Continue on Crestor as per current regimen as well as aspirin 81 mg DISPOSITION: Follow up 3 months or if symptoms worsen/fail to improve. All questions were answered to the patients satisfaction. Patient advised to report to ED with any and all emergencies. The patient agrees to the above plan and will call with additional questions or concerns. BARBARA [facility], [address] [address] I spent a total of 40 minutes on the date of service in preparation, delivery, and documentation ofthe care provided to Deanne Mckeon excluding any time spent in the performance of separately billed services. This chart was completed in part utilizing [employer] Speech Voice Recognition Software. Grammatical errors, random word insertions, pronoun errors, and incomplete sentences are an occasional consequence of this system due to software limitations, ambient noise, and hardware issues. Any formal questions or concerns about the content, text, or information contained within the body of this dictation should be directly addressed to the provider for clarification. documented in this encounter Nursing Notes * Twila Sutherland RN - 10/13/2023 11:08 AM EDT Examination Room: 3 Name: Deanne Mckeon Date of : (1965). Reason for Visit: Follow up Interim Hospitalization(s): No Problems/Concerns: States feeling well, overall. Denies current concerns. Chest Pain/SOB: Denies [facility] Discussed: Yes [facility] is a way you can talk to your provider online through e-mail. Would you like to sign up? I can activate it for you? ALREADY ACTIVE Patient was instructed to not get up on the exam table until directed and assisted by their provider; patient is to remain seated in the chair/ wheelchair/ exam table for fall prevention and safety reasons. Patient is aware to have assistance to step down off exam table with personnel. Patient voiced full comprehension of instructions. documented in this encounter Plan of Treatment Upcoming Encounters Date Type Department Care Team (Late st Contact Info) Description 10/13/2023 1:40 PM EDT Office Visit [facility] [address] [facility] [place] [address] Loreta Morejon PA-C [address] [facility] [place] [address] 12/10/2023 11:00 AM EDT Office Visit Gastroenterology, [facility] [address] [facility] [place] [address] Sukumar Zuñiga CRNP [address] [facility] [address] 01/07/2024 10:00 AM EDT Office Visit Cardiology, [facility] [address] [facility] [place] [address] Gloria Rosenthal [facility]NP [address] [facility] [address] 02/15/2024 8:00 AM EDT Telemedicine Psychiatry [address] [place] [address] Tabby Mcfarland MD [address] [place] [facility] [place] [address] Scheduled Orders Name Type Priority Associated Diagnoses Orde r Schedule EXTERNAL EKG 8 TO 15 DAYS Holter Routine Palpitations PVC (premature ventricular contraction) Expected: 10/13/2023 (Approximate), Expires: 10/12/2024 CT FFR CORONARY ARTERIES Medical Imaging Routine Chest pain, unspecified type Expected: 10/13/2023, Expires: 11/11/2024 CT CARDIAC COMPLETE Medical Imaging Routine Chest pain, unspecified type Expected: 10/13/2023, Expires: 11/11/2024 CREATININE Lab Routine Chest pain, unspecified type Expected: 10/13/2023, Expires: 10/12/2024 TSH WITH FREE T4 IF INDICATED Lab Routine Palpitations Expected: 10/13/2023, Expires: 10/12/2024 MAGNESIUM Lab Routine Palpitations Expected: 10/13/2023, Expires: 10/12/2024 Scheduled Procedures Name Priority Associated Diagnoses Date/Ti [...] as of this encounter Visit Diagnoses Diagnosis Palpitations- Primary PVC (premature ventricular contraction) Other premature beats Chest pain, unspecified type HTN, goal below 130/80 Unspecified essential hypertension Dyslipidemia, goal LDL below 130 Other and unspecified hyperlipidemia documented in this encounter Advance Directives Healthcare Agents on File Name Relationship Healthcare Agent Relationshi p Communication Zara Jackson Adult Child Health Care Repr esentative (appointed verbally by patient or by statute hierarchy) Care Teams [employer] Relationship Specialty Start Date End Date Tarun Gill III, MD [address] [place] [address] PCP - General 06/11/00 documented as of this encounter
--- OUTSIDE RECORDS SUMMARY | 2023-11-27 15:10 | External Medical Summary ---
Author Name Unknown Address Unknown Organization [id number]:[facility] [place] [place] [address] Laboratory Report Ordering Provider Test Date Status JOSE LORENZANA 10/13/2023 14:43:22 Final Observation Date Value Abnormality Reference (Units ) Status Magnesium 10/13/2023 14:43:22 2.2 1.5-2.6 (m g/dL) Final Performing Location [facility] [place] [address]
[2023-11-27] MEDS: LACTATED RINGER'S 500 ML IV ONE (15:32)
--- NOTE | 2023-11-27 15:32 | Pharmacy Report ---
Pharmacy Glycemic Short Note 2 - Date of Service November 27, 2023 - Glycemic Short BSG Results (Last 24 hours): 11/26/23 11/26/23 15:12 21:29 Glucose 126 H POC Glucose 152 H OUTPATIENT ANTIDIABETIC REGIMEN: * metformin 500 mg BID , dulaglutide 0.75 sq weekly * A1c pending ASSESSMENT: * 58 yo female with history of type 2 diabetes, admitted for chest plans- initial plans to get cardiac cath today, however this has been delayed * T2DM currently ordered, BSGs have been stable [phone] mg/dL * RN reported patient did not each lunch. * Will continue current weight based novolog parameters- hold on basal for now pending cath plans PLAN FOR INPATIENT GLYCEMIC CONTROL: * Hold outpatient oral diabetes medications * Basal insulin * Hold * Bolus insulin * NovoLog per scale ACHS or Q6hrs while NPO * Goal Range: Low 110 mg/dL - High 140 mg/dL * Correction Factor: 30 mg/dL/unit * Nutritional / Prandial insulin per carb ratio of 1 unit per 10 grams CHO consumed
--- NOTE | 2023-11-27 16:15 | Electrocardiogram Report ---
Test Reason : Blood Pressure : / mmHG Vent. Rate : 077 BPM Atrial Rate : 077 BPM P-R Int : 170 ms QRS Dur : 098 ms QT Int : 398 ms P-R-T Axes : 052 -32 058 degrees QTc Int : 450 ms Normal sinus rhythm Left axis deviation Minimal voltage criteria for LVH, may be normal variant Abnormal ECG When compared with ECG of 17-SEP-2021 10:37, No significant change was found Confirmed by Gus Kurtz ([id number]) on 11/27/2023 4:15:04 PM Referred By: Confirmed By:Gus Kurtz
[2023-11-27] MEDS: RIZATRIPTAN BENZOATE 10 MG TAB PO PRN (19:37)
[2023-11-27 19:51] LABS: Albumin Globulin Ratio 1.3 (0.9-2); Albumin Level 3.9 gm/dl (3.4-5.0); BUN Creatinine Ratio 21.7 (10-20); Bilirubin,Total 0.5 mg/dl (0.2-1.0); Calcium 9.1 mg/dl (8.6-10.3); Est GFR (African American) 111.2 ml/min; Globulin 3.1 gm/dl (2.5-4.0); Potassium 4.2 mmol/L (3.5-5.1); Troponin I High Sensitivity 2.6 pg/ml (0-14)
[2023-11-27 20:02] LABS: Hemoglobin 13.6 g/dl (12.0-16.0); Mean Corpuscular Hemoglobin 28.6 pg (25.0-34.0); Mean Corpuscular Hgb Conc 33.2 g/dL (32.0-36.0); Mean Corpuscular Volume 86.3 fL (80.0-100.0); Mean Platelet Volume 10.1 fL (9.4-12.4); Platelet Count 263 K/uL (130-400); RDW Coefficient of Variation 13.8 % (11.5-14.5); RDW Standard Deviation 43.4 fL (36.4-46.3); Red Blood Count 4.75 M/uL (4.20-5.40); White Blood Count 5.16 K/ul (4.8-10.8)
[2023-11-28] MEDS: ACETAMINOPHEN 325 MG TAB PO PRN (05:57)
[2023-11-28] MEDS: ALBUTEROL 0.083% NEBU SOLN 3 ML VIAL INH PRN (06:20)
[2023-11-28 07:33] LABS: Hemoglobin 13.2 g/dl (12.0-16.0); Mean Corpuscular Hemoglobin 28.8 pg (25.0-34.0); Mean Corpuscular Volume 87.1 fL (80.0-100.0); Mean Platelet Volume 10.4 fL (9.4-12.4); Platelet Count 308 K/uL (130-400); RDW Coefficient of Variation 13.9 % (11.5-14.5); RDW Standard Deviation 44.5 fL (36.4-46.3); Red Blood Count 4.59 M/uL (4.20-5.40); White Blood Count 6.04 K/ul (4.8-10.8)
[2023-11-28 07:37] LABS: BUN Creatinine Ratio 19.4 (10-20); Calcium 9.2 mg/dl (8.6-10.3); Est GFR (African American) 73.7 ml/min; Est GFR (Non-African American) 63.6 ml/min; Magnesium 2.1 mg/dl (1.7-2.4); Phosphorus 3.2 mg/dl (2.5-4.9); Potassium 4.2 mmol/L (3.5-5.1)
[2023-11-28 09:41] LABS: Estimated Average Glucose 154 mg/dl
--- NOTE | 2023-11-28 12:55 | Hospitalist Progress Note ---
Date of Service November 28, 2023 Assessment & Plan (1) Chest pain: (2) Coronary artery disease: (3) Cough: Plan Ms. Deanne Mckeon is a 58y/o F with PMHx of DM type II, dyslipidemia, HTN, history of vitamin D deficiency, chronic idiopathic constipation, GERD without esophagitis, lichen simplex chronicus, multiple sclerosis, history of migraines, depression and other problems listed below who presented to the ED on 11/25 for evaluation of chest pain. Patient follows w/ [facility] in the outpatient setting 2/2 hypertensive heart disease and chronic ventricular ectopy. Given recent chest pain and tightness, the patient ultimately underwent cardiac CT on 11/16 and that revealed the followin diagonal branch with moderate, possibly hemodynamically significant (50% to 60%) stenosis with extensive calcium blooming artifact, diagonal branch of the left anterior descending artery has calcified plaque and mid left anterior descending coronary artery has mild (25% to 49%) stenosis. Patient is scheduled for cardiac catheterization on 12/07; however, severe chest pain prompted presentation to ED. Cardiology evaluated patient on 11/26 and determined that low suscpicion for active ACS and no indication for catheterization. Five drawn troponin levels have been stable. EKG has been without signs of ischemia. Patient also with a multitude of varying concerns which all seem to have a chronic component, however, patient very concerned. Patient with history of MS and chronic migraines following with Neurology. Home regimen resumed, however, patient reports concerns of tremors and whole body "jerking." This was not witnessed, just reported by patient. Given patient's complex neuro history and multitude of concerns, will consult Neurology for additional dispo planning and optimization. No clear focal deficits noted, therefore will hold on imaging unless recommended by neurology. #Chest pain, noncardiac #Liable HTN #Coronary Artery Disease, noted on Cardiac CT (11/16) Initial trop negative, EKG w/o ischemic changes. Repeat trop all negative CXR negative for any acute cardiopulmonary findings. Cardiology following -No acute indications for C at this time Can consider increasing amlodipine Blood pressures fluctuating -Hold lisinopril and HCTZ Continue amlodipine iso chest pain and home Metop ectopy Orthostats negative 11/26 ECHO 55-60%, overall unremarkable Sublingual nitroglycerin PRN ordered. Continue asa and rosuvastatin #Headache #History of migraine with aura home regimen atogepant Continue maxalt and topiramate continue prozac eod #Relapsing, remitting MS #Chronic fatigue on Kesimpta Recent MRI without new lesions discuss with neuro need for further imaging #Cough *resolved Pt c/o ongoing cough on admission, pt afebrile. No recent fevers, clear to white sputum production. CXR negative for any acute cardiopulmonary findings. No leukocytosis; biofire and procal negative #DM Type II Hold SUBACUTE NURSE diabetic meds; initiate SSI regimen. Glycemic pharmacy consulted, appreciate their recommendations. Other Chronic Medical Conditions: Chronic idiopathic constipation, depression/anxiety, history of migraines, GERD --> Can continue SUBACUTE NURSE medications for these specified conditions. DVT Prophylaxis: SQ Heparin Code Status: FULL CODE PCP: Tarun Gill MD Disposition: downgrade to Med Tele Progress note from 11/26 documented in paper chart 2/ system downtime. Admission and Anticipated Discharge Date Admission Date: November 26, 2023 Subjective Reports ongoing headaches, has followed neurology Reports intermittent chest pain "on and off" on exertion and with rest Reports presyncope and generalized muscle jerking, reports acute on chronic RUE jerking Reports urinary incontinence---suggests that it isn't chronic, but then notes that she wears pads at home but at this time "is worse than ever" Denies any nausea, vomiting, or syncope Physical Exam Constitutional: WD/WN, vitals as above Respiratory: normal respiratory effort, lungs clear to auscultation Cardiovascular: RRR, no murmur, no edema Neurologic: PERRL, EOMI, accommodation nl, no face palsy, no dysarthria (RUE rest tremor ) Results & Data Results & Data Vital Signs (Past 12 Hours) Vital Signs Temp Pulse Pulse Resp BP Pulse Ox O2 Del Method 11/28/23 12:11 36.8 C 57 L 18 111/63 92 Room Air 11/28/23 08:11 36.7 C 60 18 90/52 L 91 Room Air 11/28/23 08:00 56 L 11/28/23 08:00 106/59 L 11/28/23 06:20 66 21 95 Room Air 11/28/23 02:30 36.9 C 56 L 18 116/78 94 Room Air Laboratory Results Short CBC 11/27/23 11/28/23 Range/Units 11:50 06:23 WBC 5.16 6.04 (4.8-10.8) K/ul Hgb 13.6 13.2 (12.0-16.0) g/dl Hct 41.0 40.0 (37.0-47.0) % Plt Count 263 308 (130-400) K/uL BMP 11/27/23 11/27/23 11/27/23 11:50 11:50 11:50 Sodium Cancelled 138 Potassium Cancelled 4.2 Chloride Cancelled Carbon Dioxide BUN Creatinine Glucose Calcium 11/27/23 11/27/23 11/27/23 11:50 11:50 11:50 Sodium Potassium Chloride 106 Carbon Dioxide Cancelled 26 BUN Cancelled 15 Creatinine Cancelled Glucose Calcium 11/27/23 11/27/23 11/27/23 11:50 11:50 11:50 Sodium Potassium Chloride Carbon Dioxide BUN Creatinine 0.69 Glucose Cancelled 136 H Calcium Cancelled 9.1 11/28/23 06:23 Sodium 138 Potassium 4.2 Chloride 106 Carbon Dioxide 25 BUN 19 Creatinine 0.98 Glucose 146 H Calcium 9.2 Liver Function 11/27/23 11/27/23 11/27/23 Range/Units 11:50 11:50 11:50 Total Bilirubin Cancelled 0.5 AST Cancelled 14 ALT Cancelled Alkaline Phosphatase Albumin 11/27/23 11/27/23 11/27/23 Range/Units 11:50 11:50 11:50 Total Bilirubin AST ALT 13 Alkaline Phosphatase Cancelled 98 Albumin Cancelled 3.9 Medications Administered Home Medications Medication Instructions Recorded Confirmed Last Taken metformin 500 mg tablet,extended 500 mg PO BID 03/09/19 11/26/23 09/05/19 release 24 hr nitroglycerin 0.4 mg sublingual 0.4 mg sublingual UD PRN Chest Pain 09/06/19 11/26/23 Unknown tablet amlodipine 2.5 mg tablet 2.5 mg PO DAILY 12/19/20 11/26/23 Unknown aspirin 81 mg tablet,delayed 81 mg PO DAILY 12/19/20 11/26/23 Unknown release (Adult Low Dose Aspirin) hydrochlorothiazide 25 mg tablet 25 mg PO DAILY 12/19/20 11/26/23 Unknown lisinopril 20 mg tablet 20 mg PO DAILY 12/19/20 11/26/23 Unknown metoprolol succinate 100 mg 50 - 100 mg PO DAILY 12/19/20 11/26/23 Unknown tablet,extended release 24 hr famotidine 40 mg tablet 40 mg PO DAILY 03/06/21 11/26/23 Unknown syringe with needle, safety 1 mL #3 ea 09/08/22 11/26/23 Unknown 25 gauge x 1" (Easy Touch FlipLock Syringe) cyanocobalamin (vitamin B-12) 1,000 mcg IM MONTHLY #3 mL 11/04/22 11/26/23 Unknown 1,000 mcg/mL injection solution digital therapeutic,GEORGE device #1 ea 01/14/23 11/26/23 Unknown Oxygen Home 06/16/23 11/26/23 Unknown ofatumumab 20 mg/0.4 mL 20 mg (0.4 mL) subcut MONTHLY #0.4 06/16/23 11/26/23 Unknown subcutaneous pen injector mL (Kesimpta Pen) albuterol sulfate 2.5 mg/3 mL 2.5 mg inhalation Q4H PRN 08/20/23 11/26/23 Unknown (0.083 %) solution for nebulization Shortness Of Breath Or Wheezing albuterol sulfate 90 mcg/actuation 2 puff inhalation Q6H PRN 08/20/23 11/26/23 Unknown aerosol inhaler Shortness Of Breath Or Wheezing bupropion HCl 150 mg 24 hr tablet, 150 mg PO QAM 08/20/23 11/26/23 Unknown extended release cholecalciferol (vitamin D3) 1,250 50,000 unit PO WEEKLY 12 weeks #12 08/20/23 11/26/23 Unknown mcg (50,000 unit) capsule caps clobetasol 0.05 % topical cream 1 applic topical BID 08/20/23 11/26/23 Unknown dulaglutide 0.75 mg/0.5 mL 0.75 mg subcut WK 08/20/23 11/26/23 Unknown subcutaneous pen injector (Trulicjony) fluoxetine 40 mg capsule 40 mg PO DAILY 08/20/23 11/26/23 Unknown loratadine 10 mg tablet 10 mg PO DAILY 08/20/23 11/26/23 Unknown omeprazole 40 mg capsule,delayed 40 mg PO DAILY 08/20/23 11/26/23 Unknown release ondansetron HCl 4 mg tablet 4 mg PO Q6H PRN Nausea And Vomiting 08/20/23 11/26/23 Unknown rosuvastatin 20 mg tablet 20 mg PO DAILY 08/20/23 11/26/23 Unknown sennosides 8.6 mg tablet (senna) 8.6 mg PO DAILY 08/20/23 11/26/23 Unknown solifenacin 5 mg tablet 5 mg PO DAILY 08/20/23 11/26/23 Unknown tacrolimus 0.03 % topical ointment 1 applic topical BID PRN .flare ups 08/20/23 11/26/23 Unknown topiramate 200 mg capsule 200 mg PO DAILY #30 caps 09/23/23 11/26/23 Unknown sprinkle,extended release 24 hr armodafinil 150 mg tablet 150 mg PO QAM #30 tabs 10/02/23 11/26/23 Unknown rizatriptan 10 mg tablet 10 mg PO DAILY PRN migraine 10/02/23 11/26/23 Unknown headache #9 tabs baclofen 20 mg tablet 20 mg PO BID PRN Neck Pain 11/26/23 11/26/23 Unknown estradiol 0.01% (0.1 mg/gram) 1 applic vaginal DAILY PRN itchy 11/26/23 11/26/23 Unknown vaginal cream trazodone 100 mg tablet 200 mg PO QPM 11/26/23 11/26/23 Unknown Active Medications Generic Name Dose Route Start Last Admin Trade Name Freq PRN Reason Stop Dose Admin Acetaminophen 650 mg 11/26/23 19:52 11/28/23 05:57 Acetaminophen 325 Mg Tab PO 12/26/23 19:51 650 mg Q4H PRN Administration Pain or Fever Albuterol 2.5 mg 11/26/23 19:52 11/28/23 06:20 Albuterol 0.083% Nebu Soln 3 Ml Vial INH 12/26/23 19:51 2.5 mg Q4H PRN Administration Shortness Of Breath Or Wheezin Protocol Amlodipine Besylate 2.5 mg 11/26/23 19:52 11/28/23 08:10 Amlodipine Besylate 5 Mg Tab PO 12/26/23 19:51 2.5 mg DAILY TRINA Administration Aspirin 81 mg 11/27/23 09:00 11/28/23 08:07 Aspirin 81 Mg Ectab PO 12/27/23 08:59 81 mg DAILY TRINA Administration Bupropion HCl 150 mg 11/27/23 09:00 11/28/23 08:07 Bupropion Xl 150 Mg Tabcr PO 12/27/23 08:59 150 mg QAM TRINA Administration Famotidine 40 mg 11/27/23 09:00 11/28/23 08:06 Famotidine 40 Mg Tablet PO 12/27/23 08:59 40 mg DAILY TRINA Administration Fluoxetine HCl 40 mg 11/27/23 09:00 11/28/23 08:06 Fluoxetine Hcl 20 Mg Cap PO 12/27/23 08:59 40 mg DAILY TRINA Administration Heparin Sodium (Porcine) 5,000 units 11/26/23 22:00 11/28/23 05:58 Heparin Sod 5,000 Unit/0.5 Ml Vial SQ 12/26/23 21:59 5,000 units Q8 TRINA Administration Insulin Aspart 0 units 11/27/23 16:30 11/28/23 12:07 Insulin Aspart Per Unit Charge SC 12/27/23 05:59 2 units ACHS TRINA Administration Lisinopril 20 mg 11/26/23 19:52 11/28/23 08:09 Lisinopril 20 Mg Tab PO 12/26/23 19:51 20 mg DAILY TRINA Administration Loratadine 10 mg 11/27/23 09:00 11/28/23 08:06 Loratadine 10 Mg Tab PO 12/27/23 08:59 10 mg DAILY TRINA Administration Metoprolol Succinate 50 mg 11/26/23 21:00 11/27/23 19:39 Metoprolol Succ 50mg Ext Rel Tab PO 12/26/23 20:59 Not Given HS TRINA Metoprolol Succinate 100 mg 11/27/23 09:00 11/28/23 08:06 Metoprolol Succ 50mg Ext Rel Tab PO 12/27/23 08:59 100 mg DAILY TRINA Administration Miscellaneous 1 each 11/27/23 00:00 11/28/23 08:05 Armodafinil* Order Awaiting Action N/A 12/27/23 00:00 Not Given QS TRINA Oxybutynin Chloride 5 mg 11/27/23 09:00 11/28/23 08:06 Oxybutynin Chloride Xl 5 Mg Tabcr PO 12/27/23 08:59 5 mg DAILY TRINA Administration Pantoprazole Sodium 40 mg 11/27/23 09:00 11/28/23 08:06 Pantoprazole 40 Mg Tab PO 12/27/23 08:59 40 mg DAILY TRINA Administration Rizatriptan Benzoate 10 mg 11/27/23 15:01 11/27/23 19:37 Rizatriptan Benzoate 10 Mg Tab PO 12/27/23 15:00 10 mg QD PRN Administration Migraine Headache Rosuvastatin Calcium 20 mg 11/27/23 09:00 11/28/23 08:06 Rosuvastatin Calcium 20 Mg Tab PO 12/27/23 08:59 20 mg DAILY TRINA Administration Sennosides 8.6 mg 11/27/23 09:00 11/28/23 08:07 Senna 8.6 Mg Tab PO 12/27/23 08:59 Not Given DAILY TRINA Topiramate 100 mg 11/27/23 09:00 11/28/23 08:05 Topiramate 100 Mg Tab PO 12/27/23 08:59 100 mg BID TRINA Administration Trazodone HCl 200 mg 11/26/23 21:00 11/27/23 19:40 Trazodone Hcl 100 Mg Tab PO 12/26/23 20:59 200 mg QPM TRINA Administration (1) Chest pain Chest pain type: unspecified Qualified Code(s): R07.9 - Chest pain, unspecified (2) Coronary artery disease Coronary Disease-Associated Artery/Lesion type: unspecified vessel or lesion type [place] vs. transplanted heart: [place] heart Associated angina: unspecified whether angina present Qualified Code(s): I25.10 - Atherosclerotic heart disease of [place] coronary artery without angina pectoris (3) Cough Cough type: unspecified Qualified Code(s): R05.9 - Cough, unspecified
[2023-11-28] MEDS: ERGOCALCIFEROL 1250 MCG (50,000 UNITS) CAP PO SCH (14:03)
--- NOTE | 2023-11-28 14:56 | Neurology Consultation ---
Date of Consultation November 28, 2023 Assessment & Plan (1) Coronary artery disease: (2) Essential tremor: History of Present Illness Attending Physician: Kerry Lama MD History of Present Illness pt admitted for chest pain and CAD. pt is known to neurology clinic for MS, followed by Dr. Yanez. Recently seen in September and mri brain/spine all stable without active lesions. pt without spine demyelinating lesions. called to eval for pt with hand tremors and body jerks reported by pt. hand tremors are chronic in nature and she had this for long time. pt states her body/arm jerks are random and started yesterday and it usually comes when she is trying to stand or sit. no issue when sleeping or laying in bed. no pain involved. pt does have long hx of persistent anxiety/depression and on trazodone and fluoxetine. As per cardiology, no intervention during this admission for her cardiac issues. admission HPI: Deanne Mckeon is a 58y/o F with PMHx of DM type II, dyslipidemia, HTN, history of vitamin D deficiency, chronic idiopathic constipation, GERD without esophagitis, lichen simplex chronicus, multiple sclerosis, history of migraines, depression and other problems listed below who presented to the ED for evaluation secondary to chest pain. History obtained from patient and associated chart review. Has not been feeling well for the past month and a half. She was previously on a phototypesetting equipment monitor - patient was told her HR kept dropping to the 40s while wearing the monitor. Patient didn't feel well this morning, mentions she did not sleep well throughout the night. Reports she has an ongoing cough and is bringing up some white-colored phlegm. Reports a "popping" sensation in her right rib cage and some substernal chest tightness - does not radiate anywhere typically. Reports feeling chest tightness throughout our conversation - 3/10 pain. Chest tightness and pain gets worse with exhaustion. Reports she has been nauseous for about a week, no vomiting episodes. Patient is on oxygen at home, only at bedtime. She is unsure of how many liters she is requiring. Denies any fevers, but mentions she feels pretty cold. Patient did not take any of her medications this morning. She is reporting a mild headache, which has been ongoing since this morning. Has not taken any nitroglycerin at home recently. Patient has not eaten much recently, but has been hydrating appropriately. Patient was at [facility] this afternoon for pre-operative testing; she is scheduled to undergo cardiac catheterization on 12/07. Allergies Allergy/AdvReac Type Severity Reaction Status Date / Time hydromorphone Allergy Severe SHORTNESS Verified 10/02/23 08:10 OF BREATH carbamazepine Allergy Unknown ? REMEMBER Verified 10/02/23 08:10 gabapentin AdvReac Mild Unknown Verified 11/26/23 17:56 Home Medications Medication Instructions Recorded Confirmed Type metformin 500 mg tablet,extended 500 mg PO BID 03/09/19 11/26/23 History release 24 hr nitroglycerin 0.4 mg sublingual 0.4 mg sublingual UD PRN Chest Pain 09/06/19 11/26/23 History tablet amlodipine 2.5 mg tablet 2.5 mg PO DAILY 12/19/20 11/26/23 History aspirin 81 mg tablet,delayed 81 mg PO DAILY 12/19/20 11/26/23 History release (Adult Low Dose Aspirin) hydrochlorothiazide 25 mg tablet 25 mg PO DAILY 12/19/20 11/26/23 History lisinopril 20 mg tablet 20 mg PO DAILY 12/19/20 11/26/23 History metoprolol succinate 100 mg 50 - 100 mg PO DAILY 12/19/20 11/26/23 History tablet,extended release 24 hr famotidine 40 mg tablet 40 mg PO DAILY 03/06/21 11/26/23 History syringe with needle, safety 1 mL #3 ea 09/08/22 11/26/23 Rx 25 gauge x 1" (Easy Touch FlipLock Syringe) cyanocobalamin (vitamin B-12) 1,000 mcg IM MONTHLY #3 mL 11/04/22 11/26/23 Rx 1,000 mcg/mL injection solution digital therapeutic,GEORGE device #1 ea 01/14/23 11/26/23 Rx Oxygen Home 06/16/23 11/26/23 History ofatumumab 20 mg/0.4 mL 20 mg (0.4 mL) subcut MONTHLY #0.4 06/16/23 11/26/23 Rx subcutaneous pen injector mL (Kesimpta Pen) albuterol sulfate 2.5 mg/3 mL 2.5 mg inhalation Q4H PRN 08/20/23 11/26/23 History (0.083 %) solution for nebulization Shortness Of Breath Or Wheezing albuterol sulfate 90 mcg/actuation 2 puff inhalation Q6H PRN 08/20/23 11/26/23 History aerosol inhaler Shortness Of Breath Or Wheezing bupropion HCl 150 mg 24 hr tablet, 150 mg PO QAM 08/20/23 11/26/23 History extended release cholecalciferol (vitamin D3) 1,250 50,000 unit PO WEEKLY 12 weeks #12 08/20/23 11/26/23 Rx mcg (50,000 unit) capsule caps clobetasol 0.05 % topical cream 1 applic topical BID 08/20/23 11/26/23 History dulaglutide 0.75 mg/0.5 mL 0.75 mg subcut WK 08/20/23 11/26/23 History subcutaneous pen injector (Trulicity) fluoxetine 40 mg capsule 40 mg PO DAILY 08/20/23 11/26/23 History loratadine 10 mg tablet 10 mg PO DAILY 08/20/23 11/26/23 History omeprazole 40 mg capsule,delayed 40 mg PO DAILY 08/20/23 11/26/23 History release ondansetron HCl 4 mg tablet 4 mg PO Q6H PRN Nausea And Vomiting 08/20/23 11/26/23 History rosuvastatin 20 mg tablet 20 mg PO DAILY 08/20/23 11/26/23 History sennosides 8.6 mg tablet (senna) 8.6 mg PO DAILY 08/20/23 11/26/23 History solifenacin 5 mg tablet 5 mg PO DAILY 08/20/23 11/26/23 History tacrolimus 0.03 % topical ointment 1 applic topical BID PRN .flare ups 08/20/23 11/26/23 History topiramate 200 mg capsule 200 mg PO DAILY #30 caps 09/23/23 11/26/23 Rx sprinkle,extended release 24 hr armodafinil 150 mg tablet 150 mg PO QAM #30 tabs 10/02/23 11/26/23 Rx rizatriptan 10 mg tablet 10 mg PO DAILY PRN migraine 10/02/23 11/26/23 Rx headache #9 tabs baclofen 20 mg tablet 20 mg PO BID PRN Neck Pain 11/26/23 11/26/23 History estradiol 0.01% (0.1 mg/gram) 1 applic vaginal DAILY PRN itchy 11/26/23 11/26/23 History vaginal cream trazodone 100 mg tablet 200 mg PO QPM 11/26/23 11/26/23 History Patient History Medical History Tremor Cholecystectomy planned Multiple sclerosis Hypertension Heart palpitations Family History Father Hypertension Lung cancer Brain cancer Migraine headache Neurological disorder Brother Hypertension Son Migraine headache Mother Palpitations Social History Smoking Status: Former smoker Tobacco Type: Cigarettes Second Hand Exposure: No; Do You Dip or Chew Tobacco: No; Tobacco Cessation Education Requested by Patient: No Hx Alcohol Use: No Hx Substance Use: No Preferred Language: Estonian Communication Ability: Effective Visual Designer Required: No Beliefs That Will Affect Care: None marital status: Current Living Situation: Family Current Living Situation Comment: Lives at home with significant other and son current occupational status: unemployed and disabled Other Information That Helps Us Care for You: No Feels Safe at Home: Yes Safety Concerns: Feels Safe At This Time Assistive Devices: None Exam (Neuro) Physical Exam: HEENT: normocephalic grossly Neuro: Mental: AOx4, fluent speech, normal comprehension, no apraxia, no L/R confusion, no neglect CN: PERRL, Full EOM, symmetric face, midline T/U/P, grossly full ROM neck Motor: rt hand postural tremors noted (chronic in nature). no jerky movement seen. normal tone, 5/5 t/o bilaterally upper limbs. pt stating she is having hard time moving her left leg ("she needs to think about it " in order to move). + Guevara test with left leg weakness (no effort noted). pt moved her left leg when testing for the DTR at the knee and then suddenly she states she can't move it because she "does not know how to move her leg". she walked in to ED when came initially for the chest pain. Pt definitely was not distress about her "left leg not able to move unless think about it". Sens: intact to touch b/l grossly Coord: intact DTR: 2+ sym b/l Gait: deferred. Impression: 58 yo female with MS, came in for chest pain/possible Coronary syndrome. Her rt hand tremors are chronic and benign in nature, likely essential tremor. Her reported body jerk movements that just started on this admission is very nonspecific and does not localize anywhere and it is interesting it is only happening when she is trying to sit or walk. Highly suspicious for somatoform disorder vs FND (functional neurological disorder) based on her left leg exam that is functional. I do not suspect serotonin syndrome at this point. Recommendations: -positive reinforcement and have physica l therapy assist with walking and reconditioning. consider psych consultation as her symptoms appears non-organic in nature otherwise no need for mri or imaging (she recently had stable mri of her entire neuroaxis). not much else to offer at this point from neurology. continue cardiac eval and care as planned. she can f/u with Dr. Yanez once discharged as routine at neurology clinic call again if new question. Chart reviewed I have spent more than 50% educating patient about potential diagnosis and neurological evaluation and coordinating care with patient's treatment team. Total time spent (including chart review and coordination of care): 60 min (this includes chart review). Results & Data Vital Signs (Past 12 Hours) Vital Signs Temp Pulse Pulse Resp BP Pulse Ox O2 Del Method 11/28/23 14:10 37.4 C 59 L 16 97/64 L 92 Room Air 11/28/23 12:47 65 11/28/23 12:11 36.8 C 57 L 18 111/63 92 Room Air 11/28/23 08:11 36.7 C 60 18 90/52 L 91 Room Air 11/28/23 08:00 56 L 11/28/23 08:00 106/59 L 11/28/23 06:20 66 21 95 Room Air PG Care Time/CCT Total # of Minutes Spent Total Time Spent with Patient: Total time spent is greater than 50% in coordination of care (as documented) at patient's floor/unit and/or counseling patient: Coding Level of Care Code 28342 IN/OBS CONSULT LVL 4,60M Diagnoses Coronary artery disease involving [place] heart, unspecified vessel or lesion type, unspecified whether angina present I25.10 Coronary Disease-Associated Artery/Lesion type: unspecified vessel or lesion type [place] vs. transplanted heart: [place] heart Associated angina: unspecified whether angina present Essential tremor G25.0 (1) Coronary artery disease Coronary Disease-Associated Artery/Lesion type: unspecified vessel or lesion type [place] vs. transplanted heart: [place] heart Associated angina: unspeci fied whether angina present Qualified Code(s): I25.10 - Atherosclerotic heart disease of [place] coronary artery without angina pectoris
--- NOTE | 2023-11-28 18:04 | Cardiology Progress Note ---
Date of Service November 28, 2023 Assessment & Plan (1) Chest pain: (2) Coronary artery disease: Plan Chest pain Patient presents with chest pain including a reproducible right rib pain that is obviously not angina. She states that she has had a nonproductive cough for a number of weeks, viral respiratory panel currently pending, chest x-ray without infiltrate. With regards to her chest symptoms, I reviewed the images of her recent cardiac CT performed on 11/17/2023 independently and agree with the report that analysis of the focal calcification at the ostium of the diagonal 2 branch of the LAD is technically limited due to the presence of focal calcification. The branch is a small vessel, 1.8 mm in diameter. The adjacent area of the LAD does not appear to be obstructive. I counseled the patient that should she have invasive coronary angiography in the diagonal 2 was found to be stenotic, the vessel appears to be too small to accommodate a stent. I have a low suspicion that her current symptoms are due to angina. Serial high since her troponin levels are within normal limits. Continue current treatment aspirin, metoprolol, amlodipine added and lisinopril has been on hold for relative low blood pressure. Lipid panel requested earlier this hospital stay was never performed with orders being canceled or related to the computer outage. Ordered for tomorrow. Will defer ongoing evaluation and treatment for headache to the hospital service. Continue subcutaneous heparin for DVT prophylaxis. Admission and Anticipated Discharge Date Admission Date: November 26, 2023 Subjective Patient seen in cardiology follow-up. Most significant subjective complaint is headache. She complains of on and off again nauseousness, occasional chest pains at rest. Has really not been out of bed. Telemetry reveals sinus rhythm in the 50s to 60s without arrhythmia. Physical Exam Physical Exam: General: no acute distress and stated age Eyes: conjunctiva are pink and non-injected, sclera clear Neck: normal jugular venous pulse, no hepatojugular reflux Chest: normal shape and normal respiratory effort Lungs: clear to auscultation and percussion Cardiac Exam: -regular rhythm, no murmurs, rubs, or gallops, no jugular venous distention Abdomen: abdomen soft, non-tender, no abnormal masses and no hepatosplenomegaly Musculoskeletal: no gait disturbance, no weakness Right-sided rib pain reproduced with palpation lateral to the right breast Extremities: no edema and no cyanosis Neuro:awake, conversant, follows commands, no focal motor deficits Psych: appropriate affect and insight. Results & Data Vital Signs (Past 12 Hours) Vital Signs Temp Pulse Pulse Resp BP Pulse Ox O2 Del Method 11/28/23 14:42 60 11/28/23 14:10 37.4 C 59 L 16 97/64 L 92 Room Air 11/28/23 12:47 65 11/28/23 12:11 36.8 C 57 L 18 111/63 92 Room Air 11/28/23 08:11 36.7 C 60 18 90/52 L 91 Room Air 11/28/23 08:00 56 L 11/28/23 08:00 106/59 L 11/28/23 06:20 66 21 95 Room Air Laboratory Results Cardiac Enzymes 11/27/23 11/27/23 11/27/23 Range/Units 11:50 11:50 16:55 AST Cancelled 14 Troponin I High Sens 2.6 2.9 (0-14) pg/ml 11/27/23 Range/Units 23:12 AST Troponin I High Sens 3.3 (0-14) pg/ml CBC 11/27/23 11/28/23 Range/Units 11:50 06:23 WBC 5.16 6.04 (4.8-10.8) K/ul RBC 4.75 4.59 (4.20-5.40) M/uL Hgb 13.6 13.2 (12.0-16.0) g/dl Hct 41.0 40.0 (37.0-47.0) % Plt Count 263 308 (130-400) K/uL 11/27/23 11/27/23 11/28/23 Range/Units 11:50 11:50 06:23 Sodium 138 Potassium 4.2 Chloride 106 Carbon Dioxide 25 BUN 19 Creatinine 0.98 Glucose 146 H Calcium 9.2 AST ALT Alkaline Phosphatase Total Protein 7.0 Albumin Cancelled 3.9 (2) Coronary artery disease Coronary Disease-Associated Artery/Lesion type: unspecified vessel or lesion type [place] vs. transplanted heart: [place] heart Associated angina: unspecified whether angina present Qualified Code(s): I25.10 - Atherosclerotic heart disease of [place] coronary artery without angina pectoris
[2023-11-28] MEDS: ONDANSETRON INJ 2 MG/ML 2 ML VIAL IV STA (19:17)
[2023-11-28] MEDS: BACLOFEN 20 MG TAB PO PRN (21:05)
[2023-11-29 07:13] LABS: Hematocrit (blood only) 38.3 % (37.0-47.0); Hemoglobin 12.7 g/dl (12.0-16.0); Mean Corpuscular Hemoglobin 28.9 pg (25.0-34.0); Mean Corpuscular Hgb Conc 33.2 g/dL (32.0-36.0); Mean Corpuscular Volume 87.2 fL (80.0-100.0); Mean Platelet Volume 10.4 fL (9.4-12.4); Platelet Count 271 K/uL (130-400); RDW Coefficient of Variation 13.8 % (11.5-14.5); RDW Standard Deviation 44.5 fL (36.4-46.3); Red Blood Count 4.39 M/uL (4.20-5.40); White Blood Count 5.66 K/ul (4.8-10.8)
[2023-11-29 07:28] LABS: BUN Creatinine Ratio 23.6 (10-20); Calcium 9.1 mg/dl (8.6-10.3); Chol HDL Ratio 5.2 (0-5); Creatinine Clr Calc Pharmacy 65.4 ml/min; Est GFR (African American) 64.1 ml/min; Est GFR (Non-African American) 55.3 ml/min; Magnesium 2.1 mg/dl (1.7-2.4); Phosphorus 3.6 mg/dl (2.5-4.9)
[2023-11-29] MEDS: FLUoxetine HCL 20 MG CAP PO SCH (09:34)
[2023-11-29 10:38] LABS: Appearance Urine Cloudy (Clear); Bacteria Urine Automated 2+ (None Seen); Bilirubin Urine Negative (Negative); Blood Urine Negative (Negative); Cast Urine Automated 0-2 /lpf (0-2); Color Urine Yellow; Glucose Urine UA Negative (Negative); Ketones Urine Negative (Negative); Leukocyte Esterase Urine Trace (Negative); Nitrite Urine Negative (Negative); Protein Urine Negative (Negative); RBC Urine Automated 0-2 /hpf (0-2); Specific Gravity Urine 1.018 (1.000-1.030); Urobilinogen Urine Negative (Negative)
[2023-11-29] MEDS: cefTRIAXone SODIUM 2,000 MG/50 ML BAG IV SCH (11:23)
--- NOTE | 2023-11-29 14:52 | Hospitalist Progress Note ---
Date of Service November 29, 2023 Assessment & Plan (1) Chest pain: (2) Coronary artery disease: (3) Cough: Plan Ms. Deanne Mckeon is a 58y/o F with PMHx of DM type II, dyslipidemia, HTN, history of vitamin D deficiency, chronic idiopathic constipation, GERD without esophagitis, lichen simplex chronicus, multiple sclerosis, history of migraines, depression and other problems listed below who presented to the ED on 11/25 for evaluation of chest pain. Patient follows w/ [facility] in the outpatient setting 2/2 hypertensive heart disease and chronic ventricular ectopy. Given recent chest pain and tightness, the patient ultimately underwent cardiac CT on 11/16 and that revealed the followin diagonal branch with moderate, possibly hemodynamically significant (50% to 60%) stenosis with extensive calcium blooming artifact, diagonal branch of the left anterior descending artery has calcified plaque and mid left anterior descending coronary artery has mild (25% to 49%) stenosis. Patient is scheduled for cardiac catheterization on 12/07; however, severe chest pain prompted presentation to ED. Cardiology evaluated patient on 11/26 and determined that low suscpicion for active ACS and no indication for catheterization. Five drawn troponin levels have been stable. EKG has been without signs of ischemia. Patient also with a multitude of varying concerns which all seem to have a chronic component, however, patient very concerned. Patient with history of MS and chronic migraines following with Neurology. Home regimen resumed, however, patient reports concerns of tremors and whole body "jerking." This was not witnessed, just reported by patient. Given patient's complex neuro history and multitude of concerns, will consult Neurology for additional dispo planning and optimization. No clear focal deficits noted, therefore will hold on imaging unless recommended by neurology. As of 11/28, patient's concerns have evolved from chest pain to reports of nonfocal neurologic concerns and generalized unwellness. Infectious work up with UA given concern of reported incontinence Recent MRI from 09/2023 reviewed and normal. No further imaging required per neurology Question if possible UTI contributing to presentation. UA culture pending #Abnormal UA #Acute on chronic urinary incontinence given on going concerns reported by patient, start CTX UA questionable, follow cultures #Chest pain, noncardiac #Liable HTN #Coronary Artery Disease, noted on Cardiac CT (11/16) Initial trop negative, EKG w/o ischemic changes. Repeat trop all negative CXR negative for any acute cardiopulmonary findings. Cardiology following -No acute indications for LHC at this time Can consider increasing amlodipine Blood pressures fluctuating -Hold lisinopril and HCTZ Continue amlodipine iso chest pain and home Metop ectopy Orthostats negative 11/26 ECHO 55-60%, overall unremarkable Sublingual nitroglycerin PRN ordered. Continue asa and rosuvastatin #Headache #History of migraine with aura home regimen atogepant Continue maxalt and topiramate continue prozac eod #Relapsing, remitting MS #Chronic fatigue on Kesimpta Recent MRI without new lesions discuss with neuro need for further imaging #Cough *resolved Pt c/o ongoing cough on admission, pt afebrile. No recent fevers, clear to white sputum production. CXR negative for any acute cardiopulmonary findings. No leukocytosis; biofire and procal negative #DM Type II Hold [employer] diabetic meds; initiate SSI regimen. Glycemic pharmacy consulted, appreciate their recommendations. Other Chronic Medical Conditions: Chronic idiopathic constipation, depression/anxiety, history of migraines, GERD --> Can continue [employer] medications for these specified conditions. Pending PT/OT DVT Prophylaxis: SQ Heparin Code Status: FULL CODE PCP: Tarun Gill MD Disposition: med tele Progress note from 11/26 documented in paper chart 2/2 system downtime. Admission and Anticipated Discharge Date Admission Date: November 29, 2023 Subjective Reports feeling the same as admission Endorses varying concerns that fluctuate Discussed no imaging recommended, patient reports feeling flustered by this Reports ongoing chest pain intermittent/random in nature, intermittent headaches (consistent with chronic process) Physical Exam Constitutional: WD/WN, vitals as above Respiratory: normal respiratory effort, lungs clear to auscultation Gastrointestinal (Abdomen): normal bowel sounds, soft, nontender, no hepatosplenomegaly Neurologic: PERRL, EOMI, accommodation nl, no face palsy, no dysarthria Results & Data Results & Data Vital Signs (Past 12 Hours) Vital Signs Temp Pulse Pulse Resp BP Pulse Ox O2 Del Method 11/29/23 11:21 36.7 C 55 L 18 100/63 92 Room Air 11/29/23 07:43 37.1 C 61 18 129/67 92 Room Air 11/29/23 07:18 65 11/29/23 05:27 37.6 C H 11/29/23 03:23 37.4 C 62 18 103/62 93 Room Air Laboratory Results Short CBC 11/29/23 Range/Units 06:09 WBC 5.66 (4.8-10.8) K/ul Hgb 12.7 (12.0-16.0) g/dl Hct 38.3 (37.0-47.0) % Plt Count 271 (130-400) K/uL BMP 11/29/23 06:09 Sodium 136 Potassium 4.0 Chloride 105 Carbon Dioxide 25 BUN 26 H Creatinine 1.10 Glucose 163 H Calcium 9.1 Urine 11/29/23 Range/Units 09:50 Urine Color Yellow Urine Appearance Cloudy A (Clear) Urine pH 6.0 (4.5-7.5) Ur Specific [place] 1.018 (1.000-1.030) Urine Protein Negative (Negative) Urine Glucose (UA) Negative (Negative) Medications Administered Home Medications Medication Instructions Recorded Confirmed Last Taken metformin 500 mg tablet,extended 500 mg PO BID 03/09/19 11/26/23 09/05/19 release 24 hr nitroglycerin 0.4 mg sublingual 0.4 mg sublingual UD PRN Chest Pain 09/06/19 11/26/23 Unknown tablet amlodipine 2.5 mg tablet 2.5 mg PO DAILY 12/19/20 11/26/23 Unknown aspirin 81 mg tablet,delayed 81 mg PO DAILY 12/19/20 11/26/23 Unknown release (Adult Low Dose Aspirin) hydrochlorothiazide 25 mg tablet 25 mg PO DAILY 12/19/20 11/26/23 Unknown lisinopril 20 mg tablet 20 mg PO DAILY 12/19/20 11/26/23 Unknown metoprolol succinate 100 mg 50 - 100 mg PO DAILY 12/19/20 11/26/23 Unknown tablet,extended release 24 hr famotidine 40 mg tablet 40 mg PO DAILY 03/06/21 11/26/23 Unknown syringe with needle, safety 1 mL #3 ea 09/08/22 11/26/23 Unknown 25 gauge x 1" (Easy Touch FlipLock Syringe) cyanocobalamin (vitamin B-12) 1,000 mcg IM MONTHLY #3 mL 11/04/22 11/26/23 Unknown 1,000 mcg/mL injection solution digital therapeutic,GEORGE device #1 ea 01/14/23 11/26/23 Unknown Oxygen Home 06/16/23 11/26/23 Unknown ofatumumab 20 mg/0.4 mL 20 mg (0.4 mL) subcut MONTHLY #0.4 06/16/23 11/26/23 Unknown subcutaneous pen injector mL (Kesimpta Pen) albuterol sulfate 2.5 mg/3 mL 2.5 mg inhalation Q4H PRN 08/20/23 11/26/23 Unknown (0.083 %) solution for nebulization Shortness Of Breath Or Wheezing albuterol sulfate 90 mcg/actuation 2 puff inhalation Q6H PRN 08/20/23 11/26/23 Unknown aerosol inhaler Shortness Of Breath Or Wheezing bupropion HCl 150 mg 24 hr tablet, 150 mg PO QAM 08/20/23 11/26/23 Unknown extended release cholecalciferol (vitamin D3) 1,250 50,000 unit PO WEEKLY 12 weeks #12 08/20/23 11/26/23 Unknown mcg (50,000 unit) capsule caps clobetasol 0.05 % topical cream 1 applic topical BID 08/20/23 11/26/23 Unknown dulaglutide 0.75 mg/0.5 mL 0.75 mg subcut WK 08/20/23 11/26/23 Unknown subcutaneous pen injector (Trulicity) fluoxetine 40 mg capsule 40 mg PO DAILY 08/20/23 11/26/23 Unknown loratadine 10 mg tablet 10 mg PO DAILY 08/20/23 11/26/23 Unknown omeprazole 40 mg capsule,delayed 40 mg PO DAILY 08/20/23 11/26/23 Unknown release ondansetron HCl 4 mg tablet 4 mg PO Q6H PRN Nausea And Vomiting 08/20/23 11/26/23 Unknown rosuvastatin 20 mg tablet 20 mg PO DAILY 08/20/23 11/26/23 Unknown sennosides 8.6 mg tablet (senna) 8.6 mg PO DAILY 08/20/23 11/26/23 Unknown solifenacin 5 mg tablet 5 mg PO DAILY 08/20/23 11/26/23 Unknown tacrolimus 0.03 % topical ointment 1 applic topical BID PRN .flare ups 08/20/23 11/26/23 Unknown topiramate 200 mg capsule 200 mg PO DAILY #30 caps 09/23/23 11/26/23 Unknown sprinkle,extended release 24 hr armodafinil 150 mg tablet 150 mg PO QAM #30 tabs 10/02/23 11/26/23 Unknown rizatriptan 10 mg tablet 10 mg PO DAILY PRN migraine 10/02/23 11/26/23 Unknown headache #9 tabs baclofen 20 mg tablet 20 mg PO BID PRN Neck Pain 11/26/23 11/26/23 Unknown estradiol 0.01% (0.1 mg/gram) 1 applic vaginal DAILY PRN itchy 11/26/23 11/26/23 Unknown vaginal cream trazodone 100 mg tablet 200 mg PO QPM 11/26/23 11/26/23 Unknown Active Medications Generic Name Dose Route Start Last Admin Trade Name Freq PRN Reason Stop Dose Admin Acetaminophen 650 mg 11/26/23 19:52 11/29/23 09:49 Acetaminophen 325 Mg Tab PO 12/26/23 19:51 650 mg Q4H PRN Administration Pain or Fever Albuterol 2.5 mg 11/26/23 19:52 11/28/23 22:25 Albuterol 0.083% Nebu Soln 3 Ml Vial INH 12/26/23 19:51 2.5 mg Q4H PRN Administration Shortness Of Breath Or Wheezin Protocol Amlodipine Besylate 2.5 mg 11/26/23 19:52 11/29/23 09:33 Amlodipine Besylate 5 Mg Tab PO 12/26/23 19:51 2.5 mg DAILY TRINA Administration Aspirin 81 mg 11/27/23 09:00 11/29/23 09:33 Aspirin 81 Mg Ectab PO 12/27/23 08:59 81 mg DAILY TRINA Administration Baclofen 20 mg 11/28/23 12:37 11/29/23 09:32 Baclofen 20 Mg Tab PO 12/28/23 12:36 20 mg BID PRN Administration Neck Pain Bupropion HCl 150 mg 11/27/23 09:00 11/29/23 09:34 Bupropion Xl 150 Mg Tabcr PO 12/27/23 08:59 150 mg QAM TRINA Administration Ergocalciferol 1,250 mcg 11/28/23 13:45 11/28/23 14:03 Ergocalciferol 1250 Mcg (50,000 Units) Cap PO 12/28/23 13:44 1,250 mcg Sa@0900 TRINA Administration Famotidine 40 mg 11/27/23 09:00 11/29/23 09:33 Famotidine 40 Mg Tablet PO 12/27/23 08:59 40 mg DAILY TRINA Administration Fluoxetine HCl 40 mg 11/29/23 09:00 11/29/23 09:34 Fluoxetine Hcl 20 Mg Cap PO 12/29/23 08:59 40 mg Q48H TRINA Administration Heparin Sodium (Porcine) 5,000 units 11/26/23 22:00 11/29/23 13:50 Heparin Sod 5,000 Unit/0.5 Ml Vial SQ 12/26/23 21:59 5,000 units Q8 TRINA Administration Ceftriaxone Sodium 2,000 mg in 50 mls @ 100 mls/hr 11/29/23 11:15 11/29/23 12:11 Rocephin IV 12/01/23 11:14 Infused Q24H TRINA Infusion Insulin Aspart 0 units 11/27/23 16:30 11/29/23 13:50 Insulin Aspart Per Unit Charge SC 12/27/23 05:59 5 units ACHS TRINA Administration Loratadine 10 mg 11/27/23 09:00 11/29/23 09:34 Loratadine 10 Mg Tab PO 12/27/23 08:59 10 mg DAILY TRINA Administration Metoprolol Succinate 50 mg 11/26/23 21:00 11/28/23 20:11 Metoprolol Succ 50mg Ext Rel Tab PO 12/26/23 20:59 Not Given HS TRINA Metoprolol Succinate 100 mg 11/27/23 09:00 11/29/23 09:36 Metoprolol Succ 50mg Ext Rel Tab PO 12/27/23 08:59 100 mg DAILY TRINA Administration Miscellaneous 1 each 11/27/23 00:00 11/29/23 09:36 Armodafinil* Order Awaiting Action N/A 12/27/23 00:00 Not Given QS TRINA Oxybutynin Chloride 5 mg 11/27/23 09:00 11/29/23 09:32 Oxybutynin Chloride Xl 5 Mg Tabcr PO 12/27/23 08:59 5 mg DAILY TRINA Administration Pantoprazole Sodium 40 mg 11/27/23 09:00 11/29/23 09:35 Pantoprazole 40 Mg Tab PO 12/27/23 08:59 40 mg DAILY TRINA Administration Rizatriptan Benzoate 10 mg 11/27/23 15:01 11/28/23 13:04 Rizatriptan Benzoate 10 Mg Tab PO 12/27/23 15:00 10 mg QD PRN Administration Migraine Headache Sennosides 8.6 mg 11/27/23 09:00 11/29/23 09:32 Senna 8.6 Mg Tab PO 12/27/23 08:59 8.6 mg DAILY TRINA Administration Topiramate 100 mg 11/27/23 09:00 11/29/23 09:31 Topiramate 100 Mg Tab PO 12/27/23 08:59 100 mg BID TRINA Administration Trazodone HCl 200 mg 11/26/23 21:00 11/28/23 21:06 Trazodone Hcl 100 Mg Tab PO 12/26/23 20:59 200 mg QPM TRINA Administration (1) Chest pain Chest pain type: unspecified Qualified Code(s): R07.9 - Chest pain, unspecified (2) Coronary artery disease Coronary Disease-Associated Artery/Lesion type: unspecified vessel or lesion type [place] vs. transplanted heart: [place] heart Associated angina: unspecified whether angina present Qualified Code(s): I25.10 - Atherosclerotic heart disease of [place] coronary artery without angina pectoris (3) Cough Cough type: unspecified Qualified Code(s): R05.9 - Cough, unspecified
--- NOTE | 2023-11-29 16:40 | Cardiology Progress Note ---
Date of Service November 29, 2023 Assessment & Plan (1) Chest pain: (2) Coronary artery disease: Plan Chest pain With regards to her chest symptoms, I reviewed the images of her recent cardiac CT performed on 11/17/2023 independently and agree with the report that analysis of the focal calcification at the ostium of the diagonal 2 branch of the LAD is technically limited due to the presence of focal calcification. The branch is a small vessel, 1.8 mm in diameter. The adjacent area of the LAD does not appear to be obstructive. I counseled the patient that should she have invasive coronary angiography in the diagonal 2 was found to be stenotic, the vessel appears to be too small to accommodate a stent. I have a low suspicion that her current symptoms are due to angina. Serial high since her troponin levels are within normal limits. Continue current treatment aspirin, metoprolol, amlodipine added and lisinopril and HCTZ have been on hold for relative low blood pressure. LDL cholesterol level of 170 mg/dL is above goal, rosuvastatin therefore increased from 20 mg to 40 mg. Continue treatment for headache. Increase activity as tolerated. PT evaluation. Case discussed with Dr. Lama for the purpose of coordination of care. Continue subcutaneous heparin for DVT prophylaxis. Dr Moreno is rounding on 11/30/23. Call with questions or concerns. Admission and Anticipated Discharge Date Admission Date: November 29, 2023 Subjective Patient is sleeping at the time of my initial attempt to assess her. Her adeline yfriend was able to wake her up. Denies any cardiac complaint, but describes difficulty moving and getting out of bed. Telemetry reveals sinus bradycardia and sinus rhythm in the 50s to 60s. Physical Exam Physical Exam: General: no acute distress and stated age Eyes: conjunctiva are pink and non-injected, sclera clear Neck: normal jugular venous pulse, no hepatojugular reflux Chest: normal shape and normal respiratory effort Lungs: clear to auscultation and percussion Cardiac Exam: -regular rhythm, no murmurs, rubs, or gallops, no jugular venous distention Abdomen: abdomen soft, non-tender, no abnormal masses and no hepatosplenomegaly Musculoskeletal: no gait disturbance, no weakness Right-sided rib pain reproduced with palpation lateral to the right breast Extremities: no edema and no cyanosis Neuro:awake, conversant, follows commands, no focal motor deficits Psych: appropriate affect and insight. Results & Data Vital Signs (Past 12 Hours) Vital Signs Temp Pulse Pulse Resp BP Pulse Ox O2 Del Method 11/29/23 15:19 36.7 C 60 18 103/66 92 Room Air 11/29/23 15:00 59 L 11/29/23 11:21 36.7 C 55 L 18 100/63 92 Room Air 11/29/23 07:43 37.1 C 61 18 129/67 92 Room Air 11/29/23 07:18 65 11/29/23 05:27 37.6 C H (2) Coronary artery disease Coronary Disease-Associated Artery/Lesion type: unspecified vessel or lesion type [place] vs. transplanted heart: [place] heart Associated angina: unspecified whether angina present Qualified Code(s): I25.10 - Atherosclerotic heart disease of [place] coronary artery without angina pectoris
[2023-11-29] MEDS ORDERED: Nursing to Pharmacy Communication SCH (20:15)
[2023-11-30 07:38] LABS: Hematocrit (blood only) 40.5 % (37.0-47.0); Hemoglobin 13.2 g/dl (12.0-16.0); Mean Corpuscular Hemoglobin 28.4 pg (25.0-34.0); Mean Corpuscular Hgb Conc 32.6 g/dL (32.0-36.0); Mean Corpuscular Volume 87.1 fL (80.0-100.0); Mean Platelet Volume 10.1 fL (9.4-12.4); Platelet Count 270 K/uL (130-400); RDW Coefficient of Variation 13.9 % (11.5-14.5); Red Blood Count 4.65 M/uL (4.20-5.40); White Blood Count 6.77 K/ul (4.8-10.8)
[2023-11-30 07:41] LABS: BUN Creatinine Ratio 24.2 (10-20); Calcium 9.3 mg/dl (8.6-10.3); Est GFR (African American) 80.6 ml/min; Est GFR (Non-African American) 69.5 ml/min; Magnesium 2.1 mg/dl (1.7-2.4); Phosphorus 3.5 mg/dl (2.5-4.9); Potassium 3.8 mmol/L (3.5-5.1)
[2023-11-30] MEDS: ROSUVASTATIN CALCIUM 20 MG TAB PO SCH (08:39)
--- NOTE | 2023-11-30 08:56 | Pharmacy Report ---
Pharmacy Glycemic Short Note 2 - Date of Service November 30, 2023 - Glycemic Short BSG Results (Last 24 hours): 11/29/23 11/29/23 11/29/23 11:54 16:57 20:35 Glucose POC Glucose 175 H 106 H 151 H 11/30/23 11/30/23 06:55 08:05 Glucose 143 H POC Glucose 133 H OUTPATIENT ANTIDIABETIC REGIMEN: * metformin 500 mg BID , dulaglutide 0.75 sq weekly * HbA1c: 7% (11/28/23) ASSESSMENT: 11/30/23: * Blood sugars have been reasonably controlled over past 48 hours, but noted to have elevated fasting blood sugars during this time * Will order low-dose basal insulin today w/ slight loosening of CF today 11/27/23: * 58 yo female with history of type 2 diabetes, admitted for chest plans- initial plans to get cardiac cath today, however this has been delayed * T2DM currently ordered, BSGs have been stable [phone] mg/dL * RN reported patient did not each lunch. * Will continue current weight based novolog parameters- hold on basal for now pending cath plans PLAN FOR INPATIENT GLYCEMIC CONTROL: * Hold outpatient oral diabetes medications * Basal insulin - add basal * Lantus 5 units SC daily * Bolus insulin * NovoLog per scale ACHS or Q6hrs while NPO * Goal Range: Low 110 mg/dL - High 140 mg/dL * Correction Factor: 35 mg/dL/unit * Nutritional / Prandial insulin per carb ratio of 1 unit per 12 grams CHO consumed
[2023-11-30] MEDS: LANTUS PER UNIT CHARGE SC SCH (09:26)
--- NOTE | 2023-11-30 10:51 | Electrocardiogram Report ---
Test Reason : Blood Pressure : / mmHG Vent. Rate : 059 BPM Atrial Rate : 059 BPM P-R Int : 200 ms QRS Dur : 102 ms QT Int : 458 ms P-R-T Axes : 070 -07 033 degrees QTc Int : 453 ms Sinus bradycardia Otherwise normal ECG When compared with ECG of 26-NOV-2023 14:51, No significant change was found Confirmed by Sami Silva ([id number]) on 11/30/2023 10:50:53 AM Referred By: REFERRED SELF Confirmed By:Sami Silva
--- NOTE | 2023-11-30 10:56 | Electrocardiogram Report ---
Test Reason : Blood Pressure : / mmHG Vent. Rate : 052 BPM Atrial Rate : 052 BPM P-R Int : 178 ms QRS Dur : 104 ms QT Int : 424 ms P-R-T Axes : 034 -15 050 degrees QTc Int : 394 ms Sinus bradycardia Otherwise normal ECG When compared with ECG of 27-NOV-2023 03:29, (unconfirmed) QT has shortened Confirmed by Sami Silva ([id number]) on 11/30/2023 10:56:21 AM Referred By: REFERRED SELF Confirmed By:Sami Silva
--- NOTE | 2023-11-30 11:28 | XRay Report ---
XR chest 1V portable CLINICAL HISTORY: Right rib pain. COMPARISON STUDY: Chest CT September 17, 2021. Chest radiograph November 26, 2023. FINDINGS: Lung volumes are mildly diminished. There is no pneumothorax or pleural effusion. No acute rib fractures are identified although sensitivity is diminished given this technique. There is cardio megaly without evidence for pulmonary edema. There is no consolidation. IMPRESSION: No acute cardiopulmonary findings. Cardiomegaly. ACT 112: Negative or not required by law. Electronically signed by: Torres Neves M.D. 11/30/2023 11:27 AM
--- NOTE | 2023-11-30 11:33 | Hospitalist Progress Note ---
Date of Service November 30, 2023 Assessment & Plan (1) Chest pain: (2) Coronary artery disease: (3) Cough: Plan Ms. Deanne Mckeon is a 58y/o F with PMHx of DM type II, dyslipidemia, HTN, history of vitamin D deficiency, chronic idiopathic constipation, GERD without esophagitis, lichen simplex chronicus, multiple sclerosis, history of migraines, depression and other problems listed below who presented to the ED on 11/25 for evaluation of chest pain. Patient follows / [facility] at [facility] in the outpatient setting 2/2 hypertensive heart disease and chronic ventricular ectopy. Given recent chest pain and tightness, the patient ultimately underwent cardiac CT on 11/16 and that revealed the followin diagonal branch with moderate, possibly hemodynamically significant (50% to 60%) stenosis with extensive calcium blooming artifact, diagonal branch of the left anterior descending artery has calcified plaque and mid left anterior descending coronary artery has mild (25% to 49%) stenosis. Patient is scheduled for cardiac catheterization on 12/07; however, severe chest pain prompted presentation to ED. Cardiology evaluated patient on 11/26 and determined that low suscpicion for active ACS and no indication for catheterization. Five drawn troponin levels have been stable. EKG has been without signs of ischemia. Patient also with a multitude of varying concerns which all seem to have a chronic component, however, patient very concerned. Patient with history of MS and chronic migraines following with Neurology. Home regimen resumed, however, patient reports concerns of tremors and whole body "jerking." This was not witnessed, just reported by patient. Given patient's complex neuro history and multitude of concerns, will consult Neurology for additional dispo planning and optimization. No clear focal deficits noted, therefore will hold on imaging unless recommended by neurology. As of 11/28, patient's concerns have evolved from chest pain to reports of nonfocal neurologic concerns and generalized unwellness. Infectious work up with UA given concern of reported incontinence Recent MRI from 09/2023 reviewed and normal. initial neurology recommendations include FND v somatoform disorder rather than MS flare Question if possible UTI contributing to presentation. UA culture with multiple organisms. Reports left side pain with PT on 11/28. Now with right side pain on 11/29. Given patient's concerns, will discuss with neurology once more. Discussed further medication adjustment with Cardiology given bradycardia--will reduce to Metorpolol 100mg daily, and discontinue 50mg qhs. Case management to discuss rehab v HH with patient. #Abnormal UA #Acute on chronic urinary incontinence given on going concerns reported by patient, UA questionable, multiple orgs continue ctx for 5 days #Right rib pain CXR #Sinus Bradycardia #symptomatic pvcs pause noted on tele 2.3 while sleeping, persistent bradycardia discussed with Dr. Moreno over TT Reduce metoprolol XL from 100qam/50qpm, to single dose daily 100mg qam Chest pain, noncardiac #Liable HTN #Coronary Artery Disease, noted on Cardiac CT (11/16) Initial trop negative, EKG w/o ischemic changes. Repeat trop all negative CXR negative for any acute cardiopulmonary findings. Cardiology following -No acute indications for C at this time Can consider increasing amlodipine Blood pressures fluctuating -Hold lisinopril and HCTZ Continue amlodipine iso chest pain and home Metop ectopy Orthostats negative 11/26 ECHO 55-60%, overall unremarkable Sublingual nitroglycerin PRN ordered. Continue asa and rosuvastatin #Headache #History of migraine with aura home regimen atogepant Continue maxalt and topiramate continue prozac eod #Relapsing, remitting MS #Chronic fatigue on Kesimpta Recent MRI without new lesions discuss with neuro need for further imaging #Cough *resolved Pt c/o ongoing cough on admission, pt afebrile. No recent fevers, clear to white sputum production. CXR negative for any acute cardiopulmonary findings. No leukocytosis; biofire and procal negative #DM Type II Hold [employer] diabetic meds; initiate SSI regimen. Glycemic pharmacy consulted, appreciate their recommendations. Other Chronic Medical Conditions: Chronic idiopathic constipation, depression/anxiety, history of migraines, GERD --> Can continue [employer] medications for these specified conditions. Pending PT/OT DVT Prophylaxis: SQ Heparin Code Status: FULL CODE PCP: Tarun Gill MD Disposition: med tele; dispo planning, awaiting reeval by neurology Progress note from 11/26 documented in paper chart 2/2 system downtime. Admission and Anticipated Discharge Date Admission Date: November 29, 2023 Subjective Entered room and on phone without tremor, laying propped on right side Evaluated at bedside, rolled over and reported feeling very ill states she is fatigue and has an ongoing headache, as well as new RUQ pain She states that she doesn't know how the neurologist can say this isn't her MS because "he doesn't have xray vision" She reports feeling too weak and not eating, despite ordering delivery She reports feeling dehydrated and not sure she can go home--but also not sure if she wants rehab Physical Exam Constitutional: initially layin in bed on cell phone, upon duration of exam, tremor of right arm seemed to intensify at rest but would resolve with pointing to area of discomfort in RUQ Respiratory: normal respiratory effort, lungs clear to auscultation Cardiovascular: RRR, no murmur, no edema Neurologic: PERRL, EOMI, accommodation nl, no face palsy, no dysarthria Results & Data Results & Data Vital Signs (Past 12 Hours) Vital Signs Temp Pulse Pulse Resp BP Pulse Ox O2 Del Method 11/30/23 07:59 36.8 C 58 L 16 106/68 94 Room Air 11/30/23 07:30 63 11/30/23 07:02 58 L 11/30/23 03:13 36.7 C 54 L 18 116/72 93 Room Air 11/29/23 23:40 54 L 11/29/23 23:38 36.9 C 51 L 18 98/66 L 90 Room Air Laboratory Results Short CBC 11/30/23 Range/Units 06:55 WBC 6.77 (4.8-10.8) K/ul Hgb 13.2 (12.0-16.0) g/dl Hct 40.5 (37.0-47.0) % Plt Count 270 (130-400) K/uL BMP 11/30/23 06:55 Sodium 138 Potassium 3.8 Chloride 107 Carbon Dioxide 25 BUN 22 Creatinine 0.91 Glucose 143 H Calcium 9.3 Medications Administered Home Medications Medication Instructions Recorded Confirmed Last Taken metformin 500 mg tablet,extended 500 mg PO BID 03/09/19 11/26/23 09/05/19 release 24 hr nitroglycerin 0.4 mg sublingual 0.4 mg sublingual UD PRN Chest Pain 09/06/19 11/26/23 Unknown tablet amlodipine 2.5 mg tablet 2.5 mg PO DAILY 12/19/20 11/26/23 Unknown aspirin 81 mg tablet,delayed 81 mg PO DAILY 12/19/20 11/26/23 Unknown release (Adult Low Dose Aspirin) hydrochlorothiazide 25 mg tablet 25 mg PO DAILY 12/19/20 11/26/23 Unknown lisinopril 20 mg tablet 20 mg PO DAILY 12/19/20 11/26/23 Unknown metoprolol succinate 100 mg 50 - 100 mg PO DAILY 12/19/20 11/26/23 Unknown tablet,extended release 24 hr famotidine 40 mg tablet 40 mg PO DAILY 03/06/21 11/26/23 Unknown syringe with needle, safety 1 mL #3 ea 09/08/22 11/26/23 Unknown 25 gauge x 1" (Easy Touch FlipLock Syringe) cyanocobalamin (vitamin B-12) 1,000 mcg IM MONTHLY #3 mL 11/04/22 11/26/23 Unknown 1,000 mcg/mL injection solution digital therapeutic,GEORGE device #1 ea 01/14/23 11/26/23 Unknown Oxygen Home 06/16/23 11/26/23 Unknown ofatumumab 20 mg/0.4 mL 20 mg (0.4 mL) subcut MONTHLY #0.4 06/16/23 11/26/23 Unknown subcutaneous pen injector mL (Kesimpta Pen) albuterol sulfate 2.5 mg/3 mL 2.5 mg inhalation Q4H PRN 08/20/23 11/26/23 Unknown (0.083 %) solution for nebulization Shortness Of Breath Or Wheezing albuterol sulfate 90 mcg/actuation 2 puff inhalation Q6H PRN 08/20/23 11/26/23 Unknown aerosol inhaler Shortness Of Breath Or Wheezing bupropion HCl 150 mg 24 hr tablet, 150 mg PO QAM 08/20/23 11/26/23 Unknown extended release cholecalciferol (vitamin D3) 1,250 50,000 unit PO WEEKLY 12 weeks #12 08/20/23 11/26/23 Unknown mcg (50,000 unit) capsule caps clobetasol 0.05 % topical cream 1 applic topical BID 08/20/23 11/26/23 Unknown dulaglutide 0.75 mg/0.5 mL 0.75 mg subcut WK 08/20/23 11/26/23 Unknown subcutaneous pen injector (Trulicity) fluoxetine 40 mg capsule 40 mg PO DAILY 08/20/23 11/26/23 Unknown loratadine 10 mg tablet 10 mg PO DAILY 08/20/23 11/26/23 Unknown omeprazole 40 mg capsule,delayed 40 mg PO DAILY 08/20/23 11/26/23 Unknown release ondansetron HCl 4 mg tablet 4 mg PO Q6H PRN Nausea And Vomiting 08/20/23 11/26/23 Unknown rosuvastatin 20 mg tablet 20 mg PO DAILY 08/20/23 11/26/23 Unknown sennosides 8.6 mg tablet (senna) 8.6 mg PO DAILY 08/20/23 11/26/23 Unknown solifenacin 5 mg tablet 5 mg PO DAILY 08/20/23 11/26/23 Unknown tacrolimus 0.03 % topical ointment 1 applic topical BID PRN .flare ups 08/20/23 11/26/23 Unknown topiramate 200 mg capsule 200 mg PO DAILY #30 caps 09/23/23 11/26/23 Unknown sprinkle,extended release 24 hr armodafinil 150 mg tablet 150 mg PO QAM #30 tabs 10/02/23 11/26/23 Unknown rizatriptan 10 mg tablet 10 mg PO DAILY PRN migraine 10/02/23 11/26/23 Unknown headache #9 tabs baclofen 20 mg tablet 20 mg PO BID PRN Neck Pain 11/26/23 11/26/23 Unknown estradiol 0.01% (0.1 mg/gram) 1 applic vaginal DAILY PRN itchy 11/26/23 11/26/23 Unknown vaginal cream trazodone 100 mg tablet 200 mg PO QPM 11/26/23 11/26/23 Unknown Active Medications Generic Name Dose Route Start Last Admin Trade Name Freq PRN Reason Stop Dose Admin Acetaminophen 650 mg 11/26/23 19:52 11/30/23 06:54 Acetaminophen 325 Mg Tab PO 12/26/23 19:51 650 mg Q4H PRN Administration Pain or Fever Albuterol 2.5 mg 11/26/23 19:52 11/28/23 22:25 Albuterol 0.083% Nebu Soln 3 Ml Vial INH 12/26/23 19:51 2.5 mg Q4H PRN Administration Shortness Of Breath Or Wheezin Protocol Amlodipine Besylate 2.5 mg 11/26/23 19:52 11/30/23 08:39 Amlodipine Besylate 5 Mg Tab PO 12/26/23 19:51 2.5 mg DAILY TRINA Administration Aspirin 81 mg 11/27/23 09:00 11/30/23 08:39 Aspirin 81 Mg Ectab PO 12/27/23 08:59 81 mg DAILY TRINA Administration Baclofen 20 mg 11/28/23 12:37 11/29/23 20:28 Baclofen 20 Mg Tab PO 12/28/23 12:36 20 mg BID PRN Administration Neck Pain Bupropion HCl 150 mg 11/27/23 09:00 11/30/23 08:39 Bupropion Xl 150 Mg Tabcr PO 12/27/23 08:59 150 mg QAM TRINA Administration Ergocalciferol 1,250 mcg 11/28/23 13:45 11/28/23 14:03 Ergocalciferol 1250 Mcg (50,000 Units) Cap PO 12/28/23 13:44 1,250 mcg Sa@0900 TRINA Administration Famotidine 40 mg 11/27/23 09:00 11/30/23 08:39 Famotidine 40 Mg Tablet PO 12/27/23 08:59 40 mg DAILY TRINA Administration Fluoxetine HCl 40 mg 11/29/23 09:00 11/29/23 09:34 Fluoxetine Hcl 20 Mg Cap PO 12/29/23 08:59 40 mg Q48H TRINA Administration Heparin Sodium (Porcine) 5,000 units 11/26/23 22:00 11/30/23 05:39 Heparin Sod 5,000 Unit/0.5 Ml Vial SQ 12/26/23 21:59 5,000 units Q8 TRINA Administration Ceftriaxone Sodium 2,000 mg in 50 mls @ 100 mls/hr 11/29/23 11:15 11/29/23 12:11 Rocephin IV 12/01/23 11:14 Infused Q24H TRINA Infusion Insulin Aspart 0 units 11/27/23 16:30 11/30/23 09:25 Insulin Aspart Per Unit Charge SC 12/27/23 05:59 2 units ACHS TRINA Administration Insulin Glargine 5 units 11/30/23 09:00 11/30/23 09:26 Lantus Per Unit Charge SC 12/30/23 08:59 5 units DAILY TRINA Administration Loratadine 10 mg 11/27/23 09:00 11/30/23 08:39 Loratadine 10 Mg Tab PO 12/27/23 08:59 10 mg DAILY TRINA Administration Metoprolol Succinate 100 mg 11/27/23 09:00 11/30/23 08:38 Metoprolol Succ 50mg Ext Rel Tab PO 12/27/23 08:59 100 mg DAILY TRINA Administration Miscellaneous 1 each 11/27/23 00:00 11/30/23 08:40 Armodafinil* Order Awaiting Action N/A 12/27/23 00:00 Not Given QS TRINA Oxybutynin Chloride 5 mg 11/27/23 09:00 11/30/23 08:39 Oxybutynin Chloride Xl 5 Mg Tabcr PO 12/27/23 08:59 5 mg DAILY TRINA Administration Pantoprazole Sodium 40 mg 11/27/23 09:00 11/30/23 08:39 Pantoprazole 40 Mg Tab PO 12/27/23 08:59 40 mg DAILY TRINA Administration Rizatriptan Benzoate 10 mg 11/27/23 15:01 11/28/23 13:04 Rizatriptan Benzoate 10 Mg Tab PO 12/27/23 15:00 10 mg QD PRN Administration Migraine Headache Rosuvastatin Calcium 40 mg 11/30/23 09:00 11/30/23 08:39 Rosuvastatin Calcium 20 Mg Tab PO 12/30/23 08:59 40 mg DAILY TRINA Administration Sennosides 8.6 mg 11/27/23 09:00 11/30/23 08:38 Senna 8.6 Mg Tab PO 12/27/23 08:59 8.6 mg DAILY TRINA Administration Topiramate 100 mg 11/27/23 09:00 11/30/23 08:39 Topiramate 100 Mg Tab PO 12/27/23 08:59 100 mg BID TRINA Administration Trazodone HCl 200 mg 11/26/23 21:00 11/29/23 20:04 Trazodone Hcl 100 Mg Tab PO 12/26/23 20:59 200 mg QPM TRINA Administration (1) Chest pain Chest pain type: unspecified Qualified Code(s): R07.9 - Chest pain, unspecified (2) Coronary artery disease Coronary Disease-Associated Artery/Lesion type: unspecified vessel or lesion type [place] vs. transplanted heart: [place] heart Associated angina: unspecified whether angina present Qualified Code(s): I25.10 - Atherosclerotic heart disease of [place] coronary artery without angina pectoris (3) Cough Cough type: unspecified Qualified Code(s): R05.9 - Cough, unspecified
--- NOTE | 2023-11-30 11:58 | Electrocardiogram Report ---
Test Reason : Blood Pressure : / mmHG Vent. Rate : 064 BPM Atrial Rate : 064 BPM P-R Int : 166 ms QRS Dur : 100 ms QT Int : 432 ms P-R-T Axes : 064 -16 052 degrees QTc Int : 445 ms Poor data quality, interpretation may be adversely affected Normal sinus rhythm Normal ECG When compared with ECG of 28-NOV-2023 06:00, (unconfirmed) No significant change Confirmed by Sami Silva ([id number]) on 11/30/2023 11:57:46 AM Referred By: REFERRED SELF Confirmed By:Sami Silva
--- NOTE | 2023-11-30 12:05 | Electrocardiogram Report ---
Test Reason : Blood Pressure : / mmHG Vent. Rate : 058 BPM Atrial Rate : 058 BPM P-R Int : 176 ms QRS Dur : 108 ms QT Int : 436 ms P-R-T Axes : 049 002 054 degrees QTc Int : 428 ms Sinus bradycardia Otherwise normal ECG When compared with ECG of 28-NOV-2023 06:01, (unconfirmed) No significant change was found Confirmed by Sami Silva ([id number]) on 11/30/2023 12:05:08 PM Referred By: REFERRED SELF Confirmed By:Sami Silva
--- NOTE | 2023-12-01 01:08 | Magnetic Resonance Report ---
Exam(s): MRI HEAD W/WO Contrast IV Amt: 10.5ml gadavist EXAM: MR Head Without and With Intravenous Contrast CLINICAL HISTORY: Reason for exam: ms protocol. TECHNIQUE: Magnetic resonance images of the head/brain without and with intravenous contrast in multiple planes. CONTRAST: Patient received 10.5ml gadavist of IV contrast COMPARISON: Comparison made to prior brain MRI from July 24, 2022. FINDINGS: Brain: Mild to moderate nonspecific white matter changes with lesions primarily in the periventricular and subcortical matter. There is a single left pericallosal lesion. No mass. No hemorrhage. No acute infarct. The flow voids at the base of the brain are intact. No evidence of abnormal enhancement. The dural venous sinuses are patent. Ventricles: Unremarkable. No ventriculomegaly. Bones/joints: Unremarkable. No acute fracture. Sinuses: Unremarkable as visualized. No acute sinusitis. Mastoid air cells: Unremarkable as visualized. No mastoid effusion. Orbits: Unremarkable as visualized. IMPRESSION: No evidence of acute intracranial pathology. Stable white matter lesions without evidence of abnormal enhancement Electronically signed by: Nereyda Villar MD 12/01/23 01:08 AM
--- NOTE | 2023-12-01 01:29 | Magnetic Resonance Report ---
Exam(s): MRI C SPINE EXAM: MR Cervical Spine Without Intravenous Contrast CLINICAL HISTORY: Reason for exam: ms protocol. TECHNIQUE: Magnetic resonance images of the cervical spine without intravenous contrast in multiple planes. COMPARISON: Comparison made to prior MRI of the cervical spine from September 17, 2023. FINDINGS: Vertebrae: There are 7 cervical type vertebral bodies with a mild generalized curve to the left with straightening of the normal cervical lordosis. There is normal vertebral body height and alignment. The bone marrow signal is heterogeneous with reactive endplate changes. No acute fracture. Spinal cord: The cord is normal size, shape and signal characteristics. No evidence of abnormal enhancement. The craniocervical junction is normal without evidence of Chiari malformation. Soft tissues: The cervical flow voids are intact. IMPRESSION: No evidence of acute cervical spine pathology. No evidence of myelopathy. Electronically signed by: Nereyda Villar MD 12/01/23 01:28 AM
--- NOTE | 2023-12-01 09:21 | Neurology Progress Note ---
Date of Service December 01, 2023 Assessment & Plan (1) MS (multiple sclerosis): (2) Tremor: Plan 58-year-old female who was diagnosed with multiple sclerosis in 1999. Her disease modifying therapy was switched from Rebif to Kesimpta about 4-5 years ago in the context of slight progression of her demyelinating disease on brain MRI at that time. She has no evidence of spinal cord demyelination on previous studies. Follow-up MRI of the brain and cervical spine completed last night indicate stability of her multiple sclerosis. She informs me that she has not taken her Kesimpta since March 2023 as she has been unable to get this medication. She has a chronic functional appearing right sided resting greater than action tremor that has become augmented and more generalized with sitting and standing over the past 4 days and may have been related to hypotension. Several of her antihypertensives have been held. Orthostatic vital signs completed this morning are fairly normal with only a slight drop in blood pressure and slight increase in heart rate. She still seems to be experiencing some orthostatic or postural dizziness. Although her tremor does appear functional, she could have an element of orthostatic tremor. She does not appear to have myoclonus. Would consider reducing her dosage of metoprolol given her persistent orthostatic dizziness. May need to check with cardiology. Polypharmacy may be a contributing factor to her tremor and fatigue. Would recommend reducing her dosage of Prozac to 20 mg/day. Going forward, would also consider reducing her dosage of trazodone. Although her tremor has a resting component, I do not think she has parkinsonism or Parkinson's disease and would not recommend carbidopa levodopa or a dopamine agonist at this time. Although orthostatic tremor may respond to clonazepam, her tremor does have a functional quality and clonazepam would likely further compound her chronic fatigue. As above, she informs me that she has not taken her Kesimpta injection since March 2023 as she has been unable to get this medication, possibly due to difficulty with insurance coverage. Our office will need to assist with management of her MS treatment. I wonder of Ocrevus would be a better option for her. Patient will follow-up with Dr. Yanez in clinic. Please call with any questions. Admission and Anticipated Discharge Date Admission Date: November 29, 2023 Subjective Follow-up regarding multiple sclerosis The patient is a 58-year-old female with a history of multiple sclerosis diagnosed about 24 years ago. She was initially treated with Copaxone, followed by Rebif, subsequently switched to Kesimpta injections about 4 to 5 years ago in the context of slight progression in her demyelinating disease identified on brain MRI at that time, study done May 05, 2019. Subsequent MRIs have indicated stability of her multiple sclerosis. She has no evidence of spinal cord demyelination on MRI of the cervical and thoracic spine. She informs me that she has not taken her Kesimpta since March, apparently because she has been unable to get this prescription covered by her insurance. She has several chronic MS symptoms including right-sided tremor, weakness, sensory loss, fatigue, chronic pain, urinary urgency, cognitive difficulty, migraine, depression, anxiety, insomnia. She is prescribed multiple medications to address these issues including trazodone, topiramate, rizatriptan, fluoxetine, bupropion, baclofen, armodafinil. She informs me her mood has been stable. She complains of dizziness with sitting and standing, as well as an escalation in her tremor, right greater than left, arm and leg. The symptoms improved with lying flat. She denies a history of passing out or loss of consciousness. She has been experiencing chest pain recently and has been evaluated by cardiology. She had a recent cardiac CT and does have some stenosis of a diagonal branch of the LAD, although apparently too small to accommodate a stent. It was not felt that her chest pain was of cardiac origin, however, troponin levels within normal limits. Patient's lisinopril and hydrochlorothiazide have been on hold due to relatively low blood pressure. She was to continue with aspirin, metoprolol, and amlodipine. The patient did have an up-to-date MRI of the brain and cervical spine completed last night. I independently reviewed these images. No evidence of spinal cord demyelination. No evidence of new or active MS lesions on MRI of the brain. There are stable lesions in a periventricular, subcortical, and juxtacortical pattern. There are also chronic lesions within the pontine tegmentum, and probably adjacent to the cerebral aqueduct as well. Results & Data Vital Signs (Past 12 Hours) Vital Signs Temp Pulse Pulse Resp BP BP Pulse Ox 12/01/23 08:33 67 115/67 12/01/23 08:33 57 L 119/81 12/01/23 08:06 37.0 C 59 L 16 112/71 92 12/01/23 02:29 36.9 C 56 L 16 101/67 93 11/30/23 23:15 68 11/30/23 22:58 36.9 C 65 18 113/74 93 11/30/23 21:45 O2 Del Method 12/01/23 08:33 12/01/23 08:33 12/01/23 08:06 Room Air 12/01/23 02:29 Room Air 11/30/23 23:15 11/30/23 22:58 Room Air 11/30/23 21:45 Room Air, Nebulizer Exam (Neuro) Constitutional: well developed and well nourished Neurologic: Oriented to:: Person, Place and Time Memory: Short Term Intact and Remote Intact Attention: Span Intact and Concentration Intact Speech Fluency: negative Dysarthria or Dysfluency Speech Aphasia: negative Aphasia Fund of Knowledge: Current Events, Past History and Vocabulary Cranial Nerves: Normal II, III, IV, , V, VII, VIII, IX, X, XI and XII Motor Strengt h: Normal Lower Extremities and Normal Upper Extremities Motor Tone: Normal Lower Extremities and Normal Upper Extremities Spasticity: None Muscle Bulk/Involuntary Movements: Rest Tremor (Arm) and Action Tremor; negative Muscle Atrophy Sensation: negative Light Touch Intact or Pain/Temperature Intact Coordination: Finger-Nose Abnormal and Heel-Elizabeth Abnormal Deep Tendon Reflexes: Rt Triceps: 2+, Lt Triceps: 2+, Rt Biceps: 2+, Lt Biceps: 2+, Rt Brachioradialis: 2+, Lt Brachioradialis: 2+, Rt Patellar: 2+ and Lt Patellar: 2+ Details: Orthostatic vital signs obtained. Supine blood pressure 119/81, heart rate 60. Seated blood pressure 115/63, heart rate 64. Patient exhibits an intermittent right upper extremity resting tremor which seems to spare the hand, does not have a pill-rolling hand tremor. The tremor is distractible. There is no rigidity or spasticity. When seated, the patient exhibits an awkward, functional appearing generalized tremor involving the head, arms, and legs, right greater than left. This particular tremor resolved when lying flat. Coding Level of Care Code 35303 SUB INP/OBS CARE 3/50MIN Diagnoses MS (multiple sclerosis) G35 Tremor R25.1 Time Spent (min) 60 Comment Total time includes patient contact, chart review, counseling, note preparation
--- NOTE | 2023-12-01 11:15 | Discharge Summary ---
Discharge Summary Date of Service December 01, 2023 Principal Dx & Hospital Course #1 = Principal Diagnosis (1) Chest pain: (2) Coronary artery disease: (3) Cough: Plan Ms. Deanne Mckeon is a 58y/o F with PMHx of DM type II, dyslipidemia, HTN, history of vitamin D deficiency, chronic idiopathic constipation, GERD without esophagitis, lichen simplex chronicus, multiple sclerosis, history of migraines, depression and other problems listed below who presented to the ED on 11/25 for evaluation of chest pain. Patient follows / [facility] at [facility] in the outpatient setting 2/2 hypertensive heart disease and chronic ventricular ectopy. Given recent chest pain and tightness, the patient ultimately underwent cardiac CT on 11/16 and that revealed the followin diagonal branch with moderate, possibly hemodynamically significant (50% to 60%) stenosis with extensive calcium blooming artifact, diagonal branch of the left anterior descending artery has calcified plaque and mid left anterior descending coronary artery has mild (25% to 49%) stenosis. Patient is scheduled for cardiac catheterization on 12/07; however, severe chest pain prompted presentation to ED. Cardiology evaluated patient on 11/26 and determined that low suscpicion for active ACS and no indication for catheterization. Five drawn troponin levels have been stable. EKG has been without signs of ischemia. Patient also with a multitude of varying concerns which all seem to have a chronic component, however, patient very concerned. Patient with history of MS and chronic migraines following with Neurology. Home regimen resumed, however, patient reports concerns of tremors and whole body "jerking." This was not witnessed, just reported by patient. Given patient's complex neuro history and multitude of concerns, will consult Neurology for additional dispo planning and optimization. No clear focal deficits noted, therefore will hold on imaging unless recommended by neurology. As of 11/28, patient's concerns have evolved from chest pain to reports of nonfocal neurologic concerns and generalized unwellness. Infectious work up with UA given concern of reported incontinence Recent MRI from 09/2023 reviewed and normal. initial neurology recommendations include FND v somatoform disorder rather than MS flare Question if possible UTI contributing to presentation. UA culture with multiple organisms. Reports left side pain with PT on 11/28. Now with right side pain on 11/29. Given patient's concerns, will discuss with neurology once more. Discussed further medication adjustment with Cardiology given bradycardia. Reduced home Metoprolol to 50mg daily. Further discussion with Neurology lead to repeat MRI--which did not reveal any new lesions. There is a concern for polypharmacy contributing to presentation given pressures are in the lower range. Multiple medication adjustments were made and patient to follow up with Cardiology and Neurology, as well as PCP for further medication management. UA was questionable and given multiple concerns from patient, opted to continue macrobid for total 5 day course. #Abnormal UA #Acute on chronic urinary incontinence given on going concerns reported by patient, UA questionable, multiple orgs macrobid 100mg bid for 3 more days #Right rib pain CXR: no acute fracture #Sinus Bradycardia #symptomatic pvcs pause noted on tele 2.3 while sleeping, persistent bradycardia discussed with Dr. Moreno over TT Reduce metoprolol XL from 100qam/50qpm, to single dose daily 50mgqam #Chest pain, noncardiac #Liable HTN #Coronary Artery Disease, noted on Cardiac CT (11/16) Initial trop negative, EKG w/o ischemic changes. Repeat trop all negative CXR negative for any acute cardiopulmonary findings. Cardiology following -No acute indications for [facility] at this time Can consider increasing amlodipine as an OP if pressure tolerates Blood pressures fluctuating -Hold lisinopril and HCTZ -Held amlodipine Orthostats negative 11/26 ECHO 55-60%, overall unremarkable Sublingual nitroglycerin PRN ordered. Continue asa and rosuvastatin #HLD increased statin given LDL #Headache #History of migraine with aura home regimen atogepant Continue maxalt and topiramate continue prozac--decreased to 20mg daily #Relapsing, remitting MS #Chronic fatigue on Kesimpta Recent MRI without new lesions, repeat imaging negative suspect functional component to tremor Follow up as an OP #Cough *resolved Pt c/o ongoing cough on admission, pt afebrile. No recent fevers, clear to white sputum production. CXR negative for any acute cardiopulmonary findings. No leukocytosis; biofire and procal negative #DM Type II resume home medications Other Chronic Medical Conditions: Chronic idiopathic constipation, depression/anxiety, history of migraines, GERD --> Can continue [facility] medications for these specified conditions. PT/OT script written for patient Walker script written for patient Progress note from 11/26 documented in paper chart 2/2 system downtime. Notes For Next Care Provider Medication Changes From Visit Discontinue amlodipine, lisinopril, HCTZ Reduce Metoprolol XL to 50mg daily Reduce Prozac to 20mg daily Increase rosuvastatin 20mg to 40mg Complete course with Macrobid Admission HPI Per Admitting Provider Deanne Mckeon is a 58y/o F with PMHx of DM type II, dyslipidemia, HTN, history of vitamin D deficiency, chronic idiopathic constipation, GERD without esophagitis, lichen simplex chronicus, multiple sclerosis, history of migraines, depression and other problems listed below who presented to the ED for evaluation secondary to chest pain. History obtained from patient and associated chart review. Has not been feeling well for the past month and a half. 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 Patient didn't feel well this morning, mentions she did not sleep well throughout the night. Reports she has an ongoing cough and is bringing up some white-colored phlegm. Reports a "popping" sensation in her right rib cage and some substernal chest tightness - does not radiate anywhere typically. Reports feeling chest tightness throughout our conversation - 3/10 pain. Chest tightness and pain gets worse with exhaustion. Reports she has been nauseous for about a week, no vomiting episodes. Patient is on oxygen at home, only at bedtime. She is unsure of how many liters she is requiring. Denies any fevers, but mentions she feels pretty cold. Patient did not take any of her medications this morning. She is reporting a mild headache, which has been ongoing since this morning. Has not taken any nitroglycerin at home recently. Patient has not eaten much recently, but has been hydrating appropriately. Patient was at [facility] this afternoon for pre- operative testing; she is scheduled to undergo cardiac catheterization on 12/07. Admission Exam Per Admitting Provider Physical Exam: Vitals signs as noted above General Appearance:Obese, no apparent distress Head: normocephalic, Atraumatic Eyes: normal inspection, EOMI Neck: supple, Trachea midline Respiratory/Chest: Normal breath sounds, CTA, No accessory muscle use Cardiovascular: S1, S2, No murmur Abdomen/GI:Soft, Non tender, Bowel sounds present Extremities/Musculoskeletal:normal inspection, no edema Neurologic/Psych:AAOX3, grossly no focal neurological deficits Skin: normal color, warm Discharge Exam Constitutional WD/WN, vitals as above Respiratory normal respiratory effort, lungs clear to auscultation Cardiovascular RRR, no murmur, no edema Gastrointestinal (Abdomen) normal bowel sounds, soft, nontender, no hepatosplenomegaly Neurologic PERRL, EOMI, accommodation nl, no face palsy, no dysarthria (RUE tremor, varies in intensity) Updated Medication List Medication Instructions Recorded Confirmed Type metformin 500 mg tablet,extended 500 mg PO BID 03/09/19 11/26/23 History release 24 hr nitroglycerin 0.4 mg sublingual 0.4 mg sublingual UD PRN Chest Pain 09/06/19 11/26/23 History tablet aspirin 81 mg tablet,delayed 81 mg PO DAILY 12/19/20 11/26/23 History release (Adult Low Dose Aspirin) famotidine 40 mg tablet 40 mg PO DAILY 03/06/21 11/26/23 History syringe with needle, safety 1 mL #3 ea 09/08/22 11/26/23 Rx 25 gauge x 1" (Easy Touch FlipLock Syringe) cyanocobalamin (vitamin B-12) 1,000 mcg IM MONTHLY #3 mL 11/04/22 11/26/23 Rx 1,000 mcg/mL injection solution digital therapeutic,GEORGE device #1 ea 01/14/23 11/26/23 Rx Oxygen Home 06/16/23 11/26/23 History ofatumumab 20 mg/0.4 mL 20 mg (0.4 mL) subcut MONTHLY #0.4 06/16/23 11/26/23 Rx subcutaneous pen injector mL (Kesimpta Pen) albuterol sulfate 2.5 mg/3 mL 2.5 mg inhalation Q4H PRN 08/20/23 11/26/23 History (0.083 %) solution for nebulization Shortness Of Breath Or Wheezing albuterol sulfate 90 mcg/actuation 2 puff inhalation Q6H PRN 08/20/23 11/26/23 History aerosol inhaler Shortness Of Breath Or Wheezing bupropion HCl 150 mg 24 hr tablet, 150 mg PO QAM 08/20/23 11/26/23 History extended release cholecalciferol (vitamin D3) 1,250 50,000 unit PO WEEKLY 12 weeks #12 08/20/23 11/26/23 Rx mcg (50,000 unit) capsule caps clobetasol 0.05 % topical cream 1 applic topical BID 08/20/23 11/26/23 History dulaglutide 0.75 mg/0.5 mL 0.75 mg subcut WK 08/20/23 11/26/23 History subcutaneous pen injector (Trulicity) loratadine 10 mg tablet 10 mg PO DAILY 08/20/23 11/26/23 History omeprazole 40 mg capsule,delayed 40 mg PO DAILY 08/20/23 11/26/23 History release ondansetron HCl 4 mg tablet 4 mg PO Q6H PRN Nausea And Vomiting 08/20/23 11/26/23 History sennosides 8.6 mg tablet (senna) 8.6 mg PO DAILY 08/20/23 11/26/23 History solifenacin 5 mg tablet 5 mg PO DAILY 08/20/23 11/26/23 History tacrolimus 0.03 % topical ointment 1 applic topical BID PRN .flare ups 08/20/23 11/26/23 History topiramate 200 mg capsule 200 mg PO DAILY #30 caps 09/23/23 11/26/23 Rx sprinkle,extended release 24 hr armodafinil 150 mg tablet 150 mg PO QAM #30 tabs 10/02/23 11/26/23 Rx rizatriptan 10 mg tablet 10 mg PO DAILY PRN migraine 10/02/23 11/26/23 Rx headache #9 tabs baclofen 20 mg tablet 20 mg PO BID PRN Neck Pain 11/26/23 11/26/23 History estradiol 0.01% (0.1 mg/gram) 1 applic vaginal DAILY PRN itchy 11/26/23 11/26/23 History vaginal cream trazodone 100 mg tablet 200 mg PO QPM 11/26/23 11/26/23 History fluoxetine 20 mg capsule 20 mg PO DAILY #30 caps 12/01/23 Rx metoprolol succinate 50 mg 50 mg PO DAILY #30 tabs 12/01/23 Rx tablet,extended release 24 hr nitrofurantoin 100 mg PO BID 2 days #4 caps 12/01/23 Rx monohydrate/macrocrystals 100 mg capsule (Macrobid) rosuvastatin 20 mg tablet 40 mg (2 x 20 mg) PO DAILY #60 tabs 12/01/23 Rx Hospital Stay Data Consultations 11/26/23 17:26 ED Decision to Admit Stat 11/26/23 19:52 Consult Cardiology Routine 11/28/23 11:00 Consult Neurology Routine Diagnostic Imagining Performed 11/30/23 11:34 MRI Brain [MR brain wo/w con] Routine MRI Cervical [MR cervical spine wo/w con] Routine Pending Results Patient Have Any Pending Studies at Discharge: No Discharge Instructions Given to Patient (Per Discharging Provider) You were admitted for initially chest pain and then multiple other concerns. Your work up was negative for acute heart attack. Your ECHO of your heart was stable. Cardiology reviewed the imaging and determined that you are stable for outpatient follow up and do not require continued hospitalization. Neurology evaluated you given concerns of shaking, tremors, and generally feeling unwell. You underwent MRI which was stable. 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
[2023-12-02] MEDS ORDERED: METOPROLOL SUCC 50MG EXT REL TAB PO SCH (09:00)
[2023-12-14] MEDS ORDERED: CYANOCOBALAMIN 1000 MCG/ML VIAL IM SCH (12:37)
== END 2023-12-01 14:54 | disposition home or self-care (01) | DRG 313 ==
LOC: ED 14:36 → 2E 14:36 → SUATTDRO 17:25 → 2E 19:26 → 2N 11-28 12:35 → SUATTDRO 11-29 07:41 → 2N 11-30 17:40